=== PATIENT | female | born 1945 | race Caucasian/White ===

== ENCOUNTER 2016-09-24 19:33 | Inpatient (IN) | payer OTHER, MEDICARE ==
[~2016-09-24] VITALS: Ht 165.1 cm; Wt 52.6 kg
[~2016-09-24 19:33] MED LIST: ADVAIR 250-501 EACH INH; ALBUTEROL2.5 MG/3 M INH/SOL; ASPIRIN EC325 MG PO; ASPIRIN EC81 M1 PO; Avelox PO; BIAXIN FILMTAB250 MG PO; MULTIVITAMIN1 TA1 PO; PEPCID 20MG TAB20 MG PO; PREDNISONE 20MG20 MG PO; PREDNISONE10 MG PO; PRINIVIL20 M1 PO; SPIRIVA1 PUF INH; THEO-DUR200 MG PO; VENTOLIN HFA18 GM INH; VICODIN5-300 PO; VITAMIN D31000 UNI1 PO; ZANTAC 150MG150 MG PO
--- NOTE | 2016-09-24 19:45 | NUR ---
PT TO TRIAGE FOR MIDSTERNAL PAIN SINCE 1200 TODAY. PT STATES IT CAME ON QUICKLY AND HAS MADE HER SOB WORSE. PT RR 32 AND LABORED. PT WAMR TO THE TOUCH AND CURRENTLY 100.1. PT STATES PAIN IS 4/10. HX OF COPD
--- NOTE | 2016-09-24 19:57 | ED GENERAL ADULT ---
History of Present Illness General Chief Complaint: Dyspnea (COPD, CHF, Other) Stated Complaint: SOB AND CP Source: patient Exam Limitations: no limitations Vital Signs & Intake/Output Vital Signs & Intake/Output Vital Signs Date Time Temp Pulse Resp B/P Pulse O2 O2 Flow FiO2 Ox Delivery Rate 09/25 2151 97.3 96 18 124/59 98 Nasal 2.0L Cannula 09/24 2121 99 Nasal 3.0L Cannula 09/24 2026 95 Nasal 2.0L Cannula 09/24 1944 100.1 110 32 93 Room Air Room Air Allergies Coded Allergies: Penicillins (RASH, HIVES 09/24/16) Reconcile Medications Albuterol Sulfate (Ventolin Hfa) 90 MCG HFA.AER.AD 2 PUF INH PRN COPD ( Reported) Albuterol Sulfate 2.5 MG/3 ML (0.083 %) VIAL.NEB 1 Vial INH/TORI Q4P PRN COPD (Reported) Aspirin (Ecotrin*) 81 MG TABLET.DR 1 TAB PO DAILY HEART/BLOOD (Reported) Atorvastatin Calcium 20 MG TABLET 1 TAB PO DAILY CHOLESTEROL (Reported) Azithromycin 250 MG TABLET 1 TAB PO DAILY PROPHYLAXIS (Reported) 2 the first day followed by 1 for days 2-5 Cholecalciferol (Vitamin D3) (Vitamin D3) 1,000 UNIT CAPSULE 1 CAP PO DAILY SUPPLEMENT (Reported) Fluticasone/Salmeterol (Advair 250-50 Diskus) 250 MCG-50 MCG/DOSE BLST.W.DEV 1 PUF INH BID COPD (Reported) Hydrocodone/Acetaminophen (Vicodin 5-300 MG Tablet) 5 MG-300 MG TABLET 1 TAB PO Q4H PRN PAIN (Reported) Lisinopril (Prinivil) 20 MG TABLET 1 TAB PO DAILY BP (Reported) Prednisone 10 MG TABLET 1 TAB PO EOD PRN STEROID (Reported) Prednisone 10 MG TABLET 5 TAB PO DAILY COPD PLEASE TAKE 5 TABS ON 11/12/14 AND 11/13/14, TAKE 4 TABS ON 11/14/14 AND 11/15/14, TAKE 3 TABS ON 11/16/14 AND 11/17/14, TAKE 2 TABS 11/18/14 AND 11/19/14, TAKE 1 TAB ON 11/20/14 AND 11/21/14 AND THEN STOP Ranitidine (Zantac) 150 MG TABLET 1 TAB PO PRN GI (Reported) Ranitidine (Ranitidine HCl) 150 MG TABLET 1 TAB PO PRN GI (Reported) Tiotropium [employer] (Spiriva) 18 MCG CAP.W.DEV 1 PUF INH DAILY copd Ubidecarenone (Co Q-10) 200 MG CAPSULE 1 CAP PO DAILY SUPPLEMENT (Reported) Vit C/E/Zn/Coppr/Lutein/Zeaxan (Preservision Areds 2 Softgel) 250-200-40 CAPSULE 1 TAB PO DAILY SUPPLEMENT (Reported) Triage Note: PT TO TRIAGE FOR MIDSTERNAL PAIN SINCE 1200 TODAY. PT STATES IT CAME ON QUICKLY AND HAS MADE HER SOB WORSE. PT RR 32 AND LABORED. PT WAMR TO THE TOUCH AND CURRENTLY 100.1. PT STATES PAIN IS 4/10. HX OF COPD Triage Nurses Notes Reviewed? yes Onset: Abrupt Duration: constant Timing: single episode today Severity: moderate Severity Numbers: 6 HPI: Patient is a 70-year-old female with a past medical history of COPD not on home O2, mitral valve prolapse, and cervical spine pain with remote history of cervical fusion, who states that around noon today she woke up from a nap where she thought she slept wrong where she was developing substernal and anterior chest wall pain that was made worse with deep inhalation. Patient states that is difficult for her to catch her breath. Patient also has had chills all day. Patient took a Vicodin with no relief of symptoms prior to arrival. Patient denies any fevers headache arm pain and jaw pain back pain abdominal pain palpitations cough hemoptysis or leg swelling. Patient took 81 mg of aspirin today Patient's adjustment supervisor Dr. Hidalgo auto hiker Dr. Romero and primary care doctor is Dr. Shelton PATIENT DOES TAKE EVERY OTHER DAY PREDNISONE (GABI TORRES) Past History Medical History Any Pertinent Medical History? see below for history Neurological: NONE EENT: cataracts, macular degeneration Cardiovascular: HTN UNSURE OF CHF? Respiratory: emphysema Gastrointestinal: GERD Hepatic: NONE Renal: NONE Musculoskeletal: osteoporosis Psychiatric: NONE Blood Disorders: NONE Cancer(s): NONE ASSESSMENT CONSULTANT/Reproductive: NONE History of MRSA: No History of VRE: No History of CDIFF: No Pneumonia Vaccine: 04/01/15 Influenza Vaccine: 05/02/15 Surgical History Surgical History: non-contributory Psychosocial History Who do you live with Patient/Self Services at Home None What is your primary language Norwegian Family History Family History, If Any: No Known Family History. Hx Contributory? No (GABI TORRES) Review of Systems Review of Systems Constitutional: Reports: see HPI, chills. EENTM: Reports: no symptoms. Respiratory: Reports: see HPI, short of breath. Cardiovascular: Reports: see HPI, chest pain. GI: Reports: no symptoms. Genitourinary: Reports: no symptoms. Musculoskeletal: Reports: no symptoms. Skin: Reports: no symptoms. Neurological/Psychological: Reports: no symptoms. Hematologic/Endocrine: Reports: no symptoms. Immunologic/Allergic: Reports: no symptoms. All Other Systems: Reviewed and Negative (GABI TORRES) Physical Exam Physical Exam General Appearance: no apparent distress, alert Head: atraumatic Comments: Well-developed well-nourished person in no acute distress HEENT: Normal EENT exam, Neck: Supple, no lymphadenopathy, normal range of motion without pain or tenderness Back: Nontender, no CVA tenderness. Cardiovascular: Tachycardia, no murmurs rubs or gallops, normal JVP Respiratory: Chest nontender. No respiratory distress.breath sounds clear to auscultation bilaterally Abdomen: Soft, nontender nondistended, no appreciable organomegaly. Normal bowel sounds. No ascites Extremity: No edema, no calf tenderness to palpation, normal and equal pulses. Neuro: Alert oriented x3, motor sensory normal, Skin: No appreciable rash on exposed skin, skin is warm and dry. Psych: Mood and affect is normal, memory and judgment is normal. Core Measures ACS in differential dx? Yes CVA/TIA Diagnosis: No Severe Sepsis Present: No Septic Shock Present: No (GABI TORRES) Progress Differential Diagnoses I considered the following diagnoses in my evaluation of the patient: [Pulmonary embolism, COPD exacerbation, myocardial infarction, electrolyte abnormality, pneumonia, sepsis, pneumothorax, hemothorax, AAA, aortic dissection,] Plan of Care: Orders Procedure Date/time Status LACTIC ACID 09/24 2256 Complete Admit to inpatient 09/24 2212 Active CTA CHEST-PULMONARY EMBOLISM 09/24 2212 Active Telemetry/Lamps Tester And Inspector 09/24 1956 Active RAPID VIRAL INFLUENZA A 09/24 1956 Complete LOWER RESPIRATORY CULTURE 09/24 1956 Active BLOOD CULTURE 09/24 1956 Active TROPONIN LEVEL 09/24 1956 Complete MAGNESIUM 09/24 1956 Complete LACTIC ACID 09/24 1956 Complete D-DIMER 09/24 1956 Complete COMPREHENSIVE METABOLIC PANEL 09/24 1956 Complete CBC WITHOUT DIFFERENTIAL 09/24 1956 Complete EKG 09/24 1934 Active Current Medications Sig/Keith Start time Last Medication Dose Stop Time Status Admin Sodium Chloride 1,000 ML BOLUS ONE 09/24 2100 CAN (Normal Saline 0.9%) 09/24 5256 Laboratory Tests 09/24/162004: Anion Gap 10, Estimated GFR > 60, BUN/Creatinine Ratio 18.8, Glucose 101 H, Lactic Acid 1.1, Calcium 9.6, Magnesium 1.6, Total Bilirubin 0.8, AST 18, ALT 34 , Alkaline Phosphatase 64, Troponin I < 0.01, Total Protein 6.8, Albumin 4.2, Globulin 2.6, Albumin/Globulin Ratio 1.6, D-Dimer 317 H, CBC w Diff MAN DIFF ORDERED, RBC 4.20, MCV 91.8, MCH 30.0, RDW 13.0, MPV 8.1, Gran % 85.0 H, Lymphocytes % 7.4 L, Monocytes % 5.8, Eosinophils % 1.6, Basophils % 0.2, Absolute Granulocytes 13.8 H, Segmented Neutrophils 86 H, Band Neutrophils 1, Absolute Lymphocytes 1.2, Lymphocytes 5 L, Monocytes 7, Absolute Monocytes 0.9 H, Eosinophils 1, Absolute Eosinophils 0.3, Absolute Basophils 0, Platelet Estimate VERIFIED BY SMEAR, Normocytic RBCs VERIFIED, Normochromic RBCs VERIFIED , PUBS MCHC 32.6 L, Fld Total RBCs Counted 100 09/24/16 1000: Lactic Acid 1.1 Microbiology 09/24 2021 BLOOD: Blood Culture - RECD 09/24 2018 BLOOD: Blood Culture - RECD 09/24 2012 NASOPHARYN: Influenza Virus A & B Rapid Smear - COMP 09/24 1956 LOWER RESP: Respiratory Culture - ORD 09/24 1956 LOWER RESP: Gram Stain - ORD Patient had a 317 result from her d-dimer and due to age adjustment essentially is ruling out pulmonary embolism Patient was administered sublingual nitroglycerin for chest pressure however she had no change in symptoms. It was also noted the patient was wheeled to the bathroom patient stood up and noted to have oxygen saturation 84% room air. Patient was initially ordered IV fluids for noted elevated temperature and white blood cell count however nurses state that patient was 98 Fahrenheit temperature and patient does take chronic prednisone. Discussed hand off with Dr. Romo (GABI TORRES) Diagnostic Imaging: Viewed by Me: Radiology Read. Radiology Impression: no acute abnormality Initial ED EK BPM SINUS TACHYCARDIA Hand-Off Endorsed To: MAKENZIE ROMO MD. Endorsed Time: 2120 Pending: consult, other (MEDICATION) Comments: PATIENT: DEEPALI GUIDO PRESENT AGE: 70 PATIENT ACCOUNT NO: [id number] : 43 LOCATION: [facility] [place] ORDERING PHYSICIAN: GABI BURLESON SERVICE DATE: 09/24/16 EXAM TYPE: RAD - XRY-CHEST XRAY, PA AND LATERAL EXAMINATION: CHEST 2 VIEWS CLINICAL INFORMATION: Chest pain. COMPARISON: Oct, 2014. TECHNIQUE: PA and lateral views of the chest were obtained. FINDINGS: The cardiac silhouette is not enlarged. The mediastinal and hilar contours are unremarkable. There are neither pleural effusions nor pneumothoraces. There are no consolidations. The lungs are hyperinflated. There is evidence of prior vertebroplasty. There is thoracic kyphosis. The osseous structures are stable. IMPRESSION: No evidence for acute disease. Lung hyperinflation. DICTATED BY: HUNTER GONZALEZ MD DATE/TIME DICTATED:09/24/162055 BIT GRINDER:DERECK DATE/TIME TRANSCRIBED:09/24/162055 (GABI TORRES) Departure Departure Disposition: STILL A PATIENT Condition: Stable Clinical Impression Primary Impression: Dyspnea Secondary Impressions: Chest pain, COPD (chronic obstructive pulmonary disease) Referrals: HUY SHELTON MD (PCP/Family) Departure Forms: Customer Survey General Discharge Information (GABI TORRES) Admission Note Spoke With: HUY SHELTON MD Documentation of Exam: Documentation of any treatments & extenuating circumstances including Concerns Regarding Discharge (functional status, medication knowledge or non-compliance, living conditions, etc.) that warrant an admission rather than observation: [ Admit to telemetry for chest pain and exacerbation of COPD. Patient and with appropriate O2 sat dropped to 86% on room air. Follow-up the CT angiogram to rule out PE. Nebulizers, IV steroids, IV antibiotics] PA/HOME HEALTH TRAVEL PT Co-Sign Statement Statement: ED Attending supervision documentation- [X] I saw and evaluated the patient. I have also reviewed all the pertinent lab results and diagnostic results. I agree with the findings and the plan of care as documented in the PA's/HOME HEALTH TRAVEL PT's documentation. [X] I have reviewed the ED Record and agree with the PA's/HOME HEALTH TRAVEL PT's documentation. [] Additions or exceptions (if any) to the PAs/HOME HEALTH TRAVEL PT's note and plan are summarized below: [] (DEMETRIUS TROTTER,MAKENZIE Thompson) Critical Care Note Critical Care Note Critical Care Time: non-applicable (GABI TORRES)
--- NOTE | 2016-09-24 20:05 | NUR ---
IV EST #20 LAC
[2016-09-24] MEDS ORDERED: VICODIN 5-3001 EACH PO (20:08)
[2016-09-24] MEDS ORDERED: RANITIDINE HCL150 MG PO (20:09)
[2016-09-24] MEDS ORDERED: PREDNISONE10 M2 PO (20:09)
--- NOTE | 2016-09-24 20:09 | NUR ---
PT CHANGED INTO GOWN AND PLACED ON MONITOR PT O2 AT ROOM AIR 94% AND PER PT SHE IS ALWAYS AT 97% PT RR IS INCREASED AT 24/MIN AND PT STATES SHE IS SHORT OF BREATH. PT PLACED ON 02 NC 2L
[2016-09-24] MEDS ORDERED: ATORVASTATIN CA20 M1 PO (20:10)
[2016-09-24] MEDS ORDERED: AZITHROMYCIN250 M1 PO (20:10)
--- NOTE | 2016-09-24 20:10 | NUR ---
LABS DRAWN AND SENT TO THE LAB SST [facility]
[2016-09-24] MEDS ORDERED: PRESERVISION A1 EAC1 PO (20:11)
[2016-09-24] MEDS ORDERED: CO Q-10200 MG PO (20:12)
--- NOTE | 2016-09-24 20:19 | NUR ---
IST SET BLOOD CULT SENT TO THE LAB AND DRAWN BY [place]
[2016-09-24 20:20] LABS: ABSOLUTE BASOPHIL COUNT 0 /CUMM (0.0-0.2); ABSOLUTE EOSINOPHIL COUNT 0.3 /CUMM (0.0-0.7); ABSOLUTE GRANULOCYTE CT 13.8 /CUMM (1.4-6.5); ABSOLUTE LYMPH COUNT 1.2 /CUMM (1.2-3.4); ABSOLUTE MONOCYTE COUNT 0.9 /CUMM (0.10-0.60); BASOPHIL % 0.2 % (0.0-2.0); EOSINOPHIL % 1.6 % (0-5); HEMATOCRIT 38.5 % (37-47); MEAN CORPUSCULAR HGB CONC 32.6 G/DL (33.0-37.0); MEAN CORPUSCULAR VOLUME 91.8 FL (81.0-99.0); MEAN PLATELET VOLUME 8.1 FL (7.4-10.4); PLATELET COUNT 258 /CUMM (130-400); WHITE BLOOD CELL COUNT 16.2 /CUMM (4.8-10.8)
--- NOTE | 2016-09-24 20:22 | NUR ---
2ND SET BLOOD CULT SENT TO THE LAB AND DRAWN BY THIS RN
--- NOTE | 2016-09-24 20:24 | NUR ---
BENJY Finley AT BEDSIDE FOR EVALUATION
--- NOTE | 2016-09-24 21:03 | RADIOLOGY REPORT ---
EXAMINATION: CHEST 2 VIEWS CLINICAL INFORMATION: Chest pain. COMPARISON: Oct, 2014. TECHNIQUE: PA and lateral views of the chest were obtained. FINDINGS: The cardiac silhouette is not enlarged. The mediastinal and hilar contours are unremarkable. There are neither pleural effusions nor pneumothoraces. There are no consolidations. The lungs are hyperinflated. There is evidence of prior vertebroplasty. There is thoracic kyphosis. The osseous structures are stable. IMPRESSION: No evidence for acute disease. Lung hyperinflation.
--- NOTE | 2016-09-24 22:43 | NUR ---
PT GOING TO ROOM 185-2
--- NOTE | 2016-09-24 23:01 | NUR ---
PT MEDICATED PER EMAR
--- NOTE | 2016-09-24 23:03 | NUR ---
CALLED TO GIVEN REPORT RN IS NOT AVAILABLE
--- NOTE | 2016-09-24 23:04 | CT SCAN REPORT ---
EXAMINATION: CT ANGIOGRAM OF THE CHEST WITH AND WITHOUT CONTRAST (CT PULMONARY ANGIOGRAM FOR PE) CLINICAL INFORMATION: 70-year-old female patient with shortness of breath and chest pain. History of pulmonary nodules. COMPARISON: CT of the chest on March 2015, September 2015, January 2016, and May 2016. CTA of the chest on 11/05/2014. (No embolism). CT the chest done January 2014, and May 2013. TECHNIQUE: Prior to contrast administration, noncontrast localization images were obtained. Subsequently, multidetector volumetric imaging was performed from the thoracic inlet to below the diaphragms following the administration of 95 mL Optiray 350 intravenous contrast. No contrast reaction reported. Sagittal, coronal, and MIP oblique sagittal reformatted images were obtained on the CT workstation, uploaded to PACS, and reviewed. Total exam dose-length product 222 mGy-cm. FINDINGS: Receiving Checker view again reveals severe emphysema and multiple vertebral plasties the upper thoracic spine. QUALITY OF STUDY/CONTRAST BOLUS: Excellent. PULMONARY ARTERIES: No central or segmental pulmonary emboli. An unusual linear tract is seen paralleling the main pulmonary artery. This is felt to be calcification in the wall of the main pulmonary artery of unknown significance. It was seen on a prior CTA of the chest in 2013. Series 203, image 25. THORACIC AORTA: No aneurysm or dissection. There is severe calcific arteriosclerosis of the thoracic aorta and upper abdominal aorta. LUNG: Again there is severe emphysema involving both lungs predominantly in the upper lobes. No airspace disease is seen. Giant bulla are present. A 4 mm nodule right middle lobe is stable. Series 4, image 294. A punctate calcified nodule seen in the right upper lobe. Series 4, image 235. PLEURA: Calcified pleural plaque is seen in the right apex. Fibrocystic changes and pleural thickening are noted in the left apex. MEDIASTINUM: Normal heart size. No pericardial effusion. No hilar or mediastinal lymphadenopathy. No evidence of septal bowing or right heart strain. There is a small hiatal hernia. CHEST WALL/AXILLA: No axillary or internal mammary lymphadenopathy. OSSEOUS STRUCTURES: Vertebral plasties are noted at T5, T6, T7. There is severe osteoporosis with wedge deformities involving the vertebral bodies at T4 T8 and T9. Severe kyphosis is present. UPPER ABDOMEN: Unremarkable. No reflux of contrast into the hepatic veins to suggest elevated right heart pressures. IMPRESSION: 1. No evidence of pulmonary embolism. 2. Severe extreme bullous emphysema. 3. Partial calcification of the wall of the main pulmonary artery, chronic. VTE: Negative.
--- NOTE | 2016-09-24 23:18 | History & Physical ---
DAVID CASTRO MD 09/24/16 0538: General Information and HPI MD Statement: I have seen and personally examined DEEPALI GUIDO and documented this H&P. The patient is a 70 year old F who presented with a patient stated chief complaint of shortness of breath and chest discomfort. Source of Information: patient, family, old records Exam Limitations: no limitations History of Present Illness: Ms. Guido is a pleasant 70 year old female with PMH emphysema not on home oxygen, HTN, mitral valve prolapse, takotsubo cardiomyopathy, reflux, cataracts, macular degeneration, osteoporosis and cervical spine pain s/p fusion who presents with chief complaint of chest discomfort. As per patient, around 12 PM today she noted the sudden onset of substernal chest discomfort. This worsened gradually throughout the day, was not related to exertion, was not relieved with vicodin and was described as a "hand squeezing my esophagus". She reports this is similar in nature to the muscular cramping she gets when her neck pain is severe. The chest pain radiates occasionally to her back and down her left arm, as if she slept on her left arm for a long period of time. It was not relieved with her vicodin she takes for her neck pain. Associated symptoms include chills and dyspnea that has been present since the onset of her chest discomfort. Patient denies fever, confusion, neurological deficits, palpitations , recentl travel, nausea, vomiting, dysuria or urinary discomfort. Of note, patient reports she has a clot under her appendix when she was 18 and she was placed on coumadin for 1 month subsequently. She has never had further episodes of clotting. Family history is significant for several strokes in both of her maternal and paternal grandmothers. Her father with Parkinson's disease and her mother of liver and brain cancer. Social history is significant for prior tobacco use of close to 60 years; she quit [address] Shelton is her PCP. 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 Hidalgo and her Slots Manager is Dr. Romero. Allergies/Medications Allergies: Coded Allergies: Penicillins (RASH, HIVES 09/24/16) Home Med list Albuterol Sulfate (Ventolin Hfa) 90 MCG HFA.AER.AD 2 PUF INH PRN COPD ( Reported) Albuterol Sulfate 2.5 MG/3 ML (0.083 %) VIAL.NEB 1 Vial INH/TORI Q4P PRN COPD (Reported) Aspirin (Ecotrin*) 81 MG TABLET.DR 1 TAB PO DAILY HEART/BLOOD (Reported) Atorvastatin Calcium 20 MG TABLET 1 TAB PO DAILY CHOLESTEROL (Reported) Azithromycin 250 MG TABLET 1 TAB PO DAILY PROPHYLAXIS (Reported) 2 the first day followed by 1 for days 2-5 Cholecalciferol (Vitamin D3) (Vitamin D3) 1,000 UNIT CAPSULE 1 CAP PO DAILY SUPPLEMENT (Reported) Fluticasone/Salmeterol (Advair 250-50 Diskus) 250 MCG-50 MCG/DOSE BLST.W.DEV 1 PUF INH BID COPD (Reported) Hydrocodone/Acetaminophen (Vicodin 5-300 MG Tablet) 5 MG-300 MG TABLET 1 TAB PO Q4H PRN PAIN (Reported) Lisinopril (Prinivil) 20 MG TABLET 1 TAB PO DAILY BP (Reported) Prednisone 10 MG TABLET 1 TAB PO EOD PRN STEROID (Reported) Prednisone 10 MG TABLET 5 TAB PO DAILY COPD PLEASE TAKE 5 TABS ON 11/12/14 AND 11/13/14, TAKE 4 TABS ON 11/14/14 AND 11/15/14, TAKE 3 TABS ON 11/16/14 AND 11/17/14, TAKE 2 TABS 11/18/14 AND 11/19/14, TAKE 1 TAB ON 11/20/14 AND 11/21/14 AND THEN STOP Ranitidine (Zantac) 150 MG TABLET 1 TAB PO PRN GI (Reported) Ranitidine (Ranitidine HCl) 150 MG TABLET 1 TAB PO PRN GI (Reported) Tiotropium [place] (Spiriva) 18 MCG CAP.W.DEV 1 PUF INH DAILY copd Ubidecarenone (Co Q-10) 200 MG CAPSULE 1 CAP PO DAILY SUPPLEMENT (Reported) Vit C/E/Zn/Coppr/Lutein/Zeaxan (Preservision Areds 2 Softgel) 250-200-40 CAPSULE 1 TAB PO DAILY SUPPLEMENT (Reported) Compliance With Home Meds: GOOD Past History Travel History Traveled to [place] past 21 day No Medical History Neurological: NONE EENT: cataracts, macular degeneration Cardiovascular: HTN UNSURE OF CHF? 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 Psychosocial History Where do you live? Home Who Do You Live With? self Services at Home: None Primary Language: Japanese Smoking Status: Never Smoked ETOH Use: denies use Illicit Drug Use: denies illicit drug use Living Will? no Functional Ability ADLs Independent: dressing, eating, toileting, bathing. Ambulation: independent IADLs Independent: shopping, housework, finances, food prep, telephone, transportation , medication admin. 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 Denies: diaphoresis, fever, malaise, weakness. EENTM: Denies: blurred vision, visual changes, hearing changes, nasal congestion. Cardiovascular: Reports: chest pain. Denies: edema, orthopena, palpitations, syncope. Respiratory: Reports: short of breath. Denies: cough, sputum production, wheezing. GI: Denies: abdominal pain, nausea, vomiting. Genitourinary: Denies: dysuria, frequency, hematuria, pain. Musculoskeletal: Reports: neck pain (Chronic). Skin: Denies: change in skin color, change in hair/nails, rash. Neurological/Psychological: Denies: confusion, headache, tingling. Hematologic/Endocrine: Denies: bruising, bleeding. Immunologic/Allergic: Denies: splenectomy. All Other Systems: Reviewed and Negative Exam & Diagnostic Data Last 24 Hrs of Vital Signs/I&O Vital Signs Date Time Temp Pulse Resp B/P Pulse O2 O2 Flow FiO2 Ox Delivery Rate 09/25 2151 97.3 96 18 124/59 98 Nasal 2.0L Cannula 09/24 2121 99 Nasal 3.0L Cannula 09/24 2026 95 Nasal 2.0L Cannula 09/24 1944 100.1 110 32 93 Room Air Room Air Physical Exam General Appearance Alert, Oriented X3, Cooperative, No Acute Distress Skin No Rashes, No Significant Lesion, Scattered purpura from aspirin use HEENT Atraumatic, PERRLA, EOMI, Mucous Membr. moist/pink Neck Supple, No JVD Lymphatic Cervical nl Cardiovascular Regular Rate, Normal S1, Normal S2, No Murmurs Lungs Decreased air movement bilaterally, occasional wheeze, Thoracic kyphosis Abdomen Normal Bowel Sounds, Soft, No Tenderness Neurological Normal Speech, Strength at 5/5 X4 Ext, Normal Tone Extremities No Clubbing, No Cyanosis, No Edema, Normal Pulses, No Tenderness/ Swelling Vascular Pulses Symmetrical Last 24 Hrs of Labs/Morgan: Laboratory Tests 09/24/162004: Anion Gap 10, Estimated GFR > 60, BUN/Creatinine Ratio 18.8, Glucose 101 H, Lactic Acid 1.1, Calcium 9.6, Magnesium 1.6, Total Bilirubin 0.8, AST 18, ALT 34 , Alkaline Phosphatase 64, Troponin I < 0.01, Total Protein 6.8, Albumin 4.2, Globulin 2.6, Albumin/Globulin Ratio 1.6, D-Dimer 317 H, CBC w Diff MAN DIFF ORDERED, RBC 4.20, MCV 91.8, MCH 30.0, RDW 13.0, MPV 8.1, Gran % 85.0 H, Lymphocytes % 7.4 L, Monocytes % 5.8, Eosinophils % 1.6, Basophils % 0.2, Absolute Granulocytes 13.8 H, Segmented Neutrophils 86 H, Band Neutrophils 1, Absolute Lymphocytes 1.2, Lymphocytes 5 L, Monocytes 7, Absolute Monocytes 0.9 H, Eosinophils 1, Absolute Eosinophils 0.3, Absolute Basophils 0, Platelet Estimate VERIFIED BY SMEAR, Normocytic RBCs VERIFIED, Normochromic RBCs VERIFIED , PUBS MCHC 32.6 L, Fld Total RBCs Counted 100 09/24/16 1000: Lactic Acid 1.1 Microbiology 09/24 2021 BLOOD: Blood Culture - RECD 09/24 2018 BLOOD: Blood Culture - RECD 09/24 2012 NASOPHARYN: Influenza Virus A & B Rapid Smear - COMP 09/24 1956 LOWER RESP: Respiratory Culture - ORD 09/24 1956 LOWER RESP: Gram Stain - ORD Diagnostic Data EKG Results Sinus tachycardia, HR 110. CXR Results No evidence for acute disease. Lung hyperinflation. Other Results Chest CTA: IMPRESSION: 1. No evidence of pulmonary embolism. 2. Severe extreme bullous emphysema. 3. Partial calcification of the wall of the main pulmonary artery, chronic. VTE: Negative. Assessment/Plan Assessment: Ms. Guido is a pleasant 70 year old female with PMH emphysema not on home oxygen, HTN, mitral valve prolapse, takotsubo cardiomyopathy, reflux, cataracts, macular degeneration, osteoporosis and cervical spine pain s/p fusion who presents with chief complaint of chest discomfort. This chest discomfort is substernal, occasionally radiates to the back and left arm, is not worsened by exertion and associated with chills and dyspnea. In the ED: Vital signs showed T 100.1, HR 110, RR 32, BP 124/59 and O2 saturation of 93% on room air. Labs were significant for WBC 16.2, 85% granulocytes, 1 band, Glu 101, Lactic acid 1.1, troponin <0.01 and DDimer 317. CXR showed no acute disease, lung hyperinflation. Chest CTA showed no PE, severe extreme bullous emphysema, partial calcification of the wall of the main pulmonary artery (chronic) and no VTE. Patient is admitted to the telemetry floor and the following is the management: 1. Chest pain * Rule out ACS vs pleuritic chest pain * Continuous telemetry monitoring * Cardio consult with Dr. Hidalgo in Am * Trend troponins/EKG at 2 AM and 8 AM * Discuss with cardiology need for echo if there is no recent echocardiogram done as an outpatient * Continue ASA 81 mg PO daily 2. Leukocytosis * Secondary to chronic prednisone use vs. infectious etiology vs. reactive * Patient given ceftriaxone and azithromycin in the ED * Follow up blood, urine and lower respiratory cultures * CXR and Chest CTA negative for pneumonia/developing pneumonia * Rapid flu negative * Hold antibiotics for now * Monitor CBC and if patient becomes febrile, start antibiotics * Follow up UA to continue infectious workup 3. Acute on chronic hypoxic respiratory failure * Patient noted to drop her O2 saturations to 82% on ambulation to the bathroom while in the ED * ?COPD exacerbation vs cardiac pathology * PE ruled out with negative CTA * Continuous O2 via nasal cannula with goal O2 >90% * Patient received albuterol, atrovent and 125 mg IV solumedrol in the ED * Continue IV methylprednisolone 40 mg Q12 for now * TR nebs 4. HTN, HLD * Vital signs Q shift * Continue lisinopril 20 mg PO daily * Continue lipitor 20 mg PO daily FULL CODE DVTP: SC lovenox Heart Healthy Diet Mild pain pathway As Ranked By This Provider Problem List: 1. Chest pain 2. Dyspnea 3. Hypoxia 4. Leukocytosis 5. Hypertension Core Measures/Miscellaneous Acute Coronary Syndrome ACS Diagnosis: No Cerebrovascular Accident CVA/TIA Diagnosis: No Congestive Heart Failure CHF Diagnosis: No Venous Thromboembolism VTE Risk Factors: Acute medical illness, Age > 40 No Mech VTE prophylaxis d/t: No contraindications No VTE Pharm Prophylaxis d/t: No contraindications VTE Diagnosis: No VTE Type: NONE VTE Confirmed by (Test): NONE Severe Sepsis Severe Sepsis Present: No Septic Shock Septic Shock Present: No Miscellaneous Documentation Attending Case Discussed With: HUY SHELTON MD Primary Care Physician: HUY SHELTON MD Patient sees these Specialists Dr. Hidalgo, cardiology Dr. Romero, pulmonology Level of Patient Care: Telemetry LAUREN TROTTER,[facility] 09/25/16 0027: Resident Review Statement Resident Statement: examined this patient, discussed with market research intern, agreed with market research intern Other Findings: 70 y/o M with PMH of COPD not on oxygen, MVP, cervical stenosis s/p fusion, HTN, Osteoporosis, Takatsubo's cardiomyopathy, Osteoporosis who presents to the ED with complaints of sudden onset midsternal chest pressure and shortness of breath this afternoon. According to the patient, she woke up from her afternoon nap, and started to have chest pressure radiating to the left side of the back, associated with shortness of breath. She does not endorse any increase in chest pressure with exertion etc. At the time of arrival in the ED, it was 4/10 and has now disappeared. She also reports having a 'clot' under he appendix, when she was 18 and she was put on Coumadin for a month afterward. She does not report recent decreased in activity, URI, sick contacts, COPD exacerbation, urinary or bowel complaints. Problem List: 1) Chest pain with SOB 2/2 possible ACS vs pleuritic chest pain 2) Leukocytosis 2/2 PNA vs COPD exacerbation vs chronic Prednisone use 3) Severe Emphysema on prophylactic Azithromycin and Prednisone EOD 4) Hypertension 5) Hyperlipidemia 6) H/O MVP Plan: * Admit to telemetry * Patient has already received Solumedrol, Ceftriaxone and Azithromycin in the ED. CTA was negative for PE, CXR was negative for any acute pathology. * Trend trops and EKG * Check U/A * Continue Solumedrol 40 mg Q12 for now and reasses in AM. * Hold Antibiotics for now was the patient does not have any other signs of infection. * Hold home Azithromycin and Prednisone. * TRC/Nebs * Continue other home medications. * Pulm consult in AM * Cardio consult in AM * DVT PPx: SubQ Lovenox * Pain Pathway: Tylenol PRN * Code Status: Full Code. She was previously DNI. She has been told that DNR and DNI go hand in hand. She chooses to be FC for now, and discuss it with Dr. Romero in the AM HUY SHELTON MD 09/25/16 1411: Attending MD Review Statement Attending Statement Attending MD Statement: examined this patient, agreed w/resident/PA/[facility], discussed with family, reviewed EMR data (avail), discussed with case mgmt, reviewed images, amended to note Attending Assessment/Plan: Problems: -Substernal chest pain -History of esophageal dysmotility -History of mild myocardial ischemia -History of Takotsubo cardiomyopathy -Steroid-dependent COPD -Osteoporosis -History of thoracic compression fractures Plan: -Admit telemetry -Serial troponin and EKG -Supplemental oxygen -Parenteral steroids -TRC and nebs -Blood and sputum cultures -Initial antibiotics for community-acquired pneumonia -Continue maintenance medications -Pulmonary consultation - Jayy Romero MD -Cardiology consultation - Monroe Hidalgo MD
--- NOTE | 2016-09-24 23:34 | NUR ---
ATTEMPTED TO CALL REPORT. RN TO CALL BACK
--- NOTE | 2016-09-25 00:11 | NUR ---
REPORT GIVEN TO ADRIANNA WATERS.
[2016-09-25 00:49] VITALS: BP 142/74
--- NOTE | 2016-09-25 04:32 | NUR ---
PT ADMITED FROM ER VIA STRETCHER. A/O X 3. INDPENDENT AMBULATION WITH STEADY GAIT. NSR ON MONITOR. 2 L OXYGEN. SKIN CDI. DENIES ANY PAIN OR CARDIAC DISTRESS. WILL CONTINUE TO MONITOR.
--- NOTE | 2016-09-25 08:54 | Cons- Pulmonary ---
General Information and HPI Consulting Request Date of Consult: 09/25/16 Requested By: med team History of Present Illness: Ms. Kelley is a pleasant 70 year old female with PMH emphysema not on home oxygen, previous pna, HTN, mitral valve prolapse, takotsubo cardiomyopathy, reflux, cataracts, macular degeneration, osteoporosis and cervical spine pain s/ p fusion who presents with chief complaint of chest discomfort. As per patient, around 12 PM yesterday she noted the sudden onset of substernal chest discomfort. This worsened gradually throughout the day, was not related to exertion, was not relieved with vicodin and was described as a "hand squeezing my esophagus". She reports this is similar in nature to the muscular cramping she gets when her neck pain is severe. The chest pain radiates occasionally to her back and down her left arm, as if she slept on her left arm for a long period of time. It was not relieved with her vicodin she takes for her neck pain. Associated symptoms include chills and dyspnea that has been present since the onset of her chest discomfort. Patient denies fever, confusion, neurological deficits, palpitations , recentl travel, nausea, vomiting, dysuria or urinary discomfort. She has never had further episodes of clotting. Family history is significant for several strokes in both of her maternal and paternal grandmothers. Her father with Parkinson's disease and her mother of liver and brain cancer. Social history is significant for prior tobacco use of close to 60 years ; she quit [address] Winter is her PCP Allergies/Medications Allergies: Coded Allergies: Penicillins (RASH, HIVES 09/24/16) Home Med List: Albuterol Sulfate (Ventolin Hfa) 90 MCG HFA.AER.AD 2 PUF INH PRN COPD ( Reported) Albuterol Sulfate 2.5 MG/3 ML (0.083 %) VIAL.NEB 1 Vial INH/TORI Q4P PRN COPD (Reported) Aspirin (Ecotrin*) 81 MG TABLET.DR 1 TAB PO DAILY HEART/BLOOD (Reported) Atorvastatin Calcium 20 MG TABLET 1 TAB PO DAILY CHOLESTEROL (Reported) Azithromycin 250 MG TABLET 1 TAB PO DAILY PROPHYLAXIS (Reported) 2 the first day followed by 1 for days 2-5 Cholecalciferol (Vitamin D3) (Vitamin D3) 1,000 UNIT CAPSULE 1 CAP PO DAILY SUPPLEMENT (Reported) Fluticasone/Salmeterol (Advair 250-50 Diskus) 250 MCG-50 MCG/DOSE BLST.W.DEV 1 PUF INH BID COPD (Reported) Hydrocodone/Acetaminophen (Vicodin 5-300 MG Tablet) 5 MG-300 MG TABLET 1 TAB PO Q4H PRN PAIN (Reported) Lisinopril (Prinivil) 20 MG TABLET 1 TAB PO DAILY BP (Reported) Prednisone 10 MG TABLET 1 TAB PO EOD PRN STEROID (Reported) Prednisone 10 MG TABLET 5 TAB PO DAILY COPD PLEASE TAKE 5 TABS ON 11/12/14 AND 11/13/14, TAKE 4 TABS ON 11/14/14 AND 11/15/14, TAKE 3 TABS ON 11/16/14 AND 11/17/14, TAKE 2 TABS 11/18/14 AND 11/19/14, TAKE 1 TAB ON 11/20/14 AND 11/21/14 AND THEN STOP Ranitidine (Zantac) 150 MG TABLET 1 TAB PO PRN GI (Reported) Ranitidine (Ranitidine HCl) 150 MG TABLET 1 TAB PO PRN GI (Reported) Tiotropium [place] (Spiriva) 18 MCG CAP.W.DEV 1 PUF INH DAILY copd Ubidecarenone (Co Q-10) 200 MG CAPSULE 1 CAP PO DAILY SUPPLEMENT (Reported) Vit C/E/Zn/Coppr/Lutein/Zeaxan (Preservision Areds 2 Softgel) 250-200-40 CAPSULE 1 TAB PO DAILY SUPPLEMENT (Reported) Review of Systems Comments Review of Systems Constitutional: Reports: chills. Denies: diaphoresis, fever, malaise, weakness. EENTM: Denies: blurred vision, visual changes, hearing changes, nasal congestion. Cardiovascular: Reports: chest pain. Denies: edema, orthopena, palpitations, syncope. Respiratory: Reports: short of breath. Denies: cough, sputum production, wheezing. GI: Denies: abdominal pain, nausea, vomiting. Genitourinary: Denies: dysuria, frequency, hematuria, pain. Musculoskeletal: Reports: neck pain (Chronic). Skin: Denies: change in skin color, change in hair/nails, rash. Neurological/Psychological: Denies: confusion, headache, tingling. Hematologic/Endocrine: Denies: bruising, bleeding. Immunologic/Allergic: Denies: splenectomy. All Other Systems: Reviewed and Negative Past History Travel History Traveled to [place] past 21 day No Medical History Neurological: NONE EENT: cataracts, macular degeneration Cardiovascular: myocardial infarction, UNSURE OF CHF? 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 Psychosocial History Where Do You Live? Home Who Do You Live With? self Services at Home: None Primary Language: Kyrgyz Smoking Status: Former Smoker ETOH Use: denies use Illicit Drug Use: denies illicit drug use Living Will? no Functional Ability ADLs Independent: dressing, eating, toileting, bathing. Ambulation: independent IADLs Independent: shopping, housework, finances, food prep, telephone, transportation , medication admin. 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 Exam & Diagnostic Data Last 24 Hrs of Vital Signs/I&O Vital Signs Date Time Temp Pulse Resp B/P Pulse O2 O2 Flow FiO2 Ox Delivery Rate 09/25 0106 Nasal 2.0L Cannula 09/25 0049 98.8 85 22 142/74 95 Nasal Cannula 09/24 2351 98.0 89 18 130/61 97 Nasal 2.0L Cannula 09/242 97.3 96 18 124/59 98 Nasal 2.0L Cannula 09/242 99 Nasal 3.0L Cannula 09/24 2026 95 Nasal 2.0L Cannula 09/24 1945 100.1 110 32 93 Room Air Room Air Intake & Output 09/25 1600 09/25 0800 09/25 0000 Intake Total 120 Output Total 300 Balance -180 Intake, Oral 120 Output, Urine 300 Patient 116 lb Weight Last 48 Hrs of Labs/Morgan: Laboratory Tests 09/25/16 0835: Troponin I Pending 09/25/16 0835: Sodium Pending, Potassium Pending, Chloride Pending, Carbon Dioxide Pending, Anion Gap Pending, BUN Pending, Creatinine Pending, BUN/Creatinine Ratio Pending , CBC w Diff Pending, WBC Pending, RBC Pending, Hgb Pending, Hct Pending, MCV Pending, MCH Pending, RDW Pending, Plt Count Pending, MPV Pending, PUBS MCHC Pending 09/25/16 0200: Troponin I < 0.01 09/24/162004: Anion Gap 10, Estimated GFR > 60, BUN/Creatinine Ratio 18.8, Glucose 101 H, Lactic Acid 1.1, Calcium 9.6, Magnesium 1.6, Total Bilirubin 0.8, AST 18, ALT 34 , Alkaline Phosphatase 64, Troponin I < 0.01, Total Protein 6.8, Albumin 4.2, Globulin 2.6, Albumin/Globulin Ratio 1.6, D-Dimer 317 H, CBC w Diff MAN DIFF ORDERED, RBC 4.20, MCV 91.8, MCH 30.0, RDW 13.0, MPV 8.1, Gran % 85.0 H, Lymphocytes % 7.4 L, Monocytes % 5.8, Eosinophils % 1.6, Basophils % 0.2, Absolute Granulocytes 13.8 H, Segmented Neutrophils 86 H, Band Neutrophils 1, Absolute Lymphocytes 1.2, Lymphocytes 5 L, Monocytes 7, Absolute Monocytes 0.9 H, Eosinophils 1, Absolute Eosinophils 0.3, Absolute Basophils 0, Platelet Estimate VERIFIED BY SMEAR, Normocytic RBCs VERIFIED, Normochromic RBCs VERIFIED , PUBS MCHC 32.6 L, Fld Total RBCs Counted 100 09/24/16 1000: Lactic Acid 1.1 Microbiology 09/24 2012 NASOPHARYN: Influenza Virus A & B Rapid Smear - COMP Assessment/Plan Impression/Plan: Physical Exam General Appearance Alert, Oriented X3, Cooperative, No Acute Distress Skin No Rashes, No Significant Lesion, Scattered purpura from aspirin use HEENT Atraumatic, PERRLA, EOMI, Mucous Membr. moist/pink Neck Supple, No JVD Lymphatic Cervical nl Cardiovascular Regular Rate, Normal S1, Normal S2, No Murmurs Lungs Decreased air movement bilaterally, occasional wheeze, Thoracic kyphosis Abdomen Normal Bowel Sounds, Soft, No Tenderness Neurological Normal Speech, Strength at 5/5 X4 Ext, Normal Tone Extremities No Clubbing, No Cyanosis, No Edema, Normal Pulses, No Tenderness/ Swelling Vascular Pulses Symmetrical SIGNIFICANT DATA CTA of the chest yesterday reviewed which showed no pulmonary embolism severe emphysema partial calcification in the wall of the main pulmonary artery which appears chronic giant bullous disease noted Chest x-ray showed no other abnormality Previous CT done few weeks ago showed previous abnormalities patient has had has improved known significant new lung nodules IMPRESSION This is a lady with very severe COPD with bullous emphysema, osteoporosis with previous multiple compression fractures, hypertension, hyperlipidemia, chronic esophageal dysmotility/dysphagia, now comes in with * Chest discomfort which is now resolved probably related to esophageal in origin no clinical evidence suggestive of venous thromboembolism. Patient is now being ruled out for any acute coronary syndrome and so far she does not seem to have any evidence suggestive of active coronary ischemia and a troponin has been normal. * She has very severe COPD with no no clinical evidence suggestive of acute COPD exacerbation * Probable esophageal dysmotility * Previous lung nodules which seems to have resolved Recommendation * Discontinue intravenous steroids and continue her home steroid regimen patient was on prednisone every other day * Switch her to proton pump inhibitor * If she continues to have symptoms please order a barium esophagogram not modified barium swallow * Rule out myocardial infarction * Hold further antibiotics * Continue oxygen * Continue other medications We'll follow closely Consult Acknowledgment - Thank you for your consult request.
[2016-09-25 09:07] VITALS: BP 118/70
[2016-09-25 09:42] LABS: ABSOLUTE BASOPHIL COUNT 0 /CUMM (0.0-0.2); ABSOLUTE EOSINOPHIL COUNT 0 /CUMM (0.0-0.7); ABSOLUTE GRANULOCYTE CT 9.7 /CUMM (1.4-6.5); ABSOLUTE LYMPH COUNT 0.4 /CUMM (1.2-3.4); ABSOLUTE MONOCYTE COUNT 0.1 /CUMM (0.10-0.60); BASOPHIL % 0 % (0.0-2.0); EOSINOPHIL % 0 % (0-5); GRANULOCYTE % 95.1 % (42.2-75.2); HEMATOCRIT 36.5 % (37-47); MEAN CORPUSCULAR HGB 30.7 PG (27.0-31.0); MEAN CORPUSCULAR HGB CONC 33.3 G/DL (33.0-37.0); MEAN PLATELET VOLUME 8.4 FL (7.4-10.4); PLATELET COUNT 264 /CUMM (130-400); RBC DISTRIBUTION WIDTH 13.2 % (11.5-14.5); RED BLOOD CELL CT 3.96 /CUMM (4.20-5.40)
[2016-09-25 10:07] LABS: WHITE BLOOD CELL COUNT 10.2 /CUMM (4.8-10.8)
--- NOTE | 2016-09-25 12:56 | Cons- Cardiology ---
General Information and HPI Consulting Request Date of Consult: 09/25/16 Requested By: HUY SHELTON MD Reason for Consult: Chest pain History of Present Illness: The patient is a 70-year-old female with history of severe COPD, moderate to severe mitral regurgitation, severe COPD, prior history of takotsubo cardiomyopathy with recovery of ejection fraction who follows up with me in the office for her cardiovascular issues. She presents with complaint of substernal chest discomfort, which she describes as a sensation of a hand squeezing her esophagus. She has similar pain typically every 2 weeks, and it has responded to Vicodin in the past. In this case she took Vicodin with no relief. The chest discomfort is a 6 out of 10 in severity. She describes it as similar to the muscle cramps she feels when her neck pain is severe. The discomfort radiates at times across her chest into the left arm. She also notes recent discomfort with swallowing which has been a problem for her in the past. In 2013 she had an episode of takotsubo cardiomyopathy with subsequent recovery of ejection fraction. A dobutamine MIBI stress test was performed which showed mild ischemia. This was managed without catheterization because of the mild degree of ischemia and the lack of typical symptoms. Allergies/Medications Allergies: Coded Allergies: Penicillins (RASH, HIVES 09/24/16) Home Med List: Albuterol Sulfate (Ventolin Hfa) 90 MCG HFA.AER.AD 2 PUF INH PRN COPD ( Reported) Albuterol Sulfate 2.5 MG/3 ML (0.083 %) VIAL.NEB 1 Vial INH/TORI Q4P PRN COPD (Reported) Aspirin (Ecotrin*) 81 MG TABLET.DR 1 TAB PO DAILY HEART/BLOOD (Reported) Atorvastatin Calcium 20 MG TABLET 1 TAB PO DAILY CHOLESTEROL (Reported) Azithromycin 250 MG TABLET 1 TAB PO DAILY PROPHYLAXIS (Reported) 2 the first day followed by 1 for days 2-5 Cholecalciferol (Vitamin D3) (Vitamin D3) 1,000 UNIT CAPSULE 1 CAP PO DAILY SUPPLEMENT (Reported) Fluticasone/Salmeterol (Advair 250-50 Diskus) 250 MCG-50 MCG/DOSE BLST.W.DEV 1 PUF INH BID COPD (Reported) Hydrocodone/Acetaminophen (Vicodin 5-300 MG Tablet) 5 MG-300 MG TABLET 1 TAB PO Q4H PRN PAIN (Reported) Lisinopril (Prinivil) 20 MG TABLET 1 TAB PO DAILY BP (Reported) Prednisone 10 MG TABLET 1 TAB PO EOD PRN STEROID (Reported) Prednisone 10 MG TABLET 5 TAB PO DAILY COPD PLEASE TAKE 5 TABS ON 11/12/14 AND 11/13/14, TAKE 4 TABS ON 11/14/14 AND 11/15/14, TAKE 3 TABS ON 11/16/14 AND 11/17/14, TAKE 2 TABS 11/18/14 AND 11/19/14, TAKE 1 TAB ON 11/20/14 AND 11/21/14 AND THEN STOP Ranitidine (Zantac) 150 MG TABLET 1 TAB PO PRN GI (Reported) Ranitidine (Ranitidine HCl) 150 MG TABLET 1 TAB PO PRN GI (Reported) Tiotropium Howard (Spiriva) 18 MCG CAP.W.DEV 1 PUF INH DAILY copd Ubidecarenone (Co Q-10) 200 MG CAPSULE 1 CAP PO DAILY SUPPLEMENT (Reported) Vit C/E/Zn/Coppr/Lutein/Zeaxan (Preservision Areds 2 Softgel) 250-200-40 CAPSULE 1 TAB PO DAILY SUPPLEMENT (Reported) Current Medications: Current Medications Sig/Keith Start time Last Medication Dose Route Stop Time Status Admin Acetaminophen 650 MG Q6P PRN 09/240 AC PO Acetaminophen 0 .STK-MED ONE 09/24 2110 DC PO Acetaminophen 650 MG ONCE ONE 09/24 2029 DC 09/24 PO 09/24 Albuterol Sulfate 0 .STK-MED ONE 09/24 2118 DC INH Albuterol Sulfate 3 ML ONCE ONE 09/24 2029 DC 09/24 INH 09/24 Aspirin 0 .STK-MED ONE 09/24 2110 DC PO Aspirin 81 MG ONCE ONE 09/24 2029 DC 09/24 PO 09/24 Aspirin 81 MG ONCE ONE 09/24 2029 DC 09/24 PO 09/24 Aspirin 81 MG ONCE ONE 09/24 2029 DC 09/24 PO 09/24 Aspirin Buffered 81 MG DAILY 09/25 1000 AC 09/25 PO 0935 Atorvastatin Calcium 20 MG 1700 09/25 1700 AC PO Azithromycin 500 MG ONCE ONE 09/24 2215 DC 09/24 Sodium Chloride 250 ML IV 09/24 2314 2301 Ceftriaxone Sodium 0 .STK-MED ONE 09/24 225 DC .ROUTE Ceftriaxone Sodium 1,000 MG ONCE ONE 09/24 2215 DC 09/24 IV 09/25 2215 2301 Cholecalciferol 1,000 IU DAILY 09/25 1000 AC 09/25 PO 0935 Enoxaparin Sodium 40 MG DAILY 09/25 1000 AC 09/25 SC 0934 Famotidine 20 MG DAILY 09/25 1000 DC 09/25 PO 0935 Ipratropium [place] 2.5 ML ONCE ONE 09/24 2030 DC 09/24 INH 09/24 Lisinopril 20 MG DAILY 09/25 1000 AC 09/25 PO 0935 Methylprednisolone 40 MG Q12 09/25 1000 DC 09/25 IV 0934 Methylprednisolone 0 .STK-MED ONE 09/24 2134 DC .ROUTE Methylprednisolone 125 MG ONCE ONE 09/24 2129 DC 09/24 IV 09/24 Nitroglycerin 0.4 MG ONCE ONE 09/24 2030 DC 09/24 SL 09/24 2030 2100 Omeprazole 40 MG DAILY AC 09/26 0700 AC PO Ondansetron HCl 0 .STK-MED ONE 09/25 0033 DC .ROUTE Ondansetron HCl 0 .STK-MED ONE 09/25 0033 DC PO Sodium Chloride 1,000 ML BOLUS ONE 09/24 2100 CAN IV 09/24 2258 Review of Systems Review of Systems: No fever. No chills. No rash. No tremor. No melena. All other systems were reviewed, and were noted to be negative. Past History Travel History Traveled to [place] past 21 day No Medical History Neurological: NONE EENT: cataracts, macular degeneration Cardiovascular: myocardial infarction, UNSURE OF CHF? 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 Family History Reviewed? Family history was reviewed with the patient, and there are no issues relevant to the current admission Psychosocial History Where Do You Live? Home Who Do You Live With? self Services at Home: None Primary Language: Tajik Smoking Status: Former Smoker ETOH Use: denies use Illicit Drug Use: denies illicit drug use Living Will? no Functional Ability ADLs Independent: dressing, eating, toileting, bathing. Ambulation: independent IADLs Independent: shopping, housework, finances, food prep, telephone, transportation , medication admin. 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 Exam & Diagnostic Data Vital Signs and I&O Vital Signs Date Time Temp Pulse Resp B/P Pulse O2 O2 Flow FiO2 Ox Delivery Rate 09/25 0935 120/72 09/25 0907 97.7 80 20 118/70 97 Nasal 2.0L Cannula 09/25 0847 96 Nasal 2.0L Cannula 09/25 0106 Nasal 2.0L Cannula 09/25 0049 98.8 85 22 142/74 95 Nasal Cannula 09/24 2351 98.0 89 18 130/61 97 Nasal 2.0L Cannula 09/24 2152 97.3 96 18 124/59 98 Nasal 2.0L Cannula 09/24 2121 99 Nasal 3.0L Cannula 09/24 2026 95 Nasal 2.0L Cannula 09/24 194 100.1 110 32 93 Room Air Room Air Intake & Output 09/25 1600 09/25 0800 09/25 0000 09/24 1600 09/24 0800 09/24 0000 Intake Total 120 Output Total 300 Balance -180 Intake, Oral 120 Output, Urine 300 Patient 116 lb Weight Physical Exam: Gen: The patient is in no acute distress HEENT: Normal nose, ears, and oropharynx. Pupils equal bilaterally. Conjunctiva normal. Neck: Supple with no JVD, no masses, and no thyromegaly Lungs: Scattered wheezes with normal respiratory effort Heart: RRR, S1, S2, 2/6 systolic murmur at the apex. No peripheral edema, 2+ pulses in the lower extremities bilaterally Abdomen: Soft, nontender, no masses. No hepatomegaly. No splenomegaly Extremities: No clubbing or cyanosis. Normal muscle strength in the upper and lower extremities Skin: Normal skin turgor with no skin ulcers or lesions noted. Neuro: Cranial nerves intact. Sensation intact Psych: Alert and oriented 3 with appropriate affect Labs/Morgan Results: Laboratory Tests 09/25 09/25 0835 0835 Chemistry Sodium (137 - 145 mmol/L) 136 L Cancelled Potassium (3.5 - 5.1 mmol/L) 4.3 Cancelled Chloride (98 - 107 mmol/L) 102 Cancelled Carbon Dioxide (22 - 30 mmol/L) 26 Cancelled Anion Gap (5 - 16) 9 Cancelled BUN (7 - 17 mg/dL) 18 H Cancelled Creatinine (0.5 - 1.0 mg/dL) 0.8 Cancelled Estimated GFR (>60 ml/min) > 60 BUN/Creatinine Ratio (7 - 25 %) 22.5 Cancelled Troponin I (< 0.11 ng/ml) < 0.01 Hematology CBC w Diff NO MAN DIFF REQ WBC (4.8 - 10.8 /CUMM) 10.2 RBC (4.20 - 5.40 /CUMM) 3.96 L Hgb (12.0 - 16.0 G/DL) 12.1 Hct (37 - 47 %) 36.5 L MCV (81.0 - 99.0 FL) 92.0 MCH (27.0 - 31.0 PG) 30.7 RDW (11.5 - 14.5 %) 13.2 Plt Count (130 - 400 /CUMM) 264 MPV (7.4 - 10.4 FL) 8.4 Gran % (42.2 - 75.2 %) 95.1 H Lymphocytes % (20.5 - 51.1 %) 4.2 L Monocytes % (1.7 - 9.3 %) 0.7 L Eosinophils % (0 - 5 %) 0 Basophils % (0.0 - 2.0 %) 0 L Absolute Granulocytes (1.4 - 6.5 /CUMM) 9.7 H Absolute Lymphocytes (1.2 - 3.4 /CUMM) 0.4 L Absolute Monocytes (0.10 - 0.60 /CUMM) 0.1 L Absolute Eosinophils (0.0 - 0.7 /CUMM) 0 Absolute Basophils (0.0 - 0.2 /CUMM) 0 PUBS MCHC (33.0 - 37.0 G/DL) 33.3 09/25 09/25 0810 0200 Chemistry Troponin I (< 0.11 ng/ml) < 0.01 Urines Urine Color (YEL,AMB,STR) YEL Urine Clarity (CLEAR) CLEAR Urine pH (5.0 - 8.0) 6.5 Ur Specific [place] (1.001 - 1.035) 1.010 Urine Protein (NEG,<30 MG/DL) NEG Urine Ketones (NEG) NEG Urine Nitrite (NEG) NEG Urine Bilirubin (NEG) NEG Urine Urobilinogen (0.1 - 1.0 EU/dl) 0.2 Ur Leukocyte Esterase (NEG) NEG Ur Microscopic EXAM NOT REQUIRED Urine Hemoglobin (NEG) NEG Urine Glucose (N MG/DL) NEG 09/24 UNK Chemistry Sodium (137 - 145 mmol/L) 137 Potassium (3.5 - 5.1 mmol/L) 4.0 Chloride (98 - 107 mmol/L) 99 Carbon Dioxide (22 - 30 mmol/L) 29 Anion Gap (5 - 16) 10 BUN (7 - 17 mg/dL) 15 Creatinine (0.5 - 1.0 mg/dL) 0.8 Estimated GFR (>60 ml/min) > 60 BUN/Creatinine Ratio (7 - 25 %) 18.8 Glucose (65 - 99 mg/dL) 101 H Lactic Acid (0.7 - 2.1 mmol/L) 1.1 1.1 Calcium (8.4 - 10.2 mg/dL) 9.6 Magnesium (1.6 - 2.3 mg/dL) 1.6 Total Bilirubin (0.2 - 1.3 mg/dL) 0.8 AST (14 - 36 U/L) 18 ALT (9 - 52 U/L) 34 Alkaline Phosphatase (<127 U/L) 64 Troponin I (< 0.11 ng/ml) < 0.01 Total Protein (6.3 - 8.2 g/dL) 6.8 Albumin (3.5 - 5.0 g/dL) 4.2 Globulin (1.9 - 4.2 gm/dL) 2.6 Albumin/Globulin Ratio (1.1 - 2.2 %) 1.6 Coagulation D-Dimer (70 - 232 ng/ml) 317 H Hematology CBC w Diff MAN DIFF ORDERED WBC (4.8 - 10.8 /CUMM) 16.2 H RBC (4.20 - 5.40 /CUMM) 4.20 Hgb (12.0 - 16.0 G/DL) 12.6 Hct (37 - 47 %) 38.5 MCV (81.0 - 99.0 FL) 91.8 MCH (27.0 - 31.0 PG) 30.0 RDW (11.5 - 14.5 %) 13.0 Plt Count (130 - 400 /CUMM) 258 MPV (7.4 - 10.4 FL) 8.1 Gran % (42.2 - 75.2 %) 85.0 H Lymphocytes % (20.5 - 51.1 %) 7.4 L Monocytes % (1.7 - 9.3 %) 5.8 Eosinophils % (0 - 5 %) 1.6 Basophils % (0.0 - 2.0 %) 0.2 Absolute Granulocytes (1.4 - 6.5 /CUMM) 13.8 H Segmented Neutrophils (42.2 - 75.2 %) 86 H Band Neutrophils (0.0 - 5.0 %) 1 Absolute Lymphocytes (1.2 - 3.4 /CUMM) 1.2 Lymphocytes (20.5 - 51.1 %) 5 L Monocytes (1.7 - 9.3 %) 7 Absolute Monocytes (0.10 - 0.60 /CUMM) 0.9 H Eosinophils (0 - 5.0 %) 1 Absolute Eosinophils (0.0 - 0.7 /CUMM) 0.3 Absolute Basophils (0.0 - 0.2 /CUMM) 0 Platelet Estimate (ADEQUATE) VERIFIED BY SMEAR Normocytic RBCs VERIFIED Normochromic RBCs VERIFIED PUBS MCHC (33.0 - 37.0 G/DL) 32.6 L Other Body Source Fld Total RBCs Counted (%) 100 Diagnostic Data EKG Results EKG tracing is independently reviewed, and reveals no sinus rhythm at 89 with borderline T-wave abnormality involving the inferior leads. There is no change compared to prior EKGs CXR Results Chest x-ray 09/24/16: No evidence for acute disease. Lung hyperinflation. Other Results Echocardiogram 06/13/16: Normal LV size with mild LVH. Normal systolic function. Abnormal diastolic function. Moderate severe mitral regurgitation. Normal right heart pressures. Dobutamine sestamibi stress test 01/08/14:1. The study demonstrates reversible myocardial ischemia in the anterior apical and septal myocardial regions. 2. Mild septal hypokinesis. 3. Left ventricular ejection fraction is depressed at 34% (normal should be greater than 55%). CTA of chest: 1. No evidence of pulmonary embolism. 2. Severe extreme bullous emphysema. 3. Partial calcification of the wall of the main pulmonary artery, chronic. Assessment/Plan Assessment/Plan The patient is a 70-year-old female with history of severe COPD, prior history of takotsubo cardiomyopathy, mild to moderate mitral regurgitation presenting with recent chest discomfort which has resolved. Myocardial infarction has been ruled out with negative cardiac enzymes 3. There are no EKG changes. She had a recent echocardiogram in May which revealed normal left ventricular function and [id number] mitral regurgitation. The discomfort appears at this time to be likely noncardiac, most likely secondary to esophageal disease. Recommendations: * Continue aspirin, lisinopril, and atorvastatin. * No need for an echocardiogram at this time since she had one in May 2016 * If she continues to be pain-free, then no further inpatient workup is indicated. We will plan on doing a nuclear stress test as an outpatient. If the pain does recur in the hospital, then nuclear stress test as an inpatient would be indicated. Consult Acknowledgment - Thank you for your consult request.
--- NOTE | 2016-09-25 14:25 | PN- Att Addend ---
Attending Addendum Attending Brief Note Mrs. Kelley was interviewed, examined, and her EHR reviewed. She has been pain- free overnight. Initial and follow-up evaluations for cardiac and pulmonary etiologies have been negative. She is afebrile with normal heart rate and respirations. Blood pressure satisfactory as is her oxygen saturation on room air. Physical exam is only notable for very very mild increased in expiratory phase with very soft and expiratory rhonchi. She is stable at this time and I agree that we can discontinue her intravenous steroids and antibiotics. We should resume her oral steroid regimen. Further cardiac and esophageal workups can be performed in an outpatient setting he remain asymptomatic. We anticipate discharge in the a.m.
--- NOTE | 2016-09-25 15:08 | PN- Housestaff ---
Subjective Follow-up For: chest pain Subjective: I saw and examined the patient today morning She is doing much better, no chest pain, shortness of breath, dizziness, cough. She had acid reflux in the past, food used to get stuck in the upper oesophageal region. She denies any exertion during the onset of pain. Currently she denies any further burning sensation/pain. Review of Systems Constitutional: Reports: see HPI. Comments: ROS negative except the above. Objective Last 24 Hrs of Vital Signs/I&O Vital Signs Date Time Temp Pulse Resp B/P Pulse O2 O2 Flow FiO2 Ox Delivery Rate 09/25 1030 Room Air Room Air 09/25 0935 120/72 09/25 0907 97.7 80 20 118/70 97 Nasal 2.0L Cannula 09/25 0847 96 Nasal 2.0L Cannula 09/25 0106 Nasal 2.0L Cannula 09/25 0049 98.8 85 22 142/74 95 Nasal Cannula 09/24 2351 98.0 89 18 130/61 97 Nasal 2.0L Cannula 09/24 2152 97.3 96 18 124/59 98 Nasal 2.0L Cannula 09/242 99 Nasal 3.0L Cannula 09/24 2026 95 Nasal 2.0L Cannula 09/24 194 100.1 110 32 93 Room Air Room Air Intake & Output 09/25 1600 09/25 0800 09/25 0000 Intake Total 430 120 Output Total 500 300 Balance -70 -180 Intake, IV 30 Intake, Oral 400 120 Output, Urine 500 300 Patient 52.617 kg Weight Physical Exam General Appearance: Alert, Oriented X3, Cooperative, No Acute Distress Skin: No Rashes, No Breakdown HEENT: Atraumatic, PERRLA Neck: Supple, No JVD Cardiovascular: Regular Rate, Normal S1, Normal S2, No Murmurs Lungs: Clear to Auscultation, Normal Air Movement Abdomen: Normal Bowel Sounds, Soft, No Tenderness Neurological: Normal Speech, Strength at 5/5 X4 Ext, Normal Tone, Sensation Intact, Cranial Nerves 3-12 NL Extremities: No Clubbing, No Cyanosis, No Edema Vascular: Normal Pulses, Pulses Symmetrical Current Medications: Current Medications Sig/Keith Start time Last Medication Dose Route Stop Time Status Admin Acetaminophen 325 MG .STK-MED ONE 09/25 0635 DC PO 09/25 0636 Acetaminophen 650 MG Q6P PRN 09/24 2330 AC PO Acetaminophen 0 .STK-MED ONE 09/24 2110 DC PO Acetaminophen 650 MG ONCE ONE 09/24 2029 DC 09/24 PO 09/24 Albuterol Sulfate 3 ML Q4P PRN 09/25 1315 AC INH Albuterol Sulfate 0 .STK-MED ONE 09/24 2118 DC INH Albuterol Sulfate 3 ML ONCE ONE 09/24 2029 DC 09/24 INH 09/24 Aspirin 0 .STK-MED ONE 09/24 2110 DC PO Aspirin 81 MG ONCE ONE 09/24 2029 DC 09/24 PO 09/24 Aspirin 81 MG ONCE ONE 09/24 2029 DC 09/24 PO 09/24 Aspirin 81 MG ONCE ONE 09/24 2029 DC 09/24 PO 09/24 Aspirin Buffered 81 MG DAILY 09/25 1000 AC 09/25 PO 0935 Atorvastatin Calcium 20 MG 1700 09/25 1700 AC PO Azithromycin 500 MG ONCE ONE 09/24 2215 DC 09/24 Sodium Chloride 250 ML IV 09/24 2314 2301 Ceftriaxone Sodium 0 .STK-MED ONE 09/24 2257 DC .ROUTE Ceftriaxone Sodium 1,000 MG ONCE ONE 09/24 2214 DC 09/24 IV 09/24 221 2301 Cholecalciferol 1,000 IU DAILY 09/25 1000 AC 09/25 PO 0935 Enoxaparin Sodium 40 MG DAILY 09/25 1000 AC 09/25 SC 0934 Famotidine 20 MG DAILY 09/25 1000 DC 09/25 PO 0935 Ipratropium [place] 2.5 ML ONCE ONE 09/24 2029 DC 09/24 INH 09/24 Lisinopril 20 MG DAILY 09/25 1000 AC 09/25 PO 0935 Methylprednisolone 40 MG Q12 09/25 1000 DC 09/25 IV 0934 Methylprednisolone 0 .STK-MED ONE 09/24 2134 DC .ROUTE Methylprednisolone 125 MG ONCE ONE 09/24 2129 DC 09/24 IV 09/24 Nitroglycerin 0.4 MG ONCE ONE 09/24 2029 DC 09/24 SL 09/24 2030 2100 Omeprazole 40 MG DAILY AC 09/26 0700 AC PO Ondansetron HCl 0 .STK-MED ONE 09/25 0033 DC .ROUTE Ondansetron HCl 0 .STK-MED ONE 09/25 0033 DC PO Patient Medication 1 ED .STK-MED ONE 09/25 1357 DC Teaching ED 09/25 1358 Sodium Chloride 1,000 ML BOLUS ONE 09/24 2100 CAN IV 09/24 3579 Last 24 Hrs of Lab/Morgan Results Last 24 Hrs of Labs/Mics: Laboratory Tests 09/25/16 0835: Anion Gap 9, Estimated GFR > 60, BUN/Creatinine Ratio 22.5, Troponin I < 0.01 09/25/16 0835: Sodium Cancelled, Potassium Cancelled, Chloride Cancelled, Carbon Dioxide Cancelled, Anion Gap Cancelled, BUN Cancelled, Creatinine Cancelled, BUN/ Creatinine Ratio Cancelled, CBC w Diff NO MAN DIFF REQ, RBC 3.96 L, MCV 92.0, MCH 30.7, RDW 13.2, MPV 8.4, Gran % 95.1 H, Lymphocytes % 4.2 L, Monocytes % 0.7 L, Eosinophils % 0, Basophils % 0 L, Absolute Granulocytes 9.7 H, Absolute Lymphocytes 0.4 L, Absolute Monocytes 0.1 L, Absolute Eosinophils 0, Absolute Basophils 0, PUBS MCHC 33.3 09/25/16 0810: Urine Color YEL, Urine Clarity CLEAR, Urine pH 6.5, Ur Specific [place] 1.010, Urine Protein NEG, Urine Ketones NEG, Urine Nitrite NEG, Urine Bilirubin NEG, Urine Urobilinogen 0.2, Ur Leukocyte Esterase NEG, Ur Microscopic EXAM NOT REQUIRED, Urine Hemoglobin NEG, Urine Glucose NEG 09/25/16 0200: Troponin I < 0.01 09/24/162004: Anion Gap 10, Estimated GFR > 60, BUN/Creatinine Ratio 18.8, Glucose 101 H, Lactic Acid 1.1, Calcium 9.6, Magnesium 1.6, Total Bilirubin 0.8, AST 18, ALT 34 , Alkaline Phosphatase 64, Troponin I < 0.01, Total Protein 6.8, Albumin 4.2, Globulin 2.6, Albumin/Globulin Ratio 1.6, D-Dimer 317 H, CBC w Diff MAN DIFF ORDERED, RBC 4.20, MCV 91.8, MCH 30.0, RDW 13.0, MPV 8.1, Gran % 85.0 H, Lymphocytes % 7.4 L, Monocytes % 5.8, Eosinophils % 1.6, Basophils % 0.2, Absolute Granulocytes 13.8 H, Segmented Neutrophils 86 H, Band Neutrophils 1, Absolute Lymphocytes 1.2, Lymphocytes 5 L, Monocytes 7, Absolute Monocytes 0.9 H, Eosinophils 1, Absolute Eosinophils 0.3, Absolute Basophils 0, Platelet Estimate VERIFIED BY SMEAR, Normocytic RBCs VERIFIED, Normochromic RBCs VERIFIED , PUBS MCHC 32.6 L, Fld Total RBCs Counted 100 Microbiology 09/24 2021 BLOOD: Blood Culture - RES 09/24 2018 BLOOD: Blood Culture - RES 09/24 2012 NASOPHARYN: Influenza Virus A & B Rapid Smear - COMP 09/24 1956 LOWER RESP: Respiratory Culture - CAN Cancelled: SPECIMEN NOT RECEIVED IN LABORATORY 09/24 1956 LOWER RESP: Gram Stain - CAN Cancelled: SPECIMEN NOT RECEIVED IN LABORATORY Lines/Diet/Fluids Lines: peripheral lines Assessment/Plan Assessment: Ms. Kelley is a pleasant 70 year old female with PMH emphysema not on home oxygen, HTN, mitral valve prolapse, takotsubo cardiomyopathy, reflux, cataracts, macular degeneration, osteoporosis and cervical spine pain s/p fusion who presents with chief complaint of chest discomfort. This chest discomfort is substernal, occasionally radiates to the back and left arm, is not worsened by exertion and associated with chills and dyspnea. ER Course: Vital signs showed T 100.1, HR 110, RR 32, BP 124/59 and O2 saturation of 93% on room air. Labs were significant for WBC 16.2, 85% granulocytes, 1 band, Glu 101, Lactic acid 1.1, troponin <0.01 and DDimer 317. CXR showed no acute disease, lung hyperinflation. Chest CTA showed no PE, severe extreme bullous emphysema, partial calcification of the wall of the main pulmonary artery (chronic) and no VTE. Patient is admitted to the telemetry floor and the following is the management: 1. Chest pain * ACS ruled out, doesnt appear like a lung condition. * Continuous telemetry monitoring * Cardio consult with Dr. Hidalgo * Probable GI related causes as it is episodic and other work up is so far negative. * Considering esophagogram if develps again * Continue ASA 81 mg PO daily 2. Leukocytosis * Secondary to chronic prednisone use vs. infectious etiology vs. reactive * Patient given ceftriaxone and azithromycin in the ED * Follow up blood, urine and lower respiratory cultures - negative so far. * CXR and Chest CTA negative for pneumonia/developing pneumonia * Rapid flu negative * Hold antibiotics for now * Monitor CBC and if patient becomes febrile, start antibiotics * Follow up UA to continue infectious workup 3. Acute on chronic hypoxic respiratory failure * Patient noted to drop her O2 saturations to 82% on ambulation to the bathroom while in the ED * ?COPD exacerbation vs cardiac pathology * PE ruled out with negative CTA * Continuous O2 via nasal cannula with goal O2 >90% * Patient received albuterol, atrovent and 125 mg IV solumedrol in the ED * Appears more stable today - so discontinued IV steroids, we will start her on her home dose of steroids (every other day) * [facility] nebs 4.GERD * Chronic condition was on H2 blockers * Stared on omez 40mg daily * Reports food getting stuck in the upper esophagus 5. HTN, HLD * Vital signs Q shift * Continue lisinopril 20 mg PO daily * Continue lipitor 20 mg PO daily FULL CODE DVTP: [place] lovenox Heart Healthy Diet Mild pain pathway Problem List: 1. Chronic obstructive pulmonary disease 2. Smoking 3. Full code status 4. Leukocytosis 5. Hypoxia 6. Chest pain 7. GERD (gastroesophageal reflux disease) 8. Esophageal spasm Pain Ratin Pain Location: chest pain Pain Goal: Pain 4 or less Pain Plan: tylenol pRN Tomorrow's Labs & Rationales: none
[2016-09-25 15:48] VITALS: BP 118/62
[2016-09-25] MEDS ORDERED: OMEPRAZOLE20 M2 PO (18:37)
--- NOTE | 2016-09-25 18:39 | Patient Discharge Instructions ---
Discharge Instructions General Discharge Information You were seen/treated for: chest pain Special Instructions: Please follow up with in a week Please follow up with Your PCP in a week please follow up with as an outpatient in for stress test. Diet Continue normal diet: Yes Recommended Diet: Heart Healthy Activity Full Activity/No Limits: Yes Activity Self Limited: Yes Acute Coronary Syndrome Inclusion Criteria At DC or during hospital stay patient has or had the following: ACS DIAGNOSIS No Discharge Core Measures Meds if any: Prescribed or Continued at Discharge Meds if any: NOT Prescribed or Continued at Discharge Congestive Heart Failure Inclusion Criteria At DC or during hospital stay patient has or had the following: CHF DIAGNOSIS No Discharge Core Measures Meds if any: Prescribed or Continued at Discharge Meds if any: NOT Prescribed or Continued at Discharge Cerebrovascular accident Inclusion Criteria At DC or during hospital stay patient has or had the following: CVA/TIA Diagnosis No Discharge Core Measures Meds if any: Prescribed or Continued at Discharge Meds if any: NOT Prescribed or Continued at Discharge Venous thromboembolism Inclusion Criteria VTE Diagnosis No VTE Type NONE VTE Confirmed by (Test) NONE Discharge Core Measures - Per Current guidelines, there needs to be overlap - treatment for the first 5 days of Warfarin therapy. - If discharged on Warfarin prior to 5 days of - overlap therapy, the patient will need to be - assessed for post discharge needs including - *Post discharge parental anticoagulation - *Warfarin and/or parental anticoagulation education - *Follow up date to check INR post discharge At least 5 days overlap therapy as Inpatient No Meds if any: Prescribed or Continued at Discharge Note: Overlap Therapy is Warfarin and Anticoagulant Meds if any: NOT Prescribed or Continued at Discharge
[2016-09-26] VITALS: BP 128/68
--- NOTE | 2016-09-26 06:57 | PN- Housestaff ---
ОЛЬГА TROTTER,MONSTER 09/26/16 0657: Subjective Follow-up For: chest pain Subjective: I saw and examined the patient today. She offers no complaints. Doing much better, no chest pain. Able to walk around. Review of Systems Constitutional: Reports: see HPI. Comments: ROS negative except the above. Objective Last 24 Hrs of Vital Signs/I&O Vital Signs Date Time Temp Pulse Resp B/P Pulse O2 O2 Flow FiO2 Ox Delivery Rate 09/26 0000 Room Air 09/26 0000 98.6 82 22 128/68 95 Room Air 09/25 1640 96 Nasal 2.0L Cannula 09/25 1548 98.6 89 20 118/62 95 Room Air 09/25 1030 Room Air Room Air 09/25 0935 120/72 09/25 0907 97.7 80 20 118/70 97 Nasal 2.0L Cannula 09/25 0847 96 Nasal 2.0L Cannula Intake & Output 09/26 0800 09/26 0000 09/25 1600 Intake Total 100 300 430 Output Total 500 Balance 100 300 -70 Intake, IV 0 0 30 Intake, Oral 100 300 400 Number 0 Bowel Movements Output, Urine 500 Physical Exam General Appearance: Alert, Oriented X3 Skin: No Rashes, No Breakdown HEENT: Atraumatic, PERRLA, EOMI Neck: Supple Cardiovascular: Normal S1, Normal S2, No Murmurs Lungs: Clear to Auscultation, Normal Air Movement Abdomen: Normal Bowel Sounds, Soft, No Tenderness Neurological: Normal Gait, Normal Speech, Strength at 5/5 X4 Ext Extremities: No Clubbing, No Cyanosis, No Edema Vascular: Normal Pulses, Pulses Symmetrical Current Medications: Current Medications Sig/Keith Start time Last Medication Dose Route Stop Time Status Admin Acetaminophen 650 MG Q6P PRN 09/24 2330 DCD PO Albuterol Sulfate 3 ML Q4P PRN 09/25 1315 DCD INH Aspirin Buffered 81 MG DAILY 09/25 1000 DCD 09/26 PO 0908 Atorvastatin Calcium 20 MG 1700 09/25 1700 DCD 09/25 PO 1603 Cholecalciferol 1,000 IU DAILY 09/25 1000 DCD 09/26 PO 0908 Enoxaparin Sodium 40 MG DAILY 09/25 1000 DCD 09/26 SC 0909 Lisinopril 20 MG DAILY 09/25 1000 DCD 09/26 PO 0908 Omeprazole 40 MG DAILY AC 09/26 0700 DCD 09/26 PO 0626 Prednisone 5 MG DAILY 09/26 1000 CAN PO Prednisone 10 MG Q48 09/26 1000 DCD 09/26 PO 0908 Prednisone 10 MG ONCE ONE 09/26 0730 CAN PO 09/26 0731 Last 24 Hrs of Lab/Morgan Results Last 24 Hrs of Labs/Mics: Laboratory Tests 09/26/16 0645: Anion Gap 6, Estimated GFR > 60, BUN/Creatinine Ratio 22.2 Lines/Diet/Fluids Lines: peripheral lines Assessment/Plan Assessment: Ms. Kelley is a pleasant 70 year old female with PMH emphysema not on home oxygen, HTN, mitral valve prolapse, takotsubo cardiomyopathy, reflux, cataracts, macular degeneration, osteoporosis and cervical spine pain s/p fusion who presents with chief complaint of chest discomfort. This chest discomfort is substernal, occasionally radiates to the back and left arm, is not worsened by exertion and associated with chills and dyspnea. ER Course: Vital signs showed T 100.1, HR 110, RR 32, BP 124/59 and O2 saturation of 93% on room air. Labs were significant for WBC 16.2, 85% granulocytes, 1 band, Glu 101, Lactic acid 1.1, troponin <0.01 and DDimer 317. CXR showed no acute disease, lung hyperinflation. Chest CTA showed no PE, severe extreme bullous emphysema, partial calcification of the wall of the main pulmonary artery (chronic) and no VTE. Patient is admitted to the telemetry floor and the following is the management: 1. Chest pain * ACS ruled out, doesnt appear like a lung/heart condition. * Continuous telemetry monitoring * Cardio consult with Dr. Hidalgo * Probable GI related causes as it is episodic and other work up is so far negative. * Considering esophagogram if develps again * Continue ASA 81 mg PO daily 2. Leukocytosis * Secondary to chronic prednisone use vs. infectious etiology vs. reactive * Patient given ceftriaxone and azithromycin in the ED * Follow up blood, urine and lower respiratory cultures - negative so far. * CXR and Chest CTA negative for pneumonia/developing pneumonia * Rapid flu negative * Hold antibiotics for now * Monitor CBC and if patient becomes febrile, start antibiotics * Needs stress test as an outpatient with . 3. Acute on chronic hypoxic respiratory failure * Patient noted to drop her O2 saturations to 82% on ambulation to the bathroom while in the ED * ?COPD exacerbation vs cardiac pathology * PE ruled out with negative CTA * Continuous O2 via nasal cannula with goal O2 >90% * Patient received albuterol, atrovent and 125 mg IV solumedrol in the ED * Restarted on her home steroid dose 10mg every other day. * TRC nebs 4.GERD * Chronic condition was on H2 blockers * Stared on omez 40mg daily * Reports food getting stuck in the upper esophagus 5. HTN, HLD * Vital signs Q shift * Continue lisinopril 20 mg PO daily * Continue lipitor 20 mg PO daily FULL CODE DVTP: SC lovenox Heart Healthy Diet Mild pain pathway Problem List: 1. Hypertension 2. Chronic obstructive pulmonary disease 3. Smoking 4. Full code status 5. Leukocytosis 6. Hypoxia 7. GERD (gastroesophageal reflux disease) 8. Esophageal spasm Pain Ratin Pain Location: chest pain Pain Goal: Pain 4 or less Pain Plan: tyelnol PRN Tomorrow's Labs & Rationales: none HUY SHELTON MD 09/26/16 1113: Attending MD Review Statement Attending Statement Attending MD Statement: examined this patient, discuss w/resident/PA/DRYING MACHINE TENDER, agreed w/resident/PA/DRYING MACHINE TENDER, reviewed EMR data (avail), amended to note Attending Assessment/Plan: Mrs. Kelley offers no complaints today. She denies cardiac and pulmonary complaints. Her vital signs are stable and her oxygenation is above 95% on room air. Pulmonary exam shows decreased breath sounds and is without rales or rhonchi. Cardiovascular exam reveals regular rate and rhythm. Her laboratory values were reviewed and are satisfactory. She is stable to be discharged to home. Her CMR has been reviewed and signed. She will follow-up with Drs. Romero and Rocky. She will have a transition visit scheduled for next week.
[2016-09-26 08:00] VITALS: BP 148/72
[2016-09-26] MEDS ORDERED: OMEPRAZOLE20 M2 PO (08:15)
[2016-09-26] MEDS ORDERED: OMEPRAZOLE40 M1 PO ×2 (08:22→11:13)
--- NOTE | 2016-09-26 10:24 | Discharge Summary ---
Visit Information Visit Dates Admission Date: 09/24/16 Discharge Date: 09/26/16 Hospital Course Course Attending Physician: HUY SHELTON MD Primary Care Physician: HUY SHELTON MD Consulting Request: 1 Consulting Specialty: Cardiology Consulting Physician: Reason for Consult: ACS Consulting Request: 2 Consulting Specialty: Pulmonary Disease Consulting Physician: Reason for Consult: ??COPD exacerbation Hospital Course: Ms. Kelley is a pleasant 70 year old female with PMH emphysema not on home oxygen, HTN, mitral valve prolapse, takotsubo cardiomyopathy, reflux, cataracts, macular degeneration, osteoporosis and cervical spine pain s/p fusion who presents with chief complaint of chest discomfort. This chest discomfort is substernal, occasionally radiates to the back and left arm, is not worsened by exertion and associated with chills and dyspnea. ER Course: Vital signs showed T 100.1, HR 110, RR 32, BP 124/59 and O2 saturation of 93% on room air. Labs were significant for WBC 16.2, 85% granulocytes, 1 band, Glu 101, Lactic acid 1.1, troponin <0.01 and DDimer 317. CXR showed no acute disease, lung hyperinflation. Chest CTA showed no PE, severe extreme bullous emphysema, partial calcification of the wall of the main pulmonary artery (chronic) and no VTE. Patient is admitted to the telemetry floor and the following is the management: 1. Chest pain ACS ruled out with EKG/Trop negative X3, doesnt appear like a lung/ heart condition. Probable GI related causes as it is episodic and other work up is so far negative. At this point if episode recurrs further evaluation with esophagogram required. We will continue ASA 81 mg PO daily for now. Needs follow up with as an outpatient for a stress test. 2. GERD Chronic condition was on H2 blockers. As flare up is considered one of the major differentials Stared on omez 40mg daily. She reports food getting stuck in the upper esophagus occasionally but denies any indigesion. 3. Acute on chronic hypoxic respiratory failure Patient noted to drop her O2 saturations to 82% on ambulation to the bathroom while in the ED. ?COPD exacerbation. PE ruled out with negative CTA. intially started on IV steroids - however stopped next day and started on her home dose of steroids as her condition appeared much stable. TR nebs. Follow up with . 4.Leukocytosis Most probably Secondary to chronic prednisone use. She received single dose of ceftriaxone and azithromycin in the ED. Cultures including rapid flu, legionella, strep antigen are negative, CXR and Chest CTA negative for pneumonia/developing pneumonia. white count 16.2-->10.2 5. Chronic stable condition HTN - Lisinopril 20mg daily, HLD - Lipitor 20mg daily. FULL CODE DVTP: SC lovenox Heart Healthy Diet Mild pain pathway Complications: none Allergies: Coded Allergies: Penicillins (RASH, HIVES 09/24/16) Significant Procedures: CTA - 09/24/16 IMPRESSION: 1. No evidence of pulmonary embolism. 2. Severe extreme bullous emphysema. 3. Partial calcification of the wall of the main pulmonary artery, chronic. VTE: Negative. CXR 09/24/16 IMPRESSION: No evidence for acute disease. Lung hyperinflation. Disposition Summary Disposition Principal Diagnosis: Chest pain Additional Diagnosis: HTN Emphysema MVP Takotsubo cardiomyopathy Discharge Disposition: home or self care Discharge Instructions General Discharge Information Code Status: Full Code Patient's Diet: Heart healthy diet Patient's Activity: activity as tolerated Follow-Up Instructions/Appts: Please follow up with in a week Please follow up with Your PCP () in a week please follow up with as an outpatient in for stress test. Medications at Discharge Discharge Medications: Stop taking the following medications: Ranitidine (Zantac) 150 MG TABLET ORAL as needed for GI Prednisone (Prednisone) 10 MG TABLET ORAL DAILY Qty = 30 Ranitidine (Ranitidine HCl) 150 MG TABLET ORAL as needed for GI Continue taking these medications: Lisinopril (Prinivil) 20 MG TABLET 1 Tablet ORAL DAILY Comments: Last Taken: 09/26/16 Time: 9 AM Fluticasone/Salmeterol (Advair 250-50 Diskus) 250 MCG-50 MCG/DOSE BLST.W.DEV 1 Puff Inhale through mouth TWICE DAILY Comments: Last Taken: NOT GIVEN AT HOSPITAL Time: Albuterol Sulfate (Ventolin Hfa) 90 MCG HFA.AER.AD 2 Puff Inhale through mouth as needed for COPD Comments: NOT GIVEN AT HOSPITAL Cholecalciferol (Vitamin D3) (Vitamin D3) 1,000 UNIT CAPSULE 1 Capsule ORAL DAILY Aspirin (Ecotrin*) 81 MG TABLET. 1 Tablet ORAL DAILY Comments: Last Taken: 09/26/16 Time: 9 AM Albuterol Sulfate (Albuterol Sulfate) 2.5 MG/3 ML (0.083 %) VIAL.NEB 1 Vial Inhale Solution EVERY 4 HOURS NEEDED as needed for COPD Comments: Last Taken: NOT GIVEN AT HOSPITAL Time: Tiotropium [place] (Spiriva) 18 MCG CAP.W.DEV 1 Puff Inhale through mouth DAILY Qty = 1 Comments: Last Taken: 11/11/14 Time: 815 AM Hydrocodone/Acetaminophen (Vicodin 5-300 MG Tablet) 5 MG-300 MG TABLET 1 Tablet ORAL Q4H as needed for PAIN Comments: Last Taken: NOT GIVEN AT HOSPITAL Time: Prednisone (Prednisone) 10 MG TABLET 1 Tablet ORAL Every other day Qty = 50 Instructions: Patient takes 10MG every other day (EOD) Q48 HRS Comments: Last Taken: 09/26/16 Time: 9 AM Azithromycin (Azithromycin) 250 MG TABLET 1 Tablet ORAL DAILY Qty = 30 Comments: Last Taken: NOT GIVEN AT HOSPITAL Time: Atorvastatin Calcium (Atorvastatin Calcium) 20 MG TABLET 1 Tablet ORAL DAILY Qty = 90 Comments: Last Taken: 09/25/16 Time: 4 PM Vit C/E/Zn/Coppr/Lutein/Zeaxan (Preservision Areds 2 Softgel) 250-200-40 CAPSULE 1 Tablet ORAL DAILY Comments: NOT GIVEN AT HOSPITAL Ubidecarenone (Co Q-10) 200 MG CAPSULE 1 Capsule ORAL DAILY Comments: NOT GIVEN AT HOSPITAL Start taking the following new medications: Omeprazole (Omeprazole) 40 MG CAPSULE. 1 Capsule ORAL DAILY Qty = 30 No Refills Comments: Last Taken: 09/26/16 Time: 6 AM Copies To: CARL TROTTER,MIYA Abad; HUY SHELTON MD; AURELIA ANTONIO MD Attending MD Review Statement Documenting Attending: HUY SHELTON MD
--- NOTE | 2016-09-26 12:21 | PN- Cardiology ---
Subjective Subjective: Doing well. Ambulating with mild exertional dyspnea. No further discomfort noted. Objective Vital Signs and I&Os Vital Signs Date Time Temp Pulse Resp B/P Pulse O2 O2 Flow FiO2 Ox Delivery Rate 09/26 1201 95 Room Air Room Air 09/26 0908 81 138/66 09/26 0800 98.2 81 20 148/72 96 Room Air 09/26 0000 Room Air 09/26 0000 98.6 82 22 128/68 95 Room Air 09/25 1640 96 Nasal 2.0L Cannula 09/25 1548 98.6 89 20 118/62 95 Room Air Intake & Output 09/26 1600 09/26 0800 09/26 0000 09/25 1600 09/25 0800 09/25 0000 Intake Total 100 300 430 120 Output Total 500 300 Balance 100 300 -70 -180 Intake, IV 0 0 30 Intake, Oral 100 300 400 120 Number 0 Bowel Movements Output, Urine 500 300 Patient 116 lb Weight Current Medications: Current Medications Sig/Keith Start time Last Medication Dose Route Stop Time Status Admin Acetaminophen 650 MG Q6P PRN 09/24 2330 AC PO Albuterol Sulfate 3 ML Q4P PRN 09/25 1315 AC INH Aspirin Buffered 81 MG DAILY 09/25 1000 AC 09/26 PO 0908 Atorvastatin Calcium 20 MG 1700 09/25 1700 AC 09/25 PO 1603 Cholecalciferol 1,000 IU DAILY 09/25 1000 AC 09/26 PO 0908 Enoxaparin Sodium 40 MG DAILY 09/25 1000 AC 09/26 SC 0909 Lisinopril 20 MG DAILY 09/25 1000 AC 09/26 PO 0908 Omeprazole 40 MG DAILY AC 09/26 0700 AC 09/26 PO 0626 Patient Medication 1 ED .ST-MED ONE 09/25 1357 NH Teaching ED 09/25 1358 Prednisone 5 MG DAILY 09/26 1000 CAN PO Prednisone 10 MG Q48 09/26 1000 AC 09/26 PO 0908 Prednisone 10 MG ONCE ONE 09/26 0730 CAN PO 09/26 0731 Results Last 48 Hrs of Labs/Mics: Laboratory Tests 09/26/16 0645: Anion Gap 6, Estimated GFR > 60, BUN/Creatinine Ratio 22.2 09/25/16 0835: Anion Gap 9, Estimated GFR > 60, BUN/Creatinine Ratio 22.5, Troponin I < 0.01 09/25/16 0835: Sodium Cancelled, Potassium Cancelled, Chloride Cancelled, Carbon Dioxide Cancelled, Anion Gap Cancelled, BUN Cancelled, Creatinine Cancelled, BUN/ Creatinine Ratio Cancelled, CBC w Diff NO MAN DIFF REQ, RBC 3.96 L, MCV 92.0, MCH 30.7, RDW 13.2, MPV 8.4, Gran % 95.1 H, Lymphocytes % 4.2 L, Monocytes % 0.7 L, Eosinophils % 0, Basophils % 0 L, Absolute Granulocytes 9.7 H, Absolute Lymphocytes 0.4 L, Absolute Monocytes 0.1 L, Absolute Eosinophils 0, Absolute Basophils 0, PUBS MCHC 33.3 09/25/16 0810: Urine Color YEL, Urine Clarity CLEAR, Urine pH 6.5, Ur Specific [place] 1.010, Urine Protein NEG, Urine Ketones NEG, Urine Nitrite NEG, Urine Bilirubin NEG, Urine Urobilinogen 0.2, Ur Leukocyte Esterase NEG, Ur Microscopic EXAM NOT REQUIRED, Urine Hemoglobin NEG, Urine Glucose NEG 09/25/16 0200: Troponin I < 0.01 09/24/162004: Anion Gap 10, Estimated GFR > 60, BUN/Creatinine Ratio 18.8, Glucose 101 H, Lactic Acid 1.1, Calcium 9.6, Magnesium 1.6, Total Bilirubin 0.8, AST 18, ALT 34 , Alkaline Phosphatase 64, Troponin I < 0.01, Total Protein 6.8, Albumin 4.2, Globulin 2.6, Albumin/Globulin Ratio 1.6, D-Dimer 317 H, CBC w Diff MAN DIFF ORDERED, RBC 4.20, MCV 91.8, MCH 30.0, RDW 13.0, MPV 8.1, Gran % 85.0 H, Lymphocytes % 7.4 L, Monocytes % 5.8, Eosinophils % 1.6, Basophils % 0.2, Absolute Granulocytes 13.8 H, Segmented Neutrophils 86 H, Band Neutrophils 1, Absolute Lymphocytes 1.2, Lymphocytes 5 L, Monocytes 7, Absolute Monocytes 0.9 H, Eosinophils 1, Absolute Eosinophils 0.3, Absolute Basophils 0, Platelet Estimate VERIFIED BY SMEAR, Normocytic RBCs VERIFIED, Normochromic RBCs VERIFIED , PUBS MCHC 32.6 L, Fld Total RBCs Counted 100 Microbiology 09/24 2012 NASOPHARYN: Influenza Virus A & B Rapid Smear - COMP Assessment/Plan Assessment/Plan Assessment: 1. Chest pain syndrome-ruled out for myocardial infarction 2. COPD 3. History of Takotsubo cardiomyopathy 4. Mild to moderate mitral insufficiency the Recommendations: -From a cardiac standpoint, the patient appears to be stable for discharge -Ambulate the patient this morning. -If she remains asymptomatic, discharged home later today -Follow-up with Dr. Hidalgo as outpatient. -Outpatient nuclear stress test to be scheduled with Dr. Hidalgo. Continue telemetry? No
--- NOTE | 2016-09-26 14:16 | PN- Pulmonary ---
Subjective HPI/Critical Care Issues: Doing well. Ambulating with mild exertional dyspnea. No further discomfort noted. Objective Current Medications: Current Medications Sig/Keith Start time Last Medication Dose Route Stop Time Status Admin Acetaminophen 650 MG Q6P PRN 09/24 2330 AC PO Albuterol Sulfate 3 ML Q4P PRN 09/25 1315 AC INH Aspirin Buffered 81 MG DAILY 09/25 1000 AC 09/26 PO 0908 Atorvastatin Calcium 20 MG 1700 09/25 1700 AC 09/25 PO 1603 Cholecalciferol 1,000 IU DAILY 09/25 1000 AC 09/26 PO 0908 Enoxaparin Sodium 40 MG DAILY 09/25 1000 AC 09/26 SC 0909 Lisinopril 20 MG DAILY 09/25 1000 AC 09/26 PO 0908 Omeprazole 40 MG DAILY AC 09/26 0700 AC 09/26 PO 0626 Prednisone 5 MG DAILY 09/26 1000 CAN PO Prednisone 10 MG Q48 09/26 1000 AC 09/26 PO 0908 Prednisone 10 MG ONCE ONE 09/26 0730 CAN PO 09/26 0731 Vital Signs & I&O Last 24 Hrs of Vitals and I&O: Vital Signs Date Time Temp Pulse Resp B/P Pulse O2 O2 Flow FiO2 Ox Delivery Rate 09/26 1201 95 Room Air Room Air 09/26 0908 81 138/66 09/26 0800 98.2 81 20 148/72 96 Room Air 09/26 0000 Room Air 09/26 0000 98.6 82 22 128/68 95 Room Air 09/25 1640 96 Nasal 2.0L Cannula 09/25 1548 98.6 89 20 118/62 95 Room Air Intake & Output 09/26 1600 09/26 0800 09/26 0000 Intake Total 100 300 Output Total Balance 100 300 Intake, IV 0 0 Intake, Oral 100 300 Number 0 Bowel Movements Impression/Plan Impression/Plan Impression/Plan: Physical Exam General Appearance Alert, Oriented X3, Cooperative, No Acute Distress Skin No Rashes, No Significant Lesion, Scattered purpura from aspirin use HEENT Atraumatic, PERRLA, EOMI, Mucous Membr. moist/pink Neck Supple, No JVD Lymphatic Cervical nl Cardiovascular Regular Rate, Normal S1, Normal S2, No Murmurs Lungs Decreased air movement bilaterally, occasional wheeze, Thoracic kyphosis Abdomen Normal Bowel Sounds, Soft, No Tenderness Neurological Normal Speech, Strength at 5/5 X4 Ext, Normal Tone Extremities No Clubbing, No Cyanosis, No Edema, Normal Pulses, No Tenderness/ Swelling Vascular Pulses Symmetrical SIGNIFICANT DATA CTA of the chest yesterday reviewed which showed no pulmonary embolism severe emphysema partial calcification in the wall of the main pulmonary artery which appears chronic giant bullous disease noted Chest x-ray showed no other abnormality Previous CT done few weeks ago showed previous abnormalities patient has had has improved known significant new lung nodules IMPRESSION This is a lady with very severe COPD with bullous emphysema, osteoporosis with previous multiple compression fractures, hypertension, hyperlipidemia, chronic esophageal dysmotility/dysphagia, now comes in with * Chest discomfort which is now resolved probably related to esophageal in origin no clinical evidence suggestive of venous thromboembolism. no sig coronary ischemia * She has very severe COPD with no no clinical evidence suggestive of acute COPD exacerbation * Probable esophageal dysmotility * Previous lung nodules which seems to have resolved Recommendation Out pt meds for copd stable for dc We'll follow closely
[2016-09-26 15:21] VITALS: BP 150/70
== END 2016-09-26 16:40 | DRG 391 ==
LOC: ENRESERVTM → ENRESERVDT → ERH 19:33 → 1NO 22:13 → ERHI 22:13 → ENPENDDIS 22:13 → 1NO 09-25 00:20
PROVIDERS: Internal Medicine; Physician Assistant; ADMIT Internal Medicine
DX: K22.4 Dyskinesia of esophagus (principal); J96.21 Acute and chronic respiratory failure with hypoxia; J44.9 Chronic obstructive pulmonary disease, unspecified; I51.81 Takotsubo syndrome; I34.1 Nonrheumatic mitral (valve) prolapse; R07.9 Chest pain, unspecified; I10 Essential (primary) hypertension; K21.9 Gastro-esophageal reflux disease without esophagitis; H35.30 Unspecified macular degeneration; M81.0 Age-related osteoporosis without current pathological fracture
CPT/HCPCS: 1NSP; ERO; 36415; 81003; 82436; 87040; 87070; 87804; 87804-59; 93005; 93010; 96374; J0456; J0696; J1650; J2405; J2920; J2930; J3101; J3490; J7040; J7512

== ENCOUNTER 2016-12-28 12:25 | Inpatient (IN) | payer OTHER, MEDICARE ==
[~2016-12-28] VITALS: Ht 157.5 cm; Wt 53.1 kg
[~2016-12-28 12:25] MED LIST changes: +ATORVASTATIN CA20 M1 PO; +AZITHROMYCIN250 M1 PO; +CO Q-10200 MG PO; +OMEPRAZOLE20 M2 PO; +OMEPRAZOLE40 M1 PO; +PREDNISONE10 M2 PO; +PRESERVISION A1 EAC1 PO; +RANITIDINE HCL150 MG PO; +VICODIN 5-3001 EACH PO
--- NOTE | 2016-12-28 12:40 | ED NECK/BACK PAIN COMPLAINT ---
See Addendum History of Present Illness General Chief Complaint: Low Back Pain/Injury Stated Complaint: BACK PAIN Source: patient, family Exam Limitations: no limitations Vital Signs & Intake/Output Vital Signs & Intake/Output Vital Signs Date Time Temp Pulse Resp B/P B/P Pulse O2 O2 Flow FiO2 Mean Ox Delivery Rate 12/28 1427 97.9 100 20 134/67 98 Nasal 2.0L Cannula 12/28 1315 97 Nasal 2.0L Cannula 12/28 1228 98.6 120 18 137/73 90 Room Air Allergies Coded Allergies: Penicillins (RASH, HIVES 09/24/16) Reconcile Medications Albuterol Sulfate (Ventolin Hfa) 90 MCG HFA.AER.AD 2 PUF INH PRN COPD ( Reported) Albuterol Sulfate 2.5 MG/3 ML (0.083 %) VIAL.NEB 1 Vial INH/TORI Q4P PRN COPD (Reported) Aspirin (Ecotrin*) 81 MG TABLET.DR 1 TAB PO DAILY HEART/BLOOD (Reported) Atorvastatin Calcium 20 MG TABLET 1 TAB PO DAILY CHOLESTEROL (Reported) Azithromycin 250 MG TABLET 1 TAB PO DAILY PROPHYLAXIS (Reported) Cholecalciferol (Vitamin D3) (Vitamin D3) 1,000 UNIT CAPSULE 1 CAP PO DAILY SUPPLEMENT (Reported) Fluticasone/Salmeterol (Advair 250-50 Diskus) 250 MCG-50 MCG/DOSE BLST.W.DEV 1 PUF INH BID COPD (Reported) Hydrocodone/Acetaminophen (Vicodin 5-300 MG Tablet) 5 MG-300 MG TABLET 1 TAB PO Q4H PRN PAIN (Reported) Lisinopril (Prinivil) 20 MG TABLET 1 TAB PO DAILY BP (Reported) Omeprazole 40 MG CAPSULE.DR 1 CAP PO DAILY acid reflux Prednisone 10 MG TABLET 1 TAB PO Q48 COPD (Reported) Tiotropium [place] (Spiriva) 18 MCG CAP.W.DEV 1 CAP INH DAILY COPD (Reported) Ubidecarenone (Co Q-10) 200 MG CAPSULE 1 CAP PO DAILY SUPPLEMENT (Reported) Vit C/E/Zn/Coppr/Lutein/Zeaxan (Preservision Areds 2 Softgel) 250-200-40 CAPSULE 1 TAB PO DAILY SUPPLEMENT (Reported) Triage Note: 71 YO FEMALE TO ER C/O LOWER BACK PAIN, 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 PT HX OF COPD. RA SATS 90% AT THIS TIME. Triage Nurses Notes Reviewed? yes Onset: Abrupt Duration: day(s): (2-3), continues in ED, getting worse Timing: single episode today Quality/Severity: mild, moderate Location: lumbar spine, paraspinous muscles Radiation: none Context: lifting Loss of Consciousness: no loss of consciousness Modifying Factors: pain medication (improves with vocidin) Associated Symptoms: abdominal pain, lower back pain, muscle spasm LMP (ages 10-50): post menopausal : No Patient currently breastfeeds: No HPI: 71-year-old female with a history of COPD, osteoporosis, and coronary artery disease presents complaining of pain in her lower back for the past 3 days. 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 Pain is located in the lower back and radiates around her entire waistline to the front near her pelvis. It is worse with any type of movement particularly twisting. She rates the pain as a 2 out of 10 at rest and an 8 out of 10 with movement. She denies any direct trauma to her back. No numbness, tingling, nausea, vomiting, fevers, bowel or bladder dysfunction, trauma. She does have a history of thoracic spine surgery. Patient additionally reports worsening shortness of breath over the past 6 months. Reports that her breathing is particularly bad today. She is not on oxygen at home. She has an albuterol nebulizer use at home. She is followed by Dr. Romero. She denies hemoptysis, chest pain, coughing, syncope, or any other associated symptoms. (MICAH BETANCUR PA-C) Past History Travel History Traveled to [place] past 21 day No Medical History Neurological: NONE EENT: cataracts, macular degeneration Cardiovascular: myocardial infarction, UNSURE OF CHF? Respiratory: COPD, emphysema Gastrointestinal: GERD Hepatic: NONE Renal: NONE Musculoskeletal: osteoporosis Psychiatric: NONE Endocrine: NONE Blood Disorders: NONE Cancer(s): NONE ALTO SINGER/Reproductive: NONE History of MRSA: No History of VRE: No History of CDIFF: No Pneumonia Vaccine: 04/01/15 Influenza Vaccine: 05/02/16 Surgical History Surgical History: non-contributory Psychosocial History Who do you live with Patient/Self Services at Home None What is your primary language Sinhala Tobacco Use: Quit >30 days ago Family History Family History, If Any: No Known Family History. (MICAH BETANCUR PA-C) Medical History Any Pertinent Medical History? see below for history Family History Hx Contributory? No (KRISTA ROCK DO) Review of Systems Review of Systems Constitutional: Reports: no symptoms. Eyes: Reports: no symptoms. Ears, Nose, Throat, Mouth: Reports: no symptoms. Respiratory: Reports: see HPI, cough, short of breath, wheezing. Cardiovascular: Reports: no symptoms. Gastrointestinal/Abdominal: Reports: no symptoms. Musculoskeletal: Reports: see HPI, back pain, joint pain, joint swelling, muscle pain. Skin: Reports: no symptoms. Neurological/Psychological: Reports: no symptoms. All Other Systems: Reviewed and Negative (MICAH BETANCUR PA-C) Physical Exam Physical Exam General Appearance: well developed/nourished, no apparent distress, alert Head: atraumatic, normal appearance Eyes: Bilateral: normal appearance, PERRL, EOMI, normal inspection. Ears, Nose, Throat, Mouth: hearing grossly normal, moist mucous membrane, Tympanic normal Neck: normal inspection, supple, full range of motion, normal alignment Respiratory: no respiratory distress, quiet respiration, decreased breath sounds Cardiovascular: regular rate/rhythm, normal peripheral pulses Peripheral Pulses: 2+ dorsalis pedis (R), 2+ dorsalis pedis (L) Gastrointestinal: normal bowel sounds, soft, no organomegaly, tenderness (rlq, llq, suprapubic) Back: normal inspection, vertebral tenderness (lumbar), decreased range of motion (due to pain), no vertebral tenderness, lumbar spine and paraspinous muscles are tender to palpation bilaterally. no step-offs or deformities Extremities: non-tender, normal range of motion, straight leg raised (negative ) Straight Leg Raising: Right: Negative. Left: Negative. Motor: Deficit L4 Right: No Deficit L4 Left: No Deficit L5 Right: No Deficit L5 Left: No Deficit S1 Right: No Deficit S1 Right: No DTR: Deficit L4 Left: No Deficit L4 Right: No Deficit S1 Left: No Deficit S1 Right: No Neurologic/Psych: no motor/sensory deficits, awake, alert, oriented x 3, normal gait, normal mood/affect Skin: intact, normal color, warm/dry (PIPE [place],MICAH) Progress Differential Diagnosis: AAA, aortic dissection, cauda equina syn, herniated disc , myofascial strain, pyelo/UTI, sciatica, spinal cord inj, ureterolithiasis, compression fracture Plan of Care: Orders Procedure Date/time Status Heart Healthy Diet 12/29 B Active Heart Healthy Diet 12/28 D Complete TRC EVALUATION (GEN) 12/28 1639 Active PT Evaluate & Treat 12/28 1639 Active Pathway - chart 12/28 1639 Active House Staff 12/28 1639 Active Patient Data 12/28 1502 Active ED Holding Orders 12/28 1454 Active Admit to inpatient 12/28 1454 Active Vital Signs 12/28 1454 Active Code Status 12/28 1454 Active Telemetry/Manager Transportation 12/28 1313 Active URINALYSIS 12/28 1313 Active TROPONIN LEVEL 12/28 1313 Complete D-DIMER 12/28 1313 Complete COMPREHENSIVE METABOLIC PANEL 12/28 1313 Complete CBC WITHOUT DIFFERENTIAL 12/28 1313 Complete B-TYPE NATRIURETIC PEP (BNP) 12/28 1313 Complete EKG 12/28 1313 Active Intake & Output 12/28 1241 Active VTE Mechanical Prophylaxis 12/28 UNK Active Current Medications Sig/Keith Start time Last Medication Dose Stop Time Status Admin Acetaminophen 650 MG Q6 PRN 12/28 1645 UNVr (Tylenol) Morphine Sulfate 0.5 MG Q6 PRN 12/28 1645 UNVr (Morphine) Oxycodone HCl 5 MG Q6 PRN 12/28 1645 UNVr (Roxicodone) Laboratory Tests 12/28/16 1339: Anion Gap 10, Estimated GFR > 60, BUN/Creatinine Ratio 22.2, Glucose 130 H, Calcium 9.9, Total Bilirubin 0.7, AST 27, ALT 35, Alkaline Phosphatase 76, Troponin I 0.01, [id number]-[id number] Pept 836 H, Total Protein 6.3, Albumin 4.0, Globulin 2.3, Albumin/Globulin Ratio 1.7, D-Dimer High Sensitivty 347 H, CBC w Diff MAN DIFF ORDERED, RBC 4.11 L, MCV 91.0, MCH 30.2, RDW 13.3, MPV 7.8, Gran % 96.9 H, Lymphocytes % 2.1 L, Monocytes % 1.0 L, Eosinophils % 0, Basophils % 0 L, Absolute Granulocytes 15.4 H, Absolute Lymphocytes 0.3 L, Absolute Monocytes 0.2, Absolute Eosinophils 0, Absolute Basophils 0, Platelet Estimate ADEQUATE, Normocytic RBCs VERIFIED, Normochromic RBCs VERIFIED, PUBS MCHC 33.2 1:09 PM: Patient seen and evaluated. Due to her age, history of osteoporosis, and presence of abdominal and pelvic pain patient will have a CT of her lumbar spine and her abdomen and pelvis without contrast. His oxygen saturation was at 90 on room air at triage and has been dipping down to 89 at rest on room air. Patient was placed on 2 L via nasal cannula and her oxygen saturation has increased to 95-96. Patient reports her oxygen saturations are usually in the high 90s and she doesn't have oxygen at home. She will have a workup for shortness of breath as well including blood work, EKG and chest x-ray. We will follow-up on results. Patient took a dose of Vicodin at 10:30 AM and reports that her pain is decreased. She does not want any additional pain medication at this time. 2:20 PM: Patient's primary care doctor Dr. Shelton evaluated patient in the emergency department. He wants to admit the patient for intractable back pain, hypoxia, rule out pulmonary embolism, and to get a MRI of her thoracic and lumbar spine. So far CAT scan of the abdomen and pelvis is still pending. Patient has an elevated white blood cell count of 15. D-dimer is 347. Remaining lab work is within normal limits and unchanged from previous. (PIPE [place],MICAH) Diagnostic Imaging: Viewed by Me: Radiology Read, CT Scan. Initial ED EKG: normal sinus rhythm, no st or t wave changes Comments: ATIENT: DEEPALI GUIDO PRESENT AGE: 71 PATIENT ACCOUNT NO: [id number] : 43 LOCATION: [facility] ORDERING PHYSICIAN: MICAH BETANCUR PA-C SERVICE DATE: 12/28/16 EXAM TYPE: RAD - XRY-PORTABLE CHEST XRAY EXAMINATION: XR PORTABLE CHEST CLINICAL INFORMATION: Cough and short of breath. COMPARISON: 09/24/2016 TECHNIQUE: Portable frontal view of the chest was obtained. FINDINGS: There is mild prominence of the central pulmonary vasculature unchanged, cardiomediastinal silhouette is otherwise unchanged. The cardiomediastinal silhouette is stable and unremarkable. The lungs remain hyperexpanded. There is stable biapical pleural parenchymal scarring left side greater than right. The lungs and pleural spaces appear clear without evidence of congestion, consolidation, or significant appearing effusion or atelectasis. There is no evidence of pneumothorax or pulmonary edema. Included osseous structures appear largely unremarkable. IMPRESSION: COPD changes without evidence of an acute intrathoracic process. DICTATED BY: EVER SHIRLEY MD DATE/TIME DICTATED:12/28/161421 CLAM DREDGER:DERECK DATE/TIME TRANSCRIBED:12/28/161421 (MICAH BETANCUR PA-C) Departure Departure Disposition: STILL A PATIENT Condition: Stable Departure Forms: Customer Survey General Discharge Information Admission Note Spoke With: HUY SHELTON MD Documentation of Exam: Documentation of any treatments & extenuating circumstances including Concerns Regarding Discharge (functional status, medication knowledge or non-compliance, living conditions, etc.) that warrant an admission rather than observation: [ Patient requires admission for hypoxia and intractable low back pain. She will require IV pain medications, serial labs, monitoring of vital signs MRI of the lumbar spine pulmonology consult, cardiology consult, telemetry monitoring] (MICAH BETANCUR PA-C) Departure Clinical Impression Primary Impression: Hypoxia Secondary Impressions: Intractable back pain Referrals: HUY SHELTON MD (PCP/Family) Admission Note Documentation of Exam: Documentation of any treatments & extenuating circumstances including Concerns Regarding Discharge (functional status, medication knowledge or non-compliance, living conditions, etc.) that warrant an admission rather than observation: Patient will need PT evaluation PA/SAND MIXER OPERATOR Co-Sign Statement Statement: ED Attending supervision documentation- [X] I saw and evaluated the patient. I have also reviewed all the pertinent lab results and diagnostic results. I agree with the findings and the plan of care as documented in the PA's/SAND MIXER OPERATOR's documentation. [] I have reviewed the ED Record and agree with the PA's/SAND MIXER OPERATOR's documentation. [] Additions or exceptions (if any) to the PAs/SAND MIXER OPERATOR's note and plan are summarized below: [] (KRISTA ROCK DO
[2016-12-28 13:49] LABS: ABSOLUTE BASOPHIL COUNT 0 /CUMM (0.0-0.2); ABSOLUTE EOSINOPHIL COUNT 0 /CUMM (0.0-0.7); ABSOLUTE GRANULOCYTE CT 15.4 /CUMM (1.4-6.5); ABSOLUTE LYMPH COUNT 0.3 /CUMM (1.2-3.4); ABSOLUTE MONOCYTE COUNT 0.2 /CUMM (0.10-0.60); BASOPHIL % 0 % (0.0-2.0); EOSINOPHIL % 0 % (0-5); GRANULOCYTE % 96.9 % (42.2-75.2); HEMATOCRIT 37.4 % (37-47); MEAN CORPUSCULAR HGB 30.2 PG (27.0-31.0); MEAN CORPUSCULAR HGB CONC 33.2 G/DL (33.0-37.0); MEAN PLATELET VOLUME 7.8 FL (7.4-10.4); PLATELET COUNT 260 /CUMM (130-400); RBC DISTRIBUTION WIDTH 13.3 % (11.5-14.5); RED BLOOD CELL CT 4.11 /CUMM (4.20-5.40); WHITE BLOOD CELL COUNT 15.9 /CUMM (4.8-10.8)
--- NOTE | 2016-12-28 14:01 | CT SCAN REPORT ---
EXAMINATION: CT ABDOMEN AND PELVIS WITHOUT CONTRAST CLINICAL INFORMATION: 71-year-old female with lower back, lower abdominal pain following bending. COMPARISON: Whole-body PET CT scan done on 12/28/2014. TECHNIQUE: Multidetector volumetric imaging was performed from the superior aspect of the liver through the pubic symphysis. Sagittal and coronal reformatted images were obtained on the technologist's workstation. DLP: 223.20 mGy-cm FINDINGS: LUNG BASES: Emphysematous changes are noted at both lung bases. There is a persistent stable approximately 0.5 cm noncalcified lung nodule noted within the right middle lobe anterolaterally (see the johnson images). LIVER, GALLBLADDER, AND BILIARY TREE: The liver is normal in size, shape, and attenuation. No focal hepatic lesion or biliary ductal dilatation is present. Evaluation is limited on this nonenhanced study. There is sludge identified within the dependent part of the gallbladder, otherwise unremarkable. PANCREAS: Grossly appears unremarkable on this nonenhanced study. SPLEEN: Unremarkable. ADRENAL GLANDS: The left adrenal gland is mildly thickened, similar to prior study done on 12/28/2014. There is no adrenal mass noted. KIDNEYS AND URETERS: The kidneys are normal in size, shape, and attenuation. No hydronephrosis, hydroureter, or calculi seen. No perinephric stranding. BLADDER: Unremarkable. GASTROINTESTINAL TRACT: Significant colonic diverticulosis-related changes are noted within the large bowel without any CT features of superimposed acute diverticulitis. Extensive fecal residual is noted within the large bowel especially on the right side. The appendix is not visualized. There are no inflammatory changes noted around the cecum. No significant change. The small bowel loops are decompressed. ABDOMINAL WALL: No significant hernia is appreciated. LYMPH NODES: Normal. VASCULAR: Diffuse atherosclerotic disease is noted within the aorta and its branches without aneurysm formation, unchanged. PELVIC VISCERA: There is no pelvic mass present. There is no free fluid and/or free air present. OSSEOUS STRUCTURES: Moderate diffuse osteopenia is noted involving all the visualized bones. There is no evidence of any compression fracture identified within the lumbar spine. Extensive facet joint arthritic changes are noted throughout the entire lumbar spine predominately at lower lumbar spine. IMPRESSION: 1. There is a 0.5 cm noncalcified lung nodule identified within the right middle lobe, similar to prior whole-body PET CT scan dated 12/28/2014. 2. No CT evidence of acute intra-abdominal and/or intrapelvic pathology. Specifically, no significant change since the prior whole-body CT PET scan done on 12/28/2014.
[2016-12-28] MEDS ORDERED: SPIRIVA18 MCG INH (14:41)
--- NOTE | 2016-12-28 15:28 | RADIOLOGY REPORT ---
EXAMINATION: XR PORTABLE CHEST CLINICAL INFORMATION: Cough and short of breath. COMPARISON: 09/24/2016 TECHNIQUE: Portable frontal view of the chest was obtained. FINDINGS: There is mild prominence of the central pulmonary vasculature unchanged, cardiomediastinal silhouette is otherwise unchanged. The cardiomediastinal silhouette is stable and unremarkable. The lungs remain hyperexpanded. There is stable biapical pleural parenchymal scarring left side greater than right. The lungs and pleural spaces appear clear without evidence of congestion, consolidation, or significant appearing effusion or atelectasis. There is no evidence of pneumothorax or pulmonary edema. Included osseous structures appear largely unremarkable. IMPRESSION: COPD changes without evidence of an acute intrathoracic process.
--- NOTE | 2016-12-28 16:03 | CT SCAN REPORT ---
EXAMINATION: CT LUMBAR SPINE WITHOUT CONTRAST CLINICAL INFORMATION: Low back pain after bending. Assess for fracture or lytic lesions. COMPARISON: CT scan of the abdomen and pelvis also obtained 12/28/2016. Bone density scan 09/09/2013. TECHNIQUE: Helical non-contrast CT images were obtained through the lumbar spine and 1.25 and 2.5 mm axial reconstructions were reviewed along with sagittal and coronal MPRs. DLP: 225.47 mGy-cm FINDINGS: There is a mild hyperlordosis in the lumbar spine which is nonspecific. Intervertebral disc heights are maintained and there are no compression fractures. The intervertebral disc heights appear normal. Bone mineralization appears diffusely decreased. There are moderate atheromatous calcifications of the aorta. There are severe emphysematous changes at the left lung base. The infrarenal abdominal aorta is ectatic, but not frankly aneurysmal. It has a caliber of 2 cm at the level of L4. There are mild degenerative changes at the sacroiliac joints. SPINAL LEVELS: T12-L1: There is mild bilateral facet arthropathy. Disc contour is normal. There is no central stenosis or foraminal narrowing. L1-L2: There is mild bilateral facet arthropathy. Disc contour is normal. There is no central stenosis or foraminal narrowing. L2-L3: There is mild bilateral facet arthropathy. Disc contour is normal. There is no central stenosis or foraminal narrowing. L3-L4: There is [id number] facet arthropathy with ligamenta flava hypertrophy. There is a diffuse disc bulge. There is a small annular calcification in the midline posteriorly. There is no central stenosis. The neural foramina are patent. L4-L5: There is severe bilateral facet arthropathy and ligamenta flava hypertrophy. There is a broad-based posterior disc protrusion extending into the inferior neural foramina bilaterally without definite nerve root impingement. There is no central stenosis. L5-S1: There is severe bilateral facet arthropathy. Posterior disc contour is normal. There is no central stenosis or foraminal narrowing. IMPRESSION: 1. There are no acute fractures or subluxations. 2. The bones are diffusely osteoporotic, demonstrated on prior bone density scan. 3. There are severe facet arthropathic changes at L4-L5 and L5-S1. 4. There is no central stenosis or foraminal narrowing.
--- NOTE | 2016-12-28 16:39 | History & Physical ---
KHLOE TROTTER,SUZI 12/28/16 1638: General Information and HPI MD Statement: I have seen and personally examined DEEPALI GUIDO and documented this H&P. The patient is a 71 year old F who presented with back pain x1 day. Source of Information: patient Exam Limitations: no limitations History of Present Illness: 71 yo F with past medical history of COPD, osteoporosis, coronary artery disease , GERD, macular degeneration, cataracts, presented to the emergency department with back pain since 1 day. According to the patient, she was in her usual state of health until yesterday around 10 AM, when she tried lifting her air conditioner, but while doing so heard a popping sound and had severe back pain. She notified her primary care physician who advised her to get checked with the emergency department for further evaluation. She has history of osteoporosis and vertebral augmentation in the past. Patient denies of weakness, tingling, numbness down her lower limbs, no incontinence, no fever, no chills, no open wound. She also mentioned that over the course of the past 6 months, her breathing has worsened, to the point where today she is requiring additional oxygen to maintain her oxygen saturation. On ambulation, in the emergency department her SPO2 decreased to 88% on room air, and improved with additional oxygen via nasal cannula. 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 Allergies/Medications Allergies: Coded Allergies: Penicillins (RASH, HIVES 09/24/16) Past History Travel History Traveled to [place] past 21 day No Medical History Neurological: NONE EENT: cataracts, macular degeneration Cardiovascular: myocardial infarction, UNSURE OF CHF? Respiratory: COPD, emphysema Gastrointestinal: GERD Hepatic: NONE Renal: NONE Musculoskeletal: osteoporosis Psychiatric: NONE Endocrine: NONE Blood Disorders: NONE Cancer(s): NONE RN STARS/Reproductive: NONE History of MRSA: No History of VRE: No History of CDIFF: No Influenza Vaccine: 05/02/16 Surgical History Surgical History: non-contributory Past Family/Social History Family History Relations & Conditions if any No Known Family History. Psychosocial History Who Do You Live With? self Services at Home: None Primary Language: Palestinian Living Will? no Functional Ability ADLs Independent: dressing, eating, toileting, bathing. Ambulation: independent IADLs Independent: shopping, housework, finances, food prep, telephone, transportation , medication admin. Review of Systems Review of Systems Constitutional: Reports: no symptoms. EENTM: Reports: no symptoms. Cardiovascular: Reports: no symptoms. Respiratory: Reports: see HPI, short of breath. GI: Reports: no symptoms. Genitourinary: Reports: no symptoms. Musculoskeletal: Reports: see HPI, back pain. Skin: Reports: no symptoms. Neurological/Psychological: Reports: no symptoms. Hematologic/Endocrine: Reports: no symptoms. All Other Systems: Reviewed and Negative Exam & Diagnostic Data Last 24 Hrs of Vital Signs/I&O Vital Signs Date Time Temp Pulse Resp B/P B/P Pulse O2 O2 Flow FiO2 Mean Ox Delivery Rate 12/28 1755 97 Nasal 2.0L Cannula 12/28 1755 98.1 101 22 152/82 97 Nasal 2.0L Cannula 12/28 1652 97.9 97 16 144/93 97 Room Air 12/28 1427 97.9 100 20 134/67 98 Nasal 2.0L Cannula 12/28 1315 97 Nasal 2.0L Cannula 12/28 1228 98.6 120 18 137/73 90 Room Air Intake & Output 12/28 1600 12/28 0800 12/28 0000 Intake Total Output Total Balance Patient 53.07 kg Weight Weight Reported by Patient Measurement Method Physical Exam General Appearance Alert, Oriented X3, Cooperative, No Acute Distress, on nasal canula at 2L/min, kyphosis, tenderness over upper thoracic spine region, not specific over a particular level only Skin No Rashes, No Breakdown, No Significant Lesion Skin Temp/Moisture Exam: Warm/Dry Sepsis Skin Exam (color): Normal for Ethnicity HEENT Atraumatic, PERRLA Neck Supple, No JVD, No thryomegaly Lymphatic Cervical nl Cardiovascular Regular Rate, No Murmurs Lungs Clear to Auscultation, Normal Air Movement Abdomen Normal Bowel Sounds, Soft, No Tenderness, No Hepatospenomegaly, No Masses Neurological Normal Gait, Normal Speech, Strength at 5/5 X4 Ext, Normal Tone, Sensation Intact Extremities No Clubbing, No Cyanosis, No Edema, Normal Pulses, No Tenderness/ Swelling Vascular Normal Pulses, Pulses Symmetrical Sepsis Peripheral Pulse Location: Radial Sepsis Peripheral Pulse Exam: Normal Sepsis Cap Refill Exam: <2 Sec Last 24 Hrs of Labs/Morgan: Laboratory Tests 12/28/16 1735: Urine Color YEL, Urine Clarity CLEAR, Urine pH 6.0, Ur Specific [place] 1.020, Urine Protein TRACE H, Urine Ketones NEG, Urine Nitrite NEG, Urine Bilirubin NEG, Urine Urobilinogen 0.2, Ur Leukocyte Esterase NEG, Ur Microscopic SEDIMENT EXAMINED, Urine RBC FEW H, Urine WBC 1-3 H, Ur Epithelial Cells OCCAS, Hyaline Casts MOD H, Granular Casts MOD H, Urine Mucus MANY H, Urine Hemoglobin NEG, Urine Glucose NEG 12/28/16 1339: Anion Gap 10, Estimated GFR > 60, BUN/Creatinine Ratio 22.2, Glucose 130 H, Calcium 9.9, Total Bilirubin 0.7, AST 27, ALT 35, Alkaline Phosphatase 76, Troponin I 0.01, Vrp-G-Lfsvpfbwrlr Pept 836 H, Total Protein 6.3, Albumin 4.0, Globulin 2.3, Albumin/Globulin Ratio 1.7, D-Dimer High Sensitivty 347 H, CBC w Diff MAN DIFF ORDERED, RBC 4.11 L, MCV 91.0, MCH 30.2, RDW 13.3, MPV 7.8, Gran % 96.9 H, Lymphocytes % 2.1 L, Monocytes % 1.0 L, Eosinophils % 0, Basophils % 0 L, Absolute Granulocytes 15.4 H, Absolute Lymphocytes 0.3 L, Absolute Monocytes 0.2, Absolute Eosinophils 0, Absolute Basophils 0, Platelet Estimate ADEQUATE, Normocytic RBCs VERIFIED, Normochromic RBCs VERIFIED, PUBS MCHC 33.2 Diagnostic Data EKG Results Sinus rhythm at 99 per minute, QTC 447, LA 132, QRS 90, no ST changes. CXR Results OPD changes without evidence of an acute intrathoracic process. DICTATED BY: EVER SHIRLEY MD DATE/TIME DICTATED:12/28/161421 BASEBALL COACH:KNAPP DATE/TIME TRANSCRIBED:12/28/161421 Other Results Lumbar spine CT: MPRESSION: 1. There are no acute fractures or subluxations. 2. The bones are diffusely osteoporotic, demonstrated on prior bone density scan. 3. There are severe facet arthropathic changes at L4-L5 and L5-S1. 4. There is no central stenosis or foraminal narrowing. DICTATED BY: JING KAUR MD DATE/TIME DICTATED:12/28/161330 BASEBALL COACH:KNAPP DATE/TIME TRANSCRIBED:12/28/161330 Assessment/Plan Assessment: 71 yo F with past medical history of COPD, osteoporosis, coronary artery disease , GERD, macular degeneration, cataracts, presented to the emergency department with back pain since 1 day. Currently she is being admitted to the general medical floor for the management of following issues: #Intractable back pain Patient's history is suspicious for back injury. CT scan did not reveal any acute fractures or subluxations. Of note, patient has history of osteoporosis, thus an MRI will be sent to rule out any acute changes/edema, which if present, patient can go for vertebral augmentation. Interventional radiology service was consulted by the primary care physician/attending physician, who mentioned that it could be done on Saturday or Saturday. #Acute hypoxic respiratory failure Patient has history of COPD, but does not require oxygen at baseline, but she was hypoxic in the emergency department to 88%, which improved with additional oxygen via nasal cannula. His pulse criteria is 4.5 points, signifying moderate risk group 16.2% chance of pulmonary embolism. CT angiogram has been ordered to rule out pulmonary embolism, which is negative. Pulmonary consultation will be placed in the morning. Cardiology consultation to be placed as well, in case patient has to go for the IR surgery. needs clearance/optimization prior to that. #Will continue her home medications. #Diet: Heart healthy #DVT ppx: SQ Heparin #Code status: Full code As Ranked By This Provider Problem List: 1. Intractable back pain 2. Osteoporosis 3. COPD (chronic obstructive pulmonary disease) Core Measures/Miscellaneous Acute Coronary Syndrome ACS Diagnosis: No Cerebrovascular Accident CVA/TIA Diagnosis: No Congestive Heart Failure CHF Diagnosis: No VTE (View Protocol) VTE Risk Factors: Age > 40 No [facility] VTE prophylaxis d/t: No contraindications No VTE Pharm Prophylaxis d/t: No contraindications VTE Diagnosis: No VTE Type: NONE VTE Confirmed by (Test): NONE Sepsis (View Protocol) Severe Sepsis Present: No Septic Shock Septic Shock Present: No Miscellaneous Documentation Attending Case Discussed With: HUY SHELTON MD Primary Care Physician: HUY SHELTON MD Patient sees these Specialists Pulmonary medicine Cardiology Level of Patient Care: General Medicine KATHLEEN CHAN MD,CELESTE 12/28/16 0341: General Information and HPI Allergies/Medications Home Med list Albuterol Sulfate (Ventolin Hfa) 90 MCG HFA.AER.AD 2 PUF INH PRN COPD ( Reported) Albuterol Sulfate 2.5 MG/3 ML (0.083 %) VIAL.NEB 1 Vial INH/TORI Q4P PRN COPD (Reported) Aspirin (Ecotrin*) 81 MG TABLET.DR 1 TAB PO DAILY HEART/BLOOD (Reported) Atorvastatin Calcium 20 MG TABLET 1 TAB PO DAILY CHOLESTEROL (Reported) Azithromycin 250 MG TABLET 1 TAB PO DAILY PROPHYLAXIS (Reported) Cholecalciferol (Vitamin D3) (Vitamin D3) 1,000 UNIT CAPSULE 1 CAP PO DAILY SUPPLEMENT (Reported) Fluticasone/Salmeterol (Advair 250-50 Diskus) 250 MCG-50 MCG/DOSE BLST.W.DEV 1 PUF INH BID COPD (Reported) Hydrocodone/Acetaminophen (Vicodin 5-300 MG Tablet) 5 MG-300 MG TABLET 1 TAB PO Q4H PRN PAIN (Reported) Lisinopril (Prinivil) 20 MG TABLET 1 TAB PO DAILY BP (Reported) Montelukast Sodium (Singulair) 10 MG TABLET 1 TAB PO DAILY ALLERGIES ( Reported) Omeprazole 40 MG CAPSULE.DR 1 CAP PO DAILY acid reflux Prednisone 10 MG TABLET 1 TAB PO Q48 COPD (Reported) Tiotropium [place] (Spiriva) 18 MCG CAP.W.DEV 1 CAP INH DAILY COPD (Reported) Ubidecarenone (Co Q-10) 200 MG CAPSULE 1 CAP PO DAILY SUPPLEMENT (Reported) Vit C/E/Zn/Coppr/Lutein/Zeaxan (Preservision Areds 2 Softgel) 250-200-40 CAPSULE 1 TAB PO DAILY SUPPLEMENT (Reported) Resident Review Statement Resident Statement: examined this patient, discussed with fashion intern, agreed with fashion intern Other Findings: 71 year old female with past medical history significant for COPD/ emphysema non- oxygen dependent, history of pna, HTN, mitral valve prolapse, takotsubo cardiomyopathy with recovery of ejection fraction, reflux, cataracts, macular degeneration, osteoporosis and cervical spine pain s/p fusion came to emergency department for chief complaint of lower back pain after she was trying to pick her air-conditioner and 70 felt a pop. Patient also reports of progressive shortness of breath that has been getting worse over the last 6 months. Review of system was negative for any headaches, visual changes, chest pain, palpitations, cough, hemoptysis, nausea, vomiting, abdominal pain, diarrhea, constipation, or lower extremity swelling. Vitals in emergency department patient afebrile, tachycardia ranging from 97-120 , mild tachypnea with respiratory rate of 22, systolic blood pressure 134.52 and diastolic blood pressure 67-82, oxygen saturation currently 97 and 2 L of oxygen. Patient's oxygen saturation did drop to 88% in emergency department and she was placed on nasal cannula. On examination patient alert and oriented not in any acute comfortably lying in the bed, kyphosis, S1 and S2 audible without any murmurs, lung examination reviewed scattered wheezing, abdominal examination reviewed audible bowel sounds , grossly intact neurological examination. EKG showed sinus rhythm, heart rate of 100, QTC 447 Imaging in emergency department showed CXR, COPD changes without evidence of an acute intrathoracic process. There are no acute fractures or subluxations. The bones are diffusely osteoporotic, demonstrated on prior bone density scan. There are severe facet arthropathic changes at L4-L5 and L5-S1. There is no central stenosis or foraminal narrowing. Patient was admitted on general medicine so for the management of following problems Acute hypoxemic respiratory failure / Rule out PE Patient has past medical history significant for chronic obstructive pulmonary disease and emphysema. She does not require any oxygen at baseline. During this admission patient became hypoxemic and oxygen saturation was 88% therefore she was placed nasal cannula. According to Wells criteria, she is 4.5 points, moderate risk group 16.2% chance of pulmonary embolism. D-dimer was 347, therefore will get a CTA to rule out the possibility of pulmonary embolism. 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 Imaging in emergency department, ruled out the possibility of acute subluxation than fractures. As per discussion with Dr. Shelton we will obtain an MRI of thoracic and lumbar vertebral spine. Patient will require physical therapy and appropriate pain management. Patient is full code Patient is on heparin for DVT prophylaxis Patient is on heart healthy diet Patient is on pain management
--- NOTE | 2016-12-28 17:40 | Admission Certification ---
Admission Certification Certification Statement - As attending physician, I certify that at the time of - admission, based on clinical presentation, severity of - symptoms, need for further diagnostic testing and - therapeutic interventions, and risk of adverse outcomes - without in-hospital treatment, in my clinical assessment, - this patient requires an acute hospital stay for a minimum - of two nights or longer. I have also considered psychsocial - factors such as support system, advanced age, financial - issues, cognitive issues, and failed out-patient treatments, - past re-admission history, safety of patient, and lack of - compliance as applicable. Specific rationale supporting this admission is: Treatment of COPD with hypoxemia and analgesia for intractible back pain.
[2016-12-28 17:55] VITALS: BP 152/82
[2016-12-28] MEDS ORDERED: SINGULAIR10 M1 PO (18:30)
--- NOTE | 2016-12-28 21:31 | CT SCAN REPORT ---
EXAMINATION: CT ANGIOGRAM OF THE CHEST WITH AND WITHOUT CONTRAST (CT PULMONARY ANGIOGRAM FOR PE) CLINICAL INFORMATION: Hypoxia COMPARISON: CT of chest 09/24/2016 chest x-ray 09/24/2016. CT of chest 06/13/2016. TECHNIQUE: Prior to contrast administration, noncontrast localization images were obtained. Subsequently, multidetector volumetric imaging was performed from the thoracic inlet to below the diaphragms following the administration of 74 mL Optiray 350 intravenous contrast. No contrast reaction reported. Sagittal, coronal, and MIP oblique sagittal reformatted images were obtained on the CT workstation, uploaded to PACS, and reviewed. Total exam dose-length product 169.13 mGy-cm. FINDINGS: QUALITY OF STUDY/CONTRAST BOLUS: Satisfactory PULMONARY ARTERIES: No central or segmental pulmonary emboli. THORACIC AORTA: No aneurysm or dissection. There is atherosclerotic vascular calcifications of aorta and origin of great vessels. LUNG: Severe emphysematous changes of lungs. No acute infiltrate. PLEURA: No pleural effusion or pneumothorax. MEDIASTINUM: Normal heart size. No pericardial effusion. No hilar or mediastinal lymphadenopathy. No evidence of septal bowing or right heart strain. Moderate-sized hiatal hernia. CHEST WALL/AXILLA: No axillary or internal mammary lymphadenopathy. OSSEOUS STRUCTURES: Kyphosis of dorsal spine. Status post thoracoplasty of the T5-T7 vertebrae. Loss of height of these vertebrae as well as T8 and T9 and T11 vertebrae which is chronic. UPPER ABDOMEN: Unremarkable. No reflux of contrast into the hepatic veins to suggest elevated right heart pressures. IMPRESSION: No evidence of pulmonary embolism. No acute change of chest. Severe emphysematous changes of lungs. VTE: negative
[2016-12-28 23:08] VITALS: BP 132/68
[2016-12-29 06:58] VITALS: BP 146/66
--- NOTE | 2016-12-29 07:59 | PN- Att Addend ---
Attending Addendum Attending Brief Note Covering attending note. Patient is sitting comfortably out of bed having breakfast lower back pain has markedly subsided and she is able to walk to the bathroom with with very minimal discomfort. Pain started in the left flank lower back area after she was lifting a conditioner unit she heard a snap and the pain started. Intake & Output 12/29 0800 12/29 0000 12/28 1600 Intake Total 450 Output Total 350 Balance 100 Intake, Oral 450 Output, Urine 350 Patient 117 lb 117 lb Weight Weight Reported by Patient Reported by Patient Measurement Method Laboratory Tests 12/29 12/28 0650 1735 Chemistry Sodium Pending Potassium Pending Chloride Pending Carbon Dioxide Pending Anion Gap Pending BUN Pending Creatinine Pending BUN/Creatinine Ratio Pending Coagulation PT Pending INR Pending Hematology CBC w Diff Pending WBC Pending RBC Pending Hgb Pending Hct Pending MCV Pending MCH Pending RDW Pending Plt Count Pending MPV Pending PUBS MCHC Pending Urines Urine Color (YEL,AMB,STR) YEL Urine Clarity (CLEAR) CLEAR Urine pH (5.0 - 8.0) 6.0 Ur Specific [place] (1.001 - 1.035) 1.020 Urine Protein (NEG,<30 MG/DL) TRACE H Urine Ketones (NEG) NEG Urine Nitrite (NEG) NEG Urine Bilirubin (NEG) NEG Urine Urobilinogen (0.1 - 1.0 EU/dl) 0.2 Ur Leukocyte Esterase (NEG) NEG Ur Microscopic SEDIMENT EXAMINED Urine RBC (0 - 5 /HPF) FEW H Urine WBC (0 - 2 /HPF) 1-3 H Ur Epithelial Cells (NONE,FEW) OCCAS Hyaline Casts (0/LPF) MOD H Granular Casts (NONE /LPF) MOD H Urine Mucus (FEW,NONE) MANY H Urine Hemoglobin (NEG) NEG Urine Glucose (N MG/DL) NEG 12/28 1339 Chemistry Sodium (137 - 145 mmol/L) 134 L Potassium (3.5 - 5.1 mmol/L) 4.4 Chloride (98 - 107 mmol/L) 97 L Carbon Dioxide (22 - 30 mmol/L) 27 Anion Gap (5 - 16) 10 BUN (7 - 17 mg/dL) 20 H Creatinine (0.5 - 1.0 mg/dL) 0.9 Estimated GFR (>60 ml/min) > 60 BUN/Creatinine Ratio (7 - 25 %) 22.2 Glucose (65 - 99 mg/dL) 130 H Calcium (8.4 - 10.2 mg/dL) 9.9 Total Bilirubin (0.2 - 1.3 mg/dL) 0.7 AST (14 - 36 U/L) 27 ALT (9 - 52 U/L) 35 Alkaline Phosphatase (<127 U/L) 76 Troponin I (< 0.11 ng/ml) 0.01 Kne-A-Feaddefzxst Pept (<125 pg/mL) 836 H Total Protein (6.3 - 8.2 g/dL) 6.3 Albumin (3.5 - 5.0 g/dL) 4.0 Globulin (1.9 - 4.2 gm/dL) 2.3 Albumin/Globulin Ratio (1.1 - 2.2 %) 1.7 Coagulation D-Dimer High Sensitivty (0 - 243 ng/ml) 347 H Hematology CBC w Diff MAN DIFF ORDERED WBC (4.8 - 10.8 /CUMM) 15.9 H RBC (4.20 - 5.40 /CUMM) 4.11 L Hgb (12.0 - 16.0 G/DL) 12.4 Hct (37 - 47 %) 37.4 MCV (81.0 - 99.0 FL) 91.0 MCH (27.0 - 31.0 PG) 30.2 RDW (11.5 - 14.5 %) 13.3 Plt Count (130 - 400 /CUMM) 260 MPV (7.4 - 10.4 FL) 7.8 Gran % (42.2 - 75.2 %) 96.9 H Lymphocytes % (20.5 - 51.1 %) 2.1 L Monocytes % (1.7 - 9.3 %) 1.0 L Eosinophils % (0 - 5 %) 0 Basophils % (0.0 - 2.0 %) 0 L Absolute Granulocytes (1.4 - 6.5 /CUMM) 15.4 H Absolute Lymphocytes (1.2 - 3.4 /CUMM) 0.3 L Absolute Monocytes (0.10 - 0.60 /CUMM) 0.2 Absolute Eosinophils (0.0 - 0.7 /CUMM) 0 Absolute Basophils (0.0 - 0.2 /CUMM) 0 Platelet Estimate (ADEQUATE) ADEQUATE Normocytic RBCs VERIFIED Normochromic RBCs VERIFIED PUBS MCHC (33.0 - 37.0 G/DL) 33.2 Vital Signs Date Time Temp Pulse Resp B/P B/P Pulse O2 O2 Flow FiO2 Mean Ox Delivery Rate 12/29 0658 97.9 76 20 146/66 99 Nasal 2.0L Cannula 12/29 0000 Nasal 2.0L Cannula 12/28 2308 98.3 88 20 132/68 100 Nasal 2.0L Cannula 12/28 2303 Nasal 2.0L Cannula 12/28 1755 97 Nasal 2.0L Cannula 12/28 1755 98.1 101 22 152/82 97 Nasal 2.0L Cannula 12/28 1652 97.9 97 16 144/93 97 Room Air 12/28 1427 97.9 100 20 134/67 98 Nasal 2.0L Cannula 12/28 1315 97 Nasal 2.0L Cannula 12/28 1228 98.6 120 18 137/73 90 Room Air Intake & Output 12/29 0800 12/29 0000 12/28 1600 Intake Total 450 Output Total 350 Balance 100 Intake, Oral 450 Output, Urine 350 Patient 117 lb 117 lb Weight Weight Reported by Patient Reported by Patient Measurement Method On examination Patient is awake alert oriented. In mild distress currently on oxygen. Conjunctivae is pink sclerae is anicteric Neck is supple JVD is not raised S1-S2 is normal Lungs diminished breath sounds both lungs with expiratory wheezing Abdomen is soft nontender bowel sounds are present Minimal tenderness in the midlumbar region with some paraspinal spasm present. No focal neurological deficit. Labs CAT scan of the lumbar spine IMPRESSION: 1. There are no acute fractures or subluxations. 2. The bones are diffusely osteoporotic, demonstrated on prior bone density scan. 3. There are severe facet arthropathic changes at L4-L5 and L5-S1. 4. There is no central stenosis or foraminal narrowing. Assessment Acute lower back pain following lifting and heavy object the spasm of the lower lumbar spine evidence of severe facet arthropathy at L4-L5 and L5-S1 and the spine is diffusely osteoporotic. Plan is to get an MRI of the lumbosacral spine Continue with current management.
[2016-12-29 08:39] LABS: ABSOLUTE BASOPHIL COUNT 0 /CUMM (0.0-0.2); ABSOLUTE EOSINOPHIL COUNT 0.1 /CUMM (0.0-0.7); ABSOLUTE GRANULOCYTE CT 12.9 /CUMM (1.4-6.5); ABSOLUTE LYMPH COUNT 1.1 /CUMM (1.2-3.4); ABSOLUTE MONOCYTE COUNT 0.9 /CUMM (0.10-0.60); BASOPHIL % 0 % (0.0-2.0); GRANULOCYTE % 85.6 % (42.2-75.2); HEMATOCRIT 39.9 % (37-47); MEAN CORPUSCULAR HGB 30.6 PG (27.0-31.0); MEAN CORPUSCULAR VOLUME 92.5 FL (81.0-99.0); MEAN PLATELET VOLUME 8.9 FL (7.4-10.4); PLATELET COUNT 254 /CUMM (130-400); RBC DISTRIBUTION WIDTH 13.5 % (11.5-14.5); RED BLOOD CELL CT 4.31 /CUMM (4.20-5.40)
[2016-12-29 08:48] LABS: PT 10.2 SEC (9.4-12.5)
--- NOTE | 2016-12-29 09:06 | PN- Housestaff ---
Subjective Follow-up For: Back Pain, Acute Hypoxia Complaints: pain scale (0-10) (5/10 with pain meds) Subjective: I saw and examined the patient this AM. Pt was lying in bed resting. States she had no acute events overnight. States she has lower back pain which worsens with movement. Rates her current pain at a 5/10. States her breathing has improved with 1L NC. Denies chest pain, cough, SOB, fever chills. Back pain is localized to lower lumbar region. Pt denies any pain radiating to legs, numbness or tingling in legs or feet, and incontinence. Review of Systems Constitutional: Denies: no symptoms, chills, fever, weakness. Cardiovascular: Denies: chest pain, edema, palpitations. Respiratory: Reports: short of breath, wheezing. Denies: cough. Gastrointestinal: Denies: abdominal pain. Musculoskeletal: Reports: back pain. Objective Last 24 Hrs of Vital Signs/I&O Vital Signs Date Time Temp Pulse Resp B/P B/P Pulse O2 O2 Flow FiO2 Mean Ox Delivery Rate 12/29 1448 97.9 79 20 114/58 100 Nasal 1.0L Cannula 12/29 1238 91 132/62 12/29 0848 94 Nasal 1.0L Cannula 12/29 0800 100 Nasal 2.0L Cannula 12/29 0658 97.9 76 20 146/66 99 Nasal 2.0L Cannula 12/29 0000 Nasal 2.0L Cannula 12/28 2308 98.3 88 20 132/68 100 Nasal 2.0L Cannula 12/28 2303 Nasal 2.0L Cannula Intake & Output 12/29 1600 12/29 0800 12/29 0000 Intake Total 350 450 Output Total 300 350 Balance 50 100 Intake, Oral 350 450 Output, Urine 300 350 Patient 117 lb Weight Weight Reported by Patient Measurement Method Physical Exam General Appearance: Alert, Oriented X3, Cooperative, No Acute Distress HEENT: Atraumatic, PERRLA, EOMI, Mucous Membr. moist/pink Cardiovascular: Regular Rate, holosystolic murmur radiating to axilla, grade 3/6 Lungs: course breath sounds heard bilaterally Abdomen: Normal Bowel Sounds, Soft, No Tenderness Neurological: Normal Speech, Normal Tone, Sensation Intact, no spinal tenderness on palpation, paraspinal tenderness on the left side > than the right Extremities: No Edema, Normal Pulses Vascular: Normal Pulses, Pulses Symmetrical Assessment/Plan Assessment: 71 y/o female with past medical history of back pain with history of multiple previous injuries, COPD, osteoporosis, coronary artery disease, GERD, macular degeneration, cataracts, presented to the emergency department with back pain since 1 day admitted to the general medical floor for management of back pain and acute hypoxia. 1. Lower lumbar pain: Patient's history is suspicious for back injury. CT scan did not reveal any acute fractures or subluxations. MRI was done today showing acute/subacute compression at T11, chronic compression fractures at T8 and T9, and severe facet arthropathic changes at L4-L5 and L5-S1. No spinal cord compression was seen. * will continue to manage patient's back pain with opiates and wean off as tolerated 2. Acute hypoxic respiratory failure Patient has history of COPD not requiring home O2, on multiple inhalers at home, arrived to the ED with saturation of 88%. Saturation improved with supplemental oxygen via NC. Currently satting in the mid 90s with 1L NC. PE ruled out. * Pulm consulted and will follow recommendations * Will order incentive spirometry * [facility] eval for nebulizer * Reassess O2 requirements prior to discharge * Cardiology consult for possible IR procedure Will continue her home medications. Diet: Heart healthy DVT ppx: SQ Heparin Code status: Full code Problem List: 1. COPD exacerbation 2. Compression fracture Pain Ratin Pain Location: Lower lumbar region Pain Goal: Pain 4 or less Pain Plan: Continue opiates and wean off as tolerated Tomorrow's Labs & Rationales: CBC BEP
[2016-12-29 10:12] LABS: WHITE BLOOD CELL COUNT 15.1 /CUMM (4.8-10.8)
--- NOTE | 2016-12-29 14:00 | Cons- Pulmonary ---
General Information and HPI Consulting Request Date of Consult: 12/29/16 Requested By: Dr. Winter Reason for Consult: COPD and hypoxemia Source of Information: patient Exam Limitations: no limitations History of Present Illness: Consultation for hypoxemia and COPD in the 71-year-old woman. She is admitted for intractable back pain and pain management. She underwent imaging of her lumbar spine including an MRI that is currently pending. Patient has followed with Dr. Romero intermittently. She has not been on oxygen at home for her COPD. Her management includes albuterol, Spiriva, and Advair. It is difficult for the patient to take deep inspirations given back pain and this likely is causing underlying degree of atelectasis. She has a white blood cell count of 15.1. She is afebrile. She is saturating 94% on 1 L nasal cannula and she does desaturate to 84% on room air. No sick contacts, occasional dry cough, no leg edema, no hemoptysis. CTA ruled out VTE. Severe emphysema of lungs. 50 year smoking hx, hasn't smoked for 4 years. Allergies/Medications Allergies: Coded Allergies: Penicillins (RASH, HIVES 09/24/16) Home Med List: Albuterol Sulfate (Ventolin Hfa) 90 MCG HFA.AER.AD 2 PUF INH PRN COPD ( Reported) Albuterol Sulfate 2.5 MG/3 ML (0.083 %) VIAL.NEB 1 Vial INH/TORI Q4P PRN COPD (Reported) Aspirin (Ecotrin*) 81 MG TABLET.DR 1 TAB PO DAILY HEART/BLOOD (Reported) Atorvastatin Calcium 20 MG TABLET 1 TAB PO DAILY CHOLESTEROL (Reported) Azithromycin 250 MG TABLET 1 TAB PO DAILY PROPHYLAXIS (Reported) Cholecalciferol (Vitamin D3) (Vitamin D3) 1,000 UNIT CAPSULE 1 CAP PO DAILY SUPPLEMENT (Reported) Fluticasone/Salmeterol (Advair 250-50 Diskus) 250 MCG-50 MCG/DOSE BLST.W.DEV 1 PUF INH BID COPD (Reported) Hydrocodone/Acetaminophen (Vicodin 5-300 MG Tablet) 5 MG-300 MG TABLET 1 TAB PO Q4H PRN PAIN (Reported) Lisinopril (Prinivil) 20 MG TABLET 1 TAB PO DAILY BP (Reported) Montelukast Sodium (Singulair) 10 MG TABLET 1 TAB PO DAILY ALLERGIES ( Reported) Omeprazole 40 MG CAPSULE.DR 1 CAP PO DAILY acid reflux Prednisone 10 MG TABLET 1 TAB PO Q48 COPD (Reported) Tiotropium [place] (Spiriva) 18 MCG CAP.W.DEV 1 CAP INH DAILY COPD (Reported) Ubidecarenone (Co Q-10) 200 MG CAPSULE 1 CAP PO DAILY SUPPLEMENT (Reported) Vit C/E/Zn/Coppr/Lutein/Zeaxan (Preservision Areds 2 Softgel) 250-200-40 CAPSULE 1 TAB PO DAILY SUPPLEMENT (Reported) Current Medications: Current Medications Sig/Keith Start time Last Medication Dose Route Stop Time Status Admin Acetaminophen 650 MG Q6 PRN 12/28 1645 AC PO Albuterol Sulfate 3 ML Q4P PRN 12/28 2315 AC INH Aspirin Buffered 81 MG DAILY 12/29 1000 AC 12/29 PO 1233 Atorvastatin Calcium 20 MG DAILY 12/29 1000 AC 12/29 PO 1233 Azithromycin 250 MG DAILY 12/29 1000 AC 12/29 PO 1239 Budesonide/ 2 PUF BID 12/28 2200 AC 12/29 Formoterol Fumarate INH 1239 Cholecalciferol 1,000 IU DAILY 12/29 1000 AC 12/29 PO 1238 Heparin Sodium 5,000 UNIT Q8 12/28 2200 AC 12/29 (Porcine) SC 0613 Lisinopril 20 MG DAILY 12/29 1000 AC 12/29 PO 1238 Montelukast Sodium 10 MG DAILY 12/29 1000 AC 12/29 PO 1238 Morphine Sulfate 2 MG Q6P PRN 12/29 1203 AC 12/29 IV 1203 Morphine Sulfate 0.5 MG Q6 PRN 12/28 1645 DC IV Omeprazole 40 MG DAILY AC 12/28 1825 AC 12/29 PO 0613 Oxycodone HCl 5 MG Q6 PRN 12/28 1645 AC 12/29 PO 0613 Prednisone 10 MG Q48 12/30 1000 CAN PO Tiotropium [place] 1 PUF DAILY 12/29 1000 AC INH Review of Systems Comments 18 point review of systems performed. Pertinent positive and negative findings are in the HPI, otherwise negative. Past History Travel History Traveled to [place] past 21 day No Medical History Blood Transfusion Hx: No Neurological: NONE EENT: cataracts, macular degeneration Cardiovascular: myocardial infarction, UNSURE OF CHF? 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 Psychosocial History Where Do You Live? Home Who Do You Live With? self Services at Home: None Primary Language: Barbadian Smoking Status: Former Smoker Living Will? no Functional Ability ADLs Independent: dressing, eating, toileting, bathing. Ambulation: independent IADLs Independent: shopping, housework, finances, food prep, telephone, transportation , medication admin. Exam & Diagnostic Data Last 24 Hrs of Vital Signs/I&O Vital Signs Date Time Temp Pulse Resp B/P B/P Pulse O2 O2 Flow FiO2 Mean Ox Delivery Rate 12/29 1238 91 132/62 12/29 0848 94 Nasal 1.0L Cannula 12/29 0800 100 Nasal 2.0L Cannula 12/29 0658 97.9 76 20 146/66 99 Nasal 2.0L Cannula 12/29 0000 Nasal 2.0L Cannula 12/28 2308 98.3 88 20 132/68 100 Nasal 2.0L Cannula 12/28 2303 Nasal 2.0L Cannula 12/28 1755 97 Nasal 2.0L Cannula 12/28 1755 98.1 101 22 152/82 97 Nasal 2.0L Cannula 12/28 1652 97.9 97 16 144/93 97 Room Air 12/28 1427 97.9 100 20 134/67 98 Nasal 2.0L Cannula Intake & Output 12/29 1600 12/29 0800 12/29 0000 Intake Total 350 450 Output Total 300 350 Balance 50 100 Intake, Oral 350 450 Output, Urine 300 350 Patient 117 lb Weight Weight Reported by Patient Measurement Method Physical Exam Other Physical Findings: Gen - alert and awake HEENT - NCAT CVS - S1, S2, no murmurs, rubs or gallops Lungs - diminished breath sounds and a prolonged end expiratory phase Abdomen - soft, non-tender, bs+ Ext - no edema, no cyanosis Last 48 Hrs of Labs/Morgan: Laboratory Tests 12/29/16 0650: Anion Gap 11, Estimated GFR > 60, BUN/Creatinine Ratio 20.0, PT 10.2, INR 0.97, CBC w Diff NO MAN DIFF REQ, RBC 4.31, MCV 92.5, MCH 30.6, RDW 13.5, MPV 8.9, Gran % 85.6 H, Lymphocytes % 7.5 L, Monocytes % 5.9, Eosinophils % 1.0, Basophils % 0 L, Absolute Granulocytes 12.9 H, Absolute Lymphocytes 1.1 L, Absolute Monocytes 0.9 H, Absolute Eosinophils 0.1, Absolute Basophils 0, [facility] MCHC 33.0 12/28/16 1735: Urine Color YEL, Urine Clarity CLEAR, Urine pH 6.0, Ur Specific [place] 1.020, Urine Protein TRACE H, Urine Ketones NEG, Urine Nitrite NEG, Urine Bilirubin NEG, Urine Urobilinogen 0.2, Ur Leukocyte Esterase NEG, Ur Microscopic SEDIMENT EXAMINED, Urine RBC FEW H, Urine WBC 1-3 H, Ur Epithelial Cells OCCAS, Hyaline Casts MOD H, Granular Casts MOD H, Urine Mucus MANY H, Urine Hemoglobin NEG, Urine Glucose NEG 12/28/16 1339: Anion Gap 10, Estimated GFR > 60, BUN/Creatinine Ratio 22.2, Glucose 130 H, Calcium 9.9, Total Bilirubin 0.7, AST 27, ALT 35, Alkaline Phosphatase 76, Troponin I 0.01, Ytq-[id number]-Fzurtrdzjyu Pept 836 H, Total Protein 6.3, Albumin 4.0, Globulin 2.3, Albumin/Globulin Ratio 1.7, D-Dimer High Sensitivty 347 H, CBC w Diff MAN DIFF ORDERED, RBC 4.11 L, MCV 91.0, MCH 30.2, RDW 13.3, MPV 7.8, Gran % 96.9 H, Lymphocytes % 2.1 L, Monocytes % 1.0 L, Eosinophils % 0, Basophils % 0 L, Absolute Granulocytes 15.4 H, Absolute Lymphocytes 0.3 L, Absolute Monocytes 0.2, Absolute Eosinophils 0, Absolute Basophils 0, Platelet Estimate ADEQUATE, Normocytic RBCs VERIFIED, Normochromic RBCs VERIFIED, [facility] MCHC 33.2 Assessment/Plan Impression/Plan: Impression 71-year-old woman * Severe emphysema/COPD with a history of smoking. * hypoxemia is likely secondary to atelectasis/pain and severe emphysema * back pain Plan -aggressive control of back pain and management per primary team -Incentive spirometry - ensure patient uses at least 10 times daily -TRC evaluation for nebulizer tx -spiriva and takes Advair at home (can bring own meds), ordered for Symbicort while inpatient -may require o2 for home, please assess o2 requirements DVT prophylaxis at all times Patient to continue to follow with Dr. Romero after discharge. Consult Acknowledgment - Thank you for your consult request.
--- NOTE | 2016-12-29 14:39 | MRI REPORT ---
EXAMINATION: MR THORACIC SPINE WITHOUT AND WITH CONTRAST MR LUMBAR SPINE WITHOUT AND WITH CONTRAST CLINICAL INFORMATION: Osteoporosis and recent trauma. Assess for acute changes and edema. COMPARISON: CTA of the chest 12/28/2016. CT lumbar spine 12/28/2016. TECHNIQUE: MRI of the thoracic and lumbar spine was obtained using routine sequences without contrast. Intravenous contrast: 10 Magnevist. FINDINGS: MRI THORACIC SPINE: VERTEBRAL BODIES AND PARASPINAL STRUCTURES: There is hyperlordosis in the thoracic spine and there is a mild levoscoliosis. The study redemonstrates the sequelae of the augmentation procedures at T5, T6 and T7. There is loss of vertebral body height of T8 and T9, with isointense signal of the vertebrae compared with the adjacent osseous structures, consistent with chronic compression fractures. There is loss of vertebral body height of T11, with a transverse area of STIR hyperintensity superiorly, consistent with an acute/subacute fracture. Loss of vertebral body height present on the recent prior CTA chest. There is loss of approximately 20%. There is mild invagination of disc into the adjacent endplates at T4, with isointense signal to the adjacent vertebrae. Vertebral body heights elsewhere are maintained. Intervertebral disc heights are mildly narrowed in the mid and lower thoracic spine. Overall, marrow signal is homogenous. There is a small area of atelectasis at the left posterior lung. The paravertebral structures are unremarkable. The conus is at the level of L2. Accounting for artifact, spinal cord signal appears normal. SPINAL LEVELS: C7-T1 through T4-T5: Disc contours appear normal. There is no central stenosis or spinal cord compression. T5-T6: There is posterior protrusion of the vertebral body, which does not significantly compress the thecal sac or spinal cord. There is no central stenosis. The neural foramina appear patent. T6-T7: There is a small protrusion of the posterior body of T7 into the spinal canal, without significant distortion of the thecal sac or central stenosis. The neural foramina appear patent. T7-T8: The disc configuration is normal. The central canal and neural foramina are widely patent. The facet joints are normal. T8-T9 and T9-T10: There are small protrusions of the lower bodies of T8 and T9 into the spinal canal with mild distortion of the thecal sac ventral to the spinal cord. There is no spinal cord compression. T10-T11: There is posterior protrusion of the superior body of T11. There is no significant distortion of the thecal sac and there is no spinal cord compression. T11-T12: The disc configuration is normal. The central canal and neural foramina are widely patent. The facet joints are normal. There is no abnormal enhancement noted following intravenous contrast administration. MRI LUMBAR SPINE: VERTEBRAL BODIES AND PARASPINAL STRUCTURES: There is mild hyperlordosis in the lumbar spine. Alignment is otherwise normal. Intervertebral disc heights are maintained. There is decreased signal from the intervertebral discs at multiple levels consistent with disc desiccation. There are no compression fractures. Overall, marrow signal is homogenous. The paravertebral soft tissues are unremarkable. There is mild ectasia of the infrarenal abdominal aorta. There appears to be a small right retrocrural lymph node versus thickening of the right juanis. The visualized pelvic structures are unremarkable. CONUS MEDULLARIS AND CAUDA EQUINA: Normal, terminating at the level of L2. The cauda equina nerve roots and filum terminale appear normal. There is no abnormal enhancement noted following intravenous contrast administration. SPINAL LEVELS: L1-L2: There is mild bilateral facet arthropathy. Disc contour is normal. There is no central stenosis or foraminal narrowing. L2-L3: There is mild bilateral facet arthropathy. Disc contour is normal. There is no central stenosis or foraminal narrowing. L3-L4: There is mild bilateral facet arthropathy. There is a mild diffuse disc bulge. There is no central stenosis or foraminal narrowing. L4-L5: There is [id number]-[id number] bilateral facet arthropathy with ligamenta flava hypertrophy and facet joint effusions. There is a posterior disc protrusion extending into the left greater than right neural foramina without definite nerve root impingement. There is no central stenosis. L5-S1: There is severe bilateral facet arthropathy. There are synovial cysts extending off the posterior facet joints bilaterally. Disc contour is normal. There is no central stenosis or foraminal narrowing. IMPRESSION: THORACIC SPINE: 1. There is an acute/subacute compression fracture of the body of T11, demonstrated on prior imaging. There is no significant posterior protrusion of the vertebral body and there is no spinal cord compression. 2. There are chronic compression fractures of T8 and T9. 3. There are sequelae of augmentation procedures at T5, T6 and T7. 4. There is no abnormal enhancement. LUMBAR SPINE: 1. There are no fractures or subluxations. 2. There is no significant central stenosis or foraminal narrowing. 3. There are severe facet arthropathic changes at L4-L5 and L5-S1.
[2016-12-29 14:48] VITALS: BP 114/58
[2016-12-29 23:59] VITALS: BP 120/66
[2016-12-30 05:51] VITALS: BP 140/74
--- NOTE | 2016-12-30 08:21 | PN- Housestaff ---
Subjective Follow-up For: Back Pain, Acute Hypoxia Subjective: I saw and examined the patient this AM. Pt was sitting in bed watching TV. States she had no acute events overnight. States her back pain was a 15/10 yesterday after lying down for a prolonged period of time in the MRI machine. Currently rates her current pain at a 4/10. States she is breathing well with supplementary oxygen. Denies chest pain, cough, SOB, fever chills. Pt denies any pain radiating to legs, numbness or tingling in legs or feet, and incontinence. Review of Systems Constitutional: Denies: no symptoms, see HPI, chills, diaphoresis, fever, malaise, weakness, unexplained weight loss. Cardiovascular: Denies: see HPI, chest pain. Respiratory: Denies: cough, short of breath. Musculoskeletal: Reports: see HPI, back pain. Objective Last 24 Hrs of Vital Signs/I&O Vital Signs Date Time Temp Pulse Resp B/P B/P Pulse O2 O2 Flow FiO2 Mean Ox Delivery Rate 12/30 1139 95 Nasal 1.0L Cannula 12/30 0932 86 140/74 12/30 0800 94 Nasal 1.0L Cannula 12/30 0551 98.2 88 20 140/74 97 Nasal 1.0L Cannula 12/30 0000 Nasal 1.0L Cannula 12/29 2359 99.0 93 20 120/66 96 Nasal 1.0L Cannula 12/29 1924 97 Nasal 1.0L Cannula 12/29 1600 93 Nasal 1.0L Cannula 12/29 1448 97.9 79 20 114/58 100 Nasal 1.0L Cannula Intake & Output 12/30 1600 12/30 0800 12/30 0000 Intake Total 250 450 Output Total 350 350 Balance -100 100 Intake, Oral 250 450 Output, Urine 350 350 Physical Exam General Appearance: Alert, Oriented X3, Cooperative, No Acute Distress HEENT: Atraumatic, PERRLA, EOMI, Mucous Membr. moist/pink Cardiovascular: Regular Rate, Normal S1 (holosystolic murmur grade 3/6) Lungs: Clear to Auscultation Abdomen: Normal Bowel Sounds, Soft, No Tenderness Extremities: No Edema, Normal Pulses Assessment/Plan Assessment: 71 y/o female with past medical history of back pain with history of multiple previous injuries, COPD, osteoporosis, coronary artery disease, GERD, macular degeneration, cataracts, presented to the emergency department with back pain since 1 day admitted to the general medical floor for management of back pain and acute hypoxia. 1. Lower lumbar pain: Patient's history is suspicious for back injury. CT scan did not reveal any acute fractures or subluxations. MRI was done today showing acute/subacute compression at T11, chronic compression fractures at T8 and T9, and severe facet arthropathic changes at L4-L5 and L5-S1. No spinal cord compression was seen. * will continue to manage patient's back pain with opiates and wean off as tolerated 2. Acute hypoxic respiratory failure Patient has history of COPD not requiring home O2, on multiple inhalers at home, arrived to the ED with saturation of 88%. Saturation improved with supplemental oxygen via NC. Currently satting in the mid 90s with 1L NC. PE ruled out. * Continue incentive spirometry * Continue symbicort inpatient, continue spiriva and advair at home * TR evaluated for neb tx - patient states she did not need it * Will reasses oxygen for home prior to anticipated discharge tomorrow Will continue her home medications. Diet: Heart healthy DVT ppx: SQ Heparin Code status: Full code Problem List: 1. Compression fracture 2. COPD (chronic obstructive pulmonary disease) Pain Ratin Pain Location: lower back Pain Goal: Pain 4 or less Pain Plan: continue current regimen. taper off as tolerated prior to discharge Tomorrow's Labs & Rationales: CBC
[2016-12-30 08:41] LABS: ABSOLUTE BASOPHIL COUNT 0 /CUMM (0.0-0.2); ABSOLUTE EOSINOPHIL COUNT 0.4 /CUMM (0.0-0.7); ABSOLUTE GRANULOCYTE CT 7.7 /CUMM (1.4-6.5); ABSOLUTE MONOCYTE COUNT 0.8 /CUMM (0.10-0.60); MEAN CORPUSCULAR HGB 30.6 PG (27.0-31.0); MEAN CORPUSCULAR HGB CONC 33.4 G/DL (33.0-37.0); MEAN CORPUSCULAR VOLUME 91.6 FL (81.0-99.0); MEAN PLATELET VOLUME 8.7 FL (7.4-10.4); PLATELET COUNT 212 /CUMM (130-400); RBC DISTRIBUTION WIDTH 13.3 % (11.5-14.5); RED BLOOD CELL CT 3.77 /CUMM (4.20-5.40); WHITE BLOOD CELL COUNT 9.9 /CUMM (4.8-10.8)
[2016-12-30 09:05] LABS: BASOPHIL % 0.4 % (0.0-2.0); EOSINOPHIL % 3.6 % (0-5); GRANULOCYTE % 77.7 % (42.2-75.2)
[2016-12-30 09:08] LABS: HEMATOCRIT 34.5 % (37-47)
--- NOTE | 2016-12-30 10:04 | PN- Att Addend ---
Attending Addendum Attending Brief Note Covering attending note. Pain markedly decreased are localized to the lower lumbar region mostly towards the left side. There is no radiation into the left leg. Breathing is fairly stable except for mild cough still on oxygen. On ambulation she desatted to 88 on room air. Intake & Output 12/30 1600 12/30 0800 12/30 0000 Intake Total 250 450 Output Total 350 350 Balance -100 100 Intake, Oral 250 450 Output, Urine 350 350 Current Medications Sig/Keith Start time Last Medication Dose Route Stop Time Status Admin Acetaminophen 650 MG Q6 PRN 12/28 1645 AC PO Albuterol Sulfate 3 ML Q4P PRN 12/28 2315 AC INH Aspirin Buffered 81 MG DAILY 12/29 1000 AC 12/30 PO 0933 Atorvastatin Calcium 20 MG DAILY 12/29 1000 AC 12/30 PO 0932 Azithromycin 250 MG DAILY 12/29 1000 AC 12/30 PO 0931 Budesonide/ 2 PUF BID 12/28 2200 AC 12/30 Formoterol Fumarate INH 0935 Cholecalciferol 1,000 IU DAILY 12/29 1000 AC 12/30 PO 0931 Heparin Sodium 5,000 UNIT Q8 12/28 2200 AC 12/30 (Porcine) SC 0607 Lisinopril 20 MG DAILY 12/29 1000 AC 12/30 PO 0932 Montelukast Sodium 10 MG DAILY 12/29 1000 AC 12/30 PO 0931 Morphine Sulfate 2 MG Q6P PRN 12/29 1203 AC 12/29 IV 1203 Morphine Sulfate 0.5 MG Q6 PRN 12/28 1645 DC IV Omeprazole 40 MG DAILY AC 12/28 1825 AC 12/30 PO 0607 Oxycodone HCl 5 MG Q6 PRN 12/28 1645 AC 12/30 PO 0607 Senna 187 MG AT BEDTIME 12/29 2200 AC 12/29 PO 2126 Tiotropium [place] 1 PUF DAILY 12/29 1000 AC 12/30 INH 0932 Laboratory Tests 12/30 0652 Chemistry Sodium (137 - 145 mmol/L) 134 L Potassium (3.5 - 5.1 mmol/L) 4.1 Chloride (98 - 107 mmol/L) 97 L Carbon Dioxide (22 - 30 mmol/L) 31 H Anion Gap (5 - 16) 6 BUN (7 - 17 mg/dL) 16 Creatinine (0.5 - 1.0 mg/dL) 0.8 Estimated GFR (>60 ml/min) > 60 BUN/Creatinine Ratio (7 - 25 %) 20.0 Hematology CBC w Diff Pending WBC Pending RBC Pending Hgb Pending Hct Pending MCV Pending MCH Pending RDW Pending Plt Count Pending MPV Pending Gran % Pending Lymphocytes % Pending Monocytes % Pending Eosinophils % Pending Basophils % Pending Absolute Granulocytes Pending Absolute Lymphocytes Pending Absolute Monocytes Pending Absolute Eosinophils Pending Absolute Basophils Pending PUBS MCHC Pending Vital Signs Date Time Temp Pulse Resp B/P B/P Pulse O2 O2 Flow FiO2 Mean Ox Delivery Rate 12/30 0932 86 140/74 12/30 0551 98.2 88 20 140/74 97 Nasal 1.0L Cannula 12/30 0000 Nasal 1.0L Cannula 12/29 2359 99.0 93 20 120/66 96 Nasal 1.0L Cannula 12/29 1924 97 Nasal 1.0L Cannula 12/29 1600 93 Nasal 1.0L Cannula 12/29 1448 97.9 79 20 114/58 100 Nasal 1.0L Cannula 12/29 1238 91 132/62 Intake & Output 12/30 1600 02 0800 12/30 0000 Intake Total 250 450 Output Total 350 350 Balance -100 100 Intake, Oral 250 450 Output, Urine 350 350 On examination patient awake alert oriented sitting out of bed to chair. On oxygen Neck is supple JVD is not raised S1-S2 is normal Lungs shows diminished air entry bilaterally with expiratory wheezing, no rhonchi present. Abdomen soft nontender bowel sounds are present. Spine shows she's got mild kyphoscoliosis of the thoracolumbar spine, tenderness in the lumbosacral spine area mostly to the left side in the lower area with some paraspinal spasms present. She does not have any neurological deficit. MRI of the lumbosacral spine IMPRESSION: THORACIC SPINE: 1. There is an acute/subacute compression fracture of the body of T11, demonstrated on prior imaging. There is no significant posterior protrusion of the vertebral body and there is no spinal cord compression. 2. There are chronic compression fractures of T8 and T9. 3. There are sequelae of augmentation procedures at T5, T6 and T7. 4. There is no abnormal enhancement. LUMBAR SPINE: 1. There are no fractures or subluxations. 2. There is no significant central stenosis or foraminal narrowing. 3. There are severe facet arthropathic changes at L4-L5 and L5-S1. Assessment #1Osteoporis, with multiple fractures of the lumbar spine secondary to osteoporosis The patient will need physical therapy for ambulation. #2 chronic respiratory failure with the oxygen saturation of 83% on room air and descending on ambulation patient with need oxygen at home when the patient is ready to be discharged.
--- NOTE | 2016-12-30 10:41 | PN- Pulmonary ---
Subjective HPI/Critical Care Issues: pt seen and examined pain improved to 4/10 dyspnea is at baseline IST is being used Objective Current Medications: Current Medications Sig/Keith Start time Last Medication Dose Route Stop Time Status Admin Acetaminophen 650 MG Q6 PRN 12/28 1645 AC PO Albuterol Sulfate 3 ML Q4P PRN 12/28 2315 AC INH Aspirin Buffered 81 MG DAILY 12/29 1000 AC 12/30 PO 0933 Atorvastatin Calcium 20 MG DAILY 12/29 1000 AC 12/30 PO 0932 Azithromycin 250 MG DAILY 12/29 1000 AC 12/30 PO 0931 Budesonide/ 2 PUF BID 12/28 2200 AC 12/30 Formoterol Fumarate INH 0935 Cholecalciferol 1,000 IU DAILY 12/29 1000 AC 12/30 PO 0931 Heparin Sodium 5,000 UNIT Q8 12/28 2200 AC 12/30 (Porcine) SC 0607 Lisinopril 20 MG DAILY 12/29 1000 AC 12/30 PO 0932 Montelukast Sodium 10 MG DAILY 12/29 1000 AC 12/30 PO 0931 Morphine Sulfate 2 MG Q6P PRN 12/29 1203 AC 12/29 IV 1203 Morphine Sulfate 0.5 MG Q6 PRN 12/28 1645 DC IV Omeprazole 40 MG DAILY AC 12/28 1825 AC 12/30 PO 0607 Oxycodone HCl 5 MG Q6 PRN 12/28 1645 AC 12/30 PO 0607 Senna 187 MG AT BEDTIME 12/29 2200 AC 12/29 PO 2126 Tiotropium [place] 1 PUF DAILY 12/29 1000 AC 12/30 INH 0932 Vital Signs & I&O Last 24 Hrs of Vitals and I&O: Vital Signs Date Time Temp Pulse Resp B/P B/P Pulse O2 O2 Flow FiO2 Mean Ox Delivery Rate 12/30 0932 86 140/74 12/30 0551 98.2 88 20 140/74 97 Nasal 1.0L Cannula 12/30 0000 Nasal 1.0L Cannula 12/29 2359 99.0 93 20 120/66 96 Nasal 1.0L Cannula 12/29 1924 97 Nasal 1.0L Cannula 12/29 1600 93 Nasal 1.0L Cannula 12/29 1448 97.9 79 20 114/58 100 Nasal 1.0L Cannula 12/29 1238 91 132/62 Intake & Output 12/30 1600 12/30 0800 12/30 0000 Intake Total 250 450 Output Total 350 350 Balance -100 100 Intake, Oral 250 450 Output, Urine 350 350 Exam Other Physical Findings: Gen - alert and awake HEENT - NCAT CVS - S1, S2, no murmurs, rubs or gallops Lungs - diminished breath sounds and a prolonged end expiratory phase Abdomen - soft, non-tender, bs+ Ext - no edema, no cyanosis Results Last 24 Hrs of Lab Results: Laboratory Tests 12/30/16 0652: Anion Gap 6, Estimated GFR > 60, BUN/Creatinine Ratio 20.0, CBC w Diff Pending, WBC Pending, RBC Pending, Hgb Pending, Hct Pending, MCV Pending, MCH Pending, RDW Pending, Plt Count Pending, MPV Pending, Gran % Pending, Lymphocytes % Pending, Monocytes % Pending, Eosinophils % Pending, Basophils % Pending, Absolute Granulocytes Pending, Absolute Lymphocytes Pending, Absolute Monocytes Pending, Absolute Eosinophils Pending, Absolute Basophils Pending, PUBS MCHC Pending Impression/Plan Impression/Plan Impression/Plan: Impression 71-year-old woman * Severe emphysema/COPD with a history of smoking. * hypoxemia is likely secondary to atelectasis/pain and severe emphysema * back pain Plan -pain control -Incentive spirometry -TRC evaluation for nebulizer tx -spiriva and takes Advair at home (can bring own meds), ordered for Symbicort while inpatient -may require o2 for home, please assess o2 requirements prior to dc DVT prophylaxis at all times Patient to continue to follow with Dr. Romero after discharge.
[2016-12-30 15:16] VITALS: BP 132/62
[2016-12-30 22:30] VITALS: BP 122/60
--- NOTE | 2016-12-31 07:15 | PN- Housestaff ---
DELROY TROTTER,DEEPIKA 12/31/16 0715: Subjective Follow-up For: Back Pain, Acute Hypoxia Subjective: I saw and examined the patient this AM. Pt states her pain is better. No acute events overnight. Did not require oxygen overnight. States her lower back pain with meds is a 2/10. Denies chest pain, SOB, cough, fever/chills. Review of Systems Constitutional: Denies: no symptoms, see HPI, chills, diaphoresis, fever, malaise, weakness. Cardiovascular: Denies: chest pain, orthopena, palpitations. Respiratory: Denies: cough, short of breath, sputum production. Gastrointestinal: Denies: abdominal pain, bowel incontinence, nausea, vomiting. Musculoskeletal: Reports: see HPI, back pain. Objective Last 24 Hrs of Vital Signs/I&O Vital Signs Date Time Temp Pulse Resp B/P B/P Pulse O2 O2 Flow FiO2 Mean Ox Delivery Rate 12/31 1219 120/58 12/31 1115 93 Room Air Room Air 12/31 0800 92 Room Air 12/31 0724 98.5 98 20 120/58 93 Nasal 1.0L Cannula 12/31 0000 Nasal 1.0L Cannula 12/30 2230 98.6 92 20 122/60 95 Nasal 1.0L Cannula 12/30 1936 92 Nasal 1.0L Cannula Intake & Output 12/31 1600 12/31 0800 12/31 0000 Intake Total 200 100 Output Total Balance 200 100 Intake, Oral 200 100 Physical Exam General Appearance: Alert, Oriented X3, Cooperative, No Acute Distress Skin Temp/Moisture Exam: Warm/Dry HEENT: Atraumatic, Mucous Membr. moist/pink Cardiovascular: Regular Rate, Normal S1, Normal S2 Lungs: Clear to Auscultation Abdomen: Normal Bowel Sounds, Soft, No Tenderness Neurological: Normal Gait, Normal Speech, Normal Tone, Sensation Intact, Cranial Nerves 3-12 NL, no spinal tenderness, left sided paraspinal tenderness Assessment/Plan Assessment: 71 y/o female with past medical history of back pain with history of multiple previous injuries, COPD, osteoporosis, coronary artery disease, GERD, macular degeneration, cataracts, presented to the emergency department with back pain since 1 day admitted to the general medical floor for management of back pain and acute hypoxia. 1. Lower lumbar pain: Patient's history is suspicious for back injury. CT scan did not reveal any acute fractures or subluxations. MRI was done today showing acute/subacute compression at T11, chronic compression fractures at T8 and T9, and severe facet arthropathic changes at L4-L5 and L5-S1. No spinal cord compression was seen. * will continue to manage patient's back pain with opiates and wean off as tolerated * will discharge home with physical therapy referral and outpatient management of back pain. 2. Acute hypoxic respiratory failure Patient has history of COPD not requiring home O2, on multiple inhalers at home, arrived to the ED with saturation of 88%. Saturation improved with supplemental oxygen via NC. PE ruled out. * Continue incentive spirometry * Continue symbicort inpatient, continue spiriva and advair at home * [facility] evaluated for neb tx - patient states she did not need it * satting well today on room air: >92% after ambulating. Pt can be discharge home without supplementary oxygen. Will continue her home medications. Diet: Heart healthy DVT ppx: SQ Heparin Code status: Full code Problem List: 1. Compression fracture 2. Hypoxia 3. Intractable back pain Pain Ratin Pain Location: lower back pain Pain Goal: Pain 4 or less Pain Plan: continue pain meds q6h PRN Tomorrow's Labs & Rationales: none HUY SHELTON MD 12/31/16 0859: Attending MD Review Statement Attending Statement Attending MD Statement: examined this patient, agreed w/resident/PA/HOST, reviewed EMR data (avail), amended to note Attending Assessment/Plan: Mrs. plata was interviewed, examined, and her EHR reviewed. She does note some constipation secondary to her pain medications but is presently receiving a bowel prep to relieve this problem. Vital signs are stable and her pulmonary exam is without wheezes, rales, or rhonchi. She is demonstrating good air exchange. At this time she is showing adequate O2 saturation after exertion and she is stable to be discharged to home. She will continue her previous maintenance medications. A transition of care visit will be arranged within 1-2 weeks.
[2016-12-31 07:24] VITALS: BP 120/58
[2016-12-31 08:08] LABS: ABSOLUTE BASOPHIL COUNT 0 /CUMM (0.0-0.2); ABSOLUTE EOSINOPHIL COUNT 0.4 /CUMM (0.0-0.7); ABSOLUTE GRANULOCYTE CT 9.4 /CUMM (1.4-6.5); ABSOLUTE LYMPH COUNT 0.9 /CUMM (1.2-3.4); ABSOLUTE MONOCYTE COUNT 0.5 /CUMM (0.10-0.60); BASOPHIL % 0 % (0.0-2.0); EOSINOPHIL % 3.8 % (0-5); HEMATOCRIT 37.3 % (37-47); MEAN CORPUSCULAR HGB 30.5 PG (27.0-31.0); MEAN CORPUSCULAR HGB CONC 33.2 G/DL (33.0-37.0); MEAN PLATELET VOLUME 8.5 FL (7.4-10.4); PLATELET COUNT 257 /CUMM (130-400); RBC DISTRIBUTION WIDTH 13.1 % (11.5-14.5); RED BLOOD CELL CT 4.06 /CUMM (4.20-5.40); WHITE BLOOD CELL COUNT 11.2 /CUMM (4.8-10.8)
--- NOTE | 2016-12-31 08:13 | Patient Discharge Instructions ---
Discharge Instructions General Discharge Information You were seen/treated for: Lower Back Pain You had these procedures: None Watch for these problems: Please watch for severe back pain, trouble urinating or passing stool, numbness or tingling, fever or trouble breathing. Special Instructions: Please follow up with Dr. Romero in 7-10 days. Please follow up with your primary care physician in 7-10 days. Diet Continue normal diet: Yes Recommended Diet: Regular Activity Full Activity/No Limits: No Activity Self Limited: Yes Acute Coronary Syndrome Inclusion Criteria At DC or during hospital stay patient has or had the following: ACS DIAGNOSIS No Discharge Core Measures Meds if any: Prescribed or Continued at Discharge Meds if any: NOT Prescribed or Continued at Discharge Congestive Heart Failure Inclusion Criteria At DC or during hospital stay patient has or had the following: CHF DIAGNOSIS No Discharge Core Measures Meds if any: Prescribed or Continued at Discharge Meds if any: NOT Prescribed or Continued at Discharge Cerebrovascular accident Inclusion Criteria At DC or during hospital stay patient has or had the following: CVA/TIA Diagnosis No Discharge Core Measures Meds if any: Prescribed or Continued at Discharge Meds if any: NOT Prescribed or Continued at Discharge Venous thromboembolism Inclusion Criteria VTE Diagnosis No VTE Type NONE VTE Confirmed by (Test) NONE Discharge Core Measures - Per Current guidelines, there needs to be overlap - treatment for the first 5 days of Warfarin therapy. - If discharged on Warfarin prior to 5 days of - overlap therapy, the patient will need to be - assessed for post discharge needs including - *Post discharge parental anticoagulation - *Warfarin and/or parental anticoagulation education - *Follow up date to check INR post discharge At least 5 days overlap therapy as Inpatient No Meds if any: Prescribed or Continued at Discharge Note: Overlap Therapy is Warfarin and Anticoagulant Meds if any: NOT Prescribed or Continued at Discharge
[2016-12-31 09:23] LABS: GRANULOCYTE % 83.8 % (42.2-75.2)
--- NOTE | 2016-12-31 10:06 | PN- Pulmonary ---
Subjective HPI/Critical Care Issues: pt seen and examined pain improved anticipating dc saturating well Objective Current Medications: Current Medications Sig/Keith Start time Last Medication Dose Route Stop Time Status Admin Acetaminophen 650 MG Q6 PRN 12/28 1645 AC PO Albuterol Sulfate 3 ML Q4P PRN 12/28 2315 AC INH Aspirin Buffered 81 MG DAILY 12/29 1000 AC 12/30 PO 0933 Atorvastatin Calcium 20 MG DAILY 12/29 1000 AC 12/30 PO 0932 Azithromycin 250 MG DAILY 12/29 1000 AC 12/30 PO 0931 Budesonide/ 2 PUF BID 12/28 2200 AC 12/30 Formoterol Fumarate INH 2124 Cholecalciferol 1,000 IU DAILY 12/29 1000 AC 12/30 PO 0931 Docusate Sodium 100 MG DAILY NEEDED PRN 12/31 0800 AC 12/31 PO 0912 Heparin Sodium 5,000 UNIT Q8 12/28 2200 AC 12/30 (Porcine) SC 2125 Lisinopril 20 MG DAILY 12/29 1000 AC 12/30 PO 0932 Montelukast Sodium 10 MG DAILY 12/29 1000 AC 12/30 PO 0931 Morphine Sulfate 2 MG Q6P PRN 12/29 1203 AC 12/29 IV 1203 Nystatin 5 ML 4 TIMES/DAY PRN 12/30 2115 AC 12/30 PO 2337 Omeprazole 40 MG DAILY AC 12/28 1825 AC 12/31 PO 0625 Oxycodone HCl 5 MG Q6 PRN 12/28 1645 AC 12/31 PO 0625 Polyethylene Glycol 17 GM DAILY PRN 12/31 0800 AC 12/31 PO 0912 Senna 187 MG AT BEDTIME 12/29 2200 AC 12/30 PO 2125 Tiotropium [place] 1 PUF DAILY 12/29 1000 AC 12/30 INH 0932 Vital Signs & I&O Last 24 Hrs of Vitals and I&O: Vital Signs Date Time Temp Pulse Resp B/P B/P Pulse O2 O2 Flow FiO2 Mean Ox Delivery Rate 01/01 724 98.5 98 20 120/58 93 Nasal 1.0L Cannula 12/31 0000 Nasal 1.0L Cannula 12/300 98.6 92 20 122/60 95 Nasal 1.0L Cannula 12/30 1936 92 Nasal 1.0L Cannula 12/30 1600 Nasal 1.0L Cannula 12/30 1516 98.2 99 20 132/62 98 Nasal 1.0L Cannula 12/30 1139 95 Nasal 1.0L Cannula Intake & Output 12/31 1600 12/31 0800 12/31 0000 Intake Total 200 100 Output Total Balance 200 100 Intake, Oral 200 100 Exam Other Physical Findings: Gen - alert and awake HEENT - NCAT CVS - S1, S2, no murmurs, rubs or gallops Lungs - diminished breath sounds and a prolonged end expiratory phase Abdomen - soft, non-tender, bs+ Ext - no edema, no cyanosis Results Last 24 Hrs of Lab Results: Laboratory Tests 12/31/16628: CBC w Diff NO MAN DIFF REQ, RBC 4.06 L, MCV 92.0, MCH 30.5, RDW 13.1, MPV 8.5, Gran % 83.8 H, Lymphocytes % 8.2 L, Monocytes % 4.2, Eosinophils % 3.8, Basophils % 0 L, Absolute Granulocytes 9.4 H, Absolute Lymphocytes 0.9 L, Absolute Monocytes 0.5, Absolute Eosinophils 0.4, Absolute Basophils 0, PUBS MCHC 33.2 Impression/Plan Impression/Plan Impression/Plan: Impression 71-year-old woman * Severe emphysema/COPD with a history of smoking. * hypoxemia is likely secondary to atelectasis/pain and severe emphysema * back pain Plan -pain control -Incentive spirometry -TRC evaluation for nebulizer tx -spiriva and takes Advair at home (can bring own meds), ordered for Symbicort while inpatient -may require o2 for home, please assess o2 requirements prior to dc DVT prophylaxis at all times Patient to continue to follow with Dr. Romero after discharge.
[2016-12-31 12:19] VITALS: BP 120/58
[2017-01-03] MEDS ORDERED: CITRATE OF MAG300 ML PO (16:17)
[2017-01-03] MEDS ORDERED: GOLYTELY PACKE1 EACH PO (16:17)
== END 2016-12-31 13:53 | DRG 543 ==
LOC: ERH 12:25 → ERHI 14:54 → 2NB 14:54 → ENRESERV 16:15 → ENTRNSPT 17:21 → 2NB 17:36 → CMPTRNSPT 18:19 → ENPENDDIS 12-31 12:25 → 2NB 12-31 13:53
PROVIDERS: Physician Assistant Medical; Student in an Organized Health Care Education/Training Program; ADMIT Internal Medicine
DX: M80.08XA Age-related osteoporosis with current pathological fracture, vertebra(e), initial encounter for fracture (principal); J44.1 Chronic obstructive pulmonary disease with (acute) exacerbation; J96.11 Chronic respiratory failure with hypoxia; J98.11 Atelectasis; Z87.310 Personal history of (healed) osteoporosis fracture; Z87.891 Personal history of nicotine dependence; K21.9 Gastro-esophageal reflux disease without esophagitis; H35.30 Unspecified macular degeneration; I25.10 Atherosclerotic heart disease of native coronary artery without angina pectoris; I25.2 Old myocardial infarction; Z98.1 Arthrodesis status; G89.29 Other chronic pain
CPT/HCPCS: 2NBSP; 72147; 72149; 36415; 72157; 72158; 74176; 81001; 82436; 93005; 93010; A9579; J0456; J1644; J3490

== ENCOUNTER 2017-07-06 13:07 | Inpatient (IN) | payer OTHER, MEDICARE ==
[~2017-07-06] VITALS: Ht 157.5 cm; Wt 51.3 kg
[~2017-07-06 13:07] MED LIST changes: +CITRATE OF MAG300 ML PO; +GOLYTELY PACKE1 EACH PO; +SINGULAIR10 M1 PO; +SPIRIVA18 MCG INH
--- NOTE | 2017-07-06 13:19 | ED DYSPNEA/ASTHMA COMPLAINT ---
History of Present Illness General Chief Complaint: Dyspnea (COPD, CHF, Other) Stated Complaint: SOB Source: patient, family, old records Exam Limitations: clinical condition Vital Signs & Intake/Output Vital Signs & Intake/Output Vital Signs Date Time Temp Pulse Resp B/P B/P Pulse O2 O2 Flow FiO2 Mean Ox Delivery Rate 07/07 717 97.5 91 18 146/72 95 07/07 0000 94 Nasal 2.0L Cannula 07/06 2326 98.1 108 20 162/78 91 Nasal 2.0L Cannula 07/06 1854 Nasal 2.0L Cannula 07/06 1830 94 Nasal 2.0L Cannula 07/06 1815 98.0 114 18 142/78 94 Nasal 2.0L Cannula 07/06 1754 98.0 112 22 148/78 95 Nasal 2.0L Cannula 07/06 1607 98.5 121 24 164/78 93 Nasal 2.0L Cannula 07/06 1536 Nasal 2.0L Cannula 07/06 1413 94 Nasal 2.0L Cannula 07/06 1401 98.7 114 22 156/73 95 Nasal 2.0L Cannula 07/06 1332 94 Nasal Cannula ED Intake and Output 07/07 0000 07/06 1200 Intake Total 740 Output Total Balance 740 Intake, IV 250 Intake, Oral 490 Patient 113 lb Weight Weight Reported by Patient Measurement Method Allergies Coded Allergies: Penicillins (RASH, HIVES 09/24/16) Reconcile Medications Albuterol Sulfate (Ventolin Hfa) 90 MCG HFA.AER.AD 2 PUF INH PRN COPD ( Reported) Albuterol Sulfate 2.5 MG/3 ML (0.083 %) VIAL.NEB 1 Vial INH/TORI Q4P PRN COPD (Reported) Aspirin (Ecotrin*) 81 MG TABLET.DR 1 TAB PO DAILY HEART/BLOOD (Reported) Atorvastatin Calcium 20 MG TABLET 1 TAB PO DAILY CHOLESTEROL (Reported) Azithromycin 250 MG TABLET 1 TAB PO DAILY PROPHYLAXIS (Reported) Cholecalciferol (Vitamin D3) (Vitamin D3) 1,000 UNIT CAPSULE 1 CAP PO DAILY SUPPLEMENT (Reported) Fluticasone/Salmeterol (Advair 250-50 Diskus) 250 MCG-50 MCG/DOSE BLST.W.DEV 1 PUF INH BID COPD (Reported) Hydrocodone/Acetaminophen (Hydrocodon-Acetaminophen 5-325) 5 MG-325 MG TABLET 1 TAB PO Q4H PRN PAIN (Reported) Lisinopril (Prinivil) 20 MG TABLET 1 TAB PO DAILY BP (Reported) Omeprazole 40 MG CAPSULE.DR 1 CAP PO DAILY acid reflux Prednisone 10 MG TABLET 1 TAB PO Q48 PRN COPD (Reported) Tiotropium [place] (Spiriva) 18 MCG CAP.W.DEV 1 CAP INH DAILY COPD (Reported) Ubidecarenone (Co Q-10) 200 MG CAPSULE 1 CAP PO DAILY SUPPLEMENT (Reported) Vit C/E/Zn/Coppr/Lutein/Zeaxan (Preservision Areds 2 Softgel) 250-200-40 CAPSULE 1 TAB PO DAILY SUPPLEMENT (Reported) Triage Nurses Notes Reviewed? yes Onset: Abrupt Duration: day(s): (4), constant, getting worse Timing: recent history Severity: severe Activities at Onset: none Prior Episodes/Possible Cause: chronic episodes Modifying Factors: Worsens With: movement. 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 pt has had copd exacerbations in past most recently over the summer. no fever, chills, chest pain, palpitations, no leg swelling. no sick contacts. she does not smoke currently. sx are worse with movement but present at rest. she is on prednisone and azithromycin baseline for her copd. pulm is dr dickerson. pmd is dr roper, cardio dr anderson (David BURLESON,Guillermo) Past History Medical History Any Pertinent Medical History? see below for history Neurological: NONE EENT: cataracts, macular degeneration Cardiovascular: myocardial infarction, UNSURE OF CHF? 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 Hx Contributory? No (Guillermo Roach) Review of Systems Review of Systems Constitutional: Reports: see HPI. Comments Review of systems: See HPI, All other systems negative. Constitutional, no chills no fever, no malaise HEENT: no sore throat no congestion Cardiovascular: No chest pain , no palpitation Skin: no rashes, no change in skin Respiratory: dyspnea cough sputum GI: No nausea no vomiting, no diarrhea, no bloating/constipation : No dysuria No hematuria, no frequency Muscle skeletal: No joint pain, no back pain, no neck pain, Neurologic: , no headache Psych: No stress Heme/endocrine: No bruising Immunology: No lymphadenopathy (Guillermo Roach) Physical Exam Physical Exam General Appearance: alert, awake, moderate distress Respiratory: wheezing Comments: Well-developed well-nourished person in no acute distress HEENT: Normal EENT exam; PERRL, EOMI, HEAD is atraumatic. moist mucous membranes. Neck: Supple, normal range of motion Back: Full range of motion Cardiovascular: Regular rate and rhythms no murmur Respiratory: Chest nontender.There were no bony deformities, no asymmetry. moderate respiratory distress. Patient speaking in 1-2 word sentences diminished breath sounds bilateral wheezing in all lung cooper Abdomen: Soft, nontender nondistended, no appreciable organomegaly. Normal bowel sounds. No rebound/guarding, Extremity: No edema, full range of motion of extremities Neuro: Alert oriented x3, motor sensory normal, . There were no obvious focal neurologic abnormalities. Skin: No appreciable rash on exposed skin, skin is warm and dry. Psych: Mood and affect is normal, memory and judgment is normal. Core Measures ACS in differential dx? No CVA/TIA Diagnosis No Sepsis Present: No Sepsis Focused Exam Completed? No (Guillermo Roach) Progress Differential Diagnosis: asthma, AMI, bronchitis, CHF, COPD, pulmonary embolism, pneumonia, pneumothorax, unstable angina Plan of Care: Orders Procedure Date/time Status TROPONIN LEVEL 07/07 599 Active D-DIMER 07/07 599 Active CBC WITHOUT DIFFERENTIAL 07/07 599 Active BASIC ELECTROLYTES PLUS BUN&CR 07/07 599 Active EKG 07/07 599 Active Regular Diet 07/06 D Active TROPONIN LEVEL 07/06 2035 Complete EKG 07/06 2035 Active Vital Signs 07/06 1851 Active Teach/Educate 07/06 1851 Active Pain Treatment and Response 07/06 1851 Active Nutritional Intake, Monitor 07/06 1851 Active Isolation 01/06 1852 Active Intake & Output 07/06 1852 Active Patient Care Conference 07/06 1852 Active Activity/Ambulation 07/06 1852 Active RT: Reevaluation 07/06 1847 Active RT: Evaluation 07/06 1847 Active CULTURE,URINE 07/06 1805 Active STREP PNEUMO URINARY ANTIGEN 07/06 1805 Active LEGIONELLA URINARY ANTIGEN 07/06 1805 Active URINALYSIS 07/06 1805 Complete Intake & Output 07/06 1750 Active Pathway - chart 07/06 1716 Active Pathway - chart 07/06 1708 Active House Staff 07/06 1708 Active Patient Data 07/06 1708 Active Code Status 07/06 1708 Active Patient Data 07/06 1501 Active Misc Message 07/06 1432 Active ED Holding Orders 07/06 1432 Active Admit to inpatient 07/06 1432 Active Vital Signs 07/06 1432 Active Code Status 07/06 1432 Complete Add-on Test (ER Only) 07/06 1404 Active PHOSPHORUS 07/06 1333 Complete MAGNESIUM 07/06 1333 Complete LACTIC ACID 07/06 1333 Complete RAPID VIRAL INFLUENZA A 07/06 1317 Complete BLOOD CULTURE 07/06 1317 Active TROPONIN LEVEL 07/06 1311 Complete COMPREHENSIVE METABOLIC PANEL 07/06 1311 Complete CBC WITHOUT DIFFERENTIAL 07/06 1311 Complete B-TYPE NATRIURETIC PEP (BNP) 07/06 1311 Complete EKG 07/06 1308 Active TRC EVALUATION (GEN) 07/06 UNK Complete THERAPIST ORDERS 07/06 UNK Complete Lab Add-on Test 07/06 UNK Active VTE Mechanical Prophylaxis 07/06 UNK Active Current Medications Sig/Keith Start time Last Medication Dose Stop Time Status Admin Tiotropium [place] 1 PUF 1400 07/07 1400 AC (Spiriva) Aspirin Buffered 81 MG DAILY 07/07 1000 AC (Ecotrin) Atorvastatin Calcium 20 MG DAILY 07/07 1000 AC (Lipitor) Cholecalciferol 1,000 IU DAILY 07/07 1000 AC (Vitamin D) Lisinopril 20 MG DAILY 07/07 1000 AC (Prinivil) Omeprazole 40 MG DAILY AC 07/07 0700 AC 07/07 (Prilosec) 0601 Budesonide/ 2 PUF BID 07/06 2200 AC 07/06 Formoterol Fumarate 2119 (Symbicort) Methylprednisolone 40 MG Q8 07/06 2200 AC 07/07 (Solumedrol) 0601 Albuterol Sulfate 3 ML EVERY 4 HRS/AWAKE 07/06 1999 AC 07/06 (Proventil) 2017 Azithromycin 500 MG DAILY@07/06 173 AC 07/06 (Zithromax) 174 Sodium Chloride 250 ML (Normal Saline 0.9%) Ceftriaxone Sodium 1,000 MG DAILY@07/06 173 AC 07/06 (Rocephin) 172 Acetaminophen 650 MG Q6P PRN 07/06 171 AC (Tylenol) Acetaminophen 1,000 MG Q6P PRN 07/06 171 AC (Ofirmev) Coenzyme Q10 100 MG DAILY 07/06 1714 AC 07/06 (Coenzyme Q10 100 MG) 174 Glycerin 2 SPRAY Q2P PRN 07/06 171 AC ([place] Moisturizing Mouth [place]) Hydrocodone Bitart/ 1 TAB Q4H PRN 07/06 1714 AC Acetaminophen (Vicodin) Enoxaparin Sodium 40 MG DAILY 07/06 170 AC 07/06 (Lovenox) 1729 Ipratropium [place] 2.5 ML ONCE ONE 07/06 1530 CAN (Atrovent) 07/06 1531 Laboratory Tests 07/06/17 2204: Troponin I < 0.01 07/06/17 1941: Urine Color YEL, Urine Clarity CLEAR, Urine pH 6.5, Ur Specific [place] 1.025, Urine Protein NEG, Urine Ketones NEG, Urine Nitrite NEG, Urine Bilirubin NEG, Urine Urobilinogen 0.2, Ur Leukocyte Esterase NEG, Ur Microscopic EXAM NOT REQUIRED, Urine Hemoglobin NEG, Urine Glucose NEG 07/06/17 1333: Anion Gap 12, Estimated GFR > 60, BUN/Creatinine Ratio 24.3, Glucose 125 H, Lactic Acid 1.7, Calcium 9.8, Phosphorus 4.0, Magnesium 1.9, Total Bilirubin 0.4 , AST 17, ALT 38, Alkaline Phosphatase 126, Troponin I < 0.01, Oua-Z-Mag[place]np[place] Pept 118, Total Protein 7.0, Albumin 4.2, Globulin 2.8, Albumin/Globulin Ratio 1.5, CBC w Diff MAN DIFF ORDERED, RBC 4.80, MCV 89.4, MCH 29.1, RDW 13.2, MPV 7.7, Gran % 96.9 H, Lymphocytes % 2.2 L, Monocytes % 0.8 L, Eosinophils % 0.1 , Basophils % 0, Absolute Granulocytes 17.6 H, Absolute Lymphocytes 0.4 L, Absolute Monocytes 0.1, Absolute Eosinophils 0, Absolute Basophils 0, Platelet Estimate VERIFIED BY SMEAR, Normocytic RBCs VERIFIED, Normochromic RBCs VERIFIED , PUBS MCHC 32.5 L Microbiology 07/06 1940 URINE ROUT: Legionella Antigen - RES 07/06 1940 URINE ROUT: Streptococcus pneumoniae Antigen (M - RES 07/06 1940 URINE ROUT: Urine Culture - RES 07/06 1344 BLOOD: Blood Culture - RECD 07/06 1333 BLOOD: Blood Culture - RECD 07/06 1210 NASOPHARYN: Influenza Virus A & B Rapid Smear - COMP PT SEEN BY MYSELF IN EKG [place] FOR HYPOXIA, DUONEB LABS ORDERED. 1350 pt moving better air, still noted with wheezing, pt declining 2nd douneb at hsit time, pending labs and xray call placed to dr roper 1430 case d/w dr roper will admit to gen med, agrees with plan, advised to hold off on iv abx at this time Diagnostic Imaging: Viewed by Me: Radiology Read. Discussed w/RAD: Radiology Read. Radiology Impression: PATIENT: DEEPALI GUIDO PRESENT AGE: 71 PATIENT ACCOUNT NO: [id number] : 43 LOCATION: [facility] ORDERING PHYSICIAN: Guillermo BURLESON SERVICE DATE: 07/06/17 EXAM TYPE: RAD - XRY- PORTABLE CHEST XRAY EXAMINATION: CR PORTABLE CHEST CLINICAL INFORMATION: Cough. Dyspnea. Presumptive diagnosis of pneumonia, COPD, CHF. COMPARISON: Several prior chest x-rays, most recent of which is dated 12/28/2016. CTA of the chest dated 12/28/2016. TECHNIQUE: Portable AP semierect view of the chest was obtained. FINDINGS: The cardiomediastinal silhouette is within normal limits in size. Mild ectasia and calcification of the aortic arch is seen. Pulmonary tara bilaterally are mildly dilated, consistent with pulmonary arterial hypertension. Lungs are hyperinflated with thickening of the central airways and coarsening of the lung markings, consistent with obstructive lung disease. Biapical areas of pleural thickening and associated reticulation are noted, left greater than right, consistent with scarring. Mild subsegmental atelectasis is seen in the left lung base. No focal dense consolidation, effusion or pneumothorax is seen. No pulmonary edema is noted. Thoracoplasty changes of T5-T7 again noted. IMPRESSION: Findings are consistent with obstructive lung disease and chronic scarring in the lung apices. Mild subsegmental atelectasis is noted in the left lung base. No focal pneumonia seen. No evidence of pulmonary edema. DICTATED BY: Allison Dugan MD DATE/TIME DICTATED:07/06/171421 AIRPORT DRIVER:DERECK DATE/TIME TRANSCRIBED:07/06/171421 CONFIDENTIAL, DO NOT COPY WITHOUT APPROPRIATE AUTHORIZATION. <Electronically signed in Other Vendor System> SIGNED BY: Allison Dugan MD 07/06/17 1431 Initial ED EKG: stach at 100, no acute st seg changes, normal axis Prior EKG: unchanged Rhythm Strip: sinus tachycardia (Guillermo Roach) Departure Departure Time of Disposition: 1431 Disposition: STILL A PATIENT Condition: Stable Clinical Impression Primary Impression: COPD exacerbation Secondary Impressions: Hypoxia Referrals: Kalia Roper MD (PCP/Family) Departure Forms: Customer Survey General Discharge Information Admission Note Spoke With: Kalia Roper MD Documentation of Exam: Documentation of any treatments & extenuating circumstances including Concerns Regarding Discharge (functional status, medication knowledge or non-compliance, living conditions, etc.) that warrant an admission rather than observation: iv steroids, resp tx prn, pulm and cardio consult, pt failed outpt therapy with po abx and steroids, hypoxic with ambulation premature discharge woudl be medicall y harmful (Guillermo Roach) PA/BOTTLE BLOWER Co-Sign Statement Statement: ED Attending supervision documentation- [X] I saw and evaluated the patient. I have also reviewed all the pertinent lab results and diagnostic results. I agree with the findings and the plan of care as documented in the PA's/BOTTLE BLOWER's documentation. Patient presents for evaluation of worsening shortness of breath. Physical examination reveals decreased breath sounds bilaterally with end expiratory wheezing. [] I have reviewed the ED Record and agree with the PA's/BOTTLE BLOWER's documentation. [] Additions or exceptions (if any) to the PAs/BOTTLE BLOWER's note and plan are summarized below: [] (Senait TROTTER,Jeanmarie Neville) Critical Care Note Critical Care Note Critical Care Time: 30-74 min (Guillermo Roach)
[2017-07-06] MEDS ORDERED: HYDROCODON-ACE1 EAC2 PO (13:38)
[2017-07-06 13:53] LABS: ABSOLUTE BASOPHIL COUNT 0 /CUMM (0.0-0.2); ABSOLUTE EOSINOPHIL COUNT 0 /CUMM (0.0-0.7); ABSOLUTE GRANULOCYTE CT 17.6 /CUMM (1.4-6.5); ABSOLUTE LYMPH COUNT 0.4 /CUMM (1.2-3.4); ABSOLUTE MONOCYTE COUNT 0.1 /CUMM (0.10-0.60); BASOPHIL % 0 % (0.0-2.0); EOSINOPHIL % 0.1 % (0-5); GRANULOCYTE % 96.9 % (42.2-75.2); HEMATOCRIT 42.9 % (37-47); MEAN CORPUSCULAR HGB 29.1 PG (27.0-31.0); MEAN CORPUSCULAR HGB CONC 32.5 G/DL (33.0-37.0); MEAN CORPUSCULAR VOLUME 89.4 FL (81.0-99.0); MEAN PLATELET VOLUME 7.7 FL (7.4-10.4); PLATELET COUNT 411 /CUMM (130-400); RBC DISTRIBUTION WIDTH 13.2 % (11.5-14.5); WHITE BLOOD CELL COUNT 18.1 /CUMM (4.8-10.8)
--- NOTE | 2017-07-06 14:31 | RADIOLOGY REPORT ---
EXAMINATION: CR PORTABLE CHEST CLINICAL INFORMATION: Cough. Dyspnea. Presumptive diagnosis of pneumonia, COPD, CHF. COMPARISON: Several prior chest x-rays, most recent of which is dated 12/28/2016. CTA of the chest dated 12/28/2016. TECHNIQUE: Portable AP semierect view of the chest was obtained. FINDINGS: The cardiomediastinal silhouette is within normal limits in size. Mild ectasia and calcification of the aortic arch is seen. Pulmonary tara bilaterally are mildly dilated, consistent with pulmonary arterial hypertension. Lungs are hyperinflated with thickening of the central airways and coarsening of the lung markings, consistent with obstructive lung disease. Biapical areas of pleural thickening and associated reticulation are noted, left greater than right, consistent with scarring. Mild subsegmental atelectasis is seen in the left lung base. No focal dense consolidation, effusion or pneumothorax is seen. No pulmonary edema is noted. Thoracoplasty changes of T5-T7 again noted. IMPRESSION: Findings are consistent with obstructive lung disease and chronic scarring in the lung apices. Mild subsegmental atelectasis is noted in the left lung base. No focal pneumonia seen. No evidence of pulmonary edema.
--- NOTE | 2017-07-06 15:03 | History & Physical ---
ParishnilamJose Armando centeno 07/06/17 1503: General Information and HPI MD Statement: I have seen and personally examined DEEPALI GUIDO and documented this H&P. The patient is a 71 year old F who presented with a patient stated chief complaint of [worsening shortness of breath, congestion]. Source of Information: patient, old records Exam Limitations: no limitations History of Present Illness: Mrs Guido is a 71-year-old lady with a PMH of COPD not on supplemental O2 but on daily azithromycin 250 mg, GERD, osteoporosis and macular degeneration who presents with complaints of progressive shortness of breath over the past few days. Symptoms started on generally second with what she describes as nasal congestion /sneezing/runny nose, progressed to "chest congestion, sore throat for one day and productive cough with clear sputum. She denies any recent travel or sick contacts. For her occasional COPD flareups, she has a standing order of prednisone with instructions from Dr. Romero for 40/30/20/10 mg for 3 days each. She started on this taper but continued experiencing significant/progressive exertional shortness of breath, chest tightness and intermittent episodes of vomiting 3, nonbloody. She denies any palpitations, chest pain, lower extremity swelling. Allergies/Medications Allergies: Coded Allergies: Penicillins (RASH, HIVES 09/24/16) Home Med list Albuterol Sulfate (Ventolin Hfa) 90 MCG HFA.AER.AD 2 PUF INH PRN COPD ( Reported) Albuterol Sulfate 2.5 MG/3 ML (0.083 %) VIAL.NEB 1 Vial INH/TORI Q4P PRN COPD (Reported) Aspirin (Ecotrin*) 81 MG TABLET.DR 1 TAB PO DAILY HEART/BLOOD (Reported) Atorvastatin Calcium 20 MG TABLET 1 TAB PO DAILY CHOLESTEROL (Reported) Azithromycin 250 MG TABLET 1 TAB PO DAILY PROPHYLAXIS (Reported) Cholecalciferol (Vitamin D3) (Vitamin D3) 1,000 UNIT CAPSULE 1 CAP PO DAILY SUPPLEMENT (Reported) Fluticasone/Salmeterol (Advair 250-50 Diskus) 250 MCG-50 MCG/DOSE BLST.W.DEV 1 PUF INH BID COPD (Reported) Hydrocodone/Acetaminophen (Hydrocodon-Acetaminophen 5-325) 5 MG-325 MG TABLET 1 TAB PO Q4H PRN PAIN (Reported) Lisinopril (Prinivil) 20 MG TABLET 1 TAB PO DAILY BP (Reported) Omeprazole 40 MG CAPSULE.DR 1 CAP PO DAILY acid reflux Prednisone 10 MG TABLET 1 TAB PO Q48 PRN COPD (Reported) Tiotropium [place] (Spiriva) 18 MCG CAP.W.DEV 1 CAP INH DAILY COPD (Reported) Ubidecarenone (Co Q-10) 200 MG CAPSULE 1 CAP PO DAILY SUPPLEMENT (Reported) Vit C/E/Zn/Coppr/Lutein/Zeaxan (Preservision Areds 2 Softgel) 250-200-40 CAPSULE 1 TAB PO DAILY SUPPLEMENT (Reported) Past History Travel History Traveled to [place] past 21 day No Medical History Neurological: NONE EENT: cataracts, macular degeneration Cardiovascular: myocardial infarction, UNSURE OF CHF? Respiratory: COPD, emphysema Gastrointestinal: GERD Hepatic: NONE Renal: NONE Musculoskeletal: osteoporosis Psychiatric: NONE Endocrine: NONE Blood Disorders: NONE Cancer(s): NONE STUCCO WORKER/Reproductive: NONE History of MRSA: No History of VRE: No History of CDIFF: No Surgical History Surgical History: appendectomy Past Family/Social History Family History Relations & Conditions if any No Known Family History. Psychosocial History Who Do You Live With? self Services at Home: None Primary Language: Maltese ETOH Use: denies use Illicit Drug Use: denies illicit drug use Living Will? no Functional Ability ADLs Independent: dressing, eating, toileting, bathing. Ambulation: independent IADLs Independent: shopping, housework, finances, food prep, telephone, transportation , medication admin. Review of Systems Review of Systems Constitutional: Reports: see HPI. EENTM: Reports: no symptoms. Cardiovascular: Reports: see HPI. Respiratory: Reports: see HPI. GI: Reports: see HPI. Genitourinary: Reports: no symptoms. Musculoskeletal: Reports: no symptoms. Skin: Reports: no symptoms. Neurological/Psychological: Reports: no symptoms. Hematologic/Endocrine: Reports: no symptoms. Exam & Diagnostic Data Last 24 Hrs of Vital Signs/I&O Vital Signs Date Time Temp Pulse Resp B/P B/P Pulse O2 O2 Flow FiO2 Mean Ox Delivery Rate 07/06 2326 98.1 108 20 162/78 91 Nasal 2.0L Cannula 07/06 1854 Nasal 2.0L Cannula 07/06 1815 98.0 114 18 142/78 94 Nasal 2.0L Cannula 07/06 1754 98.0 112 22 148/78 95 Nasal 2.0L Cannula 07/06 1607 98.5 121 24 164/78 93 Nasal 2.0L Cannula 07/06 1536 Nasal 2.0L Cannula 07/06 1413 94 Nasal 2.0L Cannula 07/06 1401 98.7 114 22 156/73 95 Nasal 2.0L Cannula 07/06 1332 94 Nasal Cannula Intake & Output 07/06 1600 07/06 0800 07/06 0000 Intake Total Output Total Balance Patient 113 lb Weight Weight Reported by Patient Measurement Method Physical Exam General Appearance Alert, Cooperative, No Acute Distress Skin No Significant Lesion Skin Temp/Moisture Exam: Warm/Dry Sepsis Skin Exam (color): Normal for Ethnicity HEENT mucous membranes slightly dry, tongue appears erythematous Cardiovascular Regular Rate, Normal S1, Normal S2 Lungs diminished breath sounds bilaterally. no rhonchi or wheezing appreciated at this time Abdomen Normal Bowel Sounds, Soft, No Tenderness Neurological Normal Speech, Normal Tone Extremities No Edema, Normal Pulses Vascular Pulses Symmetrical Last 24 Hrs of Labs/Moragn: Laboratory Tests 07/06/174: Troponin I < 0.01 07/06/17 1941: Urine Color YEL, Urine Clarity CLEAR, Urine pH 6.5, Ur Specific [place] 1.025, Urine Protein NEG, Urine Ketones NEG, Urine Nitrite NEG, Urine Bilirubin NEG, Urine Urobilinogen 0.2, Ur Leukocyte Esterase NEG, Ur Microscopic EXAM NOT REQUIRED, Urine Hemoglobin NEG, Urine Glucose NEG 07/06/17 1333: Anion Gap 12, Estimated GFR > 60, BUN/Creatinine Ratio 24.3, Glucose 125 H, Lactic Acid 1.7, Calcium 9.8, Phosphorus 4.0, Magnesium 1.9, Total Bilirubin 0.4 , AST 17, ALT 38, Alkaline Phosphatase 126, Troponin I < 0.01, Qml-U-Gumnzctigig Pept 118, Total Protein 7.0, Albumin 4.2, Globulin 2.8, Albumin/Globulin Ratio 1.5, CBC w Diff MAN DIFF ORDERED, RBC 4.80, MCV 89.4, MCH 29.1, RDW 13.2, MPV 7.7, Gran % 96.9 H, Lymphocytes % 2.2 L, Monocytes % 0.8 L, Eosinophils % 0.1 , Basophils % 0, Absolute Granulocytes 17.6 H, Absolute Lymphocytes 0.4 L, Absolute Monocytes 0.1, Absolute Eosinophils 0, Absolute Basophils 0, Platelet Estimate VERIFIED BY SMEAR, Normocytic RBCs VERIFIED, Normochromic RBCs VERIFIED , PUBS MCHC 32.5 L Microbiology 07/06 1940 URINE ROUT: Legionella Antigen - RES 07/06 1940 URINE ROUT: Streptococcus pneumoniae Antigen (M - RES 07/06 1940 URINE ROUT: Urine Culture - RES 07/06 1344 BLOOD: Blood Culture - RECD 07/06 1333 BLOOD: Blood Culture - RECD 07/06 1210 NASOPHARYN: Influenza Virus A & B Rapid Smear - COMP Diagnostic Data EKG Results Sinus tachycardia, HR 119, ID interval 164. QTC 445 CXR Results Obstructive lung disease and chronic scarring of the lung apices. Mild subsegmental atelectasis in the left lung base. Assessment/Plan Assessment: 71-year-old lady with a PMH of COPD not on supplemental O2 but on daily azithromycin 250 mg, GERD, osteoporosis and macular degeneration who presented with complaints of 3-4 day duration progressive shortness of breath with the preceding upper and lower respiratory tract infection/congestion, brief episode of sore throat, productive cough with clear sputum. No improvement on prednisone taper. VS on admission: BP 156/73, HR 113, RR 22, SPO2 94% on 2 LNC, T 98.7 Admission labs: WBC 18.1, H&H 13.9/42.9, platelets 411, sodium 139, potassium 4.4, bicarbonate 26, BUN/Cr CR 17/0.7, glucose 125 Influenza, Urine strep/Legionella antigens negative PROBLEM LIST: 1. COPD exacerbation 2. SIRS criteria: RR 22, HR 114, WBC 18.1 3. History of HTN, GERD, HLD PLAN: * Admit to general medicine for management of COPD exacerbation * Will start patient on ceftriaxone 1 g IV daily for potential for drug resistance to macrolides that can be seen with some chronic COPD patients on maintenance azithromycin. Solu-Medrol and azithromycin for anti-inflammation * EKG, troponin and d-dimer in the a.m. * Pulmonology consult in the a.m. * Incentive spirometry, nebulizer treatments as needed * Follow-up sputum culture * Regular diet * DVT prophylaxis: Lovenox 40 mg subcutaneous daily * Full code As Ranked By This Provider Problem List: 1. COPD (chronic obstructive pulmonary disease) 2. SIRS (systemic inflammatory response syndrome) Core Measures/Misc (03/17) Acute Coronary Syndrome ACS Diagnosis: No Congestive Heart Failure Congestive Heart Failure Diagnosis No Cerebrovascular Accident CVA/TIA Diagnosis: No VTE (View Protocol) VTE Risk Factors Age>40 No Mechanical VTE Prophylaxis d/t N/A MechProphylax Ordered No VTE Pharm Prophylaxis d/t NA PharmProphylax ordered Sepsis (View protocol) Sepsis Present: No Resident Review Statement Resident Statement: examined this patient, discussed with marketing pr intern, agreed with marketing pr intern, reviewed EMR data (avail), discussed with nursing, discussed with case mgmt, reviewed images Kalia Winter MD 07/07/17 1341: Attending MD Review Statement Attending Statement Attending MD Statement: examined this patient, discuss w/resident/PA/ASH WORKER, agreed w/resident/PA/ASH WORKER, reviewed EMR data (avail), reviewed images, amended to note Attending Assessment/Plan: Mrs. Guido was interviewed and examined while in the ED prior to admission. Her EMR was reviewed Problems: -Acute on chronic respiratory failure -AE COPD -Hypertension -Dyslipidemia -Chronic upper back pain secondary to compression fracture -Takatsubo syndrome -GERD Plan: -Admit general medicine -Sputum and blood cultures -TRC nebs 02 -Parenteral steroids -Ceftriaxone intravenously continue oral azithromycin -Continue maintenance medications -Pulmonary consultation
[2017-07-06 18:15] VITALS: BP 142/78
[2017-07-06 23:26] VITALS: BP 162/78
[2017-07-07 07:18] VITALS: BP 146/72
--- NOTE | 2017-07-07 09:49 | PN- Housestaff ---
Marvin TROTTER,[facility] [place] 07/07/17 0948: Subjective Follow-up For: copd Subjective: No acute events overnight. No complaints this AM. However patient very SOB this afternoon with minimal activity sucha s eating. Review of Systems Constitutional: Reports: see HPI. Cardiovascular: Reports: no symptoms. Respiratory: Reports: short of breath. Gastrointestinal: Reports: no symptoms. Genitourinary: Reports: no symptoms. Musculoskeletal: Reports: no symptoms. Skin: Reports: no symptoms. Objective Last 24 Hrs of Vital Signs/I&O Vital Signs Date Time Temp Pulse Resp B/P B/P Pulse O2 O2 Flow FiO2 Mean Ox Delivery Rate 07/07 1604 95 Nasal 2.0L Cannula 07/07 1600 Nasal 2.0L Cannula 07/07 1545 98.4 117 20 154/82 92 Nasal Cannula 07/07 0928 95 152/84 07/07 0806 98 Nasal 2.0L Cannula 07/07 0800 92 Nasal 2.0L Cannula 07/07 0718 97.5 91 18 146/72 95 07/07 0000 94 Nasal 2.0L Cannula 07/06 2326 98.1 108 20 162/78 91 Nasal 2.0L Cannula Intake & Output 07/07 1600 07/07 0800 07/07 0000 Intake Total 750 250 740 Output Total 450 Balance 750 -200 740 Intake, IV 30 250 Intake, Oral 720 250 490 Output, Urine 450 Patient 113 lb Weight Weight Reported by Patient Measurement Method Physical Exam General Appearance: Alert, Cooperative, No Acute Distress Skin Temp/Moisture Exam: Warm/Dry Cardiovascular: Regular Rate, Normal S1, Normal S2 Lungs: diffuse decrease air movement Abdomen: Normal Bowel Sounds, Soft, No Tenderness Extremities: kyphosis Current Medications: Current Medications Sig/Keith Start time Last Medication Dose Route Stop Time Status Admin Acetaminophen 650 MG Q6P PRN 07/06 1715 AC PO Acetaminophen 1,000 MG Q6P PRN 07/06 1715 AC IV Albuterol Sulfate 3 ML EVERY 4 HRS/AWAKE 07/06 1999 AC 07/07 INH 1603 Aspirin Buffered 81 MG DAILY 07/07 1000 AC 07/07 PO 0927 Atorvastatin Calcium 20 MG DAILY 07/07 1000 AC 07/07 PO 0927 Azithromycin 500 MG DAILY@1730 07/06 1730 AC 07/07 Sodium Chloride 250 ML IV 1734 Budesonide/ 2 PUF BID 07/06 220 AC 07/07 Formoterol Fumarate INH 0928 Ceftriaxone Sodium 1,000 MG DAILY@1730 07/06 1730 AC 07/07 IV 1734 Cholecalciferol 1,000 IU DAILY 07/07 1000 AC 07/07 PO 0928 Coenzyme Q10 100 MG DAILY 07/06 171 AC 07/07 PO 0928 Enoxaparin Sodium 40 MG DAILY 07/06 1708 AC 07/07 SC 0929 Glycerin 2 SPRAY Q2P PRN 07/06 171 AC PO Hydrocodone Bitart/ 1 TAB Q4H PRN 07/06 171 AC Acetaminophen PO Lisinopril 20 MG DAILY 07/07 1000 AC 07/07 PO 0928 Methylprednisolone 40 MG Q8 07/06 220 AC 07/07 IV 1351 Omeprazole 40 MG DAILY AC 07/07 0700 AC 07/07 PO 0601 Tiotropium [place] 1 PUF 1400 07/07 1400 AC 07/07 INH 1351 Trimethobenzamide HCl 200 MG ONCE ONE 07/07 1445 DC IM 07/07 1446 Last 24 Hrs of Lab/Morgan Results Last 24 Hrs of Labs/Mics: Laboratory Tests 07/07/17 0610: Anion Gap 11, Estimated GFR > 60, BUN/Creatinine Ratio 30.0 H, Troponin I < 0.01, D-Dimer High Sensitivty 310 H, CBC w Diff NO MAN DIFF REQ, RBC 4.30, MCV 89.3, MCH 29.8, RDW 13.8, MPV 8.0, Gran % 93.2 H, Lymphocytes % 4.7 L, Monocytes % 2.1, Eosinophils % 0, Basophils % 0, Absolute Granulocytes 13.0 H, Absolute Lymphocytes 0.7 L, Absolute Monocytes 0.3, Absolute Eosinophils 0, Absolute Basophils 0, PUBS MCHC 33.4 07/06/172203: Troponin I < 0.01 Assessment/Plan Assessment: 71-year-old lady with a PMH of COPD not on supplemental O2 but on daily azithromycin 250 mg, GERD, osteoporosis and macular degeneration who presented with complaints of 3-4 day duration progressive shortness of breath with the preceding upper and lower respiratory tract infection/congestion, brief episode of sore throat, productive cough with clear sputum. No improvement on prednisone taper. #COPD CXR: . Mild subsegmental atelectasis is noted in the left lung base CTA: No PE. Severe emphysematous changes of lung. WBC 18.1 -> 14 D-dimer elevated Influenza, Urine strep/Legionella antigens negative -ceftriaxone 1 g IV daily for potential for drug resistance to macrolides that can be seen with some chronic COPD patients on maintenance azithromycin. - Solu-Medrol and azithromycin for anti-inflammation -pulm consult tomorrow -cont trc nebs - cont ceftriaxone, azithromycin #tachycardia HR 100s -cont to monitor #htn -cont lisinopril #hld -atorvastatin #gerd -omeprazole #vitamins -vitamin D, coq10 Regular diet DVT prophylaxis: Lovenox 40 mg subcutaneous daily Full code Problem List: 1. Chronic obstructive pulmonary disease Pain Ratin Pain Location: none Pain Goal: Pain 4 or less Pain Plan: pain pathway Tomorrow's Labs & Rationales: cbc Kalia Clark MD 07/07/17 1351: Attending MD Review Statement Attending Statement Attending MD Statement: examined this patient, discuss w/resident/PA/DOUGH SCALER AND MIXER, agreed w/resident/PA/DOUGH SCALER AND MIXER, reviewed EMR data (avail), reviewed images, amended to note Attending Assessment/Plan: Mrs. Kelley was interviewed and examined. Her EMR was reviewed. She states she is feeling better today but still notes dyspnea with minimal exertion. She denies fever, chills, sweats, chest pain, palpitations, and abdominal pain. She has remained afebrile. She has had some mild tachycardia which is now resolved. In addition she has noted some mild elevation in her systolic blood pressure which is also subsided. Oxygen saturation remained stable on 2 L. She is in no acute distress. Pulmonary exam reveals decreased breath sounds with mild prolongation of her expiratory phase and occasional faint wheeze. Cardiac exam reveals a regular rate and rhythm. Her abdomen is soft and nontender. Her extremities are without edema. WBC has decreased to 14,000 today. Her electrolytes are stable. Cultures are pending. We are treating her acute on chronic respiratory failure/AE COPD with intravenous steroids, supplemental oxygen, and nebulized bronchodilators. We are covering her with ceftriaxone in case of macro lead resistance. We are continuing her maintenance medications.
[2017-07-07 09:51] LABS: ABSOLUTE BASOPHIL COUNT 0 /CUMM (0.0-0.2); ABSOLUTE EOSINOPHIL COUNT 0 /CUMM (0.0-0.7); ABSOLUTE LYMPH COUNT 0.7 /CUMM (1.2-3.4); ABSOLUTE MONOCYTE COUNT 0.3 /CUMM (0.10-0.60); BASOPHIL % 0 % (0.0-2.0); EOSINOPHIL % 0 % (0-5); GRANULOCYTE % 93.2 % (42.2-75.2); HEMATOCRIT 38.4 % (37-47); MEAN CORPUSCULAR HGB 29.8 PG (27.0-31.0); MEAN CORPUSCULAR HGB CONC 33.4 G/DL (33.0-37.0); MEAN CORPUSCULAR VOLUME 89.3 FL (81.0-99.0); PLATELET COUNT 361 /CUMM (130-400); RBC DISTRIBUTION WIDTH 13.8 % (11.5-14.5)
--- NOTE | 2017-07-07 13:33 | Admission Certification ---
Admission Certification Certification Statement - As attending physician, I certify that at the time of - admission, based on clinical presentation, severity of - symptoms, need for further diagnostic testing and - therapeutic interventions, and risk of adverse outcomes - without in-hospital treatment, in my clinical assessment, - this patient requires an acute hospital stay for a minimum - of two nights or longer. I have also considered psychsocial - factors such as support system, advanced age, financial - issues, cognitive issues, and failed out-patient treatments, - past re-admission history, safety of patient, and lack of - compliance as applicable. Specific rationale supporting this admission is: Treatment of acute on chronic respiratory failure secondary to exacerbation of COPD
[2017-07-07 15:45] VITALS: BP 154/82
--- NOTE | 2017-07-07 17:05 | CT SCAN REPORT ---
EXAMINATION: CT ANGIOGRAM OF THE CHEST WITH AND WITHOUT CONTRAST (CT PULMONARY ANGIOGRAM FOR PE) CLINICAL INFORMATION: COPD, SOB COMPARISON: CT of chest 12/28/2016. TECHNIQUE: Prior to contrast administration, noncontrast localization images were obtained. Subsequently, multidetector volumetric imaging was performed from the thoracic inlet to below the diaphragms following the administration of 50 mL Optiray 350 intravenous contrast. No contrast reaction reported. Sagittal, coronal, and MIP oblique sagittal reformatted images were obtained on the CT workstation, uploaded to PACS, and reviewed. Total exam dose-length product 212.80 mGy-cm. FINDINGS: QUALITY OF STUDY/CONTRAST BOLUS: Satisfactory PULMONARY ARTERIES: No central or segmental pulmonary emboli. THORACIC AORTA: Atherosclerotic vascular wall calcifications of aorta without aneurysm or dissection. LUNG: Marked britton emphysematous changes of lungs. Large bulla at the upper lobes. No focal consolidation. Central bronchial airways are open. No bronchiectasis. PLEURA: No pleural effusion or pneumothorax. MEDIASTINUM: Normal heart size. No pericardial effusion. No hilar or mediastinal lymphadenopathy. No evidence of septal bowing or right heart strain. Moderate hiatal hernia. CHEST WALL/AXILLA: No axillary or internal mammary lymphadenopathy. OSSEOUS STRUCTURES: Patient has had prior thoracoplasty of T5, T6-T7. There is compression of the T8, T9 and T11 vertebrae UPPER ABDOMEN: Unremarkable. No reflux of contrast into the hepatic veins to suggest elevated right heart pressures. IMPRESSION: 1. No evidence of pulmonary embolism. 2. Severe emphysematous changes of lung. VTE: negative
[2017-07-07 22:55] VITALS: BP 150/74
[2017-07-08 07:23] VITALS: BP 148/84
--- NOTE | 2017-07-08 08:22 | PN- Housestaff ---
Marvin TROTTER,[facility] 07/08/17 0822: Subjective Follow-up For: COPD Subjective: No acute events overnight. States SOB is better. No other complaints. Review of Systems Constitutional: Reports: no symptoms. Cardiovascular: Reports: no symptoms. Respiratory: Reports: short of breath. Gastrointestinal: Reports: no symptoms. Genitourinary: Reports: no symptoms. Objective Last 24 Hrs of Vital Signs/I&O Vital Signs Date Time Temp Pulse Resp B/P B/P Pulse O2 O2 Flow FiO2 Mean Ox Delivery Rate 07/08 1449 98.1 112 18 164/80 95 Nasal 2.0L Cannula 07/08 1038 148/84 07/08 0836 93 Nasal 2.0L Cannula 07/08 799 Nasal 2.0L Cannula 07/08 07 97.9 97 20 148/84 97 07/08 0000 Nasal 2.0L Cannula 07/07 2255 97.5 100 20 150/74 94 Nasal 2.0L Cannula 07/07 1604 95 Nasal 2.0L Cannula 07/07 1600 Nasal 2.0L Cannula 07/07 1545 98.4 117 20 154/82 92 Nasal Cannula Intake & Output 07/08 1600 07/08 0800 07/08 0000 Intake Total 100 720 Output Total Balance 100 720 Intake, Oral 100 720 Number 0 Bowel Movements Physical Exam General Appearance: Alert, Cooperative, No Acute Distress Skin Temp/Moisture Exam: Warm/Dry Cardiovascular: Regular Rate, Normal S1, Normal S2 Lungs: diffuse decrease air movement, diffuse rhonchi Abdomen: Soft, No Tenderness, decrease BS Extremities: 2+ radial pulses, kyphosis Current Medications: Current Medications Sig/Keith Start time Last Medication Dose Route Stop Time Status Admin Acetaminophen 650 MG Q6P PRN 07/06 1715 AC PO Acetaminophen 1,000 MG Q6P PRN 07/06 1715 AC IV Albuterol Sulfate 3 ML EVERY 4 HRS/AWAKE 07/06 1999 AC 07/08 INH 1158 Aspirin Buffered 81 MG DAILY 07/07 999 AC 07/08 PO 1038 Atorvastatin Calcium 20 MG DAILY 07/07 999 AC 07/08 PO 1038 Azithromycin 500 MG DAILY@17307/06 1730 AC 07/07 Sodium Chloride 250 ML IV 1734 Budesonide/ 2 PUF BID 07/06 2199 AC 07/08 Formoterol Fumarate INH 1039 Ceftriaxone Sodium 1,000 MG DAILY@07/06 1730 AC 07/07 IV 1734 Cholecalciferol 1,000 IU DAILY 07/07 1000 AC 07/08 PO 1038 Coenzyme Q10 100 MG DAILY 07/06 1715 AC 07/08 PO 1041 Enoxaparin Sodium 40 MG DAILY 07/06 1708 AC 07/08 SC 1042 Glycerin 2 SPRAY Q2P PRN 07/06 1715 AC PO Hydrocodone Bitart/ 1 TAB Q4H PRN 07/06 1715 AC Acetaminophen PO Lisinopril 20 MG DAILY 07/07 1000 AC 07/08 PO 1038 Methylprednisolone 40 MG Q8 07/06 2200 AC 07/08 IV 1322 Nystatin 5 ML 4 TIMES/DAY 07/08 1031 AC 07/08 PO 1321 Omeprazole 40 MG DAILY AC 07/07 0700 AC 07/08 PO 0609 Patient Medication 1 ED ONE ONE 07/08 1145 DC Teaching ED 07/08 1146 Tiotropium [place] 1 PUF 1400 07/07 1400 AC 07/08 INH 1322 Last 24 Hrs of Lab/Morgan Results Last 24 Hrs of Labs/Mics: Laboratory Tests 07/08/17 0730: Anion Gap 13, Estimated GFR > 60, BUN/Creatinine Ratio 36.7 H, CBC w Diff NO MAN DIFF REQ, RBC 4.15 L, MCV 90.3, MCH 29.2, RDW 13.8, MPV 8.3, Gran % 96.2 H , Lymphocytes % 2.1 L, Monocytes % 1.6 L, Eosinophils % 0.1, Basophils % 0, Absolute Granulocytes 20.1 H, Absolute Lymphocytes 0.4 L, Absolute Monocytes 0.3, Absolute Eosinophils 0, Absolute Basophils 0, PUBS MCHC 32.4 L Assessment/Plan Assessment: 71-year-old lady with a PMH of COPD not on supplemental O2 but on daily azithromycin 250 mg, GERD, osteoporosis and macular degeneration who presented with complaints of 3-4 day duration progressive shortness of breath with the preceding upper and lower respiratory tract infection/congestion, brief episode of sore throat, productive cough with clear sputum. No improvement on prednisone taper. #COPD CXR: . Mild subsegmental atelectasis is noted in the left lung base CTA: No PE. Severe emphysematous changes of lung. WBC 18.1 -> 14 -> 20.9 D-dimer elevated Influenza, Urine strep/Legionella antigens negative CTA negative for PE. Severe emphysema -ceftriaxone 1 g IV daily for potential for drug resistance to macrolides that can be seen with some chronic COPD patients on maintenance azithromycin. - Solu-Medrol and azithromycin for anti-inflammation -f/u pulm consult -cont trc nebs #leukocytosis Possibly due to stress reaction exascerbated by steroids. Pt afebrile during admission -cont to monitor. #tachycardia HR 100s -cont to monitor #htn -cont lisinopril #hld -atorvastatin #gerd -omeprazole #vitamins -vitamin D, coq10 Regular diet DVT prophylaxis: Lovenox 40 mg subcutaneous daily Full code Problem List: 1. COPD (chronic obstructive pulmonary disease) Pain Ratin Pain Location: none Pain Goal: Pain 4 or less Pain Plan: pain pathway Tomorrow's Labs & Rationales: cbc bep Kalia Winter MD 07/08/17 1551: Attending MD Review Statement Attending Statement Attending MD Statement: examined this patient, agreed w/resident/PA/BLOWER OPERATOR, amended to note Attending Assessment/Plan: Mrs. Kelley was interviewed and examined. Her EMR was reviewed. She notes improvement in her breathing but still has moderate to severe SOTELO. She denies chest pain, sputum, and pleuritic pain. She has remained afebrile. She has been intermittently tachycardic as well as having an elevated systolic blood pressure. Oxygen saturation are stable on 2 L via nasal cannula. She is in no acute distress. Pulmonary exam shows decreased breath sounds with mild to moderate increase in expiratory phase in terminal musical wheeze diffusely. Cardiac and abdominal exams are benign. WBC are elevated today to 20,900. Electrolytes and renal function are stable. CTA returned no evidence of pulmonary thromboembolism. Cultures are negative. We are continuing to treat Mrs. Kelley's AE COPD with parenteral steroids and nebulizer treatments. We are continuing parenteral ceftriaxone through today while we follow cultures. We are continuing her maintenance medications and gradually increasing her activity.
[2017-07-08 09:19] LABS: ABSOLUTE BASOPHIL COUNT 0 /CUMM (0.0-0.2); ABSOLUTE EOSINOPHIL COUNT 0 /CUMM (0.0-0.7); ABSOLUTE GRANULOCYTE CT 20.1 /CUMM (1.4-6.5); ABSOLUTE LYMPH COUNT 0.4 /CUMM (1.2-3.4); ABSOLUTE MONOCYTE COUNT 0.3 /CUMM (0.10-0.60); BASOPHIL % 0 % (0.0-2.0); EOSINOPHIL % 0.1 % (0-5); HEMATOCRIT 37.5 % (37-47); MEAN CORPUSCULAR HGB 29.2 PG (27.0-31.0); MEAN CORPUSCULAR HGB CONC 32.4 G/DL (33.0-37.0); MEAN CORPUSCULAR VOLUME 90.3 FL (81.0-99.0); MEAN PLATELET VOLUME 8.3 FL (7.4-10.4); PLATELET COUNT 337 /CUMM (130-400); RBC DISTRIBUTION WIDTH 13.8 % (11.5-14.5); RED BLOOD CELL CT 4.15 /CUMM (4.20-5.40); WHITE BLOOD CELL COUNT 20.9 /CUMM (4.8-10.8)
[2017-07-08 10:35] LABS: GRANULOCYTE % 96.2 % (42.2-75.2)
--- NOTE | 2017-07-08 13:33 | PN- Student ---
Subjective Subjective: 71 yo F hospital day 3 for COPD exacerbation. Past medical history significant for HTN, GERD, osteopororsis and macular degeneration. Most recent CXR on 07/06 showed mild atelectasis on left lung base with no focal pneumonia or pulmonary sarah. CTA on 07/07 showed no evidence of PE but severe emphysematous changes. Patient currently denies GUZMAN, dizziness, N/V, SOB, chest pain, abdominal pain, or leg pain. States her appetite is improving, voidng spontaneously with no issue. Objective Objective: Vital Signs Result Date Time B/P 148/84 07/08 1038 Pulse Ox 93 07/08 835 O2 Delivery Nasal Cannula 07/08 835 O2 Flow Rate 2.0L 07/08 835 Temp 97.9 07/08 722 Pulse 97 07/08 722 Resp 20 07/08 722 Apperance: Patient is in NAD, alert and oriented Cardiovascular: Regular rate and rhythm, no murmurs, rubs or gallops Pulmonary: Patient has diminished air flow but not using accessory muscles of respiration Abdomen: Normoactive bowel sounds, no TTP, abdomen is soft, no rigidity Extremitites: Warm, no TTP, no edema, 2+ distal pulses Intake & Output 07/08 0000 07/07 1600 07/07 0800 Intake Total 720 750 250 Output Total 450 Balance 720 750 -200 Intake, IV 30 Intake, Oral 720 720 250 Number 0 Bowel Movements Output, Urine 450 Results Results: Laboratory Tests 07/08/17 0730: Anion Gap 13, Estimated GFR > 60, BUN/Creatinine Ratio 36.7 H, CBC w Diff NO MAN DIFF REQ, RBC 4.15 L, MCV 90.3, MCH 29.2, RDW 13.8, MPV 8.3, Gran % 96.2 H , Lymphocytes % 2.1 L, Monocytes % 1.6 L, Eosinophils % 0.1, Basophils % 0, Absolute Granulocytes 20.1 H, Absolute Lymphocytes 0.4 L, Absolute Monocytes 0.3, Absolute Eosinophils 0, Absolute Basophils 0, PUBS MCHC 32.4 L 07/07/17 0610: Anion Gap 11, Estimated GFR > 60, BUN/Creatinine Ratio 30.0 H, Troponin I < 0.01, D-Dimer High Sensitivty 310 H, CBC w Diff NO MAN DIFF REQ, RBC 4.30, MCV 89.3, MCH 29.8, RDW 13.8, MPV 8.0, Gran % 93.2 H, Lymphocytes % 4.7 L, Monocytes % 2.1, Eosinophils % 0, Basophils % 0, Absolute Granulocytes 13.0 H, Absolute Lymphocytes 0.7 L, Absolute Monocytes 0.3, Absolute Eosinophils 0, Absolute Basophils 0, PUBS MCHC 33.4 07/06/17 2204: Troponin I < 0.01 07/06/171940: Urine Color YEL, Urine Clarity CLEAR, Urine pH 6.5, Ur Specific [place] 1.025, Urine Protein NEG, Urine Ketones NEG, Urine Nitrite NEG, Urine Bilirubin NEG, Urine Urobilinogen 0.2, Ur Leukocyte Esterase NEG, Ur Microscopic EXAM NOT REQUIRED, Urine Hemoglobin NEG, Urine Glucose NEG 07/06/17 1333: Anion Gap 12, Estimated GFR > 60, BUN/Creatinine Ratio 24.3, Glucose 125 H, Lactic Acid 1.7, Calcium 9.8, Phosphorus 4.0, Magnesium 1.9, Total Bilirubin 0.4 , AST 17, ALT 38, Alkaline Phosphatase 126, Troponin I < 0.01, Aco-H-Gurvtfoppwy Pept 118, Total Protein 7.0, Albumin 4.2, Globulin 2.8, Albumin/Globulin Ratio 1.5, CBC w Diff MAN DIFF ORDERED, RBC 4.80, MCV 89.4, MCH 29.1, RDW 13.2, MPV 7.7, Gran % 96.9 H, Lymphocytes % 2.2 L, Monocytes % 0.8 L, Eosinophils % 0.1 , Basophils % 0, Absolute Granulocytes 17.6 H, Absolute Lymphocytes 0.4 L, Absolute Monocytes 0.1, Absolute Eosinophils 0, Absolute Basophils 0, Platelet Estimate VERIFIED BY SMEAR, Normocytic RBCs VERIFIED, Normochromic RBCs VERIFIED , PUBS MCHC 32.5 L Microbiology 07/06 1940 URINE ROUT: Legionella Antigen - COMP 07/06 1940 URINE ROUT: Streptococcus pneumoniae Antigen (M - COMP 07/06 1940 URINE ROUT: Urine Culture - COMP 07/06 1344 BLOOD: Blood Culture - RES 07/06 1333 BLOOD: Blood Culture - RES 07/06 1210 NASOPHARYN: Influenza Virus A & B Rapid Smear - COMP Assessment/Plan Assessment: 71 yo F hospital day 3 for COPD exacerbation Plan: 1. Await pulmonary consult from Dr. Romero 2. Continue managing chronic conditions * HTN - Lisinopril * Hyperlipidemia - Atorvastatin * GERD - Omeprazole * Vitamins/Supplements - Vitamin D and Coq 10 3. Continue DVT/PE prophylaxis with 40 mg Enoxaparin 4. Continue to treat respiratory symptoms * Albuterol inhaler * symbicort * tiotropium bromide * budesonide/Formoterol Fumarate 5. Continue Ceftriaxone 1 g IV daily and Azithromycin 500 mg IV daily 6. Full code
[2017-07-08 14:49] VITALS: BP 164/80
--- NOTE | 2017-07-08 19:56 | Cons- Pulmonary ---
General Information and HPI Consulting Request Date of Consult: 07/08/17 Requested By: med team History of Present Illness: Mrs Kelley is a 71-year-old lady with a PMH of COPD not on supplemental O2 but on daily azithromycin 250 mg, GERD, osteoporosis and macular degeneration who presents with complaints of progressive shortness of breath over the past few days. Symptoms started on generally second with what she describes as nasal congestion /sneezing/runny nose, progressed to "chest congestion, sore throat for one day and productive cough with clear sputum. She denies any recent travel or sick contacts. For her occasional COPD flareups, Recently She started on a course of steroids continued experiencing significant/progressive exertional shortness of breath, chest tightness and intermittent episodes of vomiting 3, nonbloody. She denies any palpitations, chest pain, lower extremity swelling. Review of Systems Constitutional: Reports: see HPI. EENTM: Reports: no symptoms. Cardiovascular: Reports: see HPI. Respiratory: Reports: see HPI. GI: Reports: see HPI. Genitourinary: Reports: no symptoms. Musculoskeletal: Reports: no symptoms. Skin: Reports: no symptoms. Neurological/Psychological: Reports: no symptoms. Hematologic/Endocrine: Reports: no symptoms. Allergies/Medications Allergies: Coded Allergies: Penicillins (RASH, HIVES 09/24/16) Home Med List: Albuterol Sulfate (Ventolin Hfa) 90 MCG HFA.AER.AD 2 PUF INH PRN COPD ( Reported) Albuterol Sulfate 2.5 MG/3 ML (0.083 %) VIAL.NEB 1 Vial INH/TORI Q4P PRN COPD (Reported) Aspirin (Ecotrin*) 81 MG TABLET.DR 1 TAB PO DAILY HEART/BLOOD (Reported) Atorvastatin Calcium 20 MG TABLET 1 TAB PO DAILY CHOLESTEROL (Reported) Azithromycin 250 MG TABLET 1 TAB PO DAILY PROPHYLAXIS (Reported) Cholecalciferol (Vitamin D3) (Vitamin D3) 1,000 UNIT CAPSULE 1 CAP PO DAILY SUPPLEMENT (Reported) Fluticasone/Salmeterol (Advair 250-50 Diskus) 250 MCG-50 MCG/DOSE BLST.W.DEV 1 PUF INH BID COPD (Reported) Hydrocodone/Acetaminophen (Hydrocodon-Acetaminophen 5-325) 5 MG-325 MG TABLET 1 TAB PO Q4H PRN PAIN (Reported) Lisinopril (Prinivil) 20 MG TABLET 1 TAB PO DAILY BP (Reported) Omeprazole 40 MG CAPSULE.DR 1 CAP PO DAILY acid reflux Prednisone 10 MG TABLET 1 TAB PO Q48 PRN COPD (Reported) Tiotropium Ione (Spiriva) 18 MCG CAP.W.DEV 1 CAP INH DAILY COPD (Reported) Ubidecarenone (Co Q-10) 200 MG CAPSULE 1 CAP PO DAILY SUPPLEMENT (Reported) Vit C/E/Zn/Coppr/Lutein/Zeaxan (Preservision Areds 2 Softgel) 250-200-40 CAPSULE 1 TAB PO DAILY SUPPLEMENT (Reported) Past History Travel History Traveled to [place] past 21 day No Medical History Blood Transfusion Hx: No Neurological: NONE EENT: cataracts, macular degeneration Cardiovascular: hypertension, myocardial infarction, UNSURE OF CHF? 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 Psychosocial History Where Do You Live? Home Who Do You Live With? self Services at Home: None Primary Language: French Smoking Status: Former Smoker ETOH Use: denies use Illicit Drug Use: denies illicit drug use Living Will? no Functional Ability ADLs Independent: dressing, eating, toileting, bathing. Ambulation: independent IADLs Independent: shopping, housework, finances, food prep, telephone, transportation , medication admin. Exam & Diagnostic Data Last 24 Hrs of Vital Signs/I&O Vital Signs Date Time Temp Pulse Resp B/P B/P Pulse O2 O2 Flow FiO2 Mean Ox Delivery Rate 07/08 1552 94 Nasal 2.0L Cannula 07/08 1449 98.1 112 18 164/80 95 Nasal 2.0L Cannula 07/08 1038 148/84 07/08 0836 93 Nasal 2.0L Cannula 07/08 799 Nasal 2.0L Cannula 07/08 07 97.9 97 20 148/84 97 07/08 0000 Nasal 2.0L Cannula 07/07 2255 97.5 100 20 150/74 94 Nasal 2.0L Cannula Intake & Output 07/08 1600 07/08 0800 07/08 0000 Intake Total 650 100 720 Output Total Balance 650 100 720 Intake, Oral 650 100 720 Number 0 Bowel Movements Last 48 Hrs of Labs/Morgan: Laboratory Tests 07/08/17 0730: Anion Gap 13, Estimated GFR > 60, BUN/Creatinine Ratio 36.7 H, CBC w Diff NO MAN DIFF REQ, RBC 4.15 L, MCV 90.3, MCH 29.2, RDW 13.8, MPV 8.3, Gran % 96.2 H , Lymphocytes % 2.1 L, Monocytes % 1.6 L, Eosinophils % 0.1, Basophils % 0, Absolute Granulocytes 20.1 H, Absolute Lymphocytes 0.4 L, Absolute Monocytes 0.3, Absolute Eosinophils 0, Absolute Basophils 0, PUBS MCHC 32.4 L 07/07/17 0610: Anion Gap 11, Estimated GFR > 60, BUN/Creatinine Ratio 30.0 H, Troponin I < 0.01, D-Dimer High Sensitivty 310 H, CBC w Diff NO MAN DIFF REQ, RBC 4.30, MCV 89.3, MCH 29.8, RDW 13.8, MPV 8.0, Gran % 93.2 H, Lymphocytes % 4.7 L, Monocytes % 2.1, Eosinophils % 0, Basophils % 0, Absolute Granulocytes 13.0 H, Absolute Lymphocytes 0.7 L, Absolute Monocytes 0.3, Absolute Eosinophils 0, Absolute Basophils 0, PUBS MCHC 33.4 07/06/17 2204: Troponin I < 0.01 Assessment/Plan Impression/Plan: MRI of spine in IMPRESSION: THORACIC SPINE: 1. There is an acute/subacute compression fracture of the body of T11, demonstrated on prior imaging. There is no significant posterior protrusion of the vertebral body and there is no spinal cord compression. 2. There are chronic compression fractures of T8 and T9. 3. There are sequelae of augmentation procedures at T5, T6 and T7. 4. There is no abnormal enhancement. LUMBAR SPINE: 1. There are no fractures or subluxations. 2. There is no significant central stenosis or foraminal narrowing. 3. There are severe facet arthropathic changes at L4-L5 and L5-S1. DICTATED BY: JING KAUR MD DATE/TIME DICTATED:12/29/166 CTA PULMONARY ARTERIES: No central or segmental pulmonary emboli. THORACIC AORTA: Atherosclerotic vascular wall calcifications of aorta without aneurysm or dissection. LUNG: Marked britton emphysematous changes of lungs. Large bulla at the upper lobes. No focal consolidation. Central bronchial airways are open. No bronchiectasis. PLEURA: No pleural effusion or pneumothorax. MEDIASTINUM: Normal heart size. No pericardial effusion. No hilar or mediastinal lymphadenopathy. No evidence of septal bowing or right heart strain. Moderate hiatal hernia. CHEST WALL/AXILLA: No axillary or internal mammary lymphadenopathy. OSSEOUS STRUCTURES: Patient has had prior thoracoplasty of T5, T6-T7. There is compression of the T8, T9 and T11 vertebrae UPPER ABDOMEN: Unremarkable. No reflux of contrast into the hepatic veins to suggest elevated right heart pressures. IMPRESSION: 1. No evidence of pulmonary embolism. 2. Severe emphysematous changes of lung. VTE: negative DICTATED BY: Gomez Pena MD DATE/TIME DICTATED:07/07/171651 Physical Exam General Appearance Alert, Cooperative, No Acute Distress Skin No Significant Lesion Skin Temp/Moisture Exam: Warm/Dry Sepsis Skin Exam (color): Normal for Ethnicity HEENT mucous membranes slightly dry, tongue appears erythematous Cardiovascular Regular Rate, Normal S1, Normal S2 Lungs diminished breath sounds bilaterally. no rhonchi or wheezing appreciated at this time Abdomen Normal Bowel Sounds, Soft, No Tenderness Neurological Normal Speech, Normal Tone Extremities No Edema, Normal Pulses Vascular Pulses Symmetrical IMPRESSION This is a lady with very severe COPD with bullous emphysema, osteoporosis with previous multiple compression fractures, hypertension, hyperlipidemia, chronic esophageal dysmotility/dysphagia, now comes in with * She has very severe COPD with acute COPD exacerbation, no pna or PE. 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 * Probable esophageal dysmotility * Hiatal hernia * Rt middle low 0.5 cm nodule in the past with no evidence of nodules at this time in the ct and patient is not a candidate for any thoracic intervention due to severe copd /Previous lung nodules which seems to have resolved * Other med issues include HTN, GERD, osteoporsis, macular degeration stable REC Cont current rx REcuce steroids to 60 mg in am cont ceftriaxone and dc azithro Upon dc needs azithro 250 po qod Nebs atc Cont current inhaler rx WIll follwo Consult Acknowledgment - Thank you for your consult request.
[2017-07-08 22:32] VITALS: BP 148/64
[2017-07-09 06:13] VITALS: BP 176/78
--- NOTE | 2017-07-09 07:40 | PN- Housestaff ---
Marvin TROTTER,[facility] 07/09/17 0740: Subjective Follow-up For: COPD Subjective: No acute events overnight. Patient states her shortness of breath is better today. She was okay. Review of Systems Constitutional: Reports: no symptoms. Cardiovascular: Reports: no symptoms. Respiratory: Reports: short of breath. Gastrointestinal: Reports: no symptoms. Genitourinary: Reports: no symptoms. Musculoskeletal: Reports: no symptoms. Objective Last 24 Hrs of Vital Signs/I&O Vital Signs Date Time Temp Pulse Resp B/P B/P Pulse O2 O2 Flow FiO2 Mean Ox Delivery Rate 07/09 1445 97.9 99 20 148/72 95 Nasal 2.0L Cannula 07/09 1151 94 Nasal 2.0L Cannula 07/09 908 78 154/80 07/09 902 78 154/80 07/09 821 92 Nasal 2.0L Cannula 07/09 799 95 Nasal 2.0L Cannula 07/09 06 97.6 90 20 176/78 98 07/09 0000 Nasal 2.0L Cannula 07/08 2232 97.9 102 20 148/64 94 Nasal 2.0L Cannula 07/08 1552 94 Nasal 2.0L Cannula Intake & Output 07/09 1600 07/09 0800 07/09 0000 Intake Total 910 240 540 Output Total Balance 910 240 540 Intake, IV 10 300 Intake, Oral 900 240 240 Number 0 Bowel Movements Physical Exam General Appearance: Alert, Oriented X3, Cooperative, No Acute Distress Skin Temp/Moisture Exam: Warm/Dry Cardiovascular: Regular Rate, Normal S1, Normal S2 Lungs: diffuse rhonchi and crackles. prolong expiration Abdomen: Normal Bowel Sounds, Soft, No Tenderness Vascular: 2+ radial pulses Current Medications: Current Medications Sig/Keith Start time Last Medication Dose Route Stop Time Status Admin Acetaminophen 650 MG Q6P PRN 07/06 1715 AC PO Acetaminophen 1,000 MG Q6P PRN 07/06 1715 AC IV Albuterol Sulfate 3 ML EVERY 4 HRS/AWAKE 07/06 1999 AC 07/09 INH 1149 Aspirin Buffered 81 MG DAILY 07/07 1000 AC 07/09 PO 09 Atorvastatin Calcium 20 MG DAILY 07/07 1000 AC 07/09 PO 0902 Azithromycin 500 MG DAILY@1730 07/06 1730 DC 07/08 Sodium Chloride 250 ML IV 1724 Budesonide/ 2 PUF BID 07/06 2200 AC 07/09 Formoterol Fumarate INH 0903 Ceftriaxone Sodium 1,000 MG DAILY@1730 07/06 1730 AC 07/08 IV 1724 Cholecalciferol 1,000 IU DAILY 07/07 1000 AC 07/09 PO 0903 Coenzyme Q10 100 MG DAILY 07/06 1715 AC 07/09 PO 0905 Enoxaparin Sodium 40 MG DAILY 07/06 1708 AC 07/09 SC 0901 Glycerin 2 SPRAY Q2P PRN 07/06 1715 AC PO Hydrocodone Bitart/ 1 TAB Q4H PRN 07/06 1715 AC Acetaminophen PO Lisinopril 20 MG DAILY 07/07 1000 AC 07/09 PO 0903 Methylprednisolone 40 MG Q8 07/06 2200 DC 07/09 IV 0526 Nystatin 5 ML 4 TIMES/DAY 07/08 1031 AC 07/09 PO 1329 Omeprazole 40 MG DAILY AC 07/07 0700 AC 07/09 PO 0526 Prednisone 60 MG DAILY 07/09 1000 AC 07/09 PO 1329 Tiotropium [place] 1 PUF 1400 07/07 1400 AC 07/09 INH 1329 Last 24 Hrs of Lab/Morgan Results Last 24 Hrs of Labs/Mics: Laboratory Tests 07/09/17 1045: pH 7.42, pCO2 40, pO2 73 L, HCO3 25, ABG O2 Sat (Measured) 94.0 L, P-50 (Temp Corrected) Y, Carboxyhemoglobin 0.9 L, O2 Concentration % 2L, Temperature 97.6, O2 Delivery Method N/C, Phlebotomy Draw Site RIGHT RADIAL 07/09/17 0657: Anion Gap 12, Estimated GFR > 60, BUN/Creatinine Ratio 28.3 H, CBC w Diff NO MAN DIFF REQ, RBC 4.22, MCV 89.9, MCH 30.0, RDW 14.1, MPV 8.0, Gran % 94.6 H, Lymphocytes % 2.9 L, Monocytes % 2.5, Eosinophils % 0, Basophils % 0, Absolute Granulocytes 20.4 H, Absolute Lymphocytes 0.6 L, Absolute Monocytes 0.5, Absolute Eosinophils 0, Absolute Basophils 0, PUBS MCHC 33.3 Assessment/Plan Assessment: 71-year-old lady with a PMH of COPD not on supplemental O2 but on daily azithromycin 250 mg, GERD, osteoporosis and macular degeneration who presented with complaints of 3-4 day duration progressive shortness of breath with the preceding upper and lower respiratory tract infection/congestion, brief episode of sore throat, productive cough with clear sputum. No improvement on prednisone taper. #COPD CXR: . Mild subsegmental atelectasis is noted in the left lung base CTA: No PE. Severe emphysematous changes of lung. WBC 18.1 -> 14 -> 20.9 -> 21.5 D-dimer elevated Influenza, Urine strep/Legionella antigens negative CTA negative for PE. Severe emphysema -ceftriaxone 1 g IV daily for potential for drug resistance to macrolides that can be seen with some chronic COPD patients on maintenance azithromycin. -Change ceftriaxone to by mouth Ceftin in a.m. - Switch from Solu-Medrol IV to by mouth prednisone 60 mg -Discontinue azithromycin during inpatient and we continue azithromycin (250 qod ) upon discharge -f/u pulm consult -cont trc nebs #leukocytosis Possibly due to stress reaction exascerbated by steroids. Pt afebrile during admission -cont to monitor. #tachycardia HR 100s intermittently -cont to monitor #htn -cont lisinopril #hld -atorvastatin #gerd -omeprazole #vitamins -vitamin D, coq10 Regular diet DVT prophylaxis: Lovenox 40 mg subcutaneous daily Full code Problem List: 1. Chronic obstructive pulmonary disease Pain Ratin Pain Location: none Pain Goal: Pain 4 or less Pain Plan: pain pathway Tomorrow's Labs & Rationales: cbc bep Kalia Winter MD 07/09/17 1340: Attending MD Review Statement Attending Statement Attending MD Statement: examined this patient, agreed w/resident/PA/[employer], reviewed EMR data (avail), amended to note Attending Assessment/Plan: Mrs. Kelley was interviewed and examined. Her EMR was reviewed. She notes some improvement but is concerned that it is not as rapid as in previous episodes. She has remained afebrile. At times she has been tachycardic with elevated systolic BPs most likely secondary to her neb treatments. O2 saturation is satisfactory on 2 L via nasal cannula. She is in no acute distress. Pulmonary exam shows decreased breath sounds with mild to moderate prolongation of the expiratory phase and occasional end expiratory wheezes. Cardiac exam is benign. WBC is 21,500 today. Electrolytes and renal function are normal cultures remain negative. We have changed her steroids to oral prednisone at 60 mg daily. We will continue her ceftriaxone but have discontinued her azithromycin which will be resumed upon discharge. We will will continue her her inhalers and nebulizer treatments along with supplemental oxygen. We are continuing her other maintenance medications.
[2017-07-09 08:34] LABS: ABSOLUTE BASOPHIL COUNT 0 /CUMM (0.0-0.2); ABSOLUTE EOSINOPHIL COUNT 0 /CUMM (0.0-0.7); ABSOLUTE GRANULOCYTE CT 20.4 /CUMM (1.4-6.5); ABSOLUTE LYMPH COUNT 0.6 /CUMM (1.2-3.4); ABSOLUTE MONOCYTE COUNT 0.5 /CUMM (0.10-0.60); BASOPHIL % 0 % (0.0-2.0); EOSINOPHIL % 0 % (0-5); HEMATOCRIT 37.9 % (37-47); MEAN CORPUSCULAR HGB CONC 33.3 G/DL (33.0-37.0); MEAN CORPUSCULAR VOLUME 89.9 FL (81.0-99.0); PLATELET COUNT 337 /CUMM (130-400); RBC DISTRIBUTION WIDTH 14.1 % (11.5-14.5); RED BLOOD CELL CT 4.22 /CUMM (4.20-5.40); WHITE BLOOD CELL COUNT 21.5 /CUMM (4.8-10.8)
[2017-07-09 09:09] VITALS: BP 154/80
[2017-07-09 09:20] LABS: GRANULOCYTE % 94.6 % (42.2-75.2)
[2017-07-09 14:45] VITALS: BP 148/72
--- NOTE | 2017-07-09 14:55 | PN- Pulmonary ---
Subjective HPI/Critical Care Issues: Still wheezing fatigue ABG reviewed and no sig hypercarbia noted Still hypoxic Cough persists Objective Current Medications: Current Medications Sig/Keith Start time Last Medication Dose Route Stop Time Status Admin Acetaminophen 650 MG Q6P PRN 07/06 171 AC PO Acetaminophen 1,000 MG Q6P PRN 07/06 1715 AC IV Albuterol Sulfate 3 ML EVERY 4 HRS/AWAKE 07/06 1999 AC 07/09 INH 1149 Aspirin Buffered 81 MG DAILY 07/07 1000 AC 07/09 PO 0902 Atorvastatin Calcium 20 MG DAILY 07/07 1000 AC 07/09 PO 0902 Azithromycin 500 MG DAILY@1730 07/06 1730 DC 07/08 Sodium Chloride 250 ML IV 1724 Budesonide/ 2 PUF BID 07/06 2200 AC 07/09 Formoterol Fumarate INH 0903 Ceftriaxone Sodium 1,000 MG DAILY@1730 07/06 1730 AC 07/08 IV 1724 Cholecalciferol 1,000 IU DAILY 07/07 1000 AC 07/09 PO 0903 Coenzyme Q10 100 MG DAILY 07/06 1715 AC 07/09 PO 0905 Enoxaparin Sodium 40 MG DAILY 07/06 1708 AC 07/09 SC 0901 Glycerin 2 SPRAY Q2P PRN 07/06 1715 AC PO Hydrocodone Bitart/ 1 TAB Q4H PRN 07/06 1715 AC Acetaminophen PO Lisinopril 20 MG DAILY 07/07 1000 AC 07/09 PO 0903 Methylprednisolone 40 MG Q8 07/06 2200 DC 07/09 IV 0526 Nystatin 5 ML 4 TIMES/DAY 07/08 1031 AC 07/09 PO 1329 Omeprazole 40 MG DAILY AC 07/07 07 AC 07/09 PO 0526 Prednisone 60 MG DAILY 07/09 1000 AC 07/09 PO 1329 Tiotropium [place] 1 PUF 1400 07/07 1400 AC 07/09 INH 1329 Vital Signs & I&O Last 24 Hrs of Vitals and I&O: Vital Signs Date Time Temp Pulse Resp B/P B/P Pulse O2 O2 Flow FiO2 Mean Ox Delivery Rate 07/09 1445 97.9 99 20 148/72 95 Nasal 2.0L Cannula 07/09 1151 94 Nasal 2.0L Cannula 07/09 908 78 154/80 07/09 902 78 154/80 07/09 821 92 Nasal 2.0L Cannula 01/09 0800 95 Nasal 2.0L Cannula 07/09 06 97.6 90 20 176/78 98 07/09 0000 Nasal 2.0L Cannula 07/082 97.9 102 20 148/64 94 Nasal 2.0L Cannula 07/08 1552 94 Nasal 2.0L Cannula Intake & Output 07/09 1600 07/09 0800 07/09 0000 Intake Total 910 240 540 Output Total Balance 910 240 540 Intake, IV 10 300 Intake, Oral 900 240 240 Number 0 Bowel Movements Laboratory Tests 07/09 07/09 1045 0657 Blood Gas pH (7.35 - 7.45 PH) 7.42 pCO2 (35 - 45 TORR) 40 pO2 (80 - 100 TORR) 73 L HCO3 (21 - 28 MEQ/L) 25 ABG O2 Sat (Measured) (>96.0 %) 94.0 L P-50 (Temp Corrected) Y Carboxyhemoglobin (1.5 - 5.0 %) 0.9 L O2 Concentration % 2L Temperature (97.0 - 100.0 FARH) 97.6 O2 Delivery Method N/C Chemistry Sodium (137 - 145 mmol/L) 140 Potassium (3.5 - 5.1 mmol/L) 4.4 Chloride (98 - 107 mmol/L) 101 Carbon Dioxide (22 - 30 mmol/L) 28 Anion Gap (5 - 16) 12 BUN (7 - 17 mg/dL) 17 Creatinine (0.5 - 1.0 mg/dL) 0.6 Estimated GFR (>60 ml/min) > 60 BUN/Creatinine Ratio (7 - 25 %) 28.3 H Hematology CBC w Diff NO MAN DIFF REQ WBC (4.8 - 10.8 /CUMM) 21.5 H RBC (4.20 - 5.40 /CUMM) 4.22 Hgb (12.0 - 16.0 G/DL) 12.6 Hct (37 - 47 %) 37.9 MCV (81.0 - 99.0 FL) 89.9 MCH (27.0 - 31.0 PG) 30.0 RDW (11.5 - 14.5 %) 14.1 Plt Count (130 - 400 /CUMM) 337 MPV (7.4 - 10.4 FL) 8.0 Gran % (42.2 - 75.2 %) 94.6 H Lymphocytes % (20.5 - 51.1 %) 2.9 L Monocytes % (1.7 - 9.3 %) 2.5 Eosinophils % (0 - 5 %) 0 Basophils % (0.0 - 2.0 %) 0 Absolute Granulocytes (1.4 - 6.5 /CUMM) 20.4 H Absolute Lymphocytes (1.2 - 3.4 /CUMM) 0.6 L Absolute Monocytes (0.10 - 0.60 /CUMM) 0.5 Absolute Eosinophils (0.0 - 0.7 /CUMM) 0 Absolute Basophils (0.0 - 0.2 /CUMM) 0 PUBS MCHC (33.0 - 37.0 G/DL) 33.3 Miscellaneous Phlebotomy Draw Site RIGHT RADIAL 07/08 0730 Chemistry Sodium (137 - 145 mmol/L) 141 Potassium (3.5 - 5.1 mmol/L) 4.8 Chloride (98 - 107 mmol/L) 104 Carbon Dioxide (22 - 30 mmol/L) 24 Anion Gap (5 - 16) 13 BUN (7 - 17 mg/dL) 22 H Creatinine (0.5 - 1.0 mg/dL) 0.6 Estimated GFR (>60 ml/min) > 60 BUN/Creatinine Ratio (7 - 25 %) 36.7 H Hematology CBC w Diff NO MAN DIFF REQ WBC (4.8 - 10.8 /CUMM) 20.9 H RBC (4.20 - 5.40 /CUMM) 4.15 L Hgb (12.0 - 16.0 G/DL) 12.1 Hct (37 - 47 %) 37.5 MCV (81.0 - 99.0 FL) 90.3 MCH (27.0 - 31.0 PG) 29.2 RDW (11.5 - 14.5 %) 13.8 Plt Count (130 - 400 /CUMM) 337 MPV (7.4 - 10.4 FL) 8.3 Gran % (42.2 - 75.2 %) 96.2 H Lymphocytes % (20.5 - 51.1 %) 2.1 L Monocytes % (1.7 - 9.3 %) 1.6 L Eosinophils % (0 - 5 %) 0.1 Basophils % (0.0 - 2.0 %) 0 Absolute Granulocytes (1.4 - 6.5 /CUMM) 20.1 H Absolute Lymphocytes (1.2 - 3.4 /CUMM) 0.4 L Absolute Monocytes (0.10 - 0.60 /CUMM) 0.3 Absolute Eosinophils (0.0 - 0.7 /CUMM) 0 Absolute Basophils (0.0 - 0.2 /CUMM) 0 PUBS MCHC (33.0 - 37.0 G/DL) 32.4 L Microbiology Date/Time Procedure - Status Source Growth 07/06 1940 Legionella Antigen - COMP URINE ROUT 07/06 1940 Streptococcus pneumoniae Antigen (M - COMP URINE ROUT 07/06 1940 Urine Culture - COMP URINE ROUT Impression/Plan Impression/Plan Impression/Plan: MRI of spine in IMPRESSION: THORACIC SPINE: 1. There is an acute/subacute compression fracture of the body of T11, demonstrated on prior imaging. There is no significant posterior protrusion of the vertebral body and there is no spinal cord compression. 2. There are chronic compression fractures of T8 and T9. 3. There are sequelae of augmentation procedures at T5, T6 and T7. 4. There is no abnormal enhancement. LUMBAR SPINE: 1. There are no fractures or subluxations. 2. There is no significant central stenosis or foraminal narrowing. 3. There are severe facet arthropathic changes at L4-L5 and L5-S1. DICTATED BY: JING KAUR MD DATE/TIME DICTATED:12/29/161335 CTA PULMONARY ARTERIES: No central or segmental pulmonary emboli. THORACIC AORTA: Atherosclerotic vascular wall calcifications of aorta without aneurysm or dissection. LUNG: Marked britton emphysematous changes of lungs. Large bulla at the upper lobes. No focal consolidation. Central bronchial airways are open. No bronchiectasis. PLEURA: No pleural effusion or pneumothorax. MEDIASTINUM: Normal heart size. No pericardial effusion. No hilar or mediastinal lymphadenopathy. No evidence of septal bowing or right heart strain. Moderate hiatal hernia. CHEST WALL/AXILLA: No axillary or internal mammary lymphadenopathy. OSSEOUS STRUCTURES: Patient has had prior thoracoplasty of T5, T6-T7. There is compression of the T8, T9 and T11 vertebrae UPPER ABDOMEN: Unremarkable. No reflux of contrast into the hepatic veins to suggest elevated right heart pressures. IMPRESSION: 1. No evidence of pulmonary embolism. 2. Severe emphysematous changes of lung. VTE: negative DICTATED BY: Gomez Pena MD DATE/TIME DICTATED:07/07/171651 Physical Exam General Appearance Alert, Cooperative, No Acute Distress Skin No Significant Lesion Skin Temp/Moisture Exam: Warm/Dry Sepsis Skin Exam (color): Normal for Ethnicity HEENT mucous membranes slightly dry, tongue appears erythematous Cardiovascular Regular Rate, Normal S1, Normal S2 Lungs diminished breath sounds bilaterally. no rhonchi or wheezing appreciated at this time Abdomen Normal Bowel Sounds, Soft, No Tenderness Neurological Normal Speech, Normal Tone Extremities No Edema, Normal Pulses Vascular Pulses Symmetrical IMPRESSION This is a lady with very severe COPD with bullous emphysema, osteoporosis with previous multiple compression fractures, hypertension, hyperlipidemia, chronic esophageal dysmotility/dysphagia, now comes in with * She has very severe COPD with acute COPD exacerbation, no pna or PE. Pt on max med rx at home, with qod azithro for copde prophylaxis * Acute hypoxic resp failure due to above, with no sig hypercarbia noted * Severe bullous emphysema with previous AAT mutation neg, with copd cachexia * Severe osteoporosis with multiple compression fractures as noted in the MRI with sig restrictive robin disase. * Probable esophageal dysmotility * Hiatal hernia * Rt middle low 0.5 cm nodule in the past with no evidence of nodules at this time in the ct and patient is not a candidate for any thoracic intervention due to severe copd /Previous lung nodules which seems to have resolved * Other med issues include HTN, GERD, osteoporsis, macular degeration stable REC Cont current rx Prednisone 60 mg cont ceftriaxone and dc azithro Can change to po ceftin in am Upon dc needs azithro 250 po qod Nebs atc Cont current inhaler rx WIll follow Prob dc in a day
[2017-07-09 22:14] VITALS: BP 164/80
[2017-07-10 07:05] VITALS: BP 194/78
--- NOTE | 2017-07-10 07:22 | PN- Housestaff ---
Marvin TROTTER,[facility] 07/10/17 0722: Subjective Follow-up For: copd Subjective: No acute events overnight. Patient states she feels some congestion/mucus in her chest but is unable to bring it up. Review of Systems Constitutional: Reports: no symptoms. Cardiovascular: Reports: no symptoms. Respiratory: Reports: short of breath, sputum production. Gastrointestinal: Reports: no symptoms. Genitourinary: Reports: no symptoms. Musculoskeletal: Reports: no symptoms. Objective Last 24 Hrs of Vital Signs/I&O Vital Signs Date Time Temp Pulse Resp B/P B/P Pulse O2 O2 Flow FiO2 Mean Ox Delivery Rate 07/10 1623 95 Nasal 2.0L Cannula 07/10 1424 98.0 105 20 146/68 96 Nasal 2.0L Cannula 07/10 1015 22 97 Nasal 2.0L Cannula 07/10 1014 22 91 Nasal 2.0L Cannula 07/10 1013 24 84 Room Air 07/10 1013 20 94 Room Air 07/10 1013 22 96 Nasal 2.0L Cannula 07/10 0900 98 Nasal 2.0L Cannula 07/10 0830 80 160/80 07/10 0800 97 Nasal 2.0L Cannula 07/10 0736 84 194/78 07/10 0727 20 97 Nasal 2.0L Cannula 07/10 0705 98.6 85 19 194/78 92 07/10 0000 Nasal 2.0L Cannula 07/09 2214 98.0 104 20 164/80 90 Nasal 2.0L Cannula Intake & Output 07/10 1600 07/10 0800 07/10 0000 Intake Total 750 120 720 Output Total Balance 750 120 720 Intake, IV 10 Intake, Oral 740 120 720 Number 0 Bowel Movements Physical Exam General Appearance: Alert, Oriented X3, Cooperative Skin Temp/Moisture Exam: Warm/Dry Cardiovascular: Regular Rate, Normal S1, Normal S2 Lungs: diffuse wheezing and rhonchi, slight prolonged expiration Abdomen: Normal Bowel Sounds, Soft, No Tenderness Extremities: 2+ radial pulses Current Medications: Current Medications Sig/Keith Start time Last Medication Dose Route Stop Time Status Admin Acetaminophen 650 MG Q6P PRN 07/06 171 AC PO Acetaminophen 1,000 MG Q6P PRN 07/06 171 AC IV Albuterol Sulfate 3 ML EVERY 4 HRS/AWAKE 07/06 1999 AC 07/10 INH 1622 Aspirin Buffered 81 MG DAILY 07/07 999 AC 07/10 PO 0955 Atorvastatin Calcium 20 MG DAILY 07/07 1000 AC 07/10 PO 0955 Budesonide/ 2 PUF BID 07/06 2200 AC 07/10 Formoterol Fumarate INH 0955 Ceftriaxone Sodium 1,000 MG DAILY@1730 07/06 1730 DC 07/09 IV 1831 Cefuroxime Sodium 250 MG Q12 07/10 1000 AC 07/10 PO 0955 Cholecalciferol 1,000 IU DAILY 07/07 1000 AC 07/10 PO 0955 Coenzyme Q10 100 MG DAILY 07/06 1715 AC 07/10 PO 0955 Enoxaparin Sodium 40 MG DAILY 07/06 1708 AC 07/10 SC 0955 Glycerin 2 SPRAY Q2P PRN 07/06 1715 AC PO Guaifenesin 600 MG Q12 07/10 1115 AC 07/10 PO 1424 Hydrocodone Bitart/ 1 TAB Q4H PRN 07/06 1715 AC Acetaminophen PO Lisinopril 20 MG DAILY 07/07 1000 AC 07/10 PO 0736 Nystatin 5 ML 4 TIMES/DAY 07/08 1031 AC 07/10 PO 1715 Omeprazole 40 MG DAILY AC 07/07 0700 AC 07/10 PO 0606 Patient Medication 1 ED ONE ONE 07/10 1145 DC 07/10 Teaching ED 07/10 1146 1424 Prednisone 60 MG DAILY 07/09 1000 AC 07/10 PO 0955 Tiotropium [place] 1 PUF 1400 07/07 1400 AC 07/10 INH 1424 Last 24 Hrs of Lab/Morgan Results Last 24 Hrs of Labs/Mics: Laboratory Tests 07/10/17 0610: Anion Gap 12, Estimated GFR > 60, BUN/Creatinine Ratio 24.3, CBC w Diff NO MAN DIFF REQ, RBC 4.31, MCV 89.9, MCH 30.0, RDW 13.5, MPV 7.9, Gran % 90.6 H, Lymphocytes % 4.7 L, Monocytes % 4.7, Eosinophils % 0, Basophils % 0, Absolute Granulocytes 19.1 H, Absolute Lymphocytes 1.0 L, Absolute Monocytes 1.0 H, Absolute Eosinophils 0, Absolute Basophils 0, PUBS MCHC 33.3 Assessment/Plan Assessment: 71-year-old lady with a PMH of COPD not on supplemental O2 but on daily azithromycin 250 mg, GERD, osteoporosis and macular degeneration who presented with complaints of 3-4 day duration progressive shortness of breath with the preceding upper and lower respiratory tract infection/congestion, brief episode of sore throat, productive cough with clear sputum. No improvement on prednisone taper. #COPD CXR: . Mild subsegmental atelectasis is noted in the left lung base CTA: No PE. Severe emphysematous changes of lung. WBC 18.1 -> 14 -> 20.9 -> 21.5 -> 21.1 D-dimer elevated Influenza, Urine strep/Legionella antigens negative CTA negative for PE. Severe emphysema -ceftriaxone was switched to ceftin - continue prednisone 60 mg -Discontinue azithromycin during inpatient and we continue azithromycin (250 qod ) upon discharge -f/u pulm consult -cont trc nebs #leukocytosis Possibly due to stress reaction exascerbated by steroids. Pt afebrile during admission -cont to monitor. #tachycardia HR 100s intermittently -cont to monitor #htn -cont lisinopril #hld -atorvastatin #gerd -omeprazole #vitamins -vitamin D, coq10 Regular diet DVT prophylaxis: Lovenox 40 mg subcutaneous daily Full code Problem List: 1. COPD (chronic obstructive pulmonary disease) Pain Ratin Pain Location: none Pain Goal: Pain 4 or less Pain Plan: pain pathway Tomorrow's Labs & Rationales: Kalia Robbins MD 07/10/17 1353: Attending MD Review Statement Attending Statement Attending MD Statement: examined this patient, agreed w/resident/PA/QA TESTER, reviewed EMR data (avail), discussed with case mgmt, amended to note Attending Assessment/Plan: Mrs. Kelley was interviewed and examined. Her EMR was reviewed. She still notes dyspnea with mild exertion and has a somewhat prolonged recovery. Ambulation without oxygen today decreased her O2 saturation to 83%. She has remained afebrile. Heart rate is essentially stable at approximately 80. Respiratory rate is mildly tachypnea 22. She has had mild to moderate elevations of her systolic blood pressure. O2 saturations are stable on 2 L via nasal cannula. She is in no acute distress. Her pulmonary exam shows decreased breath sounds with mild prolongation of her expiratory phase but is without wheezes or rhonchi. Heart sounds are distant. Heart rhythm is regular. Her abdomen is soft and nontender. Her extremities are without edema. WBC remain stable at approximately 21,000. Her electrolytes are satisfactory. We are continuing to treat Mrs. Kelley's AE COPD with steroids which we are now giving orally. We have begun a slow taper. We are continuing supplemental oxygen and nebs. We are continuing her other maintenance medications. I agree with the institution of cefuroxime as a replacement for her former azithromycin. It would appear that she will require home oxygen upon discharge.
[2017-07-10 08:30] VITALS: BP 160/80
[2017-07-10 09:28] LABS: ABSOLUTE BASOPHIL COUNT 0 /CUMM (0.0-0.2); ABSOLUTE EOSINOPHIL COUNT 0 /CUMM (0.0-0.7); ABSOLUTE GRANULOCYTE CT 19.1 /CUMM (1.4-6.5); BASOPHIL % 0 % (0.0-2.0); EOSINOPHIL % 0 % (0-5); HEMATOCRIT 38.8 % (37-47); MEAN CORPUSCULAR HGB CONC 33.3 G/DL (33.0-37.0); MEAN CORPUSCULAR VOLUME 89.9 FL (81.0-99.0); MEAN PLATELET VOLUME 7.9 FL (7.4-10.4); PLATELET COUNT 336 /CUMM (130-400); RBC DISTRIBUTION WIDTH 13.5 % (11.5-14.5); RED BLOOD CELL CT 4.31 /CUMM (4.20-5.40); WHITE BLOOD CELL COUNT 21.1 /CUMM (4.8-10.8)
[2017-07-10 10:52] LABS: GRANULOCYTE % 90.6 % (42.2-75.2)
[2017-07-10] MEDS ORDERED: ZITHROMAX250 M2 PO (13:01)
[2017-07-10] MEDS ORDERED: GUAIFENESIN ER600 MG PO (13:07)
[2017-07-10] MEDS ORDERED: PREDNISONE10 M2 PO (13:07)
[2017-07-10 14:24] VITALS: BP 146/68
--- NOTE | 2017-07-10 14:33 | PN- Pulmonary ---
Subjective HPI/Critical Care Issues: Still coughing and fatigued Objective Current Medications: Current Medications Sig/Keith Start time Last Medication Dose Route Stop Time Status Admin Acetaminophen 650 MG Q6P PRN 07/06 1715 AC PO Acetaminophen 1,000 MG Q6P PRN 07/06 1715 AC IV Albuterol Sulfate 3 ML EVERY 4 HRS/AWAKE 07/06 1999 AC 07/10 INH 1231 Aspirin Buffered 81 MG DAILY 07/07 1000 AC 07/10 PO 0955 Atorvastatin Calcium 20 MG DAILY 07/07 1000 AC 07/10 PO 0955 Budesonide/ 2 PUF BID 07/06 2200 AC 07/10 Formoterol Fumarate INH 0955 Ceftriaxone Sodium 1,000 MG DAILY@1730 07/06 1730 DC 07/09 IV 1831 Cefuroxime Sodium 250 MG Q12 07/10 1000 AC 07/10 PO 0955 Cholecalciferol 1,000 IU DAILY 07/07 1000 AC 07/10 PO 0955 Coenzyme Q10 100 MG DAILY 07/06 1715 AC 07/10 PO 0955 Enoxaparin Sodium 40 MG DAILY 07/06 1708 AC 07/10 SC 0955 Glycerin 2 SPRAY Q2P PRN 07/06 1715 AC PO Guaifenesin 600 MG Q12 07/10 1115 AC 07/10 PO 1424 Hydrocodone Bitart/ 1 TAB Q4H PRN 07/06 1715 AC Acetaminophen PO Lisinopril 20 MG DAILY 07/07 1000 AC 07/10 PO 0736 Nystatin 5 ML 4 TIMES/DAY 07/08 1031 AC 07/10 PO 1424 Omeprazole 40 MG DAILY AC 07/07 0700 AC 07/10 PO 0606 Patient Medication 1 ED ONE ONE 07/10 1145 DC 07/10 Teaching ED 07/10 1146 1424 Prednisone 60 MG DAILY 07/09 1000 AC 07/10 PO 0955 Tiotropium [place] 1 PUF 1400 07/07 1400 AC 07/10 INH 1424 Vital Signs & I&O Last 24 Hrs of Vitals and I&O: Vital Signs Date Time Temp Pulse Resp B/P B/P Pulse O2 O2 Flow FiO2 Mean Ox Delivery Rate 07/10 1424 98.0 105 20 146/68 96 Nasal 2.0L Cannula 07/10 1015 22 97 Nasal 2.0L Cannula 07/10 1014 22 91 Nasal 2.0L Cannula 07/10 1013 24 84 Room Air 07/10 1013 20 94 Room Air 07/10 1013 22 96 Nasal 2.0L Cannula 07/10 0900 98 Nasal 2.0L Cannula 07/10 0830 80 160/80 07/10 0800 97 Nasal 2.0L Cannula 07/10 0736 84 194/78 07/10 0727 20 97 Nasal 2.0L Cannula 07/10 0705 98.6 85 19 194/78 92 07/10 0000 Nasal 2.0L Cannula 07/09 2214 98.0 104 20 164/80 90 Nasal 2.0L Cannula 07/09 1612 95 Nasal 2.0L Cannula 07/09 1600 Nasal 2.0L Cannula 07/09 1445 97.9 99 20 148/72 95 Nasal 2.0L Cannula Intake & Output 07/10 1600 07/10 0800 07/10 0000 Intake Total 510 120 720 Output Total Balance 510 120 720 Intake, IV 10 Intake, Oral 500 120 720 Number 0 Bowel Movements Impression/Plan Impression/Plan Impression/Plan: MRI of spine in IMPRESSION: THORACIC SPINE: 1. There is an acute/subacute compression fracture of the body of T11, demonstrated on prior imaging. There is no significant posterior protrusion of the vertebral body and there is no spinal cord compression. 2. There are chronic compression fractures of T8 and T9. 3. There are sequelae of augmentation procedures at T5, T6 and T7. 4. There is no abnormal enhancement. LUMBAR SPINE: 1. There are no fractures or subluxations. 2. There is no significant central stenosis or foraminal narrowing. 3. There are severe facet arthropathic changes at L4-L5 and L5-S1. DICTATED BY: JING KAUR MD DATE/TIME DICTATED:12/29/166 CTA PULMONARY ARTERIES: No central or segmental pulmonary emboli. THORACIC AORTA: Atherosclerotic vascular wall calcifications of aorta without aneurysm or dissection. LUNG: Marked britton emphysematous changes of lungs. Large bulla at the upper lobes. No focal consolidation. Central bronchial airways are open. No bronchiectasis. PLEURA: No pleural effusion or pneumothorax. MEDIASTINUM: Normal heart size. No pericardial effusion. No hilar or mediastinal lymphadenopathy. No evidence of septal bowing or right heart strain. Moderate hiatal hernia. CHEST WALL/AXILLA: No axillary or internal mammary lymphadenopathy. OSSEOUS STRUCTURES: Patient has had prior thoracoplasty of T5, T6-T7. There is compression of the T8, T9 and T11 vertebrae UPPER ABDOMEN: Unremarkable. No reflux of contrast into the hepatic veins to suggest elevated right heart pressures. IMPRESSION: 1. No evidence of pulmonary embolism. 2. Severe emphysematous changes of lung. VTE: negative DICTATED BY: Gomez Pena MD DATE/TIME DICTATED:07/07/171651 Physical Exam General Appearance Alert, Cooperative, No Acute Distress Skin No Significant Lesion Skin Temp/Moisture Exam: Warm/Dry Sepsis Skin Exam (color): Normal for Ethnicity HEENT mucous membranes slightly dry, tongue appears erythematous Cardiovascular Regular Rate, Normal S1, Normal S2 Lungs diminished breath sounds bilaterally. no rhonchi or wheezing appreciated at this time Abdomen Normal Bowel Sounds, Soft, No Tenderness Neurological Normal Speech, Normal Tone Extremities No Edema, Normal Pulses Vascular Pulses Symmetrical IMPRESSION This is a lady with very severe COPD with bullous emphysema, osteoporosis with previous multiple compression fractures, hypertension, hyperlipidemia, chronic esophageal dysmotility/dysphagia, now comes in with * She has very severe COPD with acute COPD exacerbation, no pna or PE. Pt on max med rx at home, with qod azithro for copde prophylaxis * Acute hypoxic resp failure due to above, with no sig hypercarbia noted * Severe bullous emphysema with previous AAT mutation neg, with copd cachexia * Severe osteoporosis with multiple compression fractures as noted in the MRI with sig restrictive robin disase. * Probable esophageal dysmotility * Hiatal hernia * Rt middle low 0.5 cm nodule in the past with no evidence of nodules at this time in the ct and patient is not a candidate for any thoracic intervention due to severe copd /Previous lung nodules which seems to have resolved * Other med issues include HTN, GERD, osteoporsis, macular degeration stable REC Cont current rx Prednisone 60 mg and a slow taper cont ceftriaxone and dc azithro Po ceftin in am Upon dc needs azithro 250 po qod Nebs atc Cont current inhaler rx WIll follow
[2017-07-10 22:06] VITALS: BP 162/74
[2017-07-11 06:14] VITALS: BP 198/90
--- NOTE | 2017-07-11 07:31 | PN- Housestaff ---
See Addendum Marvin TROTTER,Giuseppe 07/11/17 0730: Subjective Follow-up For: COPD exascerbation Subjective: No acute events. States her SOB is better. No other complaints. BP reported this AM was 198/90. Review of Systems Constitutional: Reports: no symptoms. Cardiovascular: Reports: no symptoms. Respiratory: Reports: short of breath. Gastrointestinal: Reports: no symptoms. Genitourinary: Reports: no symptoms. Musculoskeletal: Reports: no symptoms. Skin: Reports: no symptoms. Objective Last 24 Hrs of Vital Signs/I&O Vital Signs Date Time Temp Pulse Resp B/P B/P Pulse O2 O2 Flow FiO2 Mean Ox Delivery Rate 07/11 1103 98.4 86 20 160/86 95 Nasal 2.0L Cannula 07/11 0956 92 170/90 07/11 0916 97.5 92 20 170/90 96 Nasal 2.0L Cannula 07/11 0900 94 Nasal 2.0L Cannula 07/11 0840 93 Nasal 2.0L Cannula 07/11 0614 97.4 83 20 198/90 100 Room Air 07/11 0603 198/90 07/11 0000 Nasal 2.0L Cannula 07/10 2206 97.9 98 22 162/74 96 Nasal 2.0L Cannula 07/10 1623 95 Nasal 2.0L Cannula 07/10 1600 Nasal 2.0L Cannula 07/10 1424 98.0 105 20 146/68 96 Nasal 2.0L Cannula Intake & Output 07/11 1600 07/11 0800 07/11 0000 Intake Total 240 600 Output Total Balance 240 600 Intake, Oral 240 600 Patient 113 lb Weight Physical Exam General Appearance: Alert, Oriented X3, Cooperative, No Acute Distress Skin Temp/Moisture Exam: Warm/Dry Cardiovascular: Regular Rate, Normal S1, Normal S2 Lungs: diffuse decreased air movement, inspiratory rhonchi Abdomen: decreased bowel sounds Vascular: 2+ radial pulses Current Medications: Current Medications Sig/Keith Start time Last Medication Dose Route Stop Time Status Admin Acetaminophen 650 MG Q6P PRN 07/06 1715 AC PO Acetaminophen 1,000 MG Q6P PRN 07/06 1715 AC IV Albuterol Sulfate 3 ML EVERY 4 HRS/AWAKE 07/06 1999 AC 07/11 INH 0839 Amlodipine Besylate 5 MG ONCE ONE 07/11 1115 DC PO 01/11 1116 Amlodipine Besylate 5 MG ONCE ONE 07/11 0915 DC 07/11 PO 07/11 0916 0956 Aspirin Buffered 81 MG DAILY 07/07 1000 AC 07/11 PO 0907 Atorvastatin Calcium 20 MG DAILY 07/07 1000 AC 07/11 PO 0907 Budesonide/ 2 PUF BID 07/06 2200 AC 07/11 Formoterol Fumarate INH 0909 Cefuroxime Sodium 250 MG Q12 07/10 1000 AC 07/11 PO 0907 Cholecalciferol 1,000 IU DAILY 07/07 1000 AC 07/11 PO 0907 Coenzyme Q10 100 MG DAILY 07/06 1715 AC 07/11 PO 0907 Enoxaparin Sodium 40 MG DAILY 07/06 1708 AC 07/11 SC 0907 Glycerin 2 SPRAY Q2P PRN 07/06 1715 AC PO Guaifenesin 600 MG Q12 07/10 1115 AC 07/11 PO 0907 Hydrocodone Bitart/ 1 TAB Q4H PRN 07/06 1715 AC Acetaminophen PO Lisinopril 20 MG DAILY 07/07 1000 AC 07/11 PO 0603 Nystatin 5 ML 4 TIMES/DAY 07/08 1031 AC 07/11 PO 0907 Omeprazole 40 MG DAILY AC 07/07 0700 AC 07/11 PO 0533 Patient Medication 1 ED ONE ONE 07/10 1145 DC 07/10 Teaching ED 07/10 1146 1424 Prednisone 60 MG DAILY 07/09 1000 AC 07/11 PO 0907 Tiotropium [place] 1 PUF 1400 07/07 1400 AC 07/10 INH 1424 Last 24 Hrs of Lab/Morgan Results Last 24 Hrs of Labs/Mics: Laboratory Tests 07/11/17 0734: CBC w Diff NO MAN DIFF REQ, RBC 4.36, MCV 89.8, MCH 29.7, RDW 13.8, MPV 7.7, Gran % 86.4 H, Lymphocytes % 7.5 L, Monocytes % 5.6, Eosinophils % 0.4, Basophils % 0.1, Absolute Granulocytes 15.4 H, Absolute Lymphocytes 1.3, Absolute Monocytes 1.0 H, Absolute Eosinophils 0.1, Absolute Basophils 0, PUBS MCHC 33.1 Assessment/Plan Assessment: 71-year-old lady with a PMH of COPD not on supplemental O2 but on daily azithromycin 250 mg, GERD, osteoporosis and macular degeneration who presented with complaints of 3-4 day duration progressive shortness of breath with the preceding upper and lower respiratory tract infection/congestion, brief episode of sore throat, productive cough with clear sputum. No improvement on prednisone taper. #COPD CXR: . Mild subsegmental atelectasis is noted in the left lung base CTA: No PE. Severe emphysematous changes of lung. WBC 18.1 -> 14 -> 20.9 -> 21.5 -> 21.1 -> 17.9 D-dimer elevated Influenza, Urine strep/Legionella antigens negative CTA negative for PE. Severe emphysema -continue ceftin for 1.5 days to complete 7 day course -discharge with prednisone taper -Discontinued azithromycin during inpatient and we continue azithromycin (250 qod) upon discharge -cont trc nebs #leukocytosis Possibly due to stress reaction exascerbated by steroids. Pt afebrile during admission -cont to monitor. #htn Patient having HTN during AM BP this AM was 198/90 BP 150s/80s upon discharge Received amlodipine 5mg x2 -discharge with amlodipine 10mg daily in addition to lisinopril #tachycardia HR 100s intermittently -cont to monitor #hld -atorvastatin #gerd -omeprazole #vitamins -vitamin D, coq10 Regular diet DVT prophylaxis: Lovenox 40 mg subcutaneous daily Full code Problem List: 1. COPD (chronic obstructive pulmonary disease) Pain Ratin Pain Location: none Pain Goal: Pain 4 or less Pain Plan: pain pathway Tomorrow's Labs & Rationales: andrei Winter MD,[place] 07/11/17 1422: Attending MD Review Statement Attending Statement Attending MD Statement: examined this patient, agreed w/resident/PA/ASSURANCE ENGINEER, reviewed EMR data (avail), discussed with nursing, amended to note Attending Assessment/Plan: Mrs. Kelley appears comfortable today. She states her breathing is improved. 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 These have been ameliorated with the addition of amlodipine 5 mg 2 doses. She remains afebrile. Heart rate and respiratory rate are satisfactory as her oxygen saturation levels on 2 L. As noted earlier systolic blood pressure peaked in the high 190s but is now in the 160 range. She is in no acute distress. Motor exam reveals decreased breath sounds but with reasonable air exchange. There are no wheezes rales or rhonchi. Cardiac exam is benign. Her extremities are without edema. WBC are now 17,900. Her electrolytes and renal function have normalized. Mrs. Kelley is stable for discharge. We are awaiting for her home oxygen to be delivered. In addition to her lisinopril 20 mg daily amlodipine 5 mg daily will be added to her blood pressure regimen. As per Dr. Romero she will complete a course of cefuroxime and then return to her alternate day azithromycin. Will be continue on her home inhalers and a slow prednisone taper will be initiated. A transition visit within 2 weeks will be arranged. course of cefuroxime and then return to her alternate day azithromycin. Will be continue on her home inhalers and a slow prednisone taper will be initiated. A transition visit within 2 weeks will be arranged.
[2017-07-11 08:19] LABS: ABSOLUTE BASOPHIL COUNT 0 /CUMM (0.0-0.2); ABSOLUTE EOSINOPHIL COUNT 0.1 /CUMM (0.0-0.7); ABSOLUTE GRANULOCYTE CT 15.4 /CUMM (1.4-6.5); ABSOLUTE LYMPH COUNT 1.3 /CUMM (1.2-3.4); BASOPHIL % 0.1 % (0.0-2.0); EOSINOPHIL % 0.4 % (0-5); HEMATOCRIT 39.1 % (37-47); MEAN CORPUSCULAR HGB 29.7 PG (27.0-31.0); MEAN CORPUSCULAR HGB CONC 33.1 G/DL (33.0-37.0); MEAN CORPUSCULAR VOLUME 89.8 FL (81.0-99.0); MEAN PLATELET VOLUME 7.7 FL (7.4-10.4); PLATELET COUNT 317 /CUMM (130-400); RBC DISTRIBUTION WIDTH 13.8 % (11.5-14.5); RED BLOOD CELL CT 4.36 /CUMM (4.20-5.40); WHITE BLOOD CELL COUNT 17.9 /CUMM (4.8-10.8)
[2017-07-11 09:16] VITALS: BP 170/90
[2017-07-11 09:20] LABS: GRANULOCYTE % 86.4 % (42.2-75.2)
--- NOTE | 2017-07-11 10:39 | PN- Pulmonary ---
Subjective HPI/Critical Care Issues: DOing well stable Objective Current Medications: Current Medications Sig/Keith Start time Last Medication Dose Route Stop Time Status Admin Acetaminophen 650 MG Q6P PRN 07/06 1715 AC PO Acetaminophen 1,000 MG Q6P PRN 07/06 1715 AC IV Albuterol Sulfate 3 ML EVERY 4 HRS/AWAKE 07/06 1999 AC 07/11 INH 0839 Amlodipine Besylate 5 MG ONCE ONE 07/11 914 DC 07/11 PO 07/11 0916 0956 Aspirin Buffered 81 MG DAILY 07/07 1000 AC 07/11 PO 0907 Atorvastatin Calcium 20 MG DAILY 07/07 1000 AC 07/11 PO 0907 Budesonide/ 2 PUF BID 07/06 2200 AC 07/11 Formoterol Fumarate INH 0909 Cefuroxime Sodium 250 MG Q12 07/10 1000 AC 07/11 PO 0907 Cholecalciferol 1,000 IU DAILY 07/07 1000 AC 07/11 PO 0907 Coenzyme Q10 100 MG DAILY 07/06 1715 AC 07/11 PO 0907 Enoxaparin Sodium 40 MG DAILY 07/06 1708 AC 07/11 SC 0907 Glycerin 2 SPRAY Q2P PRN 07/06 1715 AC PO Guaifenesin 600 MG Q12 07/10 1115 AC 07/11 PO 0907 Hydrocodone Bitart/ 1 TAB Q4H PRN 07/06 1715 AC Acetaminophen PO Lisinopril 20 MG DAILY 07/07 1000 AC 07/11 PO 0603 Nystatin 5 ML 4 TIMES/DAY 07/08 1031 AC 07/11 PO 0907 Omeprazole 40 MG DAILY AC 07/07 0700 AC 07/11 PO 0533 Patient Medication 1 ED ONE ONE 07/10 1145 DC 07/10 Teaching ED 07/10 1146 1424 Prednisone 60 MG DAILY 07/09 1000 AC 07/11 PO 0907 Tiotropium [place] 1 PUF 1400 07/07 1400 AC 07/10 INH 1424 Vital Signs & I&O Last 24 Hrs of Vitals and I&O: Vital Signs Date Time Temp Pulse Resp B/P B/P Pulse O2 O2 Flow FiO2 Mean Ox Delivery Rate 07/11 955 92 170/90 07/11 0816 97.5 92 20 170/90 96 Nasal 2.0L Cannula 07/11 899 94 Nasal 2.0L Cannula 07/11 839 93 Nasal 2.0L Cannula 01/11 0614 97.4 83 20 198/90 100 Room Air 07/11 0603 198/90 07/11 0000 Nasal 2.0L Cannula 07/10 2206 97.9 98 22 162/74 96 Nasal 2.0L Cannula 07/10 1623 95 Nasal 2.0L Cannula 07/10 1600 Nasal 2.0L Cannula 07/10 1424 98.0 105 20 146/68 96 Nasal 2.0L Cannula Intake & Output 07/11 1600 07/11 0800 07/11 0000 Intake Total 240 600 Output Total Balance 240 600 Intake, Oral 240 600 Impression/Plan Impression/Plan Impression/Plan: MRI of spine in IMPRESSION: THORACIC SPINE: 1. There is an acute/subacute compression fracture of the body of T11, demonstrated on prior imaging. There is no significant posterior protrusion of the vertebral body and there is no spinal cord compression. 2. There are chronic compression fractures of T8 and T9. 3. There are sequelae of augmentation procedures at T5, T6 and T7. 4. There is no abnormal enhancement. LUMBAR SPINE: 1. There are no fractures or subluxations. 2. There is no significant central stenosis or foraminal narrowing. 3. There are severe facet arthropathic changes at L4-L5 and L5-S1. DICTATED BY: JING KAUR MD DATE/TIME DICTATED:12/29/161335 CTA PULMONARY ARTERIES: No central or segmental pulmonary emboli. THORACIC AORTA: Atherosclerotic vascular wall calcifications of aorta without aneurysm or dissection. LUNG: Marked britton emphysematous changes of lungs. Large bulla at the upper lobes. No focal consolidation. Central bronchial airways are open. No bronchiectasis. PLEURA: No pleural effusion or pneumothorax. MEDIASTINUM: Normal heart size. No pericardial effusion. No hilar or mediastinal lymphadenopathy. No evidence of septal bowing or right heart strain. Moderate hiatal hernia. CHEST WALL/AXILLA: No axillary or internal mammary lymphadenopathy. OSSEOUS STRUCTURES: Patient has had prior thoracoplasty of T5, T6-T7. There is compression of the T8, T9 and T11 vertebrae UPPER ABDOMEN: Unremarkable. No reflux of contrast into the hepatic veins to suggest elevated right heart pressures. IMPRESSION: 1. No evidence of pulmonary embolism. 2. Severe emphysematous changes of lung. VTE: negative DICTATED BY: Gomez Pena MD DATE/TIME DICTATED:01/07/18 / 1652 Physical Exam General Appearance Alert, Cooperative, No Acute Distress Skin No Significant Lesion Skin Temp/Moisture Exam: Warm/Dry Sepsis Skin Exam (color): Normal for Ethnicity HEENT mucous membranes slightly dry, tongue appears erythematous Cardiovascular Regular Rate, Normal S1, Normal S2 Lungs diminished breath sounds bilaterally. no rhonchi or wheezing appreciated at this time Abdomen Normal Bowel Sounds, Soft, No Tenderness Neurological Normal Speech, Normal Tone Extremities No Edema, Normal Pulses Vascular Pulses Symmetrical IMPRESSION This is a lady with very severe COPD with bullous emphysema, osteoporosis with previous multiple compression fractures, hypertension, hyperlipidemia, chronic esophageal dysmotility/dysphagia, now comes in with * She has very severe COPD with acute COPD exacerbation, no pna or PE. Pt on max med rx at home, with qod azithro for copde prophylaxis * Acute hypoxic resp failure due to above, with no sig hypercarbia noted * Severe bullous emphysema with previous AAT mutation neg, with copd cachexia * Severe osteoporosis with multiple compression fractures as noted in the MRI with sig restrictive robin disase. * Probable esophageal dysmotility * Hiatal hernia * Rt middle low 0.5 cm nodule in the past with no evidence of nodules at this time in the ct and patient is not a candidate for any thoracic intervention due to severe copd /Previous lung nodules which seems to have resolved * Other med issues include HTN, GERD, osteoporsis, macular degeration stable REC Cont current rx Prednisone 50 mg and a slow taper Po ceftin in am for a total abx of seven days and after the course is completed needs azithro 250 po qod Nebs prn WIll follow as out pt
[2017-07-11 11:03] VITALS: BP 160/86
[2017-07-11 13:07] VITALS: BP 158/86
[2017-07-11] MEDS ORDERED: PREDNISONE10 M2 PO ×2 (13:42→14:48)
[2017-07-11] MEDS ORDERED: CEFTIN250 MG/51 PO (13:42)
[2017-07-11] MEDS ORDERED: ZITHROMAX250 M2 PO ×2 (13:43→14:48)
[2017-07-11] MEDS ORDERED: NORVASC10 M1 PO ×2 (13:43→14:48)
--- NOTE | 2017-07-11 13:46 | Patient Discharge Instructions ---
Discharge Instructions General Discharge Information Special Instructions: Please follow up with your PCP Dr. Winter in 1-2 weeks. Please follow up with your filleter Dr. Romero in 1-2 weeks. Please take your medications as perscribed. Please finish the ceftin before taking azithromycin. Please finish the prednisone taper before taking your regular prednisone dose. Acute Coronary Syndrome Inclusion Criteria At DC or during hospital stay patient has or had the following: ACS DIAGNOSIS No Discharge Core Measures Meds if any: Prescribed or Continued at Discharge Meds if any: NOT Prescribed or Continued at Discharge Congestive Heart Failure Inclusion Criteria At DC or during hospital stay patient has or had the following: CHF DIAGNOSIS No Discharge Core Measures Meds if any: Prescribed or Continued at Discharge Meds if any: NOT Prescribed or Continued at Discharge Cerebrovascular accident Inclusion Criteria At DC or during hospital stay patient has or had the following: CVA/TIA Diagnosis No Discharge Core Measures Meds if any: Prescribed or Continued at Discharge Meds if any: NOT Prescribed or Continued at Discharge Venous thromboembolism Inclusion Criteria VTE Diagnosis No VTE Type NONE VTE Confirmed by (Test) NONE Discharge Core Measures - Per Current guidelines, there needs to be overlap - treatment for the first 5 days of Warfarin therapy. - If discharged on Warfarin prior to 5 days of - overlap therapy, the patient will need to be - assessed for post discharge needs including - *Post discharge parental anticoagulation - *Warfarin and/or parental anticoagulation education - *Follow up date to check INR post discharge At least 5 days overlap therapy as Inpatient No Meds if any: Prescribed or Continued at Discharge Note: Overlap Therapy is Warfarin and Anticoagulant Meds if any: NOT Prescribed or Continued at Discharge
[2017-07-11] MEDS ORDERED: CEFUROXIME500 MG PO ×2 (14:29→14:49)
[2017-07-11] MEDS ORDERED: GUAIFENESIN ER600 MG PO (14:48)
[2017-07-11 15:10] VITALS: BP 150/80
== END 2017-07-11 16:45 | DRG 190 ==
LOC: ERH 13:07 → ERHI 14:32 → 2NB 14:32 → ENRESERV 17:07 → ENTRNSPT 17:56 → 2NB 18:11 → CMPTRNSPT 18:21 → 2NB 07-10 19:04 → ENPENDDIS 07-11 15:29 → 2NB 07-11 16:45
PROVIDERS: Internal Medicine; Physician Assistant Medical
DX: J44.1 Chronic obstructive pulmonary disease with (acute) exacerbation (principal); J96.21 Acute and chronic respiratory failure with hypoxia; R64 Cachexia; R65.10 Systemic inflammatory response syndrome (SIRS) of non-infectious origin without acute organ dysfunction; I51.81 Takotsubo syndrome; Z68.20 Body mass index [BMI] 20.0-20.9, adult; H35.30 Unspecified macular degeneration; I10 Essential (primary) hypertension; K21.9 Gastro-esophageal reflux disease without esophagitis; M81.0 Age-related osteoporosis without current pathological fracture; K22.4 Dyskinesia of esophagus
CPT/HCPCS: 2NBSP; 36415; 71045; 81003; 82436; 87040; 87086; 87449; 87450; 87804; 87804-59; 93005; 93010; 96374; J0131; J0456; J0696; J1650; J2920; J2930; J3250; J3490; J7040

== ENCOUNTER 2017-08-05 11:19 | Observation (INO) | payer OTHER, MEDICARE ==
[~2017-08-05] VITALS: Ht 157.5 cm; Wt 52.6 kg
[~2017-08-05 11:19] MED LIST changes: +CEFTIN250 MG/51 PO; +CEFUROXIME500 MG PO; +GUAIFENESIN ER600 MG PO; +HYDROCODON-ACE1 EAC2 PO; +NORVASC10 M1 PO; +ZITHROMAX250 M2 PO
--- NOTE | 2017-08-05 11:31 | ED DYSPNEA/ASTHMA COMPLAINT ---
History of Present Illness General Chief Complaint: Dyspnea (COPD, CHF, Other) Stated Complaint: SOB/LOWER BACK PAIN Source: patient, old records Exam Limitations: no limitations Vital Signs & Intake/Output Vital Signs & Intake/Output Vital Signs Date Time Temp Pulse Resp B/P B/P Pulse O2 O2 Flow FiO2 Mean Ox Delivery Rate 08/06 1423 98.1 108 20 145/60 94 Nasal 2.0L Cannula 08/06 1106 98 Nasal 2.0L Cannula 08/06 0922 90 122/60 08/06 0922 92 122/60 08/06 0800 93 Nasal 2.0L Cannula 08/06 0526 98.1 60 22 110/78 93 Nasal 2.0L Cannula 08/06 0000 92 Nasal 2.0L Cannula 08/05 2300 Nasal 2.0L Cannula 08/05 2045 98.0 97 20 132/60 92 Nasal 2.0L Cannula 08/05 1922 98.8 96 24 115/55 100 Nasal 3.0L Cannula 08/05 1730 97 19 128/62 99 Nasal 4.0L Cannula ED Intake and Output 08/06 0000 08/05 1200 Intake Total 810 Output Total Balance 810 Intake, IV 450 Intake, Oral 360 Patient 116 lb 115 lb Weight Weight Reported by Patient Measurement Method Allergies Coded Allergies: Penicillins (RASH, HIVES 09/24/16) Reconcile Medications Albuterol Sulfate (Ventolin Hfa) 90 MCG HFA.AER.AD 2 PUF INH PRN COPD ( Reported) Albuterol Sulfate 2.5 MG/3 ML (0.083 %) VIAL.NEB 1 Vial INH/TORI Q4P PRN COPD (Reported) Amlodipine Besylate (Norvasc) 10 MG TABLET 1 TAB PO DAILY BLOOD PRESSURE . Aspirin (Ecotrin*) 81 MG TABLET.DR 1 TAB PO DAILY HEART/BLOOD (Reported) Atorvastatin Calcium 20 MG TABLET 1 TAB PO DAILY CHOLESTEROL (Reported) Azithromycin (Zithromax) 250 MG TABLET 1 TAB PO QOD COPD PLEASE START TAKING AFTER YOU FINISH THE CEFTIN PLEASE TAKE EVERY OTHER DAY. Cholecalciferol (Vitamin D3) (Vitamin D3) 1,000 UNIT CAPSULE 1 CAP PO DAILY SUPPLEMENT (Reported) Fluticasone/Salmeterol (Advair 250-50 Diskus) 250 MCG-50 MCG/DOSE BLST.W.DEV 1 PUF INH BID COPD (Reported) Guaifenesin (Guaifenesin ER) 600 MG TAB.ER.12H 1 TAB PO Q12 PRN CONGESTION . Hydrocodone/Acetaminophen (Hydrocodon-Acetaminophen 5-325) 5 MG-325 MG TABLET 1 TAB PO Q4H PRN PAIN (Reported) Lisinopril (Prinivil) 20 MG TABLET 1 TAB PO DAILY BP (Reported) Omeprazole 40 MG CAPSULE.DR 1 CAP PO DAILY acid reflux Prednisone 10 MG TABLET 1 TAB PO DAILY PRN COPD DATE TAB 07/12- 5 07/14- 4 07/16- 3 07/18- 2 07/20- 1 . Tiotropium [place] (Spiriva) 18 MCG CAP.W.DEV 1 CAP INH DAILY COPD (Reported) Ubidecarenone (Co Q-10) 200 MG CAPSULE 1 CAP PO DAILY SUPPLEMENT (Reported) Vit C/E/Zn/Coppr/Lutein/Zeaxan (Preservision Areds 2 Softgel) 250-200-40 CAPSULE 1 TAB PO DAILY SUPPLEMENT (Reported) Triage Nurses Notes Reviewed? yes Onset: Abrupt Duration: day(s): (3) Timing: recent history Severity: moderate, severe HPI: This is a 71-year-old female with past medical history of coronary disease, MA, significant COPD requiring oxygen at night and with exertion and presents to the ER chief complaint of not feeling well over the weekend. She endorses worsening shortness of breath and a cough but no productive sputum. No fever or chills but she has had some right lower back pain. She was just hospitalized a few weeks ago for respiratory symptoms was discharged home on antibiotics and steroids. Patient denies taking antibiotics or steroids at this time. She denies any chest pain or palpitations. Patient is eating and drinking. She is able to sleep sitting up. The patient follows up with Dr. Henry pulmonary. Today her friend brought her in for evaluation. Patient is on azithromycin every other day last dose was this morning. Patient found to be hypoxic in triage, with respiratory exertion and distress. Past History Travel History Traveled to [place] past 21 day No Medical History Any Pertinent Medical History? see below for history Neurological: NONE EENT: cataracts, macular degeneration Cardiovascular: hypertension, myocardial infarction, UNSURE OF CHF? Respiratory: COPD, emphysema Gastrointestinal: GERD Hepatic: NONE Renal: NONE Musculoskeletal: osteoporosis Psychiatric: NONE Endocrine: NONE Blood Disorders: NONE Cancer(s): NONE COMMISSIONER OF RELOCATION SERVICES/Reproductive: NONE History of MRSA: No History of VRE: No History of CDIFF: No Influenza Vaccine: 04/02/17 Surgical History Surgical History: appendectomy, TONSILLECTOMY Psychosocial History Who do you live with Patient/Self Services at Home None What is your primary language Welsh Family History Family History, If Any: No Known Family History. Hx Contributory? No Review of Systems Review of Systems Constitutional: Denies: chills, fever. EENTM: Reports: no symptoms. Respiratory: Reports: cough, short of breath, sputum production. Cardiovascular: Denies: chest pain, palpitations, peripheral edema. GI: Denies: abdominal pain. Genitourinary: Reports: no symptoms. Musculoskeletal: Reports: back pain. Skin: Reports: no symptoms. Neurological/Psychological: Reports: no symptoms. Hematologic/Endocrine: Denies: bruising, bleeding, polyuria, polydipsia. Immunologic/Allergic: Denies: splenectomy. All Other Systems: Reviewed and Negative Physical Exam Physical Exam General Appearance: alert, awake, cachetic, mild distress, moderate distress, thin Head: atraumatic Eyes: Bilateral: normal appearance, PERRL, EOMI. Ears, Nose, Throat: normal pharynx, normal ENT inspection, hearing grossly normal Neck: normal inspection, supple, full range of motion Respiratory: crackles (RLL), respiratory distress Cardiovascular: regular rate/rhythm Peripheral Pulses: 2+ radial (R), 2+ radial (L) Gastrointestinal: normal bowel sounds, soft, non-tender Neurologic/Psych: no motor/sensory deficits, awake, alert, oriented x 3, normal mood/affect Skin: intact, normal color, warm/dry Core Measures ACS in differential dx? Yes CVA/TIA Diagnosis No Sepsis Present: No Sepsis Focused Exam Completed? No ED Sepsis Exam Date of Focused Sepsis Exam: 08/05/17 Time of Focused Sepsis Exam: 1209 Sepsis Cardiac Exam: Tachycardia Sepsis Resp Exam: Rales Sepsis Cap Refill Exam: <2 Sec Sepsis Peripheral Pulse Exam: Normal Sepsis Peripheral Pulse Location: Radial Sepsis Skin Color Exam: Normal for Ethnicity Skin Temp/Moisture Exam: Warm/Dry Progress Differential Diagnosis: bronchitis, COPD, pulmonary embolism, pneumonia, pneumothorax Plan of Care: Orders Procedure Date/time Status RT: Evaluation 08/05 2258 Active Vital Signs 08/05 2036 Active Teach/Educate 08/05 2036 Active Pain Treatment and Response 08/05 2036 Active Nutritional Intake, Monitor 08/05 2036 Active Isolation 08/05 2036 Active Intake & Output 08/05 2036 Active Patient Care Conference 08/05 2036 Active Activity/Ambulation 08/05 2036 Active Pathway - chart 08/05 1902 Active OXYGEN SETUP CHG 08/05 UNK Complete OXYGEN 08/05 UNK Complete OXYGEN SETUP (GEN) 08/05 UNK Complete Current Medications Sig/Keith Start time Last Medication Dose Stop Time Status Admin Methylprednisolone 60 MG DAILY 08/07 1000 AC (Solu Medrol) Guaifenesin 600 MG BID 08/06 2200 AC (Mucinex) Atorvastatin Calcium 20 MG 1700 08/06 1700 AC (Lipitor) Lidocaine 1 PAT DAILY 08/06 1055 AC 08/06 (Lidoderm) 1312 Albuterol Sulfate 3 ML BID 08/06 1000 AC 08/06 (Proventil) 1103 Amlodipine Besylate 10 MG DAILY 08/06 1000 AC 08/06 (Norvasc) 0922 Aspirin Buffered 81 MG DAILY 08/06 1000 AC 08/06 (Ecotrin) 0922 Ceftriaxone Sodium 1,000 MG DAILY 08/06 1000 AC 08/06 (Rocephin) 0922 Lisinopril 20 MG DAILY 08/06 1000 AC 08/06 (Prinivil) 0922 Omeprazole 40 MG DAILY AC 08/06 0700 AC 08/06 (Prilosec) 0627 Acetaminophen 650 MG Q6P PRN 08/05 1915 AC 08/06 (Tylenol) 0628 Acetaminophen 1,000 MG Q6P PRN 08/05 191 AC (Ofirmev) Oxycodone/ 1 TAB Q6P PRN 08/05 191 AC Acetaminophen (Percocet) Enoxaparin Sodium 40 MG DAILY 08/05 1755 AC 08/06 (Lovenox) 0921 Cholecalciferol 1,000 IU DAILY 08/05 1429 AC 08/06 (Vitamin D) 0922 Laboratory Tests 08/06/17 0808: Anion Gap 14, Estimated GFR > 60, BUN/Creatinine Ratio 36.7 H, CBC w Diff NO MAN DIFF REQ, RBC 3.57 L, MCV 91.1, MCH 30.0, MCHC 33.0, RDW 14.9 H, MPV 8.2, Gran % 95.4 H, Lymphocytes % 3.3 L, Monocytes % 1.2 L, Eosinophils % 0, Basophils % 0.1, Absolute Granulocytes 14.1 H, Absolute Lymphocytes 0.5 L, Absolute Monocytes 0.2, Absolute Eosinophils 0, Absolute Basophils 0 08/05/17 1444: Lactic Acid Cancelled nebs, iv solumedrol, iv rocehin given. D/W Dr. Winter and Dr. Henry, seen by them in the ED. Still requiring increased oxygen and tachypneic at rest. will place in observation status. D/W case management. Diagnostic Imaging: Viewed by Me: Radiology Read. Discussed w/RAD: Radiology Read. Initial ED EKG: SINUS TACHYCARDIA @ 118 BPM Comments: PATIENT: DEEPALI GUIDO PRESENT AGE: 71 PATIENT ACCOUNT NO: [id number] : 43 LOCATION: [facility] ORDERING PHYSICIAN: Dulce Maria Nunes MD SERVICE DATE: 08/05/17 EXAM TYPE: RAD - XRY-PORTABLE CHEST XRAY EXAMINATION: XR PORTABLE CHEST CLINICAL INFORMATION: Respiratory crackles. Right lower lobe crackles. Rule out pneumonia COMPARISON: 07/06/[address] dated 07/07/2017 TECHNIQUE: Portable frontal view of the chest was obtained. FINDINGS: Reticular, interstitial opacities and architectural distortion in both lobes are consistent with underlying emphysema. There is flattening of the hemidiaphragms with hyperexpansion. Pleural parenchymal scarring is present at the left lung apex. No focal consolidation, pneumothorax, or pleural effusion. Cardiac and mediastinal contours are unchanged. Calcific atherosclerosis is present in the thoracic aorta. Central pulmonary vasculature at the tara a dilated, consistent with pulmonary hypertension. Degenerative disc disease is present in the thoracic spine with left convex thoracic scoliosis and vertebroplasty cement. IMPRESSION: Pulmonary emphysema. No acute findings are identified. Specifically, no evidence of pneumonia DICTATED BY: Trae Diego MD DATE/TIME DICTATED:08/05/171237 POWER NUT RUNNER OPERATOR:DERECK DATE/TIME TRANSCRIBED:08/05/171237 CONFIDENTIAL, DO NOT COPY WITHOUT APPROPRIATE AUTHORIZATION. <Electronically signed in Other Vendor System> SIGNED BY: Trae Diego MD 08/05/17 1247 Departure Departure Time of Disposition: 1316 Disposition: STILL A PATIENT Condition: Stable Clinical Impression Primary Impression: Pneumonia Referrals: Kalia Winter MD (PCP/Family) Departure Forms: Customer Survey General Discharge Information Observation Note Spoke With: Kalia Winter MD Physician Advisor Notified: MAHENDRA JAFFE MD (CASE MANAGEMENT) Place Patient In: Non-ED OBS Care Area Rationale for Observation: My rational for observation is as follows [TRC/NEBS, IV STEROIDS, IV ABX, PULMONARY CONSULTATION DR HENRY, SUPPLEMENTAL OXYGEN]. Critical Care Note Critical Care Note Critical Care Time: non-applicable
[2017-08-05 12:46] LABS: ABSOLUTE BASOPHIL COUNT 0 /CUMM (0.0-0.2); ABSOLUTE EOSINOPHIL COUNT 0.1 /CUMM (0.0-0.7); ABSOLUTE GRANULOCYTE CT 13.1 /CUMM (1.4-6.5); ABSOLUTE LYMPH COUNT 0.5 /CUMM (1.2-3.4); ABSOLUTE MONOCYTE COUNT 0.3 /CUMM (0.10-0.60); BASOPHIL % 0 % (0.0-2.0); EOSINOPHIL % 0.4 % (0-5); HEMATOCRIT 36.7 % (37-47); MEAN CORPUSCULAR HGB 29.9 PG (27.0-31.0); MEAN CORPUSCULAR HGB CONC 33.3 G/DL (33.0-37.0); MEAN CORPUSCULAR VOLUME 89.7 FL (81.0-99.0); MEAN PLATELET VOLUME 7.8 FL (7.4-10.4); PLATELET COUNT 442 /CUMM (130-400); RBC DISTRIBUTION WIDTH 14.4 % (11.5-14.5); RED BLOOD CELL CT 4.09 /CUMM (4.20-5.40); WHITE BLOOD CELL COUNT 13.9 /CUMM (4.8-10.8)
--- NOTE | 2017-08-05 12:47 | RADIOLOGY REPORT ---
EXAMINATION: XR PORTABLE CHEST CLINICAL INFORMATION: Respiratory crackles. Right lower lobe crackles. Rule out pneumonia COMPARISON: 07/06/[address] dated 07/07/2017 TECHNIQUE: Portable frontal view of the chest was obtained. FINDINGS: Reticular, interstitial opacities and architectural distortion in both lobes are consistent with underlying emphysema. There is flattening of the hemidiaphragms with hyperexpansion. Pleural parenchymal scarring is present at the left lung apex. No focal consolidation, pneumothorax, or pleural effusion. Cardiac and mediastinal contours are unchanged. Calcific atherosclerosis is present in the thoracic aorta. Central pulmonary vasculature at the tara a dilated, consistent with pulmonary hypertension. Degenerative disc disease is present in the thoracic spine with left convex thoracic scoliosis and vertebroplasty cement. IMPRESSION: Pulmonary emphysema. No acute findings are identified. Specifically, no evidence of pneumonia
[2017-08-05 13:09] LABS: GRANULOCYTE % 94.2 % (42.2-75.2)
--- NOTE | 2017-08-05 13:41 | History & Physical ---
Marisol TROTTER,Mary 08/05/17 1334: General Information and HPI MD Statement: I have seen and personally examined DEEPALI GUIDO and documented this H&P. The patient is a 71 year old F who presented with a patient stated chief complaint of [SHORTNESS OF BREATH WITH EXERTION]. Source of Information: patient, family Exam Limitations: no limitations History of Present Illness: Patient is a 71 YO F with steroid dependent severe COPD( bullous emphysema), Right middle lobe 0.5cm nodule, osteoporosis with previous multiple compression fractures, hypertension, hyperlipidemia, chronic esophageal dysmotility/ dysphagia, HTN, mitral valve prolapse, takotsubo cardiomyopathy, GERD, cataracts presented with desaturation on her pulse ox while on 2L at home. She was recetnly discharged form [facility] with oxygena as needed and azithrom every other day. Patient completed her steorid taper on july 21. She was continued on azithro 250mg Every other day. On 07/27/17 she started to experience back pain after pushing a heavy cart for which she started taking hydrocodone every day which was previously when necessary. Yesterday she started experiencing severe shortness of breath and unable to speak in sentences. She had a pulse ox and she started noticing her saturations dropping down to 91% on 2 L today morning. (Usually 99% on 2 L, 94% on room air ). She did have some dry cough without any fevers phlegm production, chest pain , recent nausea vomiting, diarrhea. She usually sleeps elevating head of the bed. Past medical history as mentioned above No known allergies Quit smoking 4 years ago - smoked a 18 cigars per day for the past 50 years. No alcohol intake intake. Allergies/Medications Allergies: Coded Allergies: Penicillins (RASH, HIVES 09/24/16) Home Med list Albuterol Sulfate (Ventolin Hfa) 90 MCG HFA.AER.AD 2 PUF INH PRN COPD ( Reported) Albuterol Sulfate 2.5 MG/3 ML (0.083 %) VIAL.NEB 1 Vial INH/TORI Q4P PRN COPD (Reported) Amlodipine Besylate (Norvasc) 10 MG TABLET 1 TAB PO DAILY BLOOD PRESSURE . Aspirin (Ecotrin*) 81 MG TABLET.DR 1 TAB PO DAILY HEART/BLOOD (Reported) Atorvastatin Calcium 20 MG TABLET 1 TAB PO DAILY CHOLESTEROL (Reported) Azithromycin (Zithromax) 250 MG TABLET 1 TAB PO QOD COPD PLEASE START TAKING AFTER YOU FINISH THE CEFTIN PLEASE TAKE EVERY OTHER DAY. Cholecalciferol (Vitamin D3) (Vitamin D3) 1,000 UNIT CAPSULE 1 CAP PO DAILY SUPPLEMENT (Reported) Fluticasone/Salmeterol (Advair 250-50 Diskus) 250 MCG-50 MCG/DOSE BLST.W.DEV 1 PUF INH BID COPD (Reported) Guaifenesin (Guaifenesin ER) 600 MG TAB.ER.12H 1 TAB PO Q12 PRN CONGESTION . Hydrocodone/Acetaminophen (Hydrocodon-Acetaminophen 5-325) 5 MG-325 MG TABLET 1 TAB PO Q4H PRN PAIN (Reported) Lisinopril (Prinivil) 20 MG TABLET 1 TAB PO DAILY BP (Reported) Omeprazole 40 MG CAPSULE.DR 1 CAP PO DAILY acid reflux Prednisone 10 MG TABLET 1 TAB PO DAILY PRN COPD DATE TAB 07/12- 5 07/14-15 4 07/16-17 3 07/18- 2 07/20- 1 . Tiotropium [place] (Spiriva) 18 MCG CAP.W.DEV 1 CAP INH DAILY COPD (Reported) Ubidecarenone (Co Q-10) 200 MG CAPSULE 1 CAP PO DAILY SUPPLEMENT (Reported) Vit C/E/Zn/Coppr/Lutein/Zeaxan (Preservision Areds 2 Softgel) 250-200-40 CAPSULE 1 TAB PO DAILY SUPPLEMENT (Reported) Compliance With Home Meds: GOOD Past History Travel History Traveled to [place] past 21 day No Medical History Neurological: NONE EENT: cataracts, macular degeneration Cardiovascular: hypertension, myocardial infarction, UNSURE OF CHF? 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 Psychosocial History Where do you live? Home Who Do You Live With? self Services at Home: None Primary Language: Bhutanese Living Will? no Functional Ability ADLs Independent: dressing, eating, toileting, bathing. Ambulation: independent IADLs Independent: shopping, housework, finances, food prep, telephone, transportation , medication admin. Review of Systems Review of Systems Constitutional: Reports: see HPI, malaise, weakness. Denies: fever. EENTM: Reports: see HPI. Cardiovascular: Reports: see HPI. Respiratory: Reports: see HPI. GI: Reports: see HPI. Genitourinary: Reports: see HPI. Exam & Diagnostic Data Last 24 Hrs of Vital Signs/I&O Vital Signs Date Time Temp Pulse Resp B/P B/P Pulse O2 O2 Flow FiO2 Mean Ox Delivery Rate 08/05 1236 96 Nasal 4.0L Cannula 08/05 1158 94 Nasal 3.0L Cannula 08/05 1143 96.6 114 26 144/64 96 Nasal 4.0L Cannula Intake & Output 08/05 1600 02 0800 08/05 0000 Intake Total Output Total Balance Patient 52.163 kg Weight Weight Reported by Patient Measurement Method Physical Exam General Appearance Alert, Oriented X3, Cooperative, Moderate Distress Skin No Rashes, No Breakdown Skin Temp/Moisture Exam: Warm/Dry Sepsis Skin Exam (color): Normal for Ethnicity HEENT Atraumatic, PERRLA, EOMI Neck Supple, No JVD Cardiovascular Normal S1, Normal S2, No Murmurs Lungs POOR AIR ENTRY, MILD CRACKLES ON RIGHT SIDE. Abdomen Normal Bowel Sounds, Soft, No Tenderness Neurological Normal Gait, Normal Speech, Strength at 5/5 X4 Ext, Normal Tone, Sensation Intact, Cranial Nerves 3-12 NL, Reflexes 2+ Extremities No Clubbing, No Cyanosis, No Edema Vascular Normal Pulses, Pulses Symmetrical Last 24 Hrs of Labs/Morgan: Laboratory Tests 08/05/17 1159: Anion Gap 15, Estimated GFR > 60, BUN/Creatinine Ratio 24.3, Glucose 104 H, Lactic Acid 1.1, Calcium 10.1, Total Bilirubin 0.3, AST 19, ALT 37, Alkaline Phosphatase 123, Troponin I < 0.01, Total Protein 7.1, Albumin 4.5, Globulin 2.6 , Albumin/Globulin Ratio 1.7, PT 10.4, INR 0.99, APTT 32, CBC w Diff NO MAN DIFF REQ, RBC 4.09 L, MCV 89.7, MCH 29.9, MCHC 33.3, RDW 14.4, MPV 7.8, Gran % 94.2 H, Lymphocytes % 3.4 L, Monocytes % 2.0, Eosinophils % 0.4, Basophils % 0, Absolute Granulocytes 13.1 H, Absolute Lymphocytes 0.5 L, Absolute Monocytes 0.3, Absolute Eosinophils 0.1, Absolute Basophils 0 08/05/17 1157: pH 7.38, pCO2 47 H, pO2 91, HCO3 28, ABG O2 Sat (Measured) 96.0, Carboxyhemoglobin 0.1 L, O2 Concentration % 3L, O2 Delivery Method NC, Phlebotomy Draw Site RIGHT RADIAL Microbiology 08/05 1418 LOWER RESP: Routine Culture - ORD 08/05 1243 LOWER RESP: Respiratory Culture - ORD 08/05 1243 LOWER RESP: Gram Stain - ORD 08/05 1200 NASOPHARYN: Influenza Virus A & B Rapid Smear - COMP 08/05 1200 BLOOD: Blood Culture - RECD 08/05 115 BLOOD: Blood Culture - RECD Diagnostic Data EKG Results NSR with HR 120, no ST T wave changes, normal axis CXR Results emphysema Assessment/Plan Assessment: Patient is a 71 YO F with steroid dependent severe COPD( bullous emphysema), Right middle lobe 0.5cm nodule, osteoporosis with previous multiple compression fractures, hypertension, hyperlipidemia, chronic esophageal dysmotility/ dysphagia, HTN, presented with shortness of breath for the past 2 days with desaturating to low 90s on 2 L. she was recetnly discharged form [facility] with oxygena as needed and azithro every other day. VS at presentation afebrile, pulse 114, BP 144/64mmHg, on 4L oxygen (83-85% on 2L). Labs are significant for white count of 13.9, H&H 12/36, platelet count of 442. ABG - pH 7.38, paCo2 47, bicarbonate of 28. Cultures - blood, resp were sent. EKG - NSR with HR 120, no ST T wave changes. ER received a dose of ceftriaxone, methylprednisone, ipratropium, albuterol. Plan Place in general medicine floor as observation COPD exacerbation Patient was on azithromycin 250 mg and get the day and not on any steroids lately. She did have dry cough without any phlegm production. Her oxygen requirement increased prompting her to come to ER today. Vitals did show sinus tachycardia. Physical examination is significant for decreased air entry with mild crackles. Labs did show white count of 13.9 (appears chronic). ABG shows pH of 7.38, PCO2 49, bicarbonate 28. * She received a single dose of IV methylprednisone 125 mg, ceftriaxone 1 g, inhalation in the ER. * Follow-up Blood cultures, lower respiratory cultures, fungal cultures * Continue 60 mg IV methylprednisone twice a day as per Jayy Romero MD recommendations * IV ceftriaxone and IV azithromycin * Continue TRC/Nebs * If decompensates consider starting her on BiPAP History of hypertension Continued postoperative 20 mg daily, amlodipine 10 mg daily History of GERD Continue omez 40 mg daily DVT prophylaxis Subcutaneous Lovenox CODE STATUS Full code As Ranked By This Provider Problem List: 1. Smoking 2. Full code status 3. COPD exacerbation 4. Chronic obstructive pulmonary disease 5. Hypoxia 6. GERD (gastroesophageal reflux disease) Core Measures/Misc (03/17) Acute Coronary Syndrome ACS Diagnosis: No Congestive Heart Failure Congestive Heart Failure Diagnosis No Cerebrovascular Accident CVA/TIA Diagnosis: No VTE (View Protocol) VTE Risk Factors Acute Medical Illness No Mechanical VTE Prophylaxis d/t N/A MechProphylax Ordered No VTE Pharm Prophylaxis d/t NA PharmProphylax ordered Sepsis (View protocol) Sepsis Present: No Kalia Winter MD 08/06/17 1632: Attending MD Review Statement Attending Statement Attending MD Statement: examined this patient, discuss w/resident/PA/HAMMERER HELPER, agreed w/resident/PA/HAMMERER HELPER, reviewed EMR data (avail), reviewed images, amended to note Attending Assessment/Plan: Mrs. Guido was interviewed and examined while she was awaiting her bed in the emergency department. Her EMR was reviewed. Problems: -Acute on chronic respiratory failure -AECOPD -Hypertension -Dyslipidemia -Takatsubo syndrome -Osteoporosis -History of thoracic compression fractures -Chronic back pain secondary to above Plan: -Admit general medicine -TRC nebs -Parenteral steroids -Supplemental oxygen -Cultures -Adequate analgesia -Continue maintenance medications -Pulmonary consult Jayy Romero MD
[2017-08-05 13:46] LABS: PT 10.4 SEC (9.4-12.5); PTT 32 SEC (25-37)
--- NOTE | 2017-08-05 14:00 | Cons- Pulmonary ---
General Information and HPI Consulting Request Date of Consult: 08/05/17 Requested By: ED History of Present Illness: This is a 71-year-old female with past medical history of coronary disease, MT, significant COPD requiring oxygen at night and with exertion and presents to the ER chief complaint of not feeling well over the weekend. She endorses worsening shortness of breath and a cough but no productive sputum. No fever or chills but she has had some right lower back pain. She was just hospitalized a few weeks ago for respiratory symptoms was discharged home on antibiotics and steroids. Patient denies taking antibiotics or steroids at this time. She denies any chest pain or palpitations. Patient is eating and drinking. She is able to sleep sitting up. Today her friend brought her in for evaluation. Patient is on azithromycin every other day last dose was this morning. Patient found to be hypoxic in triage, with respiratory exertion and distress. Allergies/Medications Allergies: Coded Allergies: Penicillins (RASH, HIVES 09/24/16) Home Med List: Albuterol Sulfate (Ventolin Hfa) 90 MCG HFA.AER.AD 2 PUF INH PRN COPD ( Reported) Albuterol Sulfate 2.5 MG/3 ML (0.083 %) VIAL.NEB 1 Vial INH/TORI Q4P PRN COPD (Reported) Amlodipine Besylate (Norvasc) 10 MG TABLET 1 TAB PO DAILY BLOOD PRESSURE . Aspirin (Ecotrin*) 81 MG TABLET.DR 1 TAB PO DAILY HEART/BLOOD (Reported) Atorvastatin Calcium 20 MG TABLET 1 TAB PO DAILY CHOLESTEROL (Reported) Azithromycin (Zithromax) 250 MG TABLET 1 TAB PO QOD COPD PLEASE START TAKING AFTER YOU FINISH THE CEFTIN PLEASE TAKE EVERY OTHER DAY. Cefuroxime Axetil (Cefuroxime) 500 MG TABLET 0.5 TAB PO BID BRONCHIOLITIS . Cholecalciferol (Vitamin D3) (Vitamin D3) 1,000 UNIT CAPSULE 1 CAP PO DAILY SUPPLEMENT (Reported) Fluticasone/Salmeterol (Advair 250-50 Diskus) 250 MCG-50 MCG/DOSE BLST.W.DEV 1 PUF INH BID COPD (Reported) Guaifenesin (Guaifenesin ER) 600 MG TAB.ER.12H 1 TAB PO Q12 PRN CONGESTION . Hydrocodone/Acetaminophen (Hydrocodon-Acetaminophen 5-325) 5 MG-325 MG TABLET 1 TAB PO Q4H PRN PAIN (Reported) Lisinopril (Prinivil) 20 MG TABLET 1 TAB PO DAILY BP (Reported) Omeprazole 40 MG CAPSULE.DR 1 CAP PO DAILY acid reflux Prednisone 10 MG TABLET 1 TAB PO Q48 PRN COPD (Reported) PLEASE CONTINUE AFTER PREDNISONE TAPER Prednisone 10 MG TABLET 1 TAB PO DAILY PRN COPD DATE TAB 07/12-13 5 14-15 4 16-17 3 07/18- 2 07/20- 1 . Tiotropium Rowena (Spiriva) 18 MCG CAP.W.DEV 1 CAP INH DAILY COPD (Reported) Ubidecarenone (Co Q-10) 200 MG CAPSULE 1 CAP PO DAILY SUPPLEMENT (Reported) Vit C/E/Zn/Coppr/Lutein/Zeaxan (Preservision Areds 2 Softgel) 250-200-40 CAPSULE 1 TAB PO DAILY SUPPLEMENT (Reported) Review of Systems Review of Systems Constitutional: Reports: see HPI. Past History Travel History Traveled to [place] past 21 day No Medical History Neurological: NONE EENT: cataracts, macular degeneration Cardiovascular: hypertension, myocardial infarction, UNSURE OF CHF? Respiratory: COPD, emphysema, oxygen at night Gastrointestinal: GERD Hepatic: NONE Renal: NONE Musculoskeletal: osteoporosis Psychiatric: NONE Endocrine: NONE Blood Disorders: NONE Cancer(s): NONE [employer]ENT[employer]IVE/Reproductive: NONE Surgical History Surgical History: appendectomy, TONSILLECTOMY Family History Relations & Conditions If Any: No Known Family History. Psychosocial History Who Do You Live With? self Services at Home: None Primary Language: Yi Living Will? no Functional Ability ADLs Independent: dressing, eating, toileting, bathing. Ambulation: independent IADLs Independent: shopping, housework, finances, food prep, telephone, transportation , medication admin. Exam & Diagnostic Data Last 24 Hrs of Vital Signs/I&O Vital Signs Date Time Temp Pulse Resp B/P B/P Pulse O2 O2 Flow FiO2 Mean Ox Delivery Rate 08/05 1236 96 Nasal 4.0L Cannula 08/05 1158 94 Nasal 3.0L Cannula 08/05 1143 96.6 114 26 144/64 96 Nasal 4.0L Cannula Intake & Output 08/05 1600 08/05 0800 02 0000 Intake Total Output Total Balance Patient 115 lb Weight Weight Reported by Patient Measurement Method Last 48 Hrs of Labs/Morgan: Laboratory Tests 08/05/17 1159: Anion Gap 15, Estimated GFR > 60, BUN/Creatinine Ratio 24.3, Glucose 104 H, Lactic Acid 1.1, Calcium 10.1, Total Bilirubin 0.3, AST 19, ALT 37, Alkaline Phosphatase 123, Troponin I < 0.01, Total Protein 7.1, Albumin 4.5, Globulin 2.6 , Albumin/Globulin Ratio 1.7, PT Pending, INR Pending, APTT Pending, CBC w Diff NO MAN DIFF REQ, RBC 4.09 L, MCV 89.7, MCH 29.9, MCHC 33.3, RDW 14.4, MPV 7.8, Gran % 94.2 H, Lymphocytes % 3.4 L, Monocytes % 2.0, Eosinophils % 0.4, Basophils % 0, Absolute Granulocytes 13.1 H, Absolute Lymphocytes 0.5 L, Absolute Monocytes 0.3, Absolute Eosinophils 0.1, Absolute Basophils 0 08/05/17 1157: pH 7.38, pCO2 47 H, pO2 91, HCO3 28, ABG O2 Sat (Measured) 96.0, Carboxyhemoglobin 0.1 L, O2 Concentration % 3L, O2 Delivery Method NC, Phlebotomy Draw Site RIGHT RADIAL Microbiology 08/05 1200 NASOPHARYN: Influenza Virus A & B Rapid Smear - COMP Assessment/Plan Impression/Plan: CXR severe emphysema CT CHEST IMPRESSION: 1. No evidence of pulmonary embolism. 2. Severe emphysematous changes of lung. VTE: negative DICTATED BY: Gomez Pena MD DATE/TIME DICTATED:07/07/171651 Physical Exam General Appearance Alert, Cooperative, No Acute Distress Skin No Significant Lesion Skin Temp/Moisture Exam: Warm/Dry Sepsis Skin Exam (color): Normal for Ethnicity HEENT mucous membranes slightly dry, tongue appears erythematous Cardiovascular Regular Rate, Normal S1, Normal S2 Lungs diminished breath sounds bilaterally. no rhonchi or wheezing appreciated at this time Abdomen Normal Bowel Sounds, Soft, No Tenderness Neurological Normal Speech, Normal Tone Extremities No Edema, Normal Pulses Vascular Pulses Symmetrical IMPRESSION This is a lady with very severe COPD with bullous emphysema, osteoporosis with previous multiple compression fractures, hypertension, hyperlipidemia, chronic esophageal dysmotility/dysphagia, now comes in with * She has very severe COPD with acute COPD exacerbation, no pna or PE. Pt on max med rx at home, with qod azithro for copde prophylaxis * Acute on chronic hypoxic and now hypercarbic resp failure slowly improving * Sig pain in the rib cage due to coughing * Severe bullous emphysema with previous AAT mutation neg, with copd cachexia * Severe osteoporosis with multiple compression fractures as noted in the MRI with sig restrictive robin disase. * Probable esophageal dysmotility * Hiatal hernia * Rt middle low 0.5 cm nodule in the past with no evidence of nodules at this time in the ct and patient is not a candidate for any thoracic intervention due to severe copd /Previous lung nodules which seems to have resolved * Other med issues include HTN, GERD, osteoporsis, macular degeration stable REC Nebs atc IV ceftriaxone IV steroids 60 q 12 Sputum bacterial and fungal culture If she continues to be tachypneic bipap can be tried later Nebs atc Pts prog is guarded DNR and DNI Consult Acknowledgment - Thank you for your consult request.
--- NOTE | 2017-08-05 15:11 | Admission Certification ---
Admission Certification Certification Statement - As attending physician, I certify that at the time of - admission, based on clinical presentation, severity of - symptoms, need for further diagnostic testing and - therapeutic interventions, and risk of adverse outcomes - without in-hospital treatment, in my clinical assessment, - this patient requires an acute hospital stay for a minimum - of two nights or longer. I have also considered psychsocial - factors such as support system, advanced age, financial - issues, cognitive issues, and failed out-patient treatments, - past re-admission history, safety of patient, and lack of - compliance as applicable. Specific rationale supporting this admission is: Treatment of AECOPD with acute on chronic respiratory failure.
[2017-08-05 20:45] VITALS: BP 132/60
[2017-08-06 05:26] VITALS: BP 110/78
--- NOTE | 2017-08-06 07:39 | PN- Housestaff ---
Keiko TROTTER,Mercedes 08/06/17 0739: Subjective Follow-up For: COPD and restrictive lung disease Subjective: Patient is resting comfortably. Does not complain of chest pain or shortness of breath at the moment. Review of Systems Constitutional: Reports: no symptoms. Cardiovascular: Reports: no symptoms. Respiratory: Reports: no symptoms. Gastrointestinal: Reports: no symptoms. Musculoskeletal: Reports: no symptoms. Skin: Reports: no symptoms. Objective Last 24 Hrs of Vital Signs/I&O Vital Signs Date Time Temp Pulse Resp B/P B/P Pulse O2 O2 Flow FiO2 Mean Ox Delivery Rate 08/06 1423 98.1 108 20 145/60 94 Nasal 2.0L Cannula 08/06 1106 98 Nasal 2.0L Cannula 08/06 0922 90 122/60 08/06 0922 92 122/60 08/06 0800 93 Nasal 2.0L Cannula 08/06 0526 98.1 60 22 110/78 93 Nasal 2.0L Cannula 08/06 0000 92 Nasal 2.0L Cannula 08/05 2300 Nasal 2.0L Cannula 08/05 2045 98.0 97 20 132/60 92 Nasal 2.0L Cannula 08/05 1922 98.8 96 24 115/55 100 Nasal 3.0L Cannula 08/05 1730 97 19 128/62 99 Nasal 4.0L Cannula Intake & Output 08/06 1600 06 0800 08/06 0000 Intake Total 480 120 810 Output Total Balance 480 120 810 Intake, IV 450 Intake, Oral 480 120 360 Patient 116 lb Weight Physical Exam General Appearance: Alert, Oriented X3, Cooperative, No Acute Distress Skin: No Rashes Skin Temp/Moisture Exam: Warm/Dry Cardiovascular: Regular Rate, Normal S1, Normal S2, No Murmurs Lungs: Clear to Auscultation, Normal Air Movement Abdomen: Normal Bowel Sounds, Soft, No Tenderness Neurological: Normal Speech Extremities: No Clubbing, No Cyanosis, No Edema, Normal Pulses Current Medications: Current Medications Sig/Keith Start time Last Medication Dose Route Stop Time Status Admin Acetaminophen 650 MG .STK-MED ONE 08/06 625 DC PO 08/06 626 Acetaminophen 650 MG Q6P PRN 08/05 1914 AC 08/06 PO 1755 Acetaminophen 1,000 MG Q6P PRN 08/05 1914 AC IV Albuterol Sulfate 3 ML BID 08/06 1000 AC 08/06 INH 1943 Amlodipine Besylate 10 MG DAILY 08/06 1000 AC 08/06 PO 0922 Aspirin Buffered 81 MG DAILY 08/06 1000 AC 08/06 PO 0922 Atorvastatin Calcium 20 MG 1700 08/06 1700 AC 08/06 PO 1613 Ceftriaxone Sodium 1,000 MG DAILY 08/06 1000 AC 08/06 IV 0922 Cholecalciferol 1,000 IU DAILY 08/05 1429 AC 08/06 PO 0922 Enoxaparin Sodium 40 MG DAILY 08/05 1755 AC 08/06 SC 0921 Guaifenesin 600 MG BID 08/06 2200 AC 08/06 PO 2042 Guaifenesin 600 MG Q12P PRN 08/05 1430 DC 08/06 PO 0922 Lidocaine 1 PAT DAILY 08/06 1055 AC 08/06 EXT 1312 Lisinopril 20 MG DAILY 08/06 1000 AC 08/06 PO 0922 Methylprednisolone 60 MG DAILY 08/07 1000 AC IV Methylprednisolone 60 MG Q12 08/05 2200 DC 08/06 IV 0921 Omeprazole 40 MG DAILY AC 08/06 0700 AC 08/06 PO 0627 Oxycodone/ 1 TAB Q6P PRN 08/05 1915 AC Acetaminophen PO Patient Medication 1 ED ONE ONE 08/06 1245 DC Teaching ED 08/06 1246 Last 24 Hrs of Lab/Morgan Results Last 24 Hrs of Labs/Mics: Laboratory Tests 08/06/17 0808: Anion Gap 14, Estimated GFR > 60, BUN/Creatinine Ratio 36.7 H, CBC w Diff NO MAN DIFF REQ, RBC 3.57 L, MCV 91.1, MCH 30.0, MCHC 33.0, RDW 14.9 H, MPV 8.2, Gran % 95.4 H, Lymphocytes % 3.3 L, Monocytes % 1.2 L, Eosinophils % 0, Basophils % 0.1, Absolute Granulocytes 14.1 H, Absolute Lymphocytes 0.5 L, Absolute Monocytes 0.2, Absolute Eosinophils 0, Absolute Basophils 0 Assessment/Plan Assessment: Patient is a 71 YO F with steroid dependent severe COPD (bullous emphysema), Right middle lobe 0.5cm nodule, osteoporosis with previous multiple compression fractures, hypertension, hyperlipidemia, chronic esophageal dysmotility/ dysphagia, HTN, presented with shortness of breath for the past 2 days with desaturating to low 90s on 2 L. She was recently discharged form [facility] with oxygen as needed and azithro every other day. VS at presentation afebrile, pulse 114, BP 144/64mmHg, on 4L oxygen (83-85% on 2L). Labs are significant for white count of 13.9, H&H 12/36, platelet count of 442. ABG - pH 7.38, paCo2 47, bicarbonate of 28. Cultures - blood, resp were sent. EKG - NSR with HR 120, no ST T wave changes. In ER received a dose of ceftriaxone, methylprednisone, ipratropium, albuterol. Plan Placed in general medicine floor as observation with the following rationale: will give steroids and antibiotics IV with transfer tomorrow to [facility] and likely discharge. COPD exacerbation Patient was on azithromycin 250 mg every other day, not on any steroids lately. She did have dry cough without any phlegm production. Her oxygen requirement increased prompting her to come to ER today. Vitals did show sinus tachycardia. Physical examination is significant for decreased air entry with mild crackles. Labs did show white count of 13.9 which has increased to 14.8 with a predominance of granulocytes. ABG showed pH of 7.38, PCO2 49, bicarbonate 28. Patient has not had a temperature. Oxygen is 2L NC. * Patient has been put on 1 gram ceftriaxone daily and azithromycine 250mg * Follow-up blood cultures, lower respiratory cultures, fungal cultures, negative so far * Decreased 60 mg IV methylprednisone twice a day as per Jayy Romero MD recommendation to 60mg daily. * Continue TRC/Nebs * If decompensates consider starting her on BiPAP * Made mucinex prn to scheduled as patient continues to have cough with sensation of mucus. Chest Pain * Patient notes chest pain increased with movement * Began when her severe coughing started * Will give lido patches x2 Esophageal Spasm: patient has been worked up for chest pain in the past, found to be due to esophageal dysmotility and GERD with hiatal hernia. * Patient had episode today and vomitted her meal. * Notes feeling the food stuck in her throat * We will increase the patient's PPI to 40 po BID History of hypertension * Continue lisinopril 20 mg daily, amlodipine 10 mg daily Code status * Dr. Romero's note says DNR DNI. Our admitting team has noted the patient as full code. * I will ask the night team to confirm the patient's status DEANA. DVT prophylaxis Subcutaneous Lovenox CODE STATUS Full code Problem List: 1. COPD (chronic obstructive pulmonary disease) 2. Esophageal spasm 3. Hypertension Pain Ratin Pain Location: chest pain from coughing Pain Goal: Pain 4 or less Pain Plan: lidocaine patches x2 Tomorrow's Labs & Rationales: Kalia Robbins MD 08/06/17 1515: Attending MD Review Statement Attending Statement Attending MD Statement: examined this patient, discuss w/resident/PA/HORSE RACE STARTER, agreed w/resident/PA/HORSE RACE STARTER, reviewed EMR data (avail), amended to note Attending Assessment/Plan: Mrs. Kelley was interviewed and examined. Her EMR was reviewed. She is still notes right lower posterolateral thoracic pain. This she described as not pleuritic that is increased with movements and she notes chills but denies fever. She states she had a major episode of esophageal spasm which resulted in an episode of vomiting. She has remained afebrile. She has been intermittently mildly tachycardic with an elevated systolic blood pressure. Respiratory rate is stable. Oxygen saturation is satisfactory on 2 L via nasal cannula. She is in no acute distress. Pulmonary exam shows decreased breath sounds but fair air exchange. Heart sounds are distant but benign. Her WBC has increased to 14,800. Her electrolytes are stable. Cultures are negative. We are continuing to treat her AECOPD with nebs and intravenous steroids. We are following cultures but continuing ceftriaxone. We are continuing supplemental oxygen. We should also follow her CBC. If she continues to have episodes of reflux and esophageal spasm we should address this by either increasing her PPI or adding a prokinetic agent. We should also address her chest wall pain as this appears to be a major factor in her pulmonary status. We are continuing her maintenance medications.
[2017-08-06 09:45] LABS: ABSOLUTE BASOPHIL COUNT 0 /CUMM (0.0-0.2); ABSOLUTE EOSINOPHIL COUNT 0 /CUMM (0.0-0.7); ABSOLUTE GRANULOCYTE CT 14.1 /CUMM (1.4-6.5); ABSOLUTE LYMPH COUNT 0.5 /CUMM (1.2-3.4); ABSOLUTE MONOCYTE COUNT 0.2 /CUMM (0.10-0.60); BASOPHIL % 0.1 % (0.0-2.0); EOSINOPHIL % 0 % (0-5); HEMATOCRIT 32.5 % (37-47); MEAN CORPUSCULAR VOLUME 91.1 FL (81.0-99.0); MEAN PLATELET VOLUME 8.2 FL (7.4-10.4); PLATELET COUNT 368 /CUMM (130-400); RBC DISTRIBUTION WIDTH 14.9 % (11.5-14.5); RED BLOOD CELL CT 3.57 /CUMM (4.20-5.40); WHITE BLOOD CELL COUNT 14.8 /CUMM (4.8-10.8)
--- NOTE | 2017-08-06 10:36 | PN- Pulmonary ---
Subjective HPI/Critical Care Issues: Afebrile on steroids Still has sig dyspnea Objective Current Medications: Current Medications Sig/Keith Start time Last Medication Dose Route Stop Time Status Admin Acetaminophen 650 MG Q6P PRN 08/05 191 AC 08/06 PO 0628 Acetaminophen 1,000 MG Q6P PRN 08/05 191 AC IV Albuterol Sulfate 3 ML BID 08/06 1000 AC INH Albuterol Sulfate 3 ML ONCE ONE 08/05 1145 DC 08/05 INH 08/05 1146 1157 Amlodipine Besylate 10 MG DAILY 08/06 1000 AC 08/06 PO 0922 Aspirin Buffered 81 MG DAILY 08/06 1000 AC 08/06 PO 0922 Atorvastatin Calcium 20 MG 1700 08/06 1700 AC PO Azithromycin 500 MG DAILY 08/05 1708 DC 08/05 Dextrose/Water 250 ML IV 1725 Ceftriaxone Sodium 1,000 MG DAILY 08/06 1000 AC 08/06 IV 0922 Ceftriaxone Sodium 0 .STK-MED ONE 08/05 1250 DC .ROUTE Ceftriaxone Sodium 1,000 MG ONCE ONE 08/05 1245 DC 08/05 IV 08/05 1246 1247 Cholecalciferol 1,000 IU DAILY 08/05 1429 AC 08/06 PO 0922 Enoxaparin Sodium 0 .STK-MED ONE 08/05 1925 DC SC Enoxaparin Sodium 40 MG DAILY 08/05 1755 AC 08/06 SC 0921 Guaifenesin 600 MG Q12P PRN 08/05 1430 AC 08/06 PO 0922 Ipratropium [place] 2.5 ML ONCE ONE 08/05 1145 DC 08/05 INH 08/05 1146 1157 Lisinopril 20 MG DAILY 08/06 1000 AC 08/06 PO 0922 Methylprednisolone 60 MG Q12 08/05 2200 AC 08/06 IV 0921 Methylprednisolone 0 .STK-MED ONE 08/05 1213 DC .ROUTE Methylprednisolone 125 MG ONCE ONE 08/05 1145 DC 08/05 IV 08/05 1146 1212 Omeprazole 40 MG DAILY AC 08/06 0700 AC 08/06 PO 0627 Oxycodone/ 1 TAB Q6P PRN 08/05 191 AC Acetaminophen PO Vital Signs & I&O Last 24 Hrs of Vitals and I&O: Vital Signs Date Time Temp Pulse Resp B/P B/P Pulse O2 O2 Flow FiO2 Mean Ox Delivery Rate 02/06 0922 90 122/60 08/06 0922 92 122/60 08/06 0800 93 Nasal 2.0L Cannula 08/06 0526 98.1 60 22 110/78 93 Nasal 2.0L Cannula 08/06 0000 92 Nasal 2.0L Cannula 08/05 2300 Nasal 2.0L Cannula 08/05 2045 98.0 97 20 132/60 92 Nasal 2.0L Cannula 08/05 1922 98.8 96 24 115/55 100 Nasal 3.0L Cannula 08/05 1730 97 19 128/62 99 Nasal 4.0L Cannula 08/05 1357 99.4 98 20 138/90 100 Nasal 4.0L Cannula 08/05 1236 96 Nasal 4.0L Cannula 08/05 1158 94 Nasal 3.0L Cannula 08/05 1143 96.6 114 26 144/64 96 Nasal 4.0L Cannula Intake & Output 08/06 1600 08/06 0800 08/06 0000 Intake Total 120 810 Output Total Balance 120 810 Intake, IV 450 Intake, Oral 120 360 Patient 116 lb Weight Impression/Plan Impression/Plan Impression/Plan: CXR severe emphysema CT CHEST IMPRESSION: 1. No evidence of pulmonary embolism. 2. Severe emphysematous changes of lung. VTE: negative DICTATED BY: Gomez Pena MD DATE/TIME DICTATED:07/07/171651 Physical Exam General Appearance Alert, Cooperative, No Acute Distress Skin No Significant Lesion Skin Temp/Moisture Exam: Warm/Dry Sepsis Skin Exam (color): Normal for Ethnicity HEENT mucous membranes slightly dry, tongue appears erythematous Cardiovascular Regular Rate, Normal S1, Normal S2 Lungs diminished breath sounds bilaterally. no rhonchi or wheezing appreciated at this time Abdomen Normal Bowel Sounds, Soft, No Tenderness Neurological Normal Speech, Normal Tone Extremities No Edema, Normal Pulses Vascular Pulses Symmetrical IMPRESSION This is a lady with very severe COPD with bullous emphysema, osteoporosis with previous multiple compression fractures, hypertension, hyperlipidemia, chronic esophageal dysmotility/dysphagia, now comes in with * She has very severe COPD with acute COPD exacerbation, no pna or PE. Pt on max med rx at home, with qod azithro for copde prophylaxis * Acute on chronic hypoxic and now hypercarbic resp failure slowly improving * Sig pain in the rib cage due to coughing * Severe bullous emphysema with previous AAT mutation neg, with copd cachexia * Severe osteoporosis with multiple compression fractures as noted in the MRI with sig restrictive robin disase. * Probable esophageal dysmotility * Hiatal hernia * Rt middle low 0.5 cm nodule in the past with no evidence of nodules at this time in the ct and patient is not a candidate for any thoracic intervention due to severe copd /Previous lung nodules which seems to have resolved * Other med issues include HTN, GERD, osteoporsis, macular degeration stable REC Nebs atc IV ceftriaxone for now IV steroids 60 qd from today Sputum bacterial and fungal culture If she continues to be tachypneic bipap can be tried later Nebs atc Pts prog is guarded DNR and DNI
[2017-08-06 10:45] LABS: GRANULOCYTE % 95.4 % (42.2-75.2)
[2017-08-06 14:23] VITALS: BP 145/60
[2017-08-06 21:58] VITALS: BP 126/56
--- NOTE | 2017-08-06 22:57 | Patient Discharge Instructions ---
Discharge Instructions General Discharge Information You were seen/treated for: COPD EXACERBATION Special Instructions: 1. PLEASE FOLLOW UP WITH YOUR PCP IN ONE WEEK 2. PLEASE FOLLOW UP WITH YOUR DIE MAKER STAMPING IN ONE WEEK Diet Continue normal diet: Yes Activity Full Activity/No Limits: Yes Acute Coronary Syndrome Inclusion Criteria At DC or during hospital stay patient has or had the following: ACS DIAGNOSIS No Discharge Core Measures Meds if any: Prescribed or Continued at Discharge Meds if any: NOT Prescribed or Continued at Discharge Congestive Heart Failure Inclusion Criteria At DC or during hospital stay patient has or had the following: CHF DIAGNOSIS No Discharge Core Measures Meds if any: Prescribed or Continued at Discharge Meds if any: NOT Prescribed or Continued at Discharge Cerebrovascular accident Inclusion Criteria At DC or during hospital stay patient has or had the following: CVA/TIA Diagnosis No Discharge Core Measures Meds if any: Prescribed or Continued at Discharge Meds if any: NOT Prescribed or Continued at Discharge Venous thromboembolism Inclusion Criteria VTE Diagnosis No VTE Type NONE VTE Confirmed by (Test) NONE Discharge Core Measures - Per Current guidelines, there needs to be overlap - treatment for the first 5 days of Warfarin therapy. - If discharged on Warfarin prior to 5 days of - overlap therapy, the patient will need to be - assessed for post discharge needs including - *Post discharge parental anticoagulation - *Warfarin and/or parental anticoagulation education - *Follow up date to check INR post discharge At least 5 days overlap therapy as Inpatient No Meds if any: Prescribed or Continued at Discharge Note: Overlap Therapy is Warfarin and Anticoagulant Meds if any: NOT Prescribed or Continued at Discharge
[2017-08-07 07:00] VITALS: BP 138/74
--- NOTE | 2017-08-07 07:48 | PN- Housestaff ---
Keiko TROTTER,Mercedes 08/07/17 0748: Subjective Follow-up For: COPD and restrictive lung disease Subjective: patient continues to have back and chest pain today. she is not comoplaining about shortness of breath. no events. Review of Systems Constitutional: Reports: no symptoms. Cardiovascular: Reports: no symptoms. Respiratory: Reports: wheezing. Gastrointestinal: Reports: no symptoms. Genitourinary: Reports: no symptoms. Musculoskeletal: Reports: back pain, joint pain, muscle pain. Objective Last 24 Hrs of Vital Signs/I&O Vital Signs Date Time Temp Pulse Resp B/P B/P Pulse O2 O2 Flow FiO2 Mean Ox Delivery Rate 08/08 1712 97.8 96 20 130/61 08/08 1404 97.8 96 20 130/61 99 Nasal 2.0L Cannula 08/08 1245 Nasal 2.0L Cannula 08/08 1232 Nasal 2.0L Cannula 08/08 1029 80 108/54 08/08 1028 80 108/54 08/08 0853 95 Room Air Room Air 08/08 0800 98 Nasal 2.0L Cannula 08/08 0742 97.4 84 20 144/72 99 08/08 0000 Nasal 2.0L Cannula 08/07 2207 97.8 91 20 142/68 96 Nasal 2.0L Cannula Intake & Output 08/08 1600 08/08 0800 08/08 0000 Intake Total 720 240 240 Output Total Balance 720 240 240 Intake, Oral 720 240 240 Physical Exam General Appearance: Alert, Oriented X3, Cooperative, No Acute Distress Skin: No Rashes HEENT: Atraumatic Cardiovascular: Regular Rate, Normal S1, Normal S2, No Murmurs Lungs: Clear to Auscultation, Normal Air Movement Abdomen: Normal Bowel Sounds, Soft, No Tenderness Neurological: Normal Speech, Strength at 5/5 X4 Ext Current Medications: Current Medications Sig/Keith Start time Last Medication Dose Route Stop Time Status Admin Albuterol Sulfate 3 ML BID 08/06 1000 DCD 08/08 INH 0852 Amlodipine Besylate 10 MG DAILY 08/06 1000 DCD 08/08 PO 1028 Aspirin Buffered 81 MG DAILY 08/06 1000 DCD 08/07 PO 0907 Atorvastatin Calcium 20 MG 1700 08/06 1700 DCD 08/08 PO 1632 Azithromycin 250 MG Q48 08/07 1615 DCD 08/07 PO 2011 Cefuroxime Sodium 250 MG Q12 08/07 1417 DCD 08/08 PO 1030 Cholecalciferol 1,000 IU DAILY 08/05 1429 DCD 08/08 PO 1029 Docusate Sodium 100 MG BID 08/07 1443 DCD 08/07 PO 2126 Enoxaparin Sodium 40 MG DAILY 08/05 1755 DCD 08/07 SC 0903 Guaifenesin 600 MG BID 08/06 2200 DCD 08/08 PO 1028 Hydrocodone Bitart/ 1 TAB Q6-PRN PRN 08/07 1615 DCD 08/08 Acetaminophen PO 1631 Lidocaine 1 PAT DAILY 08/06 2049 DCD 08/08 EXT 1258 Lidocaine 1 PAT DAILY 08/06 1055 DCD 08/08 EXT 1258 Lisinopril 20 MG DAILY 08/06 1000 DCD 02 PO 1029 Omeprazole 40 MG BID 08/06 2200 DCD 08/08 PO 1028 Prednisone 60 MG DAILY 08/07 1000 DCD 08/08 PO 1028 Tramadol HCl 50 MG Q12P PRN 08/07 1615 DCD 08/08 PO 1303 Assessment/Plan Assessment: Patient is a 71 YO F with steroid dependent severe COPD (bullous emphysema), Right middle lobe 0.5cm nodule, osteoporosis with previous multiple compression fractures, hypertension, hyperlipidemia, chronic esophageal dysmotility/ dysphagia, HTN, presented with shortness of breath for the past 2 days with desaturating to low 90s on 2 L. She was recently discharged form [place] with oxygen as needed and azithro every other day. VS at presentation afebrile, pulse 114, BP 144/64mmHg, on 4L oxygen (83-85% on 2L). Labs are significant for white count of 13.9, H&H 12/36, platelet count of 442. ABG - pH 7.38, paCo2 47, bicarbonate of 28. Cultures - blood, resp were sent. EKG - NSR with HR 120, no ST T wave changes. In ER received a dose of ceftriaxone, methylprednisone, ipratropium, albuterol. Plan Placed in general medicine floor as observation with the following rationale: will give steroids and antibiotics IV with transfer tomorrow to [facility] and likely discharge. COPD exacerbation Patient was on azithromycin 250 mg every other day, not on any steroids. She did have dry cough without any phlegm production. Her oxygen requirement increased prompting her to come to ER today. Vitals did show sinus tachycardia. Physical examination is significant for decreased air entry. Labs did show white count of 13.9 which has increased to 19 with a predominance of granulocytes. ABG showed pH of 7.38, PCO2 49, bicarbonate 28. Patient has not had a temperature. Oxygen is RA 95%. * Patient has been put on 1 gram ceftriaxone daily and azithromycin 250mg * Continue ceftin 250mg bid * Follow-up blood cultures, lower respiratory cultures, fungal cultures, negative so far * Decreased 60 mg IV methylprednisone twice a day as per Jayy Romero MD to 60mg daily PO. * Continue TRC/Nebs * If decompensates consider starting her on BiPAP * Made mucinex prn to scheduled as patient continues to have cough with sensation of mucus. Chest Pain * Patient notes chest pain increased with movement * Began when her severe coughing started * We will continue vicodin and give bowel regimen. Esophageal Spasm: patient has been worked up for chest pain in the past, found to be due to esophageal dysmotility and GERD with hiatal hernia. * Patient had episode today and vomitted her meal. * Notes feeling the food stuck in her throat * We will continue the patient's PPI 40 po BID (dose increased here). History of hypertension * Continue lisinopril 20 mg daily, amlodipine 10 mg daily Code status * Dr. Romero's note says DNR DNI. Our admitting team has noted the patient as full code. * Dr. Winter has confirmed patient has full code. DVT prophylaxis Subcutaneous Lovenox CODE STATUS Full code Problem List: 1. COPD (chronic obstructive pulmonary disease) Pain Ratin Pain Location: chest and back, musculoskeletal Pain Goal: Pain 4 or less Pain Plan: vicodin q4h Tomorrow's Labs & Rationales: Kalia Robbins MD 08/07/17 1433: Attending MD Review Statement Attending Statement Attending MD Statement: examined this patient, discuss w/resident/PA/ELECTROENCEPHALOGRAPHIC TECHNICIAN, agreed w/resident/PA/ELECTROENCEPHALOGRAPHIC TECHNICIAN, discussed with family, reviewed EMR data (avail), amended to note Attending Assessment/Plan: Mrs. Kelley still notes pain with movement. She denies pleuritic pain. She continues with a cough which is nonproductive. She is afebrile. Pulse, respirations, blood pressure, and O2 saturations on 2 L NC are all stable. She is in no acute distress. Pulmonary exam reveals decreased breath sounds but is without rales and rhonchi. Cardiac exam is benign. WBC have risen to 19,000 but blood cultures are negative. We continue to treat her AECOPD with nebs and steroids. We are treating her pain with lidocaine and continuing her home Vicodin. I suggest that we increase the frequency of her Vicodin to 4 times daily. She states that this does constipate her but usually resolves with the addition of Colace. I agree with her change to oral cefuroxime and the reinstitution of her alternate day azithromycin prophylaxis. I also agree with her change to oral steroids. We should continue to monitor her WBC and blood cultures.
[2017-08-07 09:42] LABS: ABSOLUTE BASOPHIL COUNT 0 /CUMM (0.0-0.2); ABSOLUTE EOSINOPHIL COUNT 0 /CUMM (0.0-0.7); ABSOLUTE LYMPH COUNT 1.2 /CUMM (1.2-3.4); ABSOLUTE MONOCYTE COUNT 0.8 /CUMM (0.10-0.60); BASOPHIL % 0 % (0.0-2.0); EOSINOPHIL % 0 % (0-5); HEMATOCRIT 33.9 % (37-47); MEAN CORPUSCULAR HGB 30.2 PG (27.0-31.0); MEAN CORPUSCULAR VOLUME 91.4 FL (81.0-99.0); PLATELET COUNT 432 /CUMM (130-400); RED BLOOD CELL CT 3.71 /CUMM (4.20-5.40)
--- NOTE | 2017-08-07 10:24 | PN- Pulmonary ---
Subjective HPI/Critical Care Issues: Still in pain Dyspnea persists coughing Objective Current Medications: Current Medications Sig/Keith Start time Last Medication Dose Route Stop Time Status Admin Acetaminophen 650 MG .STK-MED ONE 08/06 1754 DC PO 08/06 1755 Acetaminophen 650 MG Q6P PRN 08/05 1915 AC 08/06 PO 1755 Acetaminophen 1,000 MG Q6P PRN 08/05 1915 AC IV Albuterol Sulfate 3 ML BID 08/06 1000 AC 08/06 INH 1943 Amlodipine Besylate 10 MG DAILY 08/06 1000 AC 08/07 PO 0910 Aspirin Buffered 81 MG DAILY 08/06 1000 AC 08/07 PO 0907 Atorvastatin Calcium 20 MG 1700 08/06 1700 AC 08/06 PO 1613 Ceftriaxone Sodium 1,000 MG DAILY 08/06 1000 AC 08/07 IV 0903 Cholecalciferol 1,000 IU DAILY 08/05 1429 AC 08/07 PO 0911 Enoxaparin Sodium 40 MG DAILY 08/05 1755 AC 08/07 SC 0903 Guaifenesin 600 MG BID 08/06 2200 AC 08/07 PO 0907 Guaifenesin 600 MG Q12P PRN 08/05 1430 DC 08/06 PO 0922 Hydrocodone Bitart/ 1 TAB Q6PRN PRN 08/06 2100 AC 08/07 Acetaminophen PO 0647 Lidocaine 1 PAT DAILY 08/06 2049 AC 08/07 EXT 0918 Lidocaine 1 PAT DAILY 08/06 1055 AC 08/07 EXT 0917 Lisinopril 20 MG DAILY 08/06 1000 AC 08/07 PO 0911 Methylprednisolone 60 MG DAILY 08/07 1000 CAN IV Methylprednisolone 60 MG Q12 08/05 2200 DC 08/06 IV 0921 Omeprazole 40 MG BID 08/06 2200 AC 08/07 PO 0911 Omeprazole 40 MG DAILY AC 08/06 0700 DC 08/06 PO 0627 Oxycodone/ 1 TAB Q6P PRN 08/05 1915 DC Acetaminophen PO Patient Medication 1 ED ONE ONE 08/06 1245 DC Teaching ED 08/06 1246 Prednisone 60 MG DAILY 08/07 1000 AC 08/07 PO 0910 Vital Signs & I&O Last 24 Hrs of Vitals and I&O: Vital Signs Date Time Temp Pulse Resp B/P B/P Pulse O2 O2 Flow FiO2 Mean Ox Delivery Rate 08/07 0810 83 136/78 08/07 0800 97 Nasal 2.0L Cannula 08/07 07 97.3 91 20 138/74 98 08/07 0000 Nasal 2.0L Cannula 08/06 2158 97.9 94 20 126/56 97 Nasal 2.0L Cannula 08/06 1945 98 Nasal 2.0L Cannula 08/06 1600 Nasal 2.0L Cannula 08/06 1423 98.1 108 20 145/60 94 Nasal 2.0L Cannula 08/06 1106 98 Nasal 2.0L Cannula Intake & Output 08/07 1600 08/07 0800 08/07 0000 Intake Total 800 Output Total 350 Balance -350 800 Intake, Oral 800 Output, Urine 350 Impression/Plan Impression/Plan Impression/Plan: CXR severe emphysema CT CHEST IMPRESSION: 1. No evidence of pulmonary embolism. 2. Severe emphysematous changes of lung. VTE: negative DICTATED BY: Gomez Pena MD DATE/TIME DICTATED:07/07/171651 Physical Exam General Appearance Alert, Cooperative, No Acute Distress Skin No Significant Lesion Skin Temp/Moisture Exam: Warm/Dry Sepsis Skin Exam (color): Normal for Ethnicity HEENT mucous membranes slightly dry, tongue appears erythematous Cardiovascular Regular Rate, Normal S1, Normal S2 Lungs diminished breath sounds bilaterally. no rhonchi or wheezing appreciated at this time Abdomen Normal Bowel Sounds, Soft, No Tenderness Neurological Normal Speech, Normal Tone Extremities No Edema, Normal Pulses Vascular Pulses Symmetrical IMPRESSION This is a lady with very severe COPD with bullous emphysema, osteoporosis with previous multiple compression fractures, hypertension, hyperlipidemia, chronic esophageal dysmotility/dysphagia, now comes in with * She has very severe COPD with acute COPD exacerbation, no pna or PE. Pt on max med rx at home, with qod azithro for copde prophylaxis * Acute on chronic hypoxic and now hypercarbic resp failure slowly improving * Sig pain in the rib cage due to coughing * Severe bullous emphysema with previous AAT mutation neg, with copd cachexia * Severe osteoporosis with multiple compression fractures as noted in the MRI with sig restrictive robin disase. * Probable esophageal dysmotility * Hiatal hernia * Rt middle low 0.5 cm nodule in the past with no evidence of nodules at this time in the ct and patient is not a candidate for any thoracic intervention due to severe copd /Previous lung nodules which seems to have resolved * Other med issues include HTN, GERD, osteoporsis, macular degeration stable REC Nebs atc Change to po ceftin PO prednisone Resume qod azitro 250 Nebs atc If pain persists pt would need tramadol low dose bid with priti and colace daily Keep in the hospital Pts prog is guarded DNR and DNI
[2017-08-07 10:56] LABS: GRANULOCYTE % 89.3 % (42.2-75.2)
[2017-08-07 14:54] VITALS: BP 124/70
[2017-08-07 22:07] VITALS: BP 142/68
[2017-08-08 07:42] VITALS: BP 144/72
--- NOTE | 2017-08-08 08:16 | PN- Housestaff ---
Keiko TROTTER,Mercedes 08/08/17 0815: Subjective Follow-up For: copd exacerbation chest and back pain Subjective: patient continues to have the same chest and back pain that she attributes to coughing and to carrying around her oxygen tank. she notes the pain is worse today. She states that her pain is worse when standing. She is not having any SOB. Review of Systems Constitutional: Reports: no symptoms. Cardiovascular: Reports: chest pain. Respiratory: Reports: no symptoms. Gastrointestinal: Reports: no symptoms. Genitourinary: Reports: no symptoms. Musculoskeletal: Reports: back pain, joint pain, muscle pain. Objective Last 24 Hrs of Vital Signs/I&O Vital Signs Date Time Temp Pulse Resp B/P B/P Pulse O2 O2 Flow FiO2 Mean Ox Delivery Rate 08/08 1712 97.8 96 20 130/61 08/08 1404 97.8 96 20 130/61 99 Nasal 2.0L Cannula 08/08 1245 Nasal 2.0L Cannula 08/08 1232 Nasal 2.0L Cannula 08/08 1029 80 108/54 08/08 1028 80 108/54 08/08 0853 95 Room Air Room Air 08/08 0800 98 Nasal 2.0L Cannula 08/08 0742 97.4 84 20 144/72 99 08/08 0000 Nasal 2.0L Cannula 08/07 2207 97.8 91 20 142/68 96 Nasal 2.0L Cannula Intake & Output 08/08 1600 08 0800 08/08 0000 Intake Total 720 240 240 Output Total Balance 720 240 240 Intake, Oral 720 240 240 Physical Exam General Appearance: Alert, Oriented X3, Cooperative, No Acute Distress HEENT: Atraumatic Cardiovascular: Regular Rate, Normal S1, Normal S2, No Murmurs Lungs: Clear to Auscultation Abdomen: Normal Bowel Sounds, Soft, No Tenderness, No Hepatospenomegaly Neurological: Normal Speech Extremities: No Clubbing, No Cyanosis, No Edema, Normal Pulses Vascular: Normal Pulses, Pulses Symmetrical Current Medications: Current Medications Sig/Keith Start time Last Medication Dose Route Stop Time Status Admin Albuterol Sulfate 3 ML BID 08/06 999 DCD 08/08 INH 0852 Amlodipine Besylate 10 MG DAILY 08/06 1000 DCD 08/08 PO 1028 Aspirin Buffered 81 MG DAILY 08/06 1000 DCD 08/07 PO 0907 Atorvastatin Calcium 20 MG 1700 08/06 1700 DCD 08/08 PO 1632 Azithromycin 250 MG Q48 08/07 1615 DCD 08/07 PO 2012 Cefuroxime Sodium 250 MG Q12 08/07 1417 DCD 08/08 PO 1030 Cholecalciferol 1,000 IU DAILY 08/05 1429 DCD 08/08 PO 1029 Docusate Sodium 100 MG BID 08/07 1443 DCD 08/07 PO 2126 Enoxaparin Sodium 40 MG DAILY 08/05 1755 DCD 08/07 SC 0903 Guaifenesin 600 MG BID 08/06 2200 DCD 08/08 PO 1028 Hydrocodone Bitart/ 1 TAB Q6-PRN PRN 08/07 1615 DCD 08/08 Acetaminophen PO 1631 Lidocaine 1 PAT DAILY 08/06 2049 DCD 08/08 EXT 1258 Lidocaine 1 PAT DAILY 08/06 1055 DCD 08/08 EXT 1258 Lisinopril 20 MG DAILY 08/06 1000 DCD 08/08 PO 1029 Omeprazole 40 MG BID 08/06 2200 DCD 08/08 PO 1028 Prednisone 60 MG DAILY 08/07 1000 DCD 08/08 PO 1028 Tramadol HCl 50 MG Q12P PRN 08/07 1615 DCD 08/08 PO 1303 Assessment/Plan Assessment: Patient is a 71 YO F with steroid dependent severe COPD (bullous emphysema), Right middle lobe 0.5cm nodule, osteoporosis with previous multiple compression fractures, hypertension, hyperlipidemia, chronic esophageal dysmotility/ dysphagia, HTN, presented with shortness of breath for the past 2 days with desaturating to low 90s on 2 L. She was recently discharged form [place] with oxygen as needed and azithro every other day. VS at presentation afebrile, pulse 114, BP 144/64mmHg, on 4L oxygen (83-85% on 2L). Labs are significant for white count of 13.9, H&H 12/36, platelet count of 442. ABG - pH 7.38, paCo2 47, bicarbonate of 28. Cultures - blood, resp were sent. EKG - NSR with HR 120, no ST T wave changes. In ER received a dose of ceftriaxone, methylprednisone, ipratropium, albuterol. Plan Placed in general medicine floor as observation with the following rationale: will give steroids and antibiotics IV with transfer to [facility] and likely discharge today. COPD exacerbation Patient was on azithromycin 250 mg every other day, not on any steroids. She did have dry cough without any phlegm production. Her oxygen requirement increased prompting her to come to ER today. Vitals did show sinus tachycardia. Physical examination is significant for decreased air entry. Labs did show white count of 13.9 which has increased to a high of 19 with a predominance of granulocytes. ABG showed pH of 7.38, PCO2 49, bicarbonate 28. Patient has not had a temperature. Oxygen is 2L NC 96%. * Patient s on azithromycni 250mg with ceftin 250mg day 4. Patient usually takes 250mg azithromycin every other day 250mg. we will discharge on only azithromycin. * Follow-up blood cultures, lower respiratory cultures, fungal cultures, negative so far * Continue 60mg steroid po with discharge on 40mg x3, 30x3, 20x3, 10x3, 5x3 and then 5mg every other day * Give senna for constipation, vit D and calcium 800 / 600 to counteract constipation and bone fragility that can be caused by steroids. * Continue TRC/Nebs * If decompensates consider starting her on BiPAP * Made mucinex prn to scheduled as patient continues to have cough with sensation of mucus. * Patient will be following up with appeals coordinator Dr. Romero Chest Pain * Patient notes chest pain increased with movement * Began when her severe coughing started but baseline was there after she injured her back lifting her oxygen tank * We gave lidocaine patches x2 which didnt help * We did increase vicodin frequency and gave bowel regimen. * Patient is having difficulty functioning in her ADLs due to pain and also difficulty breathing due to the pain although her saturations are at baseline. Patient was interviewed on no oxygen and was not having any obvious shortness of breath or difficulty breathing. * She will be discharged to acute rehab facililty. * We will prescribe her a rolling walker Esophageal Spasm: patient has been worked up for chest pain in the past, found to be due to esophageal dysmotility and GERD with hiatal hernia. * Patient had episode today and vomitted her meal. * Notes feeling the food stuck in her throat * If patient does have vomiting or feelings of food being stuck we will give her a prokinetic like reglan. * We will increase the patient's PPI to 40 po BID History of hypertension * Continue lisinopril 20 mg daily, amlodipine 10 mg daily Code status * Dr. Romero's note says DNR DNI. Our admitting team has noted the patient as full code. * Dr. Winter has confirmed patient has full code. DVT prophylaxis Subcutaneous Lovenox CODE STATUS Full code Problem List: 1. COPD (chronic obstructive pulmonary disease) 2. Intractable back pain 3. Esophageal spasm Pain Ratin Pain Location: back and chest Pain Goal: Pain 4 or less Pain Plan: tramadol 50mg bid Tomorrow's Labs & Rationales: none Kalia Winter MD 08/08/17 1345: Attending MD Review Statement Attending Statement Attending MD Statement: examined this patient, discuss w/resident/PA/SHIRT SEWER, agreed w/resident/PA/SHIRT SEWER, reviewed EMR data (avail), discussed with case mgmt, amended to note Attending Assessment/Plan: Mrs. Kelley was interviewed and examined. Her EMR was reviewed. She still notes cough which is nonproductive. She still notes back pain which is 8/10 on the scale. There has been minimal response to the change in her pain regimen however it has been ineffective for only a short period of time. She remains afebrile. Heart rate, respiratory rate, and blood pressure are acceptable. Oxygen saturation on 2 L NC have been in the mid 90s and above. She is mild to moderately dyspneic while eating her lunch. Pulmonary exam reveals cough with markedly decreased breath sounds diffusely. Heart sounds are distant but benign. Extremities are without edema. Electrolytes and renal function are essentially normal. Blood cultures remain negative. Mrs. Kelley remains significantly dyspneic with continuing significant back pain. It would appear that these are limiting her ability to perform ADLs and that she would benefit from short-term rehabilitation. We will complete an antibiotic course of 5 days. We will continue her maintenance medications. We will continue a trial of Vicodin every 6 with tramadol every 12 in an attempt to manage her pain.
--- NOTE | 2017-08-08 13:57 | PN- Pulmonary ---
Subjective HPI/Critical Care Issues: Doing the same /still in pain Objective Current Medications: Current Medications Sig/Keith Start time Last Medication Dose Route Stop Time Status Admin Acetaminophen/ 1 TAB Q6P PRN 08/07 1045 DC Codeine Phosphate PO Albuterol Sulfate 3 ML BID 08/06 1000 AC 08/08 INH 0852 Amlodipine Besylate 10 MG DAILY 08/06 1000 AC 08/08 PO 1028 Aspirin Buffered 81 MG DAILY 08/06 1000 AC 08/07 PO 0907 Atorvastatin Calcium 20 MG 1700 08/06 1700 AC 08/07 PO 1732 Azithromycin 250 MG Q48 08/07 1615 AC 08/07 PO 2012 Ceftriaxone Sodium 1,000 MG DAILY 08/06 1000 DC 08/07 IV 0903 Cefuroxime Sodium 250 MG Q12 08/07 1417 AC 08/08 PO 1030 Cholecalciferol 1,000 IU DAILY 08/05 1429 AC 08/08 PO 1029 Docusate Sodium 100 MG BID 08/07 1443 AC 08/07 PO 2126 Enoxaparin Sodium 40 MG DAILY 08/05 1755 AC 08/07 SC 0903 Guaifenesin 600 MG BID 08/06 2200 AC 08/08 PO 1028 Hydrocodone Bitart/ 1 TAB Q6-PRN PRN 08/07 1615 AC 08/08 Acetaminophen PO 0726 Hydrocodone Bitart/ 1 TAB Q4P PRN 08/07 1445 DC 08/07 Acetaminophen PO 1501 Hydrocodone Bitart/ 1 TAB Q6PRN PRN 08/06 2100 DC 08/07 Acetaminophen PO 0647 Lidocaine 1 PAT DAILY 08/06 2049 AC 08/08 EXT 1258 Lidocaine 1 PAT DAILY 08/06 1055 AC 08/08 EXT 1258 Lisinopril 20 MG DAILY 08/06 1000 AC 08/08 PO 1029 Omeprazole 40 MG BID 08/06 2200 AC 08/08 PO 1028 Prednisone 60 MG DAILY 08/07 1000 AC 08/08 PO 1028 Tramadol HCl 50 MG Q12P PRN 08/07 1615 AC 08/08 PO 1303 Vital Signs & I&O Last 24 Hrs of Vitals and I&O: Vital Signs Date Time Temp Pulse Resp B/P B/P Pulse O2 O2 Flow FiO2 Mean Ox Delivery Rate 08/08 1245 Nasal 2.0L Cannula 08/08 1232 Nasal 2.0L Cannula 08/08 1029 80 108/54 08/08 1028 80 108/54 08/08 0853 95 Room Air Room Air 08/08 0800 98 Nasal 2.0L Cannula 08/08 0742 97.4 84 20 144/72 99 08/08 0000 Nasal 2.0L Cannula 08/07 2207 97.8 91 20 142/68 96 Nasal 2.0L Cannula 08/07 1904 92 Nasal 2.0L Cannula 08/07 1454 98.0 95 20 124/70 93 Room Air Intake & Output 08/08 1600 08/08 0800 08/08 0000 Intake Total 240 240 Output Total Balance 240 240 Intake, Oral 240 240 Impression/Plan Impression/Plan Impression/Plan: CXR severe emphysema CT CHEST IMPRESSION: 1. No evidence of pulmonary embolism. 2. Severe emphysematous changes of lung. VTE: negative DICTATED BY: Gomez Pena MD DATE/TIME DICTATED:07/07/171651 Physical Exam General Appearance Alert, Cooperative, No Acute Distress Skin No Significant Lesion Skin Temp/Moisture Exam: Warm/Dry Sepsis Skin Exam (color): Normal for Ethnicity HEENT mucous membranes slightly dry, tongue appears erythematous Cardiovascular Regular Rate, Normal S1, Normal S2 Lungs diminished breath sounds bilaterally. no rhonchi or wheezing appreciated at this time Abdomen Normal Bowel Sounds, Soft, No Tenderness Neurological Normal Speech, Normal Tone Extremities No Edema, Normal Pulses Vascular Pulses Symmetrical IMPRESSION This is a lady with very severe COPD with bullous emphysema, osteoporosis with previous multiple compression fractures, hypertension, hyperlipidemia, chronic esophageal dysmotility/dysphagia, now comes in with * She has very severe COPD with acute COPD exacerbation, no pna or PE. Pt on max med rx at home, with qod azithro for copde prophylaxis * Acute on chronic hypoxic and now hypercarbic resp failure slowly improving * Sig pain in the rib cage due to coughing * Severe bullous emphysema with previous AAT mutation neg, with copd cachexia * Severe osteoporosis with multiple compression fractures as noted in the MRI with sig restrictive robin disase. * Probable esophageal dysmotility * Hiatal hernia * Rt middle low 0.5 cm nodule in the past with no evidence of nodules at this time in the ct and patient is not a candidate for any thoracic intervention due to severe copd /Previous lung nodules which seems to have resolved * Other med issues include HTN, GERD, osteoporsis, macular degeration stable REC Nebs atc Change to po ceftin PO prednisone Resume qod azitro 250 Nebs atc tramadol low dose bid with priti and colace daily Keep in the hospital Pts prog is guarded
[2017-08-08 14:04] VITALS: BP 130/61
--- NOTE | 2017-08-08 14:08 | Discharge Summary ---
Visit Information Visit Dates Admission Date: 08/05/17 Discharge Date: 08/08/17 Hospital Course Course Attending Physician: Kalia Winter MD Primary Care Physician: Kalia Winter MD Consulting Request: Consulting Specialty: Pulmonary Disease Consulting Physician: Reason for Consult: COPD Hospital Course: Patient is a 71 YO F with steroid dependent severe COPD( bullous emphysema), Right middle lobe 0.5cm nodule, osteoporosis with previous multiple compression fractures, HTN, HLD, chronic esophageal dysmotility/dysphagia, HTN, presented with shortness of breath for the past 2 days with desaturating to low 90s on 2 L. she was recetnly discharged form [facility] with oxygena as needed and azithro every other day. VS at presentation afebrile, pulse 114, BP 144/64mmHg, on 4L oxygen (83-85% on 2L). Labs are significant for white count of 13.9, H&H 12/36, platelet count of 442. ABG - pH 7.38, paCo2 47, bicarbonate of 28. Cultures - blood, resp were sent. EKG - NSR with HR 120, no ST T wave changes. Placed in general medicine floor as observation COPD exacerbation She received a single dose of IV methylprednisone 125 mg, ceftriaxone 1 g in the ER. Placed on 60 mg IV methylprednisone twice a day and transitioned to oral prednisone 40mg X3 decreasing 10mg every 3days till 5mg and continue every other day idefinetely. Continue azithromycin 250mg every other day. Continue ceftin 250mg for a total of 7days. Backpain with osteoporosis She developed back pain after pushing a cart lately. she received tramadol, vicodin and tylenol. We will continue vicodin and add Tramadol. She was off steroids lately due to significant osteoporosis, however as she had exacerbation again - started on prednisone low dose along with calcium and vitamin D to supplement. She continues to have stiffness in AM despite these medications. Discontinue aspirin till dental procedure is done. History of hypertension Continued lisinopril 20 mg daily, amlodipine 10 mg daily History of GERD Continue omez 40 mg daily DVT prophylaxis Subcutaneous Lovenox CODE STATUS Full code Complications: None Allergies: Coded Allergies: Penicillins (RASH, HIVES 09/24/16) Significant Procedures: CXR on 2/8/18 IMPRESSION: Pulmonary emphysema. No acute findings are identified. Specifically, no evidence of pneumonia Pertinent Lab Results: as above Disposition Summary Disposition Principal Diagnosis: Acute COPD exacerbation Additional Diagnosis: Chronic back pain Right middle lobe 0.5cm nodule osteoporosis with previous multiple compression fractures hypertension hyperlipidemia chronic esophageal dysmotility/dysphagia HTN Discharge Disposition: SNF Discharge Instructions General Discharge Information Code Status: Full Code Patient's Diet: As tolerated Patient's Activity: as tolerated Follow-Up Instructions/Appts: Please follow up with in a week Please follow up with in a week Please continue prednisone 5mg every other day once taper completed Please continue azithromycin 250mg every other day Please stop taking aspirin till the dental procedure completed Medications at Discharge Discharge Medications: Stop taking the following medications: Cholecalciferol (Vitamin D3) (Vitamin D3) 1,000 UNIT CAPSULE ORAL DAILY Aspirin (Ecotrin*) 81 MG TABLET. ORAL DAILY Prednisone (Prednisone) 10 MG TABLET ORAL DAILY as needed for COPD Qty = 30 Continue taking these medications: Lisinopril (Prinivil) 20 MG TABLET 1 Tablet ORAL DAILY Comments: Last Taken: 08/08/17 Time: 1030 AM Fluticasone/Salmeterol (Advair 250-50 Diskus) 250 MCG-50 MCG/DOSE BLST.W.DEV 1 Puff Inhale through mouth TWICE DAILY Comments: NOT GIVEN IN HOSPITAL Albuterol Sulfate (Ventolin Hfa) 90 MCG HFA.AER.AD 2 Puff Inhale through mouth as needed for COPD Comments: NOT GIVEN AT HOSPITAL Albuterol Sulfate (Albuterol Sulfate) 2.5 MG/3 ML (0.083 %) VIAL.NEB 1 Vial Inhale Solution EVERY 4 HOURS NEEDED as needed for COPD Comments: Last Taken: 07/11/17 Time: 8:30 AM Atorvastatin Calcium (Atorvastatin Calcium) 20 MG TABLET 1 Tablet ORAL DAILY Qty = 90 Comments: Last Taken: 08/08/17 Time: 430 PM Vit C/E/Zn/Coppr/Lutein/Zeaxan (Preservision Areds 2 Softgel) 250-200-40 CAPSULE 1 Tablet ORAL DAILY Comments: NOT GIVEN AT HOSPITAL Ubidecarenone (Co Q-10) 200 MG CAPSULE 1 Capsule ORAL DAILY Comments: NOT GIVEN IN HOSPITAL Omeprazole (Omeprazole) 40 MG CAPSULE. 1 Capsule ORAL DAILY Qty = 30 Comments: Last Taken: 08/08/17 Time: 1030 AM Tiotropium [place] (Spiriva) 18 MCG CAP.W.DEV 1 Capsule Inhale through mouth DAILY Qty = 30 Comments: NOT GIVEN IN HOSPITAL Hydrocodone/Acetaminophen (Hydrocodon-Acetaminophen 5-325) 5 MG-325 MG TABLET 1 Tablet ORAL Q4H as needed for PAIN Comments: Last Taken: 08/08/17 Time: 430 PM Guaifenesin (Guaifenesin ER) 600 MG TAB.ER.12H 1 Tablet ORAL EVERY 12 HOURS as needed for CONGESTION Qty = 30 Instructions: . Comments: Last Taken: 08/08/17 Time: 1030 AM Amlodipine Besylate (Norvasc) 10 MG TABLET 1 Tablet ORAL DAILY Qty = 30 Instructions: . Comments: Last Taken: 08/08/17 Time: 1030 AM Azithromycin (Zithromax) 250 MG TABLET 1 Tablet ORAL QOD Qty = 30 Instructions: PLEASE START TAKING AFTER YOU FINISH THE CEFTIN PLEASE TAKE EVERY OTHER DAY. Comments: NOT GIVEN IN HOSPITAL Start taking the following new medications: Prednisone (Prednisone) 5 MG TAB.DS.PK 0 ORAL SEE INSTRUCTIONS Qty = 33 No Refills Instructions: PLEASE SEE INSTRUCTIONS FOR PREDNISONE 10MG TABLETS Please start taking once completed the taper Prednisone (Prednisone) 10 MG TABLET 1 Tablet ORAL SEE INSTRUCTIONS Qty = 32 No Refills Instructions: PLEASE TAKE 40 MG DAILY FOR 3 DAYS PLEASE TAKE 30 MG DAILY FOR 3 DAYS PLEASE TAKE 20MG DAILY FOR 3 DAYS PLEASE TAKE 10MG DAILY FOR 3 DAYS FOLLOW BY 5MG DAILY (SEPARATE PRESCRIPTION) FOR 3 DAYS AND THEN 5MG EVERY OTHER DAY THEREAFTER Calcium Carbonate/Vitamin D3 (Caltrate 600 + D Tablet) 600 MG-800 TABLET 1 Tablet ORAL DAILY Qty = 30 No Refills Sennosides (Senna) 8.6 MG TABLET 2 Tablet ORAL DAILY Qty = 60 No Refills Tramadol HCl (Tramadol HCl) 50 MG TABLET 1 Tablet ORAL 2 x Daily as needed as needed for pain Qty = 60 No Refills Copies To: Heather TROTTER,Jayy Abad; Maggy TROTTER,Kalia Combs Attending Review Statement Documenting Attending: Savage White MD, MD Review Statement Documenting Attending: Savage White MD
[2017-08-08] MEDS ORDERED: CALTRATE 600 +1 EACH PO (16:04)
[2017-08-08] MEDS ORDERED: PREDNISONE10 M2 PO (16:04)
[2017-08-08] MEDS ORDERED: SENNA8.6 M3 PO (16:04)
[2017-08-08] MEDS ORDERED: PREDNISONE5 M2 PO ×2 (16:04→16:06)
[2017-08-08] MEDS ORDERED: TRAMADOL HCL50 M1 PO (16:05)
[2017-08-08 17:12] VITALS: BP 130/61
== END 2017-08-08 17:25 ==
LOC: ERH 11:19 → ERHI 13:15 → 2NB 13:15 → ENRESERV 17:55 → ENTRNSPT 19:24 → 2NB 19:38 → CMPTRNSPT 19:56 → 2NB 08-08 17:25
PROVIDERS: Emergency Medicine; Internal Medicine; Student in an Organized Health Care Education/Training Program
DX: J44.1 Chronic obstructive pulmonary disease with (acute) exacerbation (principal); J96.21 Acute and chronic respiratory failure with hypoxia; J96.22 Acute and chronic respiratory failure with hypercapnia; Z79.51 Long term (current) use of inhaled steroids; Z79.52 Long term (current) use of systemic steroids; M81.0 Age-related osteoporosis without current pathological fracture; E78.5 Hyperlipidemia, unspecified; I34.1 Nonrheumatic mitral (valve) prolapse; I11.9 Hypertensive heart disease without heart failure; Z99.81 Dependence on supplemental oxygen; R91.1 Solitary pulmonary nodule; K21.9 Gastro-esophageal reflux disease without esophagitis; Z79.82 Long term (current) use of aspirin; H35.30 Unspecified macular degeneration; I25.2 Old myocardial infarction; K22.4 Dyskinesia of esophagus; K44.9 Diaphragmatic hernia without obstruction or gangrene
CPT/HCPCS: 1263; 1328; 1530; 1748; 36415; 71045; 82436; 87040; 87070; 87804; 87804-59; 93005; 93010; 96372; 96374; 96375; 96376; 97116-GP; 97161-GP; 97530-GP; G0378; G8978-GP; G8979-GP; G8980-GP; J0131; J0456; J0696; J1650; J2930; J7060

== ENCOUNTER → 2017-10-24 | Day surgery (SDC) | payer OTHER, MEDICARE ==
[~2017-10-24] VITALS: Ht 160 cm; Wt 49.9 kg
[~2017-10-24] MED LIST changes: +CALTRATE 600 +1 EACH PO; +PREDNISONE5 M2 PO; +SENNA8.6 M3 PO; +TRAMADOL HCL50 M1 PO; +VITAMIN D31000 UNI2 PO
--- NOTE | 2017-10-24 09:07 | Operative Report ---
Operative/Inv Procedure Report Surgery Date: 10/24/17 Name of Procedure: Cataract extraction with intraocular lens implantation left eye Pre-Operative Diagnosis: Age-related cataract left eye Post-Operative Diagnosis: Same Estimated Blood Loss: none Surgeon/Medical Surgical Tech: Roel TROTTER,Jad Thompson Anesthesia: local monitored anesthesi Complications: None Operative/Procedure Note Note: Preoperatively the patient was noted to have 20/50 vision in the left eye . The risks, benefits, and alternatives to surgery were discussed at length with the patient. Informed consent was obtained. The patient was brought to the operating room where the left eye was prepped and draped in the normal sterile fashion. A speculum was placed on the left eye with good exposure. A stab incision was made using a paracentesis blade. Intracameral lidocaine was placed. Viscoelastic was used to form the anterior chamber. A clear corneal incision was made using keratome blade. A continuous curvilinear capsulorrhexis was made using a cystotome needle followed by Utrata forceps. There was no extension of the rhexis. Hydrodissection was performed using balanced salt solution. The cataract was removed using a stop and chop technique. Residual cortex was removed using coaxial irrigation and aspiration. The capsule was polished using irrigation and aspiration and the posterior capsule was cleaned using a balanced salt solution jet. There was no residual lens material inside the eye. The capsular bag was reformed using viscoelastic. An intraocular lens [id number] of power 23.5 was verified and confirmed. It was loaded into an injector and injected into the eye. The lens was placed entirely within the capsular bag. Viscoelastic was evacuated using irrigation and aspiration. The wounds were stromally hydrated and the eye filled to physiologic pressure using balanced salt solution. Intracameral cefuroxime was placed. Speculum was removed and a shield was placed on the eye. The patient was brought to the recovery area without incident. Instructions were given to follow-up the next day for routine postoperative care.
== END ==
LOC: STS 10-17 07:00
DX: H25.9 Unspecified age-related cataract (principal); I10 Essential (primary) hypertension; I25.10 Atherosclerotic heart disease of native coronary artery without angina pectoris; I25.2 Old myocardial infarction; J44.9 Chronic obstructive pulmonary disease, unspecified; Z99.81 Dependence on supplemental oxygen; Z87.891 Personal history of nicotine dependence
CPT/HCPCS: 1263; J2250; V2632

== ENCOUNTER → 2017-11-07 | Day surgery (SDC) | payer OTHER, MEDICARE ==
[~2017-11-07] VITALS: Ht 160 cm; Wt 49.9 kg
--- NOTE | 2017-11-07 07:57 | Operative Report ---
Operative/Inv Procedure Report Surgery Date: 11/07/17 Name of Procedure: Cataract extraction with intraocular lens implantation right eye Pre-Operative Diagnosis: Age-related cataract right eye Post-Operative Diagnosis: Same Estimated Blood Loss: none Surgeon/Gear Hobber Set Up Operator: Roel TROTTER,Jad Thompson Anesthesia: local monitored anesthesi Complications: None Operative/Procedure Note Note: Preoperatively the patient was noted to have 20/30 vision in the right eye with a decrease with glare testing down to 20/50. The risks, benefits, and alternatives to surgery were discussed at length with the patient. Informed consent was obtained. The patient was brought to the operating room where the right eye was prepped and draped in the normal sterile fashion. A speculum was placed on the right eye with good exposure. A stab incision was made using a paracentesis blade. Intracameral lidocaine was placed. Viscoelastic was used to form the anterior chamber. A clear corneal incision was made using keratome blade. A continuous curvilinear capsulorrhexis was made using a cystotome needle followed by Utrata forceps. There was no extension of the rhexis. Hydrodissection was performed using balanced salt solution. The cataract was removed using a stop and chop technique. Residual cortex was removed using coaxial irrigation and aspiration. The capsule was polished using irrigation and aspiration and the posterior capsule was cleaned using a balanced salt solution jet. There was no residual lens material inside the eye. The capsular bag was reformed using viscoelastic. An intraocular lens SA60WF of power 22.5 was verified and confirmed. It was loaded into an injector and injected into the eye. The lens was placed entirely within the capsular bag. Viscoelastic was evacuated using irrigation and aspiration. The wounds were stromally hydrated and the eye filled to physiologic pressure using balanced salt solution. Intracameral cefuroxime was placed. Speculum was removed and a shield was placed on the eye. The patient was brought to the recovery area without incident. Instructions were given to follow-up the next day for routine postoperative care.
== END ==
LOC: STS 01:54
DX: H25.9 Unspecified age-related cataract (principal); I10 Essential (primary) hypertension; I25.10 Atherosclerotic heart disease of native coronary artery without angina pectoris; I25.2 Old myocardial infarction; J43.9 Emphysema, unspecified; Z99.81 Dependence on supplemental oxygen
CPT/HCPCS: J2250; V2632

== ENCOUNTER 2017-12-30 13:37 | Inpatient (IN) | payer OTHER, MEDICARE ==
[~2017-12-30] VITALS: Ht 160 cm; Wt 47.6 kg
[~2017-12-30 13:37] MED LIST changes: +LISINOPRIL40 M1 PO; -PRINIVIL20 M1 PO
--- NOTE | 2017-12-30 14:02 | ED DYSPNEA/ASTHMA COMPLAINT ---
History of Present Illness General Chief Complaint: Dyspnea (COPD, CHF, Other) Stated Complaint: SOB X2 DAYS Source: patient, old records Exam Limitations: no limitations Vital Signs & Intake/Output Vital Signs & Intake/Output Vital Signs Date Time Temp Pulse Resp B/P B/P Pulse O2 O2 Flow FiO2 Mean Ox Delivery Rate 12/30 1526 114 18 170/79 96 Nasal 2.0L Cannula 12/30 1522 116 18 196/86 93 Nasal 2.0L Cannula 12/30 1429 96 Nasal 2.0L Cannula 12/30 1425 97 Nasal 2.0L Cannula 12/30 1354 98.4 115 18 141/90 95 Nasal 2.0L Cannula Allergies Coded Allergies: Penicillins (RASH, HIVES 11/06/17) Reconcile Medications Albuterol Sulfate (Ventolin Hfa) 90 MCG HFA.AER.AD 2 PUF INH PRN COPD ( Reported) Albuterol Sulfate 2.5 MG/3 ML (0.083 %) VIAL.NEB 1 Vial INH/TORI PRN COPD ( Reported) Alendronate Sodium (Fosamax) 70 MG TABLET 1 TAB PO QW BONE (Reported) in the morning, at least 30 minutes before the first food, beverage, or medication of the day Aspirin (Ecotrin*) 81 MG TABLET.DR 1 TAB PO DAILY HEART/BLOOD (Reported) Atorvastatin Calcium 20 MG TABLET 1 TAB PO DAILY CHOLESTEROL (Reported) Azithromycin 250 MG TABLET 1 TAB PO Saturday ABX (Reported) 2 the first day followed by 1 for days 2-5 Cholecalciferol (Vitamin D3) 1,000 UNIT TABLET 1 TAB PO DAILY SUPPLEMENT ( Reported) Fluticasone/Salmeterol (Advair 250-50 Diskus) 250 MCG-50 MCG/DOSE BLST.W.DEV 1 PUF INH BID COPD (Reported) Hydrocodone/Acetaminophen (Hydrocodon-Acetaminophen 5-325) 5 MG-325 MG TABLET 1 TAB PO PRN PAIN (Reported) Lisinopril 40 MG TABLET 1 TAB PO DAILY HEART (Reported) Prednisone 10 MG TABLET 1 TAB PO PRN STEROID (Reported) Tiotropium [place] (Spiriva) 18 MCG CAP.W.DEV 1 CAP INH DAILY COPD (Reported) Ubidecarenone (Co Q-10) 200 MG CAPSULE 1 CAP PO DAILY SUPPLEMENT (Reported) Vit C/E/Zn/Coppr/Lutein/Zeaxan (Preservision Areds 2 Softgel) 250-200-40 CAPSULE 1 TAB PO BID SUPPLEMENT (Reported) Core Measure Meds Pre-Hospital aspirin Triage Note: TRIAGE: 72 Y/O FEMALE PRESENTS C/O SOB SINCE SATURDAY OF LAST WEEK. SOB THEN PROGRESSED TO A CHEST COLD - PRODUCTIVE COUGH - "LEMON-NATIVE SPUTUM". AFTER ONSET OF COLD-LIKE SYMPTOMS, SOB INCREASED. BASELINE OXYGEN: 2L. SPO2 93-95%. SPEAKING IN BROKEN SENTENCES. * HAS HER OWN OXYGEN CANISTER. EKG COMPLETED. Triage Nurses Notes Reviewed? yes Onset: 4 days Duration: day(s):, constant, continues in ED, getting worse Timing: recent history Severity: severe Activities at Onset: rest Prior Episodes/Possible Cause: illness exposure Modifying Factors: Improves With: rest. Worsens With: movement. Associated Symptoms: cough, loss of appetite, wheezing, weakness LMP (ages 10-50): post menopausal : No Patient currently breastfeeds: No HPI: 4 days prior to admission patient complains of productive cough increasing wheezing shortness of breath dyspnea on exertion chills anorexia. She has increased her chronic oxygen use from 1-2 L and uses it now continuously. She is taken 3 consecutive days of Zithromax and prednisone 30 mg 20 mg 10 mg. She denies chest pain headache nausea vomiting diarrhea abdominal pain dysuria rash bleeding. Past History Travel History Traveled to [place] past 21 day No Medical History Any Pertinent Medical History? see below for history Neurological: NONE EENT: cataracts, macular degeneration Cardiovascular: hypertension, myocardial infarction, UNSURE OF CHF? 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 Hx Contributory? No Review of Systems Review of Systems Constitutional: Reports: see HPI, chills, fever, malaise. EENTM: Reports: no symptoms. Respiratory: Reports: see HPI, cough, short of breath, sputum production, wheezing. Cardiovascular: Reports: no symptoms. GI: Reports: no symptoms. Genitourinary: Reports: no symptoms. Musculoskeletal: Reports: no symptoms. Skin: Reports: no symptoms. Neurological/Psychological: Reports: no symptoms. Hematologic/Endocrine: Reports: no symptoms. Immunologic/Allergic: Reports: no symptoms. All Other Systems: Reviewed and Negative Physical Exam Physical Exam General Appearance: well developed/nourished, alert, awake, anxious, moderate distress, thin Head: atraumatic, normal appearance Eyes: Bilateral: normal appearance, PERRL, EOMI. Ears, Nose, Throat: normal pharynx, normal ENT inspection Neck: normal inspection, supple, full range of motion, no midline tenderness Respiratory: chest non-tender, decreased breath sounds, wheezing Cardiovascular: regular rate/rhythm, normal peripheral pulses, tachycardia, norml femoral pulses equa Peripheral Pulses: 4+ carotid (R), 4+ carotid (L) Gastrointestinal: normal bowel sounds, soft, non-tender, no organomegaly Extremities: normal inspection, normal capillary refill, normal range of motion, no edema Neurologic/Psych: no motor/sensory deficits, awake, alert, oriented x 3, normal gait, normal mood/affect, outsole beveler II-XII nml as tested Skin: intact, normal color, warm/dry Lymphatic: no anterior cervical kurtis Core Measures ACS in differential dx? No CVA/TIA Diagnosis No Sepsis Present: No Sepsis Focused Exam Completed? No Progress Differential Diagnosis: asthma, bronchitis, CHF, COPD, pneumonia Plan of Care: Orders Procedure Date/time Status Regular Diet 12/30 D Active Patient Data 12/30 1510 Active OXYGEN SETUP (GEN) 12/30 1500 Active Saline Lock 12/30 1500 Active Admit to inpatient 12/30 1500 Active Vital Signs 12/30 1500 Active Activity/Ambulation 12/30 1500 Active Code Status 12/30 1500 Active BLOOD CULTURE 12/30 1401 Active TROPONIN LEVEL 12/30 1401 Complete MAGNESIUM 12/30 1401 Complete COMPREHENSIVE METABOLIC PANEL 12/30 1401 Complete CBC WITHOUT DIFFERENTIAL 12/30 1401 Complete Intake & Output 12/30 1343 Active EKG 12/30 1339 Active Laboratory Tests 12/30/17 1429: Anion Gap 10, Estimated GFR > 60, BUN/Creatinine Ratio 24.0, Glucose 132 H, Calcium 9.4, Magnesium 1.8, Total Bilirubin 0.3, AST 18, ALT 26, Alkaline Phosphatase 93, Troponin I < 0.01, Total Protein 6.2 L, Albumin 3.6, Globulin 2.6, Albumin/Globulin Ratio 1.4, CBC w Diff NO MAN DIFF REQ, RBC 4.09 L, MCV 88.4, MCH 30.2, MCHC 34.1, RDW 13.5, MPV 7.5, Gran % 96.0 H, Lymphocytes % 3.1 L, Monocytes % 0.9 L, Eosinophils % 0, Basophils % 0, Absolute Granulocytes 11.0 H, Absolute Lymphocytes 0.4 L, Absolute Monocytes 0.1, Absolute Eosinophils 0, Absolute Basophils 0 Microbiology 12/30 1446 BLOOD: Blood Culture - RECD 12/30 1429 BLOOD: Blood Culture - RECD Diagnostic Imaging: Viewed by Me: Radiology Read. Discussed w/RAD: Radiology Read. CXR Impression: 1. Obstructive lung disease. 2. Bibasilar reticular opacities noted, most consistent with atelectasis. If patient's symptoms do not improve, repeat radiograph is recommended to exclude an evolving pneumonia. Initial ED EKG: normal axis, normal intervals, normal p-waves, normal QRS complex, rhythm (sinus tachycardia), no ST T wave changes Prior EKG: unchanged Rhythm Strip: sinus tachycardia Departure Departure Disposition: STILL A PATIENT Condition: Stable Clinical Impression Primary Impression: Respiratory failure Secondary Impressions: Bronchitis, Decompensated COPD with exacerbation (chronic obstructive pulmonary disease ) Referrals: Kalia Winter MD (PCP/Family) Departure Forms: Customer Survey General Discharge Information Admission Note Spoke With: Kalia Winter MD Documentation of Exam: Documentation of any treatments & extenuating circumstances including Concerns Regarding Discharge (functional status, medication knowledge or non-compliance, living conditions, etc.) that warrant an admission rather than observation: Supplemental oxygen serial beta agonist nebs IV steroids IV antibiotics pulmonary evaluation follow cultures medication adjustment continuing care discharge planning Critical Care Note Critical Care Note Critical Care Time: 30-74 min
[2017-12-30 14:36] LABS: ABSOLUTE BASOPHIL COUNT 0 /CUMM (0.0-0.2); ABSOLUTE EOSINOPHIL COUNT 0 /CUMM (0.0-0.7); ABSOLUTE LYMPH COUNT 0.4 /CUMM (1.2-3.4); ABSOLUTE MONOCYTE COUNT 0.1 /CUMM (0.10-0.60); BASOPHIL % 0 % (0.0-2.0); EOSINOPHIL % 0 % (0-5); HEMATOCRIT 36.2 % (37-47); MEAN CORPUSCULAR HGB 30.2 PG (27.0-31.0); MEAN CORPUSCULAR HGB CONC 34.1 G/DL (33.0-37.0); MEAN CORPUSCULAR VOLUME 88.4 FL (81.0-99.0); MEAN PLATELET VOLUME 7.5 FL (7.4-10.4); PLATELET COUNT 326 /CUMM (130-400); RBC DISTRIBUTION WIDTH 13.5 % (11.5-14.5); RED BLOOD CELL CT 4.09 /CUMM (4.20-5.40); WHITE BLOOD CELL COUNT 11.5 /CUMM (4.8-10.8)
--- NOTE | 2017-12-30 14:58 | RADIOLOGY REPORT ---
EXAMINATION: CR PORTABLE CHEST CLINICAL INFORMATION: Productive cough. Shortness of breath. Presumptive diagnosis of pneumonia. COMPARISON: Several prior chest x-rays, most recent of which is dated 08/05/2017. TECHNIQUE: Portable AP semierect view of the chest was obtained. FINDINGS: EKG leads overlie the chest. The cardiomediastinal silhouette is within normal limits in size. Calcification of the aortic arch is seen. Again seen are changes of obstructive lung disease with biapical, left greater than right pleural-parenchymal scarring and diffuse mild thickening of the small airways seen. Mild bibasilar linear opacities are seen, likely representing atelectasis. No significant effusion or pneumothorax is seen. Osteopenia is seen. IMPRESSION: 1. Obstructive lung disease. 2. Bibasilar reticular opacities noted, most consistent with atelectasis. If patient's symptoms do not improve, repeat radiograph is recommended to exclude an evolving pneumonia.
[2017-12-30] MEDS ORDERED: FOSAMAX70 M1 PO (15:02)
--- NOTE | 2017-12-30 15:10 | History & Physical ---
Angelito Castro 12/30/17 1510: General Information and HPI MD Statement: I have seen and personally examined DEEPALI GUIDO and documented this H&P. The patient is a 72 year old F who presented with a patient stated chief complaint of shortness of breath Source of Information: patient, old records Exam Limitations: no limitations History of Present Illness: 71 year old woman from home, former smoker, pmh significant for severe COPD ( bullous emphysema), previously on chronic prednisone 10mg daily, Right middle lobe 0.5cm nodule, osteoporosis with previous multiple compression fractures, HTN, HLD, chronic esophageal dysmotility/dysphagia, HTN, presented to ED with worsening shortness of breath. She was at her baseline about one week ago which was just on 1LNC at night and independant with IADLs until about a week ago,she endorses some nasal congestion associated with minimal yellowish/greenish sputum production. She reports a recent trip to [place]. She flew there and drove back 10 hrs. Denies fevers, chills, palpitations, chest pain, bowel/bladder symptoms. Allergies/Medications Allergies: Coded Allergies: Penicillins (RASH, HIVES 11/06/17) Home Med list Albuterol Sulfate (Ventolin Hfa) 90 MCG HFA.AER.AD 2 PUF INH PRN COPD ( Reported) Albuterol Sulfate 2.5 MG/3 ML (0.083 %) VIAL.NEB 1 Vial INH/TORI PRN COPD ( Reported) Alendronate Sodium (Fosamax) 70 MG TABLET 1 TAB PO QW BONE (Reported) in the morning, at least 30 minutes before the first food, beverage, or medication of the day Aspirin (Ecotrin*) 81 MG TABLET.DR 1 TAB PO DAILY HEART/BLOOD (Reported) Atorvastatin Calcium 20 MG TABLET 1 TAB PO DAILY CHOLESTEROL (Reported) Azithromycin 250 MG TABLET 1 TAB PO Saturday ABX (Reported) 2 the first day followed by 1 for days 2-5 Cholecalciferol (Vitamin D3) 1,000 UNIT TABLET 1 TAB PO DAILY SUPPLEMENT ( Reported) Fluticasone/Salmeterol (Advair 250-50 Diskus) 250 MCG-50 MCG/DOSE BLST.W.DEV 1 PUF INH BID COPD (Reported) Hydrocodone/Acetaminophen (Hydrocodon-Acetaminophen 5-325) 5 MG-325 MG TABLET 1 TAB PO PRN PAIN (Reported) Lisinopril 40 MG TABLET 1 TAB PO DAILY HEART (Reported) Prednisone 10 MG TABLET 1 TAB PO PRN STEROID (Reported) Tiotropium [place] (Spiriva) 18 MCG CAP.W.DEV 1 CAP INH DAILY COPD (Reported) Ubidecarenone (Co Q-10) 200 MG CAPSULE 1 CAP PO DAILY SUPPLEMENT (Reported) Vit C/E/Zn/Coppr/Lutein/Zeaxan (Preservision Areds 2 Softgel) 250-200-40 CAPSULE 1 TAB PO BID SUPPLEMENT (Reported) Compliance With Home Meds: GOOD Past History Travel History Traveled to [place] past 21 day No Medical History Neurological: NONE EENT: cataracts, macular degeneration Cardiovascular: hypertension, myocardial infarction, UNSURE OF CHF? Respiratory: COPD, emphysema, oxygen at night Gastrointestinal: GERD Hepatic: NONE Renal: NONE Musculoskeletal: osteoporosis Psychiatric: NONE Endocrine: NONE Blood Disorders: NONE Cancer(s): NONE BRIDGE PAINTER/Reproductive: NONE History of MRSA: No History of VRE: No History of CDIFF: No Influenza Vaccine: 04/02/17 Surgical History Surgical History: appendectomy, tubal ligation, TONSILLECTOMY JAW SURGERY Past Family/Social History Family History Relations & Conditions if any SISTER CABG Relation not specified for: Stroke or transient ischemic attack in brother Stroke or transient ischemic attack in father Psychosocial History Who Do You Live With? self Services at Home: None Primary Language: Malay ETOH Use: denies use Illicit Drug Use: denies illicit drug use Living Will? no Functional Ability ADLs Independent: dressing, eating, toileting, bathing. Ambulation: independent IADLs Independent: shopping, housework, finances, food prep, telephone, transportation , medication admin. Review of Systems Review of Systems Constitutional: Reports: see HPI. Exam & Diagnostic Data Last 24 Hrs of Vital Signs/I&O Vital Signs Date Time Temp Pulse Resp B/P B/P Pulse O2 O2 Flow FiO2 Mean Ox Delivery Rate 12/30 1853 92 Nasal 2.0L Cannula 12/30 185 98.7 112 20 160/80 92 Nasal 2.0L Cannula 12/30 1716 107 18 168/77 99 Nasal 2.0L Cannula 12/30 1526 114 18 170/79 96 Nasal 2.0L Cannula 12/30 1522 116 18 196/86 93 Nasal 2.0L Cannula 12/30 1429 96 Nasal 2.0L Cannula 12/30 1425 97 Nasal 2.0L Cannula 12/30 1354 98.4 115 18 141/90 95 Nasal 2.0L Cannula Intake & Output 12/30 1600 12/30 0800 12/30 0000 Intake Total Output Total Balance Patient 105 lb Weight Weight Reported by Patient Measurement Method Physical Exam General Appearance Alert, Oriented X3, Cooperative, No Acute Distress HEENT Atraumatic, PERRLA, dry mucus membranes Neck No JVD Lymphatic Cervical nl Cardiovascular Normal S1, Normal S2 Lungs b/l exp rhonchi and scattered wheezes with b/l decreased breath sounds. Abdomen Normal Bowel Sounds, Soft, No Tenderness Extremities No Edema Diagnostic Data EKG Results sinus tachy CXR Results IMPRESSION: 1. Obstructive lung disease. 2. Bibasilar reticular opacities noted, most consistent with atelectasis. If patient's symptoms do not improve, repeat radiograph is recommended to exclude an evolving pneumonia. Other Results SERVICE DATE: 12/30/17 EXAM TYPE: CAT - CTA CHEST-PULMONARY EMBOLISM FINDINGS: QUALITY OF STUDY/CONTRAST BOLUS: Satisfactory PULMONARY ARTERIES: No central or segmental pulmonary emboli. THORACIC AORTA: No aneurysm or dissection. LUNG: There is diffuse emphysematous changes of both lungs without consolidation, mass or atelectasis. There are no pulmonary nodules visualized. There is bullous disease throughout both lungs. PLEURA: No pleural effusion or pneumothorax. MEDIASTINUM: Normal heart size. No pericardial effusion. No hilar or mediastinal lymphadenopathy. No evidence of septal bowing or right heart strain. CHEST WALL/AXILLA: No axillary or internal mammary lymphadenopathy. OSSEOUS STRUCTURES: There are old compression fractures with kyphoplasty T5, T6, T7 vertebra. There are new compression fractures T9 and T10 vertebra. There are compression deformities T7 and T8 vertebra which are likely old. There are degenerative disc changes with vacuum disc phenomena T12-T9, T9-T10 and T10-T11 disc levels. UPPER ABDOMEN: Unremarkable. No reflux of contrast into the hepatic veins to suggest elevated right heart pressures. IMPRESSION: No evidence of PE. No evidence of aortic dissection or aneurysm. Diffuse emphysema with significant bullous disease. No acute pneumonic consolidation, mass upper nodule. No abnormal mediastinal adenopathy seen. New compression fractures T9 and T10 vertebra. Old compression fractures T4, T5 and T6 vertebra with kyphoplasty. There are old compression deformities T7 and T8 vertebra. Degenerative disc changes as discussed above. VTE: negative Assessment/Plan Assessment: 71 year old woman from home, former smoker, pmh significant for severe COPD ( bullous emphysema), on azithro 250mg MWF previously on chronic prednisone 10mg daily, Right middle lobe 0.5cm nodule, osteoporosis with previous multiple compression fractures, HTN, HLD, chronic esophageal dysmotility/dysphagia, HTN, presented to ED with worsening shortness of breath. CTA ruled out PE. assessment and plan acute hypoxice respiratory failure secondary 2/2 acute on chronic COPD exacerbation 2/2 acute bronchitis admit to Gen med, vital per protcol TRC/Neb continue supplemental oxygen given 125mg solumedrol in ED will continue with 60mg bid start IV azithro f/up blood/sputum/strep/legional antigen Pulm consult in am HTN/HLD Continue Lisinopril, ASA and statin. Dr. Hidalgo is her network mgr and her norvasc was dc due to LE swelling and her lisinopril was increased to 40mg about a month ago Osteoporosis on fosamax q weekly (non compliant at home) her chronic prednisone was d/c 2 months ago due to her severe osteoporosis dvt sc lovenox full code As Ranked By This Provider Problem List: 1. Hypertension 2. Chronic obstructive pulmonary disease 3. Respiratory failure Core Measures/Misc (03/17) Acute Coronary Syndrome ACS Diagnosis: No Congestive Heart Failure Congestive Heart Failure Diagnosis No Cerebrovascular Accident CVA/TIA Diagnosis: No VTE (View Protocol) VTE Risk Factors Age>40 No Mechanical VTE Prophylaxis d/t N/A MechProphylax Ordered No VTE Pharm Prophylaxis d/t NA PharmProphylax ordered Sepsis (View protocol) Sepsis Present: No If YES complete Sepsis Event Note If YES complete Sepsis Event Note Kalia Winter MD 12/31/17 1352: Core Measures/Misc (03/17) Sepsis (View protocol) If YES complete Sepsis Event Note If YES complete Sepsis Event Note Attending MD Review Statement Attending Statement Attending MD Statement: examined this patient, discuss w/resident/PA/COMMERCIAL ANNOUNCER, agreed w/resident/PA/COMMERCIAL ANNOUNCER, reviewed EMR data (avail), reviewed images, amended to note Attending Assessment/Plan: Mrs. Guido was interviewed and examined while in the ED. Her EMR was reviewed and the case discussed with her admitting resident. Problems: -Acute hypoxemic respiratory failure on chronic respiratory failure -Acute on chronic obstructive bronchitis -Oxygen and steroid-dependent COPD -Hypertension -Dyslipidemia -GERD -Osteoporosis with multiple thoracic spine compression fractures -Chronic pain secondary to above Plan: -Patient will be admitted to the general medical service. -Sputum and blood cultures will be obtained -TRC consult supplemental oxygen and nebulizer treatments -Guaifenesin -Intravenous azithromycin -Continue her maintenance antihypertensive -Continue her statin -Continue her H2 gilbert -Continue Fosamax -Analgesia as indicated
[2017-12-30 18:54] VITALS: BP 160/80
--- NOTE | 2017-12-30 19:52 | CT SCAN REPORT ---
EXAMINATION: CT ANGIOGRAM OF THE CHEST WITH AND WITHOUT CONTRAST (CT PULMONARY ANGIOGRAM FOR PE) CLINICAL INFORMATION: Reason for Study:
Presumptive Dx: PE
Signs Symptoms: SHORTNESS OF BREATH
COMPARISON: None TECHNIQUE: Prior to contrast administration, noncontrast localization images were obtained. Subsequently, multidetector volumetric imaging was performed from the thoracic inlet to below the diaphragms following the administration of 80 mL Omnipaque 350 intravenous contrast. No contrast reaction reported. Sagittal, coronal, and MIP oblique sagittal reformatted images were obtained on the CT workstation, uploaded to PACS, and reviewed. Total exam dose-length product 243 mGy-cm. FINDINGS: QUALITY OF STUDY/CONTRAST BOLUS: Satisfactory PULMONARY ARTERIES: No central or segmental pulmonary emboli. THORACIC AORTA: No aneurysm or dissection. LUNG: There is diffuse emphysematous changes of both lungs without consolidation, mass or atelectasis. There are no pulmonary nodules visualized. There is bullous disease throughout both lungs. PLEURA: No pleural effusion or pneumothorax. MEDIASTINUM: Normal heart size. No pericardial effusion. No hilar or mediastinal lymphadenopathy. No evidence of septal bowing or right heart strain. CHEST WALL/AXILLA: No axillary or internal mammary lymphadenopathy. OSSEOUS STRUCTURES: There are old compression fractures with kyphoplasty T5, T6, T7 vertebra. There are new compression fractures T9 and T10 vertebra. There are compression deformities T7 and T8 vertebra which are likely old. There are degenerative disc changes with vacuum disc phenomena T12-T9, T9-T10 and T10-T11 disc levels. UPPER ABDOMEN: Unremarkable. No reflux of contrast into the hepatic veins to suggest elevated right heart pressures. IMPRESSION: No evidence of PE. No evidence of aortic dissection or aneurysm. Diffuse emphysema with significant bullous disease. No acute pneumonic consolidation, mass upper nodule. No abnormal mediastinal adenopathy seen. New compression fractures T9 and T10 vertebra. Old compression fractures T4, T5 and T6 vertebra with kyphoplasty. There are old compression deformities T7 and T8 vertebra. Degenerative disc changes as discussed above. VTE: negative
[2017-12-30 22:06] VITALS: BP 172/82
[2017-12-30 23:46] VITALS: BP 130/64
[2017-12-31 06:49] VITALS: BP 140/80
--- NOTE | 2017-12-31 08:23 | PN- Housestaff ---
Subjective Follow-up For: COPD exacerbation Subjective: No acute events overnight. Patient states that her breathing is better. Patient states that she still has some trouble breathing. Patient states that she has not taken a nebulizer as she she prefers an inhaler. Patient states that she has been coughing however it has been productive. Patient denies paroxysms of coughing. Patient denies any fevers or chills. Patient denies any chest pain or palpitations. Patient denies any abdominal pain. Patient states that she is tolerating her diet well. Patient states that she is drinking fluids. Patient was instructed on use of incentive spirometry. Denies any bowel or urinary complaints. Review of Systems Constitutional: Reports: see HPI. Objective Last 24 Hrs of Vital Signs/I&O Vital Signs Date Time Temp Pulse Resp B/P B/P Pulse O2 O2 Flow FiO2 Mean Ox Delivery Rate 12/31 1424 98.1 92 20 152/75 94 Nasal Cannula 12/31 1123 95 Nasal 2.0L Cannula 12/31 0800 Nasal 2.0L Cannula 12/31 0649 97.8 94 18 140/80 97 Room Air 12/31 0000 97 Nasal 2.0L Cannula 12/30 2346 98.5 92 16 130/64 97 Nasal Cannula 12/30 2206 98.1 118 18 172/82 95 12/30 2010 Nasal 2.0L Cannula 12/30 1854 92 Nasal 2.0L Cannula 12/30 1854 98.7 112 20 160/80 92 Nasal 2.0L Cannula 12/30 1716 107 18 168/77 99 Nasal 2.0L Cannula Intake & Output 12/31 1600 03 0800 0703 0000 Intake Total 700 100 670 Output Total 200 300 Balance 500 100 370 Intake, IV 200 170 Intake, Oral 500 100 500 Number 0 0 Bowel Movements Output, Urine 200 300 Patient 105 lb Weight Weight Reported by Patient Measurement Method Physical Exam General Appearance: Alert, Oriented X3, Cooperative Skin: No Breakdown HEENT: Mucous Membr. moist/pink Cardiovascular: Regular Rate, Normal S1, Normal S2 Lungs: diminished b/l, wheezes b/l upper lobes Abdomen: Soft, No Tenderness Neurological: Sensation Intact Extremities: No Edema Assessment/Plan Assessment: This is a 72-year-old female PMH COPD, RML nodule, Osteoporosis, HTN, HLD, Esophageal dysmotility being treated for a COPD exacerbation, improved from yesterday. #COPD Exacerbation -C/W Azithromycin -Inhaler PRN -Supportive Oxygen -IV Steroid taper -f.u respiratory cultures -f.u CBC -TRC -CTA neg #HTN -C/w Home meds DVT PPx Full Code Dispo Problem List: 1. Chronic obstructive pulmonary disease Pain Ratin Pain Location: n a Pain Goal: Remain pain free Pain Plan: PRN Tomorrow's Labs & Rationales: na
[2017-12-31 09:34] LABS: ABSOLUTE BASOPHIL COUNT 0 /CUMM (0.0-0.2); ABSOLUTE EOSINOPHIL COUNT 0 /CUMM (0.0-0.7); ABSOLUTE GRANULOCYTE CT 11.4 /CUMM (1.4-6.5); ABSOLUTE LYMPH COUNT 0.8 /CUMM (1.2-3.4); ABSOLUTE MONOCYTE COUNT 0.5 /CUMM (0.10-0.60); BASOPHIL % 0.1 % (0.0-2.0); EOSINOPHIL % 0 % (0-5); GRANULOCYTE % 89.9 % (42.2-75.2); HEMATOCRIT 35.5 % (37-47); MEAN CORPUSCULAR HGB 29.9 PG (27.0-31.0); MEAN CORPUSCULAR VOLUME 90.5 FL (81.0-99.0); MEAN PLATELET VOLUME 8.1 FL (7.4-10.4); PLATELET COUNT 297 /CUMM (130-400); RBC DISTRIBUTION WIDTH 13.9 % (11.5-14.5); RED BLOOD CELL CT 3.93 /CUMM (4.20-5.40)
[2017-12-31 10:23] LABS: WHITE BLOOD CELL COUNT 12.7 /CUMM (4.8-10.8)
--- NOTE | 2017-12-31 13:38 | Admission Certification ---
Admission Certification Certification Statement - As attending physician, I certify that at the time of - admission, based on clinical presentation, severity of - symptoms, need for further diagnostic testing and - therapeutic interventions, and risk of adverse outcomes - without in-hospital treatment, in my clinical assessment, - this patient requires an acute hospital stay for a minimum - of two nights or longer. I have also considered psychsocial - factors such as support system, advanced age, financial - issues, cognitive issues, and failed out-patient treatments, - past re-admission history, safety of patient, and lack of - compliance as applicable. Specific rationale supporting this admission is: Treatment for acute on chronic respiratory failure secondary to an exacerbation of her chronic bronchitis.
--- NOTE | 2017-12-31 14:03 | PN- Att Addend ---
Attending Addendum Attending Brief Note Mrs. Kelley was interviewed and examined today. Her EMR was reviewed. She notes her breathing is improving. She has remained afebrile. Tachycardia noted yesterday has resolved and she now has a heart rate in the 90s. Respiratory rate is in the 18-20 range. Systolic hypertension noticed yesterday has improved with her pressure of 130-140. She is saturating in the mid 90s on 2 L via nasal cannula. She is in no acute distress. Pulmonary exam reveals decreased breath sounds with reasonable air exchange. There were no rales or rhonchi appreciated. Heart exam reveals a regular rate and rhythm. Her abdomen is benign. Her extremities are without edema. WBC 12,700 today which is increased from 11,500 upon admission. H&H is stable as is her platelet count. Chemistries and renal function are satisfactory and essentially unchanged from yesterday. Legionella and strep antigens are negative. Blood cultures are also negative. CTA showed no consolidation or evidence of pulmonary thromboemboli. We are continuing to treat her exacerbation of COPD with intravenous azithromycin. We are continuing supportive oxygen. We have started mucolytic's and are giving her nebulizer treatments. We will decrease her intravenous steroids by 20 mg per dose starting tomorrow. We are continuing her other home maintenance medications.
[2017-12-31 14:24] VITALS: BP 152/75
[2017-12-31 22:34] VITALS: BP 158/78
[2018-01-01 06:20] VITALS: BP 132/70
--- NOTE | 2018-01-01 10:12 | PN- Housestaff ---
Subjective Follow-up For: COPD exacerbation Subjective: No acute events overnight. Patient states that her breathing is better. Patient states that she still has some trouble breathing. Patient states she only took her inhaler once yesterday has not taken overnight. Denies paroxysms of coughing. States she would like to try 1 L of oxygen as opposed to 2 L today. Patient denies any fevers or chills. Patient denies any chest pain or palpitations. Patient denies any abdominal pain. Patient states that she is tolerating her diet well. Patient is using incentive spirometry as instructed. Denies other complaints. Review of Systems Constitutional: Reports: see HPI. Objective Last 24 Hrs of Vital Signs/I&O Vital Signs Date Time Temp Pulse Resp B/P B/P Pulse O2 O2 Flow FiO2 Mean Ox Delivery Rate 01/01 06 98.4 83 20 132/70 98 Nasal Cannula 01/01 0000 96 Nasal 2.0L Cannula 12/31 2234 98.1 81 22 158/78 96 12/31 2020 95 Nasal 2.0L Cannula 12/31 1600 92 Nasal 2.0L Cannula 12/31 1424 98.1 92 20 152/75 94 Nasal Cannula 12/31 1123 95 Nasal 2.0L Cannula Intake & Output 01/01 1600 / 0800 01/01 0000 Intake Total 180 250 Output Total 650 500 Balance -470 -250 Intake, IV 10 Intake, Oral 180 240 Output, Urine 650 500 Patient 105 lb Weight Physical Exam General Appearance: Alert, Oriented X3, Cooperative, No Acute Distress Skin: No Breakdown Skin Temp/Moisture Exam: Warm/Dry Cardiovascular: Regular Rate, Normal S1, Normal S2, No Murmurs Lungs: WHEEZE RUL, diminished globally Abdomen: Soft, No Tenderness Extremities: No Edema Current Medications: Current Medications Sig/Keith Start time Last Medication Dose Route Stop Time Status Admin Albuterol Sulfate 2 PUF Q4 HRS NEEDED PRN 12/31 1944 AC 01/01 INH 07 Albuterol Sulfate 2 PUF Q4P PRN 12/30 2014 DC 12/31 INH 193 Albuterol Sulfate 2.5 ML EVERY 4 HRS/AWAKE 12/31 1999 AC INH Alendronate Sodium 70 MG We@0700 01/01 07 AC 01/01 PO 0604 Aspirin Buffered 81 MG DAILY 12/31 09 AC 01/01 PO 09 Atorvastatin Calcium 20 MG 1700 12/31 1700 AC 12/31 PO 1655 Azithromycin 500 MG DAILY 12/30 1845 AC 01/01 Sodium Chloride 250 ML IV 0932 Cholecalciferol 1,000 IU DAILY 12/31 0900 AC 01/01 PO 0926 Enoxaparin Sodium 40 MG DAILY 12/31 0900 AC SC Famotidine 20 MG DAILY 12/31 1406 AC 01/01 PO 0926 Guaifenesin 600 MG Q12 12/30 2100 AC 01/01 PO 0927 Hydrocodone Bitart/ 1 TAB Q12P PRN 12/30 1830 AC Acetaminophen PO Lisinopril 40 MG DAILY 12/31 0900 AC 01/01 PO 0926 Methylprednisolone 40 MG Q12 01/01 0900 AC 01/01 IV 0932 Methylprednisolone 60 MG Q12 12/31 0900 DC 12/31 IV 01/01 0100 1954 Assessment/Plan Assessment: This is a 72-year-old female PMH COPD, RML nodule, Osteoporosis, HTN, HLD, Esophageal dysmotility being treated for COPD exacerbation, improved from admission. #COPD Exacerbation -C/W Azithromycin -Inhaler PRNpatient prefers over nebulizer. -Supportive Oxygenconsider switching from 2 L to 1 L at rest monitoring oxygen saturation and respiratory compromise. Home dose is 1 L at night only. -IV Steroid taperswitch from 60 mg IVq12 -> 40 mg IVq12 -f.u respiratory cultures -Legionella and strep pneumo antigens negative. Blood cultures with no growth currently. -TRC -CTA neg #HTN -C/w Home meds DVT PPx Full Code Dispo Problem List: 1. Chronic obstructive pulmonary disease Pain Ratin Pain Location: na Pain Goal: Remain pain free Pain Plan: prn Tomorrow's Labs & Rationales: .
[2018-01-01 15:29] VITALS: BP 160/70
--- NOTE | 2018-01-01 15:56 | PN- Att Addend ---
Attending Addendum Attending Brief Note Covering attending note: Patient is feeling better today less short of breath, states still with minimal exertion and shortness of breath but much less than before. Vital signs are stable no fever. Still wearing the oxygen oxygen requirements were dropped to 1 L decreased breath sounds but no wheezes, no edema patient is slowly improving, still on IV steroids. Dr. Winter will be back tomorrow to resume care of the patient. Intake & Output 01/01 1600 01/01 0400 12/31 1600 12/31 0400 12/30 1600 12/30 0400 Intake Total 1380 250 800 670 Output Total 650 500 200 300 Balance 730 -250 600 370 Intake, IV 10 200 170 Intake, Oral 1380 240 600 500 Number 0 0 Bowel Movements Output, Urine 650 500 200 300 Patient 105 lb 105 lb 105 lb Weight Weight Reported by Patient Reported by Patient Measurement Method Current Medications Sig/Keith Start time Last Medication Dose Route Stop Time Status Admin Albuterol Sulfate 2 PUF Q4 HRS NEEDED PRN 12/31 194 AC 01/01 INH 1151 Albuterol Sulfate 2 PUF Q4P PRN 12/30 2014 DC 12/31 INH 1934 Albuterol Sulfate 2.5 ML EVERY 4 HRS/AWAKE 12/31 1999 AC INH Alendronate Sodium 70 MG We@0700 01/01 0700 AC 01/01 PO 0604 Aspirin Buffered 81 MG DAILY 12/31 0900 AC 01/01 PO 0927 Atorvastatin Calcium 20 MG 1700 / 1700 AC 12/31 PO 1655 Azithromycin 500 MG DAILY 12/30 1845 AC 01/01 Sodium Chloride 250 ML IV 0932 Cholecalciferol 1,000 IU DAILY 12/31 09 AC 01/01 PO 0926 Enoxaparin Sodium 40 MG DAILY 12/31 0900 AC SC Famotidine 20 MG DAILY 12/31 1406 AC 01/01 PO 0926 Guaifenesin 600 MG Q12 12/30 2100 AC 01/01 PO 0927 Hydrocodone Bitart/ 1 TAB Q12P PRN 12/30 1830 AC Acetaminophen PO Lisinopril 40 MG DAILY 12/31 0900 AC 01/01 PO 0926 Methylprednisolone 40 MG Q12 01/01 0900 AC 01/01 IV 0932 Methylprednisolone 60 MG Q12 12/31 0900 DC 12/31 IV 01/01 0100 1954 Laboratory Tests 12/31/17 0625: Anion Gap 11, Estimated GFR > 60, BUN/Creatinine Ratio 22.0, CBC w Diff NO MAN DIFF REQ, RBC 3.93 L, MCV 90.5, MCH 29.9, MCHC 33.0, RDW 13.9, MPV 8.1, Gran % 89.9 H, Lymphocytes % 6.2 L, Monocytes % 3.8, Eosinophils % 0, Basophils % 0.1 , Absolute Granulocytes 11.4 H, Absolute Lymphocytes 0.8 L, Absolute Monocytes 0.5, Absolute Eosinophils 0, Absolute Basophils 0 12/30/17 194: pH 7.40, pCO2 44, pO2 72 L, HCO3 27, ABG O2 Sat (Measured) 94.0 L, P-50 (Temp Corrected) N, Carboxyhemoglobin 0.3 L, O2 Concentration % 2L, Temperature 98.4, O2 Delivery Method NC, Phlebotomy Draw Site RIGHT RADIAL 12/30/17 1429: Anion Gap 10, Estimated GFR > 60, BUN/Creatinine Ratio 24.0, Glucose 132 H, Calcium 9.4, Magnesium 1.8, Total Bilirubin 0.3, AST 18, ALT 26, Alkaline Phosphatase 93, Troponin I < 0.01, Total Protein 6.2 L, Albumin 3.6, Globulin 2.6, Albumin/Globulin Ratio 1.4, CBC w Diff NO MAN DIFF REQ, RBC 4.09 L, MCV 88.4, MCH 30.2, MCHC 34.1, RDW 13.5, MPV 7.5, Gran % 96.0 H, Lymphocytes % 3.1 L, Monocytes % 0.9 L, Eosinophils % 0, Basophils % 0, Absolute Granulocytes 11.0 H, Absolute Lymphocytes 0.4 L, Absolute Monocytes 0.1, Absolute Eosinophils 0, Absolute Basophils 0 Microbiology 12/31 699 URINE ROUT: Legionella Antigen - COMP 12/31 699 URINE ROUT: Streptococcus pneumoniae Antigen (M - COMP 12/30 1830 LOWER RESP: Respiratory Culture - CAN Cancelled: SPECIMEN NOT RECEIVED IN LABORATORY 12/30 1830 LOWER RESP: Gram Stain - CAN Cancelled: SPECIMEN NOT RECEIVED IN LABORATORY 12/30 1446 BLOOD: Blood Culture - RES 12/30 1429 BLOOD: Blood Culture - RES Microbiology 12/31 699 URINE ROUT: Legionella Antigen - COMP 12/31 699 URINE ROUT: Streptococcus pneumoniae Antigen (M - COMP 07/02 1831 LOWER RESP: Respiratory Culture - CAN Cancelled: SPECIMEN NOT RECEIVED IN LABORATORY 12/30 183 LOWER RESP: Gram Stain - CAN Cancelled: SPECIMEN NOT RECEIVED IN LABORATORY 12/30 1446 BLOOD: Blood Culture - RES 12/30 142 BLOOD: Blood Culture - RES Vital Signs Date Time Temp Pulse Resp B/P B/P Pulse O2 O2 Flow FiO2 Mean Ox Delivery Rate 01/01 1529 98.2 78 20 160/70 96 01/01 0800 Nasal 2.0L Cannula 01/01 0620 98.4 83 20 132/70 98 Nasal Cannula 01/01 0000 96 Nasal 2.0L Cannula 12/31 2234 98.1 81 22 158/78 96 12/31 2020 95 Nasal 2.0L Cannula 12/31 1600 92 Nasal 2.0L Cannula
[2018-01-01 21:56] VITALS: BP 160/80
[2018-01-02 06:39] VITALS: BP 172/74
--- NOTE | 2018-01-02 07:55 | PN- Att Addend ---
Attending Addendum Attending Brief Note Mrs. Kelley was interviewed and examined. Her EMR was reviewed. She states she is feeling better states she is approximately 70% recovered to her baseline. She denies fever, chills, and productive cough. She denies chest pressure, palpitations, and orthopnea. She denies nausea, vomiting, and diarrhea. She still notes some SOTELO and occasional wheezes. She is afebrile. Heart and respiratory rates are stable. Systolic blood pressure is normally elevated this morning. SaO2 is 99 on 1 L via nasal cannula She is in no acute distress. Chest exam reveals decreased breath sounds with good air exchange and no rales, rhonchi, or wheezes. Heart exam reveals regular rate and rhythm. Extremities are without edema. WBC is 12,700 and she is mildly anemic today with a stable platelet count. Electrolytes and renal function are satisfactory. Blood cultures remain negative. Mrs. Kelley is slowly improving from her AECOPD/acute on chronic respiratory failure. We should discontinue her IV steroids and start her on a slow p.o. prednisone taper. We should discontinue her antibiotics she has shown no evidence of acute bacterial infection. We should continue to taper her oxygen with saturations in the mid 90s being acceptable. We should increase her activity. We should also advise Dr. Romero of her presence should he want to see her.
--- NOTE | 2018-01-02 08:54 | PN- Housestaff ---
Subjective Follow-up For: COPD exacerbation Subjective: Patient examined at bedside. No acute events overnight. Patient states that she is feeling better, however she still coughing. Denies fever/chills/night sweats/chest pain/abdominal pain/lower extremity edema. Review of Systems Constitutional: Reports: see HPI. Objective Last 24 Hrs of Vital Signs/I&O Vital Signs Date Time Temp Pulse Resp B/P B/P Pulse O2 O2 Flow FiO2 Mean Ox Delivery Rate 01/02 1346 98.2 78 20 130/80 99 / 0827 76 172/74 / 0800 99 Nasal 1.0L Cannula 01/02 0639 97.8 76 20 172/74 99 Nasal 1.0L Cannula 01/02 0000 95 Nasal 1.0L Cannula 01/01 2156 98.2 84 20 160/80 94 01/01 2024 96 Nasal 1.0L Cannula 01/01 1600 Nasal 1.0L Cannula Intake & Output 01/02 1600 01/02 0800 07 0000 Intake Total 360 400 Output Total Balance 360 400 Intake, Oral 360 400 Physical Exam General Appearance: Alert, Oriented X3, Cooperative, No Acute Distress Skin Temp/Moisture Exam: Warm/Dry Lungs: wheeze LLL, diminshed in all cooper Abdomen: Soft, No Tenderness Neurological: Normal Speech, Sensation Intact Extremities: No Edema Current Medications: Current Medications Sig/Keith Start time Last Medication Dose Route Stop Time Status Admin Albuterol Sulfate 2 PUF Q4 HRS NEEDED PRN 12/31 1945 AC 01/02 INH 1158 Albuterol Sulfate 2.5 ML EVERY 4 HRS/AWAKE 12/31 1999 AC INH Alendronate Sodium 70 MG We@0701/01 07 AC 01/01 PO 0604 Aspirin Buffered 81 MG DAILY 12/31 09 AC 01/02 PO 0827 Atorvastatin Calcium 20 MG 1700 / 1700 AC 01/01 PO 1753 Azithromycin 500 MG DAILY 12/30 1845 DC 01/01 Sodium Chloride 250 ML IV 0932 Cholecalciferol 1,000 IU DAILY 12/31 0900 AC 01/02 PO 1100 Enoxaparin Sodium 40 MG DAILY 12/31 0900 AC SC Famotidine 20 MG DAILY 12/31 1406 AC 01/02 PO 0827 Guaifenesin 600 MG Q12 12/30 2100 AC 01/02 PO 0827 Hydrocodone Bitart/ 1 TAB Q12P PRN 12/30 1830 AC Acetaminophen PO Lisinopril 40 MG DAILY 12/31 899 AC 01/02 PO 0827 Methylprednisolone 40 MG Q12 01/01 900 DC 01/01 IV 2016 Prednisone 60 MG DAILY 01/02 900 AC 01/02 PO 01/03 0901 0956 Assessment/Plan Assessment: This is a 72-year-old female PMH COPD, RML nodule, Osteoporosis, HTN, HLD, Esophageal dysmotility being treated for COPD exacerbation, improved from admission. #COPD Exacerbation -Stop azithro today -Inhaler PRNpatient prefers over nebulizer. -Supportive Oxygenwill switch off oxygen and see how she does today at rest monitoring oxygen saturation and respiratory compromise. Home dose is 1 L at night only. -IV Steroid taperswitch to 60 mg prednisone p.o. with the taper -Legionella and strep pneumo antigens negative. Blood cultures with no growth currently. -TRC -CTA neg -Pulmonary consult appreciated. Will follow Recs. #HTN -C/w Home meds DVT PPx Full Code Dispo Problem List: 1. Chronic obstructive pulmonary disease Pain Ratin Pain Location: NA Pain Goal: Remain pain free Pain Plan: As needed Tomorrow's Labs & Rationales: None
--- NOTE | 2018-01-02 13:09 | Cons- Pulmonary ---
General Information and HPI Consulting Request Date of Consult: 01/02/18 Requested By: med team History of Present Illness: 71 year old woman from home, former smoker, pmh significant for severe COPD ( bullous emphysema), previously on chronic prednisone 10mg daily, Right middle lobe 0.5cm nodule, osteoporosis with previous multiple compression fractures, HTN, HLD, chronic esophageal dysmotility/dysphagia, HTN, presented to ED with worsening shortness of breath. She was at her baseline about one week ago which was just on 1LNC at night and independant with IADLs until about a week ago,she endorses some nasal congestion associated with minimal yellowish/greenish sputum production. She reports a recent trip to [place]. She flew there and drove back 10 hrs. Denies fevers, chills, palpitations, chest pain, bowel/bladder symptoms. Allergies/Medications Allergies: Coded Allergies: Penicillins (RASH, HIVES 11/06/17) Home Med List: Albuterol Sulfate (Ventolin Hfa) 90 MCG HFA.AER.AD 2 PUF INH PRN COPD ( Reported) Albuterol Sulfate 2.5 MG/3 ML (0.083 %) VIAL.NEB 1 Vial INH/TORI PRN COPD ( Reported) Alendronate Sodium (Fosamax) 70 MG TABLET 1 TAB PO QW BONE (Reported) in the morning, at least 30 minutes before the first food, beverage, or medication of the day Aspirin (Ecotrin*) 81 MG TABLET.DR 1 TAB PO DAILY HEART/BLOOD (Reported) Atorvastatin Calcium 20 MG TABLET 1 TAB PO DAILY CHOLESTEROL (Reported) Azithromycin 250 MG TABLET 1 TAB PO Saturday ABX (Reported) 2 the first day followed by 1 for days 2-5 Cholecalciferol (Vitamin D3) 1,000 UNIT TABLET 1 TAB PO DAILY SUPPLEMENT ( Reported) Fluticasone/Salmeterol (Advair 250-50 Diskus) 250 MCG-50 MCG/DOSE BLST.W.DEV 1 PUF INH BID COPD (Reported) Hydrocodone/Acetaminophen (Hydrocodon-Acetaminophen 5-325) 5 MG-325 MG TABLET 1 TAB PO PRN PAIN (Reported) Lisinopril 40 MG TABLET 1 TAB PO DAILY HEART (Reported) Prednisone 10 MG TABLET 1 TAB PO PRN STEROID (Reported) Tiotropium [place] (Spiriva) 18 MCG CAP.W.DEV 1 CAP INH DAILY COPD (Reported) Ubidecarenone (Co Q-10) 200 MG CAPSULE 1 CAP PO DAILY SUPPLEMENT (Reported) Vit C/E/Zn/Coppr/Lutein/Zeaxan (Preservision Areds 2 Softgel) 250-200-40 CAPSULE 1 TAB PO BID SUPPLEMENT (Reported) Review of Systems Review of Systems Constitutional: Reports: see HPI. Past History Travel History Traveled to [place] past 21 day No Medical History Blood Transfusion Hx: No Neurological: NONE EENT: cataracts, macular degeneration Cardiovascular: hypertension, myocardial infarction, UNSURE OF CHF? 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 self Services at Home: None Primary Language: Chinese Smoking Status: Former Smoker ETOH Use: denies use Illicit Drug Use: denies illicit drug use Living Will? no Functional Ability ADLs Independent: dressing, eating, toileting, bathing. Ambulation: independent IADLs Independent: shopping, housework, finances, food prep, telephone, transportation , medication admin. Exam & Diagnostic Data Last 24 Hrs of Vital Signs/I&O Vital Signs Date Time Temp Pulse Resp B/P B/P Pulse O2 O2 Flow FiO2 Mean Ox Delivery Rate 01/02 827 76 172/74 01/02 0800 99 Nasal 1.0L Cannula 01/02 0639 97.8 76 20 172/74 99 Nasal 1.0L Cannula 01/02 0000 95 Nasal 1.0L Cannula 01/01 2156 98.2 84 20 160/80 94 01/02 2024 96 Nasal 1.0L Cannula 01/01 1600 Nasal 1.0L Cannula 01/01 1529 98.2 78 20 160/70 96 Intake & Output 01/02 1600 01/02 0800 07/ 0000 Intake Total 360 400 Output Total Balance 360 400 Intake, Oral 360 400 Last 48 Hrs of Labs/Morgan: noted Assessment/Plan Impression/Plan: General Appearance Alert, Oriented X3, Cooperative, No Acute Distress HEENT Atraumatic, PERRLA, dry mucus membranes Neck No JVD Lymphatic Cervical nl Cardiovascular Normal S1, Normal S2 Lungs b/l exp rhonchi and scattered wheezes with b/l decreased breath sounds. Abdomen Normal Bowel Sounds, Soft, No Tenderness Extremities No Edema EKG Results sinus tachy CXR Results IMPRESSION: 1. Obstructive lung disease. 2. Bibasilar reticular opacities noted, most consistent with atelectasis. If patient's symptoms do not improve, repeat radiograph is recommended to exclude an evolving pneumonia. Other Results CT chest IMPRESSION: No evidence of PE. No evidence of aortic dissection or aneurysm. Diffuse emphysema with significant bullous disease. No acute pneumonic consolidation, mass upper nodule. No abnormal mediastinal adenopathy seen. New compression fractures T9 and T10 vertebra. Old compression fractures T4, T5 and T6 vertebra with kyphoplasty. There are old compression deformities T7 and T8 vertebra. Degenerative disc changes as discussed above. VTE: negative IMPRESSION This is a lady with very severe COPD with bullous emphysema, osteoporosis with previous multiple compression fractures, hypertension, hyperlipidemia, chronic esophageal dysmotility/dysphagia, now comes in with * She has very severe COPD with acute COPD exacerbation, no pna or PE. 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 * Probable esophageal dysmotility * Hiatal hernia * Previous Rt middle low 0.5 cm nodule in the past with no evidence of nodules at this time in the ct and patient is not a candidate for any thoracic intervention due to severe copd /Previous lung nodules which seems to have resolved * Other med issues include HTN, GERD, osteoporsis, macular degeration stable REC Nebs atc and prn Stable now off abx and no clear evidence of bacterial bronchitis PO prednisone and taper Resume qod azitro 250 upon dc for copd exacerbation prophylaxis Incrase ambulation Will dc soon in a day or so Consult Acknowledgment - Thank you for your consult request.
[2018-01-02 13:46] VITALS: BP 130/80
[2018-01-02] MEDS ORDERED: AZITHROMYCIN250 M1 PO (15:38)
[2018-01-02] MEDS ORDERED: PREDNISONE10 M2 PO (15:38)
[2018-01-02 22:14] VITALS: BP 156/90
[2018-01-03 06:20] VITALS: BP 140/74
--- NOTE | 2018-01-03 07:44 | Patient Discharge Instructions ---
Discharge Instructions General Discharge Information Special Instructions: - Please continue your prednisone taper as prescribed. - Please follow up with your primary care physician within 1-2 weeks of discharge. Inform your primary care physician of this admission to [facility]. - Continue your current medications per discharge instructions. - Please watch for these problems: Fever, Chills, Nausea, Vomiting, Shortness of Breath, Productive Cough, Chest Pain/Discomfort, Abdominal Pain, Active Bleeding or Bloody urine/stool. Diet Continue normal diet: Yes Activity Full Activity/No Limits: Yes Acute Coronary Syndrome Inclusion Criteria At DC or during hospital stay patient has or had the following: ACS DIAGNOSIS No Discharge Core Measures Meds if any: Prescribed or Continued at Discharge Meds if any: NOT Prescribed or Continued at Discharge Congestive Heart Failure Inclusion Criteria At MA or during hospital stay patient has or had the following: CHF DIAGNOSIS No Discharge Core Measures Meds if any: Prescribed or Continued at Discharge Meds if any: NOT Prescribed or Continued at Discharge Cerebrovascular accident Inclusion Criteria At DC or during hospital stay patient has or had the following: CVA/TIA Diagnosis No Discharge Core Measures Meds if any: Prescribed or Continued at Discharge Meds if any: NOT Prescribed or Continued at Discharge Venous thromboembolism Inclusion Criteria VTE Diagnosis No VTE Type NONE VTE Confirmed by (Test) NONE Discharge Core Measures - Per Current guidelines, there needs to be overlap - treatment for the first 5 days of Warfarin therapy. - If discharged on Warfarin prior to 5 days of - overlap therapy, the patient will need to be - assessed for post discharge needs including - *Post discharge parental anticoagulation - *Warfarin and/or parental anticoagulation education - *Follow up date to check INR post discharge At least 5 days overlap therapy as Inpatient No Meds if any: Prescribed or Continued at Discharge Note: Overlap Therapy is Warfarin and Anticoagulant Meds if any: NOT Prescribed or Continued at Discharge
[2018-01-03] MEDS ORDERED: AZITHROMYCIN250 M1 PO ×2 (07:49→11:01)
--- NOTE | 2018-01-03 08:13 | PN- Housestaff ---
See Addendum Subjective Follow-up For: COPD exacerbation Subjective: She examined at bedside. No acute events overnight. Was tapered down to room air oxygen during daytime, and 1 L at nighttime which is her normal home dose. Patient states she feels significantly better, states that she was coughing up several mucous plugs yesterday, states that she feels ready to be discharged. Review of Systems Constitutional: Reports: see HPI. Objective Last 24 Hrs of Vital Signs/I&O Vital Signs Date Time Temp Pulse Resp B/P B/P Pulse O2 O2 Flow FiO2 Mean Ox Delivery Rate 01/03 0818 81 140/74 07/06 0620 97.7 81 18 140/74 96 Nasal Cannula 07/ 0000 96 Room Air 01/02 2214 97.9 85 18 156/90 96 Room Air 01/02 1837 93 Room Air 01/02 1600 94 Room Air 01/02 1346 98.2 78 20 130/80 99 Intake & Output 01/03 1600 /06 0800 07/ 0000 Intake Total 180 200 Output Total Balance 180 200 Intake, Oral 180 200 Physical Exam General Appearance: Alert, Oriented X3, Cooperative, No Acute Distress Skin: No Rashes, No Breakdown Skin Temp/Moisture Exam: Warm/Dry Cardiovascular: Regular Rate, Normal S1, Normal S2 Lungs: diminished in all cooper Abdomen: Soft, No Tenderness Neurological: Sensation Intact Extremities: No Edema Assessment/Plan Assessment: This is a 72-year-old female PMH COPD, RML nodule, Osteoporosis, HTN, HLD, Esophageal dysmotility being treated for COPD exacerbation, improved from admission. #COPD Exacerbation -Azithromycin has been stopped. Patient will resume outpatient azithromycin prophylaxis upon discharge. -Inhaler PRNpatient prefers over nebulizer. -Supportive Oxygentolerated room air very well yesterday. Has resumed her 1 L at night home dose. -Steroidspatient is now on p.o. steroids, is tapering down. -Legionella and strep pneumo antigens negative. Blood cultures with no growth. -TRC -CTA neg -Pulmonary consult appreciated. Will follow Recs. #HTN -C/w Home meds DVT PPx Full Code Likely discharge today. Problem List: 1. Chronic obstructive pulmonary disease Pain Ratin Pain Location: NA Pain Goal: Remain pain free Pain Plan: As needed Tomorrow's Labs & Rationales: None Discharge Plan Discharge Disposition: home Stable for Discharge? Yes Anticipated Discharge (Day): today
--- NOTE | 2018-01-03 09:35 | PN- Pulmonary ---
Subjective HPI/Critical Care Issues: She examined at bedside. No acute events overnight. Was tapered down to room air oxygen during daytime, and 1 L at nighttime which is her normal home dose. Patient states she feels significantly better, states that she was coughing up several mucous plugs yesterday, states that she feels ready to be discharged. Review of Systems Constitutional: Reports: see HPI. Objective Current Medications: Current Medications Sig/Keith Start time Last Medication Dose Route Stop Time Status Admin Albuterol Sulfate 2 PUF Q4 HRS NEEDED PRN 12/31 1945 AC 01/03 INH 0819 Albuterol Sulfate 2.5 ML EVERY 4 HRS/AWAKE 12/31 1999 DC INH Alendronate Sodium 70 MG We@0700 01/01 0700 AC 01/01 PO 0604 Aspirin Buffered 81 MG DAILY 12/31 0900 AC 01/03 PO 0818 Atorvastatin Calcium 20 MG 1700 / 1700 AC 01/02 PO 1620 Cholecalciferol 1,000 IU DAILY 12/31 0900 AC 01/03 PO 0818 Enoxaparin Sodium 40 MG DAILY 12/31 0900 AC SC Famotidine 20 MG DAILY 12/31 1406 AC 01/03 PO 0818 Guaifenesin 600 MG Q12 12/30 2100 AC 01/03 PO 0818 Hydrocodone Bitart/ 1 TAB Q12P PRN 12/30 1830 AC Acetaminophen PO Lisinopril 40 MG DAILY 12/31 0900 AC 01/03 PO 0818 Prednisone 60 MG DAILY 01/02 0900 DC 01/03 PO / 0901 0818 Vital Signs & I&O Last 24 Hrs of Vitals and I&O: Vital Signs Date Time Temp Pulse Resp B/P B/P Pulse O2 O2 Flow FiO2 Mean Ox Delivery Rate 01/03 0818 81 140/74 / 0620 97.7 81 18 140/74 96 Nasal Cannula / 0000 96 Room Air / 2214 97.9 85 18 156/90 96 Room Air / 1837 93 Room Air / 1600 94 Room Air / 1346 98.2 78 20 130/80 99 Intake & Output 01/03 1600 07/06 0800 07/06 0000 Intake Total 180 200 Output Total Balance 180 200 Intake, Oral 180 200 Impression/Plan Impression/Plan Impression/Plan: General Appearance Alert, Oriented X3, Cooperative, No Acute Distress HEENT Atraumatic, PERRLA, dry mucus membranes Neck No JVD Lymphatic Cervical nl Cardiovascular Normal S1, Normal S2 Lungs b/l exp rhonchi and scattered wheezes with b/l decreased breath sounds. Abdomen Normal Bowel Sounds, Soft, No Tenderness Extremities No Edema EKG Results sinus tachy CXR Results IMPRESSION: 1. Obstructive lung disease. 2. Bibasilar reticular opacities noted, most consistent with atelectasis. If patient's symptoms do not improve, repeat radiograph is recommended to exclude an evolving pneumonia. Other Results CT chest IMPRESSION: No evidence of PE. No evidence of aortic dissection or aneurysm. Diffuse emphysema with significant bullous disease. No acute pneumonic consolidation, mass upper nodule. No abnormal mediastinal adenopathy seen. New compression fractures T9 and T10 vertebra. Old compression fractures T4, T5 and T6 vertebra with kyphoplasty. There are old compression deformities T7 and T8 vertebra. Degenerative disc changes as discussed above. VTE: negative IMPRESSION This is a lady with very severe COPD with bullous emphysema, osteoporosis with previous multiple compression fractures, hypertension, hyperlipidemia, chronic esophageal dysmotility/dysphagia, now comes in with * She has very severe COPD with acute COPD exacerbation, no pna or PE. 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 * Probable esophageal dysmotility * Hiatal hernia * Previous Rt middle low 0.5 cm nodule in the past with no evidence of nodules at this time in the ct and patient is not a candidate for any thoracic intervention due to severe copd /Previous lung nodules which seems to have resolved * Other med issues include HTN, GERD, osteoporsis, macular degeration stable REC Nebs atc and prn Stable now off abx and no clear evidence of bacterial bronchitis PO prednisone and taper slowly Resume qod azitro 250 upon dc for copd exacerbation prophylaxis Incrase ambulation and check oxygen sat Will dcd on oxygen at hs and if needed on ambulation
[2018-01-03] MEDS ORDERED: PREDNISONE10 M2 PO (11:01)
[2018-01-03 14:32] VITALS: BP 140/80
== END 2018-01-03 17:38 | DRG 190 ==
LOC: ERH 13:37 → ERHI 15:00 → 2NA 15:00 → ENRESERV 17:14 → ENTRNSPT 17:49 → EDTRNSPT 17:49 → EDTRNSPTSTS 17:54 → EDTRNSPT 17:54 → 2NA 18:56 → CMPTRNSPT 18:59 → ENPENDDIS 01-03 10:20 → ENTRNSPT 01-03 17:32 → 2NA 01-03 17:38 → EDTRNSPTSTS 01-03 17:44 → EDTRNSPT 01-03 17:44 → CMPTRNSPT 01-03 17:59
PROVIDERS: Emergency Medicine; Internal Medicine
DX: J44.1 Chronic obstructive pulmonary disease with (acute) exacerbation (principal); J96.21 Acute and chronic respiratory failure with hypoxia; R64 Cachexia; Z68.1 Body mass index [BMI] 19.9 or less, adult; I10 Essential (primary) hypertension; J44.0 Chronic obstructive pulmonary disease with (acute) lower respiratory infection; E78.5 Hyperlipidemia, unspecified; M81.0 Age-related osteoporosis without current pathological fracture; H35.30 Unspecified macular degeneration; K21.9 Gastro-esophageal reflux disease without esophagitis; Z87.310 Personal history of (healed) osteoporosis fracture; Z91.14 Patient's other noncompliance with medication regimen; Z99.81 Dependence on supplemental oxygen; J20.9 Acute bronchitis, unspecified; R13.10 Dysphagia, unspecified; K22.4 Dyskinesia of esophagus; R91.1 Solitary pulmonary nodule; Z88.0 Allergy status to penicillin; Z79.891 Long term (current) use of opiate analgesic; Z79.51 Long term (current) use of inhaled steroids; Z79.52 Long term (current) use of systemic steroids; H26.9 Unspecified cataract; I25.2 Old myocardial infarction; Z98.51 Tubal ligation status; K44.9 Diaphragmatic hernia without obstruction or gangrene; R00.0 Tachycardia, unspecified
CPT/HCPCS: 2NASP; 36592; 71045; 82436; 87040; 87070; 87449; 87450; 93005; 93010; 96374; J0456; J0696; J1650; J2920; J2930; J3490; J7040